=== PATIENT | male | born 1945 | race Caucasian/White ===

== ENCOUNTER → 2020-04-23 10:49 | Outpatient (BNVA) | payer MEDICARE, SELFPAY | PROVIDERS: Family Provider Internal Medicine; PCP Internal Medicine; Visit Provider Internal Medicine Cardiovascular Disease | DX: E78.2 Mixed hyperlipidemia (principal); I25.118 Atherosclerotic heart disease of native coronary artery with other forms of angina pectoris | CPT/HCPCS: 80061; 80076 ==

== ENCOUNTER 2020-05-07 07:49 | Outpatient (CLI) | payer MEDICARE, SELFPAY ==
--- NOTE | 2020-05-07 08:32 | NMCV_ITS ---
NM sukhjinder perf SPECT r/s* [id number] Elliot Lawton Age: 74 Gender: M : 1945 Exam Date: 05/07/2020 08:59 Ordering Phys: Freedom Martinez MD ([email or web address]) Technologist: ANIBAL Guevara Exam Location: [facility] Indications: SHORTNESS OF BREATH STRESS TEST Please [facility] IMAGE PROTOCOL Rest/Stress 1 Lexiscan Day Radiopharmaceutical Dose (mCi) Administration Site Administered by Rest: Tc-99m 10.9 IV ANIBAL Fiore Sestamibi Stress:Tc-99m 33.0 IV ANIBAL Fiore Sestamibi Rest: 07-May-2020 60 Discovery 630 Stress: 07-May-2020 30 Discovery 630 0.4mg Lexiscan. Supine position only as patient was unable to lay prone. SPECT RESULTS Technical Quality: Excellent Raw Data Analysis: Normal Image Corrections: No attenuation or motion correction applied Summed Stress Score: 0 Summed Rest Score: 0 Summed Difference Score: 0 PERFUSION FINDINGS Myocardial perfusion imaging revealing a small area of decreased tracer uptake in the inferior wall region, with no significant reversibility FUNCTIONAL RESULTS (calculated via Gated SPECT) Stress Image LV EF (%): 67 Stress EDV (mL):93 TID: 1.07 Stress ESV (mL):31 FUNCTIONAL FINDINGS: Segmental wall motion analysis revealing no gross wall motion abnormalities IMPRESSIONS 1. Myocardial perfusion imaging revealing a small area of slightly decreased persistent tracer uptake in the inferior wall region, suggestive of myocardial scarring versus attenuation artifact. 2. Normal LV ejection fraction of 67%. 3. LV wall motion analysis revealing no gross wall motion normalities. 4. Normal LV volume. No significant coronary ischemia, based on the above findings Dr Freedom Martinez MD FACC (Electronically Signed) Final Date: 10 May 2020 19:08 S
--- NOTE | 2020-05-07 08:32 | ECG_ITS ---
Test Date: 2020-05-07 Pat Name: Elliot Lawton Department: Room: Gender: Male Chronic Manager: Magnolia Sampson : 1945 Requested By: Freedom Martinez Order Number: [id number] Bennie MD: Freedom Martinez M.D. Interpretive Statements NAME OF STUDY: LEXISCAN SESTAMIBI STRESS TEST INDICATION: Chest Pain, PROCEDURE: At the baseline, the EKG revealed sinus bradycardia with a normal ST-T's. The baseline blood pressure was 119/67 mm Hg with a heart rate of 56 beats/min. Lexiscan was infused over a period of 20 seconds. A total of 0.4 milligrams of Lexiscan was infused. The stress phase was continued for a total of 5 minutes. Heart rate at the end of the stress phase was 67 with a blood pressure 130/53. The EKG at the peak infusion revealed no significant changes. Sestamibi was injected 20 seconds after the Lexiscan infusion. Blood pressure at the end of the recovery phase was 131/56 with a heart rate of 69 per minute. CONCLUSION: 1. No significant EKG changes with the LexiScan infusion 2. No LexiScan induced chest pain or cardiac arrhythmia 3. Normal blood pressure and heart rate response 4. Sestamibi/sestamibi perfusion scan pending; see separate report. Electronically Signed On 05-14-2020 0:40:51 CDT by Freedom Martinez M.D. [email or web address]
[2020-05-07 08:33] VITALS: BMI 33.0
[2020-05-07] MEDS: regadenoson 0.4 Mg/5 ml Syringe IVP (09:44)
[2020-05-07 09:46] VITALS: BP 124/58; PULSE 70
== END 2020-05-07 07:50 | disposition home or self-care (01) ==
PROVIDERS: PCP Internal Medicine; Visit Provider Internal Medicine Cardiovascular Disease
DX: R06.02 Shortness of breath (principal)
CPT/HCPCS: 78452; 93017; A9500; J2785

== ENCOUNTER → 2020-10-26 12:15 | Outpatient (BNVA) | payer MEDICARE, SELFPAY | PROVIDERS: PCP Internal Medicine; Visit Provider Internal Medicine Cardiovascular Disease | DX: E78.2 Mixed hyperlipidemia (principal) | CPT/HCPCS: 80061 ==

== ENCOUNTER → 2021-03-29 10:04 | Outpatient (BNVA) | payer MEDICARE, SELFPAY | PROVIDERS: PCP Internal Medicine; Visit Provider Internal Medicine Cardiovascular Disease | DX: E78.2 Mixed hyperlipidemia (principal) | CPT/HCPCS: 80061 ==

== ENCOUNTER 2021-05-12 12:21 | Outpatient (CLI) | payer MEDICARE, SELFPAY ==
[2021-05-12 13:10] LABS: Basophils # 0.1 10^3/uL (0.0-0.1); Basophils % 0.7 %; Eosinophils # 0.5 10^3/uL (0.0-0.8); Eosinophils % 5.2 %; Hematocrit 38.9 % (42.0-52.0); Hemoglobin 12.4 g/dL (11.7-16.6); Lymphocytes # 1.2 10^3/uL (0.8-4.8); Lymphocytes % 12.9 %; Mean Corpuscular HGB Conc 31.9 g/dL (30.0-36.0); Mean Corpuscular Hemoglobin 29.7 pg (28.0-34.0); Mean Corpuscular Volume 93.1 fL (80-94); Mean Platelet Volume 9.9 fL (7.4-10.4); Monocytes # 0.9 10^3/uL (0.2-0.9); Neutrophils # 6.66 10^3/uL (1.8-7.7); Neutrophils % 70.6 %; Nucleated Red Blood Cells % 0 %; Platelet Count 266 10^3/cmm (130-400); Positive C 1; Red Blood Count 4.18 10^6/uL (4.1-5.3); Red Cell Distribution Width 13.2 % (12.1-15.1); White Blood Count 9.4 10^3/uL (4.0-10.0)
[2021-05-12 13:43] LABS: NT Pro B Type Natriuretic Pept 114 pg/mL (0-450)
[2021-05-13 17:01] LABS: Alternaria Alternata (M6) Ige <0.10 kU/L; Alternaria Class 0; Bermuda Class 0; Bermuda Grass (G2) Ige <0.10 kU/L; Cat Dander (E1) Ige <0.10 kU/L; Cat Dander Class 0; Common Ragweed (Short) (W1) Ig <0.10 kU/L; D. Farinae Class 0; Dermatophagoides Class 0; Dermatophagoides Farinae (D2) <0.10 kU/L; Dermatophagoides Pteronyssinus <0.10 kU/L; Dog Dander (E5) Ige <0.10 kU/L; Dog Dander Class 0; Elm (T8) Ige <0.10 kU/L; Elm Class 0; English Plantain (W9) Ige <0.10 kU/L; English Plantain Class 0; House Dust (Greer) (H1) Ige <0.10 kU/L; House Dust (Hollister- Stier) <0.10 kU/L; House Dust Class 0; Immunoglobulin E 29 kU/L (<OR=114); Immunoglobulin E 30 kU/L (<OR=114); Johnson Grass (G10) Ige <0.10 kU/L; Johnson Grass Cl 0; June Grass Class 0; June Grass(Kentucky Blue) (G8) <0.10 kU/L; Lamb'S Quarters (Goose Foot) <0.10 kU/L; Lamb'S Quarters Class 0; Maple (Box Elder) (T1) Ige <0.10 kU/L; Maple Class 0; Meadow Fescue (G4) Ige <0.10 kU/L; Meadow Fescue Class 0; Mucor Racemosus Class 0; Oak (T7) Ige <0.10 kU/L; Oak Class 0; Orchard Grass (Cocksfoot) (G3) <0.10 kU/L; Penicillium Class 0; Penicillium Notatum (M1) Ige <0.10 kU/L; Perennial Rye Grass (G5) Ige <0.10 kU/L; Perennial Rye Grass Class 0; Ragweeed Class 0; Rough Marsh Elder (W16) Ige <0.10 kU/L; Rough Marsh Elder Class 0; Sweet Vernal Class 0; Sweet Vernal Grass (G1) Ige <0.10 kU/L; Timothy Grass (G6) Ige <0.10 kU/L; Timothy Grass Class 0
[2021-05-14 19:42] LABS: Aspergillus Fumigatus, Igg Ab, 23.6 mg/L (<=102)
== END 2021-05-12 12:22 | disposition home or self-care (01) ==
PROVIDERS: PCP Internal Medicine; Visit Provider Internal Medicine Pulmonary Disease
DX: R06.02 Shortness of breath (principal)
CPT/HCPCS: 36415; 82785; 83880; 85025; 86003

== ENCOUNTER 2021-07-06 09:52 | Outpatient (CLI) | payer MEDICARE, SELFPAY ==
[2021-07-06 12:05] LABS: Erythrocyte Sedimentation Rate 33 mm/hr (0-10)
[2021-07-07 14:12] LABS: Cyclic Citrullinated Peptide <16 UNITS
[2021-07-07 14:57] LABS: Anti-Double Strand DNA AB <1 IU/mL; Smith Antibody <1.0 NEG AI (<1.0 NEG)
[2021-07-07 14:58] LABS: JO-1 Antibody <1.0 NEG AI (<1.0 NEG); SS A Ro Sjogrens Antibody <1.0 NEG AI (<1.0 NEG); SS-B/LA IGG <1.0 NEG AI (<1.0 NEG); Sm/RNP Antibody <1.0 NEG AI (<1.0 NEG)
[2021-07-07 16:23] LABS: Anti-Nuclear Antibody Screen NEGATIVE (NEGATIVE)
== END 2021-07-06 09:53 | disposition home or self-care (01) ==
PROVIDERS: PCP Internal Medicine; Visit Provider Internal Medicine Pulmonary Disease
DX: J98.4 Other disorders of lung (principal)
CPT/HCPCS: 85651; 86038; 86140; 86225; 86235; 86431

== ENCOUNTER 2021-07-19 14:32 | Outpatient (CLI) | payer MEDICARE, SELFPAY ==
--- NOTE | 2021-07-19 15:00 | CT_ITS ---
WS: [id number] CT scan of the chest without IV contrast, additional two-dimensional coronal and sagittal reconstruct ion was performed. 07/19/2021 Clinical Data: To rule out Interstitial lung disease Comparison: Chest, 04/21/2021 DLP: 711.[address] scans at [facility] use at least one of these dose optimization techniques: automated e xposure control; mA and/or kV adjustment per patient size (includes targeted exams where dose is matc hed to clinical indication); or iterative reconstruction. Findings: No nodules, masses or effusions are seen. The heart size is normal with a small pericardial effusion. No pneumonia or pneumothorax is seen. No interstitial lung change is present. There is coronary louis ry calcification. The pulmonary arterial system and thoracic aorta demonstrate no abnormalities or di latations. The trachea bifurcates normally into the bronchi. There is no axillary or significant medi astinal adenopathy. The upper abdomen demonstrates a gallstone. 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 CT/CT chest wo con [id number] Impression: 1. Small pericardial effusion. 2. Coronary artery calcification aeration. 3. Negative for interstitial lung thickening. 4. Gallstone.
== END 2021-07-19 14:33 | disposition home or self-care (01) ==
PROVIDERS: PCP Internal Medicine; Visit Provider Internal Medicine Pulmonary Disease
DX: J98.4 Other disorders of lung (principal); I31.3 Pericardial effusion (noninflammatory); I25.10 Atherosclerotic heart disease of native coronary artery without angina pectoris; K80.80 Other cholelithiasis without obstruction
CPT/HCPCS: 71250

== ENCOUNTER → 2021-08-11 13:16 | Outpatient (BNVA) | payer MEDICARE, SELFPAY | PROVIDERS: PCP Internal Medicine; Visit Provider Internal Medicine Pulmonary Disease | DX: Z01.812 Encounter for preprocedural laboratory examination (principal); Z20.822 Contact with and (suspected) exposure to COVID-19 | CPT/HCPCS: 87635 ==

== ENCOUNTER 2021-08-17 13:47 | Outpatient (CLI) | payer MEDICARE, SELFPAY ==
--- NOTE | 2021-08-17 14:26 | PFTS_ITS ---
Date of Study:08/17/21 Date of Dictation: MECHANICS: Forced vital capacity (FVC) is normal. Forced expiratory volume in one second (FEV1) is reduced. FEV1/FVC is reduced. FLOW VOLUME LOOP: Reduced flow at all lung volumes with scooping. LUNG VOLUMES: Total lung capacity (TLC) is normal. Residual volume (RV) is increased. DIFFUSING CAPACITY FOR CARBON MONOXIDE: Mild reduced. INTERPRETATION: The pulmonary function tests are consistent with moderate airflow obstruction. There is no significant postbronchodilator response. There is evidence of paradoxical bronchospasm during postbronchodilator spirometry however this had not reached status tickle significance. Lung volumes are consistent with air trapping. Gas exchange (DLCO) is mildly reduced. MTDD
== END 2021-08-17 13:48 | disposition home or self-care (01) ==
LOC: RT 13:52
PROVIDERS: PCP Internal Medicine; Visit Provider Internal Medicine Pulmonary Disease
DX: J98.4 Other disorders of lung (principal)
CPT/HCPCS: 94060; 94726; 94729

== ENCOUNTER 2021-08-26 15:32 | Emergency (ER) | payer MEDICARE, SELFPAY ==
[2021-08-26 15:36] VITALS: BP 89/55; PULSE 78; RESP 16; TEMP 36.4; O2SAT 100; BMI 31.8
[2021-08-26 15:54] VITALS: BP 94/47; PULSE 67; RESP 10; TEMP 36.5; O2SAT 97
--- NOTE | 2021-08-26 15:57 | PC.NURSE ---
Pt arrived via POV from eye clinic with . states pt was at his eye appt when staff noticed his gaze change, pt then became unresponsive while staff asking questions. Per staff at clinic pt had a LOC for approximately 30 seconds, with pt having 1 emesis episode after. Pt denies any pain, reports a slight LUTZ on arrival to ER but not currently. Pt A/O x 4, vss, pt placed on monitor.
--- NOTE | 2021-08-26 16:02 | XR_ITS ---
WS: [id number] Portable AP upright chest, 08/26/2021 Clinical Data: syncope Comparison: PA and lateral chest, 04/21/2021. Findings: No nodules, masses or effusions are seen. The heart is normal. The pulmonary vascularity is not increased. No pneumonia or pneumothorax is seen. Monitor leads are on the chest wall. XR/XR chest 1V portable [id number] Impression: Negative chest.
--- NOTE | 2021-08-26 16:02 | CTR_ITS ---
PROCEDURE INFORMATION: Exam: CT Head Without Contrast Exam date and time: 08/26/2021 4:02 PM Age: 75 years old Clinical indication: Syncope and collapse TECHNIQUE: Imaging protocol: Computed tomography of the head without contrast. Total images: 212 Radiation optimization: All CT scans at this facility use at least one of these dose optimization techniques: automated exposure control; mA and/or kV adjustment per patient size (includes targeted exams where dose is matched to clinical indication); or iterative reconstruction. COMPARISON: CT head wo con* [id number] 01/09/2019 4:33 PM RADIATION DOSE METRICS: Total DLP (mGy-cm): 972.24 FINDINGS: Brain: No evidence of active or acute intracranial pathologic process, hemorrhage, or trauma. No visible evidence of diffuse cerebral edema or generalized demyelination. No hyperdense MCA or insular ribbon sign. No mass effect. No midline shift. Atrophic changes not inconsistent with the patient's chronological age. Mild cerebral arteriosclerosis. Cerebral ventricles: No ventriculomegaly. Paranasal sinuses: Visualized sinuses are unremarkable. No fluid levels. Mastoid air cells: Visualized mastoid air cells are well aerated. Bones/joints: Unremarkable. No acute fracture. Soft tissues: Unremarkable. CT/CT head wo con* [id number] IMPRESSION: No evidence of active or acute intracranial pathologic process, hemorrhage, or trauma. Radiation Dose CTDIVOL = (mGy): DLP = 972.24 (mGy-cm)
--- NOTE | 2021-08-26 16:02 | ECG_ITS ---
[facility] Test Date: 2021-08-26 Pat Name: Elliot Lawton Department: Room: Gender: Male Invasive Manager: : 1945 Requested By: Anders Scott Order Number: [id number] Bennie MD: Freedom Martinez M.D. Measurements Intervals Cameron Rate: 66 P: 9 IL: 168 QRS: 34 QRSD: 98 T: 40 QT: 394 QTc: 416 Interpretive Statements SINUS RHYTHM Compared to ECG 01/09/2019 15:33:36 No significant changes Electronically Signed On 08-26-2021 22:45:58 LUDLOW MACHINE OPERATOR by Freedom Martinez M.D. [id number]
--- NOTE | 2021-08-26 16:03 | W.ED.SYNCOPE ---
Documented by User: Anders Scott MD 08/26/21 18:09 HPI - Syncope General: Chief Complaint: Syncope Stated Complaint: Vomiting & Unresponsive at dr Gatica office Time Seen by Provider: 08/26/21 15:56 History of Present Illness: HPI narrative: 75-year-old male with history of diabetes and hypertension presents due to syncopal episode while at the eye doctor. According to staff he became unconscious for approximately 30 seconds. This was while sitting down. He did not complain of any pain. When he woke up did not realize that he had passed out. Denies any focal pain. Denies any focal numbness weakness or tingling. Denies vision or hearing change. States that recently his diabetes medications were changed blood sugar upon arrival was in the 200s. States he normally has high blood pressure and take blood pressure medication but blood pressure upon arrival was 89/55. Review of Systems Narrative: - CONSTITUTIONAL: Denies weight loss, fever and chills. - HEENT: Denies changes in vision and hearing. - RESPIRATORY: Denies SOB and cough. - CV: Denies palpitations and CP. - GI: Denies abdominal pain, nausea, vomiting and diarrhea. - : Denies dysuria and urinary frequency. - MSK: Denies myalgia and joint pain. - SKIN: Denies rash and pruritus. - NEUROLOGICAL: Denies headache, weakness, numbness. 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 No acute distress. Well-nourished. - EYES: EOMI. Anicteric. - HENT: Atraumatic, no C-spine tenderness. Moist mucous membranes. No scleral icterus. No cervical lymphadenopathy. - LUNGS: Clear to auscultation bilaterally. No accessory muscle use. Equal lung sounds bilaterally. No respiratory distress. - CARDIOVASCULAR: Regular rate and rhythm. No murmur. No JVD. - ABDOMEN: Soft, non-tender and non-distended. Negative CVA tenderness bilaterally, no rebound or guarding, negative Licona sign. No palpable masses. - EXTREMITIES: No edema. Non-tender. - SKIN: No rashes or lesions. Warm. - NEUROLOGIC: No meningismus or focal neurological deficits. CN II-XII grossly intact. - PSYCHIATRIC: Cooperative. Appropriate mood and affect. Course Vital Signs: Vital signs: Vital Signs Temperature 97.7 F 08/26/21 15:54 Pulse Rate 67 08/26/21 15:54 Respiratory Rate 10 L 08/26/21 15:54 Blood Pressure 94/47 08/26/21 15:54 Pulse Oximetry 97 08/26/21 15:54 MDM - Syncope MDM Narrative: Medical decision making narrative: 75-year-old male presents with syncopal episode while at the responder office. Normally has high blood pressure but blood pressure upon arrival is in the 80s over 50s. Improved with gentle fluid hydration. EKG does not send acute ischemia or other acute abnormality but initial high-sensitivity troponin is elevated to 60s. Creatinine is elevated 1.5. No previous troponins are available for comparison. Second troponin is pending. Patient denies any chest pain or shortness of breath however. However due to low blood pressure initially despite history of hypertension however this improved with IV fluids. This time he continues to be asymptomatic. Second troponin is currently pending. Patient signed out to Dr. Painter. Lab Data: Labs: Lab Results 08/26/21 08/26/21 08/26/21 15:46 15:46 15:46 WBC 8.2 10^3/uL 10^3/ uL (4.0-10.0) RBC 4.16 10^6/uL 10^6 /uL (4.1-5.3) Hgb 12.2 g/dL g/dL (11.7-16.6) Hct 37.9 % L % (42.0-52.0) MCV 91.1 fl fl (80-94) MCH 29.3 pg pg (28.0-34.0) MCHC 32.2 g/dL g/dL (30.0-36.0) RDW 13.8 % % (12.1-15.1) Plt Count 255 10^3/cmm 10^3 /cmm (130-400) MPV 10.1 fL fL (7.4-10.4) Neut % (Auto) 73.0 % % Lymph % (Auto) 14.4 % % Garrett % (Auto) 9.3 % % Eos % (Auto) 2.0 % % Baso % (Auto) 0.6 % % Neut # (Auto) 5.97 10^3/uL 10^3 /uL (1.8-7.7) Lymph # (Auto) 1.2 10^3/uL 10^3/ uL (0.8-4.8) Garrett # (Auto) 0.8 10^3/uL 10^3/ uL (0.2-0.9) Eos # (Auto) 0.2 10^3/uL 10^3/ uL (0.0-0.8) Baso # (Auto) 0.1 10^3/uL 10^3/ uL (0.0-0.1) Nucleated RBC % (a uto) 0 % % Nucleated RBCs # 0.0 /100WBC /100W BC Sodium 132 mmol/L L mmol /L (136-145) Potassium 4.2 mmol/L mmol/L (3.5-5.1) Chloride 91 mmol/L L mmol/ L (98-107) Carbon Dioxide 23 mmol/L mmol/L (22-29) Anion Gap 22.2 H (5-19) BUN 21 mg/dL mg/dL (8-23) Creatinine 1.5 mg/dL H mg/dL (0.7-1.2) GFR Calculation Not Reportable Glucose 168 mg/dL H mg/dL (65-115) POC Glucose Calculated Osmolal ity 281 mOsm/kg L mOs m/kg (285-295) Calcium 9.6 mg/dL mg/dL (8.5-10.5) Total Bilirubin 0.4 mg/dL mg/dL (0.15-1.2) AST 16 U/L U/L (0-40) ALT 17 U/L U/L (0-41) Alkaline Phosphata se 93 IU/L IU/L (40-130) Troponin T Baselin e 63 ng/L H ng/L (0-15) Troponin T 120 Min lencho Delta Troponin T NT-Pro-B Natriuret Pep 109 pg/mL pg/mL (0-450) Total Protein 7.0 g/dL g/dL (6.6-8.7) Albumin 3.8 g/dL g/dL (3.5-5.2) Globulin 3.2 g/dL g/dL (1.3-4.6) TSH 4.31 uIU/mL H uIU /mL (0.27-4.20) Free T4 1.18 ng/dL ng/dL (0.82-1.77) Urine Color Urine Appearance Urine pH Ur Specific Gravit y Urine Protein Urine Glucose (UA) Urine Ketones Urine Blood Urine Nitrate Urine Bilirubin Urine Urobilinogen Ur Leukocyte Alfreda ase Urine RBC Urine WBC Ur Squamous Epith Cells Amorphous Sediment Urine Bacteria Urine Mucus 08/26/21 08/26/21 08/26/21 16:04 18:11 18:45 WBC RBC Hgb Hct MCV MCH MCHC RDW Plt Count MPV Neut % (Auto) Lymph % (Auto) Garrett % (Auto) Eos % (Auto) Baso % (Auto) Neut # (Auto) Lymph # (Auto) Garrett # (Auto) Eos # (Auto) Baso # (Auto) Nucleated RBC % (a uto) Nucleated RBCs # Sodium Potassium Chloride Carbon Dioxide Anion Gap BUN Creatinine GFR Calculation Glucose POC Glucose 209 mg/dL H mg/dL (70-110) Calculated Osmolal ity Calcium Total Bilirubin AST ALT Alkaline Phosphata se Troponin T Baselin e Troponin T 120 Min lencho 51.13 ng/L H ng/L (0-15) Delta Troponin T -11.87 ABS# L ABS # (0-10) NT-Pro-B Natriuret Pep Total Protein Albumin Globulin TSH Free T4 Urine Color Yellow (Yellow) Urine Appearance Cloudy (CLEAR) Urine pH 6.5 (5-7) Ur Specific Gravit y 1.005 (1.005-1.030) Urine Protein Neg (Negative) Urine Glucose (UA) 4+ H (Normal) Urine Ketones Negative (Negative) Urine Blood 2+ H (Negative) Urine Nitrate Negative (Negative) Urine Bilirubin Neg (Negative) Urine Urobilinogen Norm mg/dL mg/dL (Negative) Ur Leukocyte Alfreda ase 2+ H (Negative) Urine RBC 0-4 /hpf H /hpf (0-2) Urine WBC Too numerous to c nt /hpf H /hpf (0-5) Ur Squamous Epith Cells 5-10 /hpf H /hpf (0-5) Amorphous Sediment Not Reportable Urine Bacteria 2+ /hpf H /hpf (NONE) Urine Mucus 1+ /hpf /hpf EKG Data^: EKG 1: Other EKG Comments: Sinus rhythm, rate of 66, no sign of acute ischemia or other acute abnormality. Discharge Plan Discharge Patient Disposition: Home Clinical Impression: Syncope, Acute cystitis Condition: Stable Prescriptions: New cephalexin 500 mg capsule 500 mg PO TID 7 Days Qty: 21 RF: 0 No Action multivitamin Tablet 1 tab PO DAILY RF: 0 garlic 500 mg capsule 1,000 mg PO DAILY RF: 0 aspirin 325 mg tablet,delayed release (DR/EC) 325 mg PO DAILY RF: 0 metformin 1,000 mg tablet 1,000 mg PO BID RF: 0 pyridoxine (vitamin B6) 100 mg tablet 100 mg PO DAILY RF: 0 isosorbide mononitrate 60 mg tablet extended release 24 hr 60 mg PO BID RF: 0 cranberry 500 mg capsule 500 mg PO DAILY RF: 0 budesonide-formoterol [Symbicort] 80-4.5 mcg/actuation HFA aerosol inhaler 2 puff inhalation BID Qty: 10.2 RF: 3 chlorthalidone 25 mg tablet 25 mg PO DAILY RF: 0 metoprolol succinate [Toprol XL] 25 mg tablet extended release 24 hr 25 mg PO DAILY Qty: 90 RF: 3 nitroglycerin [Nitrostat] 0.4 mg tablet, sublingual 0.4 mg SUBLINGUAL Q5M PRN (Reason: chest pain) Qty: 50 RF: 5 gabapentin 600 mg tablet 600 mg PO TID RF: 0 Jardiance 10 mg tablet 10 mg PO QAM RF: 0 atorvastatin 80 mg tablet 80 mg PO DAILY RF: 0 clopidogrel 75 mg tablet 75 mg PO DAILY RF: 0 tamsulosin 0.4 mg capsule 0.4 mg PO QAM RF: 0 amlodipine 10 mg tablet 10 mg PO DAILY RF: 0 lisinopril 40 mg tablet 40 mg PO BEDTIME RF: 0 finasteride 5 mg tablet 5 mg PO DAILY RF: 0 Discharge Orders: Discharge ED (Routine); Ordered 08/26/21 Ordered By: Dulce Maria Painter Referrals: Hong Rangel DO [Primary Care Provider] - 1-3 days Discharge Diet: Advance as tolerated Discharge Activity: Resume usual activity Patient Instructions: Syncope (ED) Coding Level of Care Code ED Truck Driver Supervisor for Chg Fwd Documented by User: Dulce Maria Painter MD 08/26/21 19:51 HPI - Syncope General: Chief Complaint: Syncope Stated Complaint: Vomiting & Unresponsive at dr Gatica office Time Seen by Provider: 08/26/21 15:56 PFSH ED PFSH: Medical History 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 CAD (coronary artery disease) DDD (degenerative disc disease) Hyperlipidemia Hypertension Polyuria 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 stricture SOB (shortness of breath) Surgical History H/O laminectomy H/O rotator cuff surgery H/O vasectomy S/P cataract surgery Family History Mother Cancer Father Diabetes Brother Diabetes Family/Other Suicide Social History Quit status (tobacco): has quit using tobacco Former quit date comment: 1ppd x 3 years as teenager Second hand smoke exposure: Yes Alcohol intake: current Course Vital Signs: Vital signs: Vital Signs Temperature 97.7 F 08/26/21 15:54 Pulse Rate 67 08/26/21 15:54 Respiratory Rate 10 L 08/26/21 15:54 Blood Pressure 94/47 08/26/21 15:54 Pulse Oximetry 97 08/26/21 15:54 MDM - Syncope MDM Narrative: Medical decision making narrative: Patient presents with a syncopal event likely a vagal episode he feels improved blood pressure has been normal 2-hour troponin is normal he is stable for discharge he is to follow-up his PCP and return if worsening he understands agrees to plan. Lab Data: Labs: Lab Results 08/26/21 08/26/21 08/26/21 15:46 15:46 15:46 WBC 8.2 10^3/uL 10^3/ uL (4.0-10.0) RBC 4.16 10^6/uL 10^6 /uL (4.1-5.3) Hgb 12.2 g/dL g/dL (11.7-16.6) Hct 37.9 % L % (42.0-52.0) MCV 91.1 fl fl (80-94) MCH 29.3 pg pg (28.0-34.0) MCHC 32.2 g/dL g/dL (30.0-36.0) RDW 13.8 % % (12.1-15.1) Plt Count 255 10^3/cmm 10^3 /cmm (130-400) MPV 10.1 fL fL (7.4-10.4) Neut % (Auto) 73.0 % % Lymph % (Auto) 14.4 % % Garrett % (Auto) 9.3 % % Eos % (Auto) 2.0 % % Baso % (Auto) 0.6 % % Neut # (Auto) 5.97 10^3/uL 10^3 /uL (1.8-7.7) Lymph # (Auto) 1.2 10^3/uL 10^3/ uL (0.8-4.8) Garrett # (Auto) 0.8 10^3/uL 10^3/ uL (0.2-0.9) Eos # (Auto) 0.2 10^3/uL 10^3/ uL (0.0-0.8) Baso # (Auto) 0.1 10^3/uL 10^3/ uL (0.0-0.1) Nucleated RBC % (a uto) 0 % % Nucleated RBCs # 0.0 /100WBC /100W BC Sodium 132 mmol/L L mmol /L (136-145) Potassium 4.2 mmol/L mmol/L (3.5-5.1) Chloride 91 mmol/L L mmol/ L (98-107) Carbon Dioxide 23 mmol/L mmol/L (22-29) Anion Gap 22.2 H (5-19) BUN 21 mg/dL mg/dL (8-23) Creatinine 1.5 mg/dL H mg/dL (0.7-1.2) GFR Calculation Not Reportable Glucose 168 mg/dL H mg/dL (65-115) POC Glucose Calculated Osmolal ity 281 mOsm/kg L mOs m/kg (285-295) Calcium 9.6 mg/dL mg/dL (8.5-10.5) Total Bilirubin 0.4 mg/dL mg/dL (0.15-1.2) AST 16 U/L U/L (0-40) ALT 17 U/L U/L (0-41) Alkaline Phosphata se 93 IU/L IU/L (40-130) Troponin T Baselin e 63 ng/L H ng/L (0-15) Troponin T 120 Min lencho Delta Troponin T NT-Pro-B Natriuret Pep 109 pg/mL pg/mL (0-450) Total Protein 7.0 g/dL g/dL (6.6-8.7) Albumin 3.8 g/dL g/dL (3.5-5.2) Globulin 3.2 g/dL g/dL (1.3-4.6) TSH 4.31 uIU/mL H uIU /mL (0.27-4.20) Free T4 1.18 ng/dL ng/dL (0.82-1.77) Urine Color Urine Appearance Urine pH Ur Specific Gravit y Urine Protein Urine Glucose (UA) Urine Ketones Urine Blood Urine Nitrate Urine Bilirubin Urine Urobilinogen Ur Leukocyte Alfreda ase Urine RBC Urine WBC Ur Squamous Epith Cells Amorphous Sediment Urine Bacteria Urine Mucus 08/26/21 08/26/21 08/26/21 16:04 18:11 18:45 WBC RBC Hgb Hct MCV MCH MCHC RDW Plt Count MPV Neut % (Auto) Lymph % (Auto) Garrett % (Auto) Eos % (Auto) Baso % (Auto) Neut # (Auto) Lymph # (Auto) Garrett # (Auto) Eos # (Auto) Baso # (Auto) Nucleated RBC % (a uto) Nucleated RBCs # Sodium Potassium Chloride Carbon Dioxide Anion Gap BUN Creatinine GFR Calculation Glucose POC Glucose 209 mg/dL H mg/dL (70-110) Calculated Osmolal ity Calcium Total Bilirubin AST ALT Alkaline Phosphata se Troponin T Baselin e Troponin T 120 Min lencho 51.13 ng/L H ng/L (0-15) Delta Troponin T -11.87 ABS# L ABS # (0-10) NT-Pro-B Natriuret Pep Total Protein Albumin Globulin TSH Free T4 Urine Color Yellow (Yellow) Urine Appearance Cloudy (CLEAR) Urine pH 6.5 (5-7) Ur Specific Gravit y 1.005 (1.005-1.030) Urine Protein Neg (Negative) Urine Glucose (UA) 4+ H (Normal) Urine Ketones Negative (Negative) Urine Blood 2+ H (Negative) Urine Nitrate Negative (Negative) Urine Bilirubin Neg (Negative) Urine Urobilinogen Norm mg/dL mg/dL (Negative) Ur Leukocyte Alfreda ase 2+ H (Negative) Urine RBC 0-4 /hpf H /hpf (0-2) Urine WBC Too numerous to c nt /hpf H /hpf (0-5) Ur Squamous Epith Cells 5-10 /hpf H /hpf (0-5) Amorphous Sediment Not Reportable Urine Bacteria 2+ /hpf H /hpf (NONE) Urine Mucus 1+ /hpf /hpf Discharge Plan Discharge Patient Disposition: Home Clinical Impression: Syncope, Acute cystitis Condition: Stable Prescriptions: New cephalexin 500 mg capsule 500 mg PO TID 7 Days Qty: 21 RF: 0 No Action multivitamin Tablet 1 tab PO DAILY RF: 0 garlic 500 mg capsule 1,000 mg PO DAILY RF: 0 aspirin 325 mg tablet,delayed release (DR/EC) 325 mg PO DAILY RF: 0 metformin 1,000 mg tablet 1,000 mg PO BID RF: 0 pyridoxine (vitamin B6) 100 mg tablet 100 mg PO DAILY RF: 0 isosorbide mononitrate 60 mg tablet extended release 24 hr 60 mg PO BID RF: 0 cranberry 500 mg capsule 500 mg PO DAILY RF: 0 budesonide-formoterol [Symbicort] 80-4.5 mcg/actuation HFA aerosol inhaler 2 puff inhalation BID Qty: 10.2 RF: 3 chlorthalidone 25 mg tablet 25 mg PO DAILY RF: 0 metoprolol succinate [Toprol XL] 25 mg tablet extended release 24 hr 25 mg PO DAILY Qty: 90 RF: 3 nitroglycerin [Nitrostat] 0.4 mg tablet, sublingual 0.4 mg SUBLINGUAL Q5M PRN (Reason: chest pain) Qty: 50 RF: 5 gabapentin 600 mg tablet 600 mg PO TID RF: 0 Jardiance 10 mg tablet 10 mg PO QAM RF: 0 atorvastatin 80 mg tablet 80 mg PO DAILY RF: 0 clopidogrel 75 mg tablet 75 mg PO DAILY RF: 0 tamsulosin 0.4 mg capsule 0.4 mg PO QAM RF: 0 amlodipine 10 mg tablet 10 mg PO DAILY RF: 0 lisinopril 40 mg tablet 40 mg PO BEDTIME RF: 0 finasteride 5 mg tablet 5 mg PO DAILY RF: 0 Discharge Orders: Discharge ED (Routine); Ordered 08/26/21 Ordered By: Dulce Maria Painter Referrals: Hong Rangel DO [Primary Care Provider] - 1-3 days Discharge Diet: Advance as tolerated Discharge Activity: Resume usual activity Patient Instructions: Syncope (ED) Coding Level of Care Code ED Truck Driver Supervisor for Ignacio Gomez
[2021-08-26 16:08] LABS: Glucose Point of Care 209 mg/dL (70-110)
[2021-08-26 16:23] LABS: Basophils # 0.1 10^3/uL (0.0-0.1); Basophils % 0.6 %; Eosinophils # 0.2 10^3/uL (0.0-0.8); Hematocrit 37.9 % (42.0-52.0); Hemoglobin 12.2 g/dL (11.7-16.6); Lymphocytes # 1.2 10^3/uL (0.8-4.8); Lymphocytes % 14.4 %; Mean Corpuscular HGB Conc 32.2 g/dL (30.0-36.0); Mean Corpuscular Hemoglobin 29.3 pg (28.0-34.0); Mean Corpuscular Volume 91.1 fl (80-94); Mean Platelet Volume 10.1 fL (7.4-10.4); Monocytes # 0.8 10^3/uL (0.2-0.9); Monocytes % 9.3 %; Neutrophils # 5.97 10^3/uL (1.8-7.7); Nucleated Red Blood Cells % 0 %; Platelet Count 255 10^3/cmm (130-400); Red Blood Count 4.16 10^6/uL (4.1-5.3); Red Cell Distribution Width 13.8 % (12.1-15.1); White Blood Count 8.2 10^3/uL (4.0-10.0)
[2021-08-26 16:30] LABS: Troponin(5th) Baseline 63 ng/L (0-15)
[2021-08-26 16:40] LABS: Alanine Aminotransferase 17 U/L (0-41); Albumin Level 3.8 g/dL (3.5-5.2); Alkaline Phosphatase 93 IU/L (40-130); Anion Gap 22.2 (5-19); Aspartate Amino Transferase 16 U/L (0-40); Blood Urea Nitrogen 21 mg/dL (8-23); Calcium 9.6 mg/dL (8.5-10.5); Carbon Dioxide 23 mmol/L (22-29); Chloride 91 mmol/L (98-107); Free T4 Free Thyroxine 1.18 ng/dL (0.82-1.77); Globulin 3.2 g/dL (1.3-4.6); Glucose 168 mg/dL (65-115); NT Pro B Type Natriuretic Pept 109 pg/mL (0-450); Osmolality Calculated 281 mOsm/kg (285-295); Potassium 4.2 mmol/L (3.5-5.1); Sodium 132 mmol/L (136-145); Thyroid Stimulating Hormone 4.31 uIU/mL (0.27-4.20); Total Bilirubin 0.4 mg/dL (0.15-1.2)
[2021-08-26] MEDS: sodium chloride 0.9% 500 ML 999 ML IV (16:42)
[2021-08-26 18:46] LABS: Troponin 5 2HR 51.13 ng/L (0-15)
[2021-08-26 19:13] LABS: Protein Urine Neg (Negative); Specific Gravity, Urine 1.005 (1.005-1.030); Urine Appearance Cloudy (CLEAR); Urine Color Yellow (Yellow); pH Urine 6.5 (5-7)
[2021-08-26 19:14] LABS: Bilirubin Urine Neg (Negative); Blood Urine 2+ (Negative); Glucose Urine UA 4+ (Normal); Ketones Urine Negative (Negative); Leukocyte Esterase Urine 2+ (Negative); Nitrate Urine Negative (Negative); Urobilinogen Urine Norm (Negative)
[2021-08-26 19:15] LABS: RBC Urine 0-4 /hpf (0-2)
[2021-08-26 19:16] LABS: Bacteria Urine 2+ /hpf; Mucus Urine 1+ /hpf; WBC Urine TOO NUMEROUS TO CNT /hpf (0-5)
[2021-08-26 19:17] LABS: Add Urine Culture? Yes
== END 2021-08-26 19:57 | disposition home or self-care (01) ==
PROVIDERS: Emergency Medicine; Emergency Provider Emergency Medicine; PCP Internal Medicine
DX: R55 Syncope and collapse (principal); N30.00 Acute cystitis without hematuria; Z79.84 Long term (current) use of oral hypoglycemic drugs; Z79.02 Long term (current) use of antithrombotics/antiplatelets; Z79.82 Long term (current) use of aspirin; I25.10 Atherosclerotic heart disease of native coronary artery without angina pectoris; E78.5 Hyperlipidemia, unspecified; I10 Essential (primary) hypertension; Z87.891 Personal history of nicotine dependence
CPT/HCPCS: 36416; 70450; 71045; 80053; 81001; 82962; 83880; 84439; 84443; 84484; 85025; 87086; 93005; 99283; J7040

== ENCOUNTER → 2021-09-28 08:28 | Outpatient (BNVA) | payer MEDICARE, SELFPAY | PROVIDERS: PCP Internal Medicine; Visit Provider Internal Medicine Cardiovascular Disease | DX: E78.2 Mixed hyperlipidemia (principal) | CPT/HCPCS: 80061 ==

== ENCOUNTER → 2022-01-07 09:51 | Outpatient (BNVA) | payer MEDICARE, SELFPAY | PROVIDERS: PCP Internal Medicine; Visit Provider Internal Medicine Pulmonary Disease | DX: I25.10 Atherosclerotic heart disease of native coronary artery without angina pectoris (principal); I31.3 Pericardial effusion (noninflammatory); J44.9 Chronic obstructive pulmonary disease, unspecified; J98.4 Other disorders of lung; R06.00 Dyspnea, unspecified; E87.5 Hyperkalemia; I10 Essential (primary) hypertension; Z87.891 Personal history of nicotine dependence | CPT/HCPCS: 99214 ==

== ENCOUNTER 2022-01-19 12:15 | Outpatient (CLI) | payer MEDICARE, SELFPAY ==
--- NOTE | 2022-01-19 13:00 | USCV_ITS ---
Elliot Lawton Age: 76 Gender: M : 1945 Exam Date: 01/19/2022 12:30 Ordering Phys: Sumeet Dick MD Technologist: Exam [place] [facility] [place]: ? per eff BP: 130 / 76 HR: 65 Rhythm: Sinus Technical Quality: Adequate MEASUREMENTS (Male / Female) Normal Values 2D ECHO LV Diastolic Diameter PLAX 4.3 cm 4.2 - 5.9 / 3.9 - 5.3 cm LV Systolic Diameter PLAX 3.1 cm IVS Diastolic Thickness 1.2 cm 0.6 - 1.0 / 0.6 - 0.9 cm IVS Systolic Thickness 1.6 cm LVPW Diastolic Thickness 1.2 cm 0.6 - 1.0 / 0.6 - 0.9 cm LVPW Systolic Thickness 1.4 cm LVOT Diameter 2.1 cm LV Ejection Fraction 2D Teich 53.6 % LV Ejection Fraction MOD 2C 64.4 % LV Ejection Fraction 2C AL 63.2 % LA Diameter 4.3 cm Aorta at Sinotubular Diameter 3.0 cm M-MODE Aortic Annulus Diameter 2.7 cm LA Ao Ratio MM 1.9 MV E Point Septal Separation 1.0 cm DOPPLER AV Peak Velocity 120.0 cm/s LVOT Peak Velocity 93.0 cm/s AV Area Cont Eq vti 3.4 cm squared AV Area Cont Eq pk 2.7 cm squared MV Area PHT 5.0 cm squared Mitral E to A Ratio 0.8 MV E' Velocity 41.0 cm/s Mitral E to MV E' Ratio 13.1 Mitral E to LV E' Lateral Ratio 12.7 Mitral E to LV E' Septal Ratio 13.8 TR Peak Velocity 116.0 cm/s TR Peak Gradient 5.4 mmHg TV Peak E Velocity 71.0 cm/s Right Atrial Pressure 3.0 mmHg Pulmonary Artery Systolic Pressu 8.4 mmHg PV Peak Velocity 93.0 cm/s FINDINGS Left Ventricle Normal left ventricular size and systolic function, EF 60 %( visual). Mild left ventricular hypertrophy. Grade I/IV diastolic dysfunction (abnormal relaxation filling pattern), normal to mildly elevated filling pressures. Hypokinetic basal inferior wall segment Right Ventricle The right ventricle is normal in size and function. Right Atrium The right atrium is normal in size. Left Atrium The left atrium is normal in size. Mitral Valve Thickened mitral valve. Mild mitral annular calcification. Aortic Valve Thickened aortic valve. Tricuspid Valve No gross abnormalities noted Pulmonic Valve Pulmonic valve not well visualized. Pericardium Normal pericardium without effusion. Aorta Normal ascending aorta dimension. CONCLUSIONS Normal left ventricular size and systolic function, EF 60 % ( visual). Mild left ventricular hypertrophy. Grade I/IV diastolic dysfunction (abnormal relaxation filling pattern), normal to mildly elevated filling pressures. Wall motion of normality as mentioned above Thickened mitral valve. Mild mitral annular calcification. Thickened aortic valve. No significant stenotic or regurgitant lesions. There is no pericardial effusion. There are no intracardiac masses. Compared to the previous study from 03/02/2015, the ejection fraction appears to have improved Dr Freedom Martinez MD [facility] (Electronically Signed) Final Date: 21 January 2022 08:36 S
== END 2022-01-19 12:16 | disposition home or self-care (01) ==
LOC: RAD 12:18
PROVIDERS: PCP Internal Medicine; Visit Provider Internal Medicine Pulmonary Disease
DX: I31.3 Pericardial effusion (noninflammatory) (principal); I08.0 Rheumatic disorders of both mitral and aortic valves
CPT/HCPCS: 93306

== ENCOUNTER 2022-04-04 08:25 | Outpatient (CLI) | payer MEDICARE, SELFPAY ==
[2022-04-04 09:18] LABS: Chol HDL Ratio 3.07 mg/dL (1.0-5.00); Cholesterol 129 mg/dL (0-200); HDL Cholesterol 42 mg/dL (60-100); LDL Cholesterol Calculated 61 mg/dL (50-129); LDL HDL Ratio 1.45 RATIO (0.00-3.22); Triglycerides 131 mg/dL (0-150)
== END 2022-04-04 08:26 | disposition home or self-care (01) ==
LOC: LAB 08:27
PROVIDERS: PCP Internal Medicine; Visit Provider Internal Medicine Cardiovascular Disease
DX: E78.2 Mixed hyperlipidemia (principal)
CPT/HCPCS: 36415; 80061

== ENCOUNTER → 2022-04-11 10:27 | Outpatient (BNVA) | payer MEDICARE, SELFPAY | PROVIDERS: PCP Internal Medicine; Visit Provider Internal Medicine Pulmonary Disease | DX: J44.9 Chronic obstructive pulmonary disease, unspecified (principal); R06.00 Dyspnea, unspecified; I25.10 Atherosclerotic heart disease of native coronary artery without angina pectoris; J98.4 Other disorders of lung; Z87.891 Personal history of nicotine dependence; E78.5 Hyperlipidemia, unspecified; I10 Essential (primary) hypertension | CPT/HCPCS: 99214 ==

== ENCOUNTER → 2022-07-19 10:11 | Outpatient (BNVA) | payer MEDICARE, SELFPAY | PROVIDERS: PCP Internal Medicine; Visit Provider Internal Medicine Cardiovascular Disease | DX: I25.10 Atherosclerotic heart disease of native coronary artery without angina pectoris (principal); I10 Essential (primary) hypertension; Z87.891 Personal history of nicotine dependence; E78.2 Mixed hyperlipidemia; J44.9 Chronic obstructive pulmonary disease, unspecified | CPT/HCPCS: 99214 ==

== ENCOUNTER → 2022-08-11 10:48 | Outpatient (BNVA) | payer BC, SELFPAY | PROVIDERS: PCP Family Medicine; Visit Provider Nurse Practitioner Family | DX: N40.1 Benign prostatic hyperplasia with lower urinary tract symptoms (principal); N13.8 Other obstructive and reflux uropathy; R30.0 Dysuria; R33.9 Retention of urine, unspecified; N99.114 Postprocedural urethral stricture, male, unspecified | CPT/HCPCS: 81003 ==

== ENCOUNTER → 2022-10-04 13:02 | Outpatient (BNVA) | payer MEDICARE, SELFPAY | PROVIDERS: PCP Family Medicine; Visit Provider Internal Medicine Pulmonary Disease | DX: J44.9 Chronic obstructive pulmonary disease, unspecified (principal); R06.00 Dyspnea, unspecified; I25.10 Atherosclerotic heart disease of native coronary artery without angina pectoris; J98.4 Other disorders of lung | CPT/HCPCS: 99214 ==

== ENCOUNTER → 2022-10-27 15:27 | Outpatient (BNVA) | payer MEDICARE, SELFPAY | PROVIDERS: PCP Family Medicine; Visit Provider Urology | DX: N40.1 Benign prostatic hyperplasia with lower urinary tract symptoms (principal); N13.8 Other obstructive and reflux uropathy; N99.114 Postprocedural urethral stricture, male, unspecified; R30.0 Dysuria; R33.9 Retention of urine, unspecified | CPT/HCPCS: 81003; 99213 ==

== ENCOUNTER 2023-01-09 08:36 | Outpatient (CLI) | payer MEDICARE, SELFPAY ==
[2023-01-09 09:57] LABS: Chol HDL Ratio 3.21 mg/dL (1.0-5.00); Cholesterol 122 mg/dL (0-200); HDL Cholesterol 38 mg/dL (60-100); LDL Cholesterol Calculated 49 mg/dL (50-129); LDL HDL Ratio 1.29 RATIO (0.00-3.22); Triglycerides 173 mg/dL (0-150)
== END 2023-01-09 08:37 | disposition home or self-care (01) ==
PROVIDERS: PCP Family Medicine; Visit Provider Internal Medicine Cardiovascular Disease
DX: E78.2 Mixed hyperlipidemia (principal)
CPT/HCPCS: 80061

== ENCOUNTER → 2023-01-17 10:07 | Outpatient (BNVA) | payer MEDICARE, SELFPAY | PROVIDERS: PCP Family Medicine; Visit Provider Internal Medicine Cardiovascular Disease | DX: I25.10 Atherosclerotic heart disease of native coronary artery without angina pectoris (principal); E78.2 Mixed hyperlipidemia; I10 Essential (primary) hypertension; R06.02 Shortness of breath; Z87.891 Personal history of nicotine dependence; Z79.82 Long term (current) use of aspirin | CPT/HCPCS: 99214 ==

== ENCOUNTER 2023-05-15 09:01 | Outpatient (CLI) | payer MEDICARE, SELFPAY ==
--- NOTE | 2023-05-15 09:14 | CT_ITS ---
WS: [id number] CT ABDOMEN PELVIS TECHNIQUE: Noncontrast CT of the abdomen and contrast-enhanced CT of the abdomen and pelvis with everett nal and sagittal reformatted images. CLINICAL INFORMATION: RENAL MASS COMPARISON: None. DLP: 1648.[address] scans at [facility] use at least one of these dose optimization techniques: automated e xposure control; mA and/or kV adjustment per patient size (includes targeted exams where dose is matc hed to clinical indication); or iterative reconstruction. FINDINGS: Heterogeneous enhancing LEFT renal mass compatible with renal neoplasm measuring approximately 4.5 x 4.5 x 6.5 cm transverse by craniocaudal. Bilateral renal cysts. Largest renal cyst in the RIGHT measu ring 2.5 CM. Moderate pericardial effusion. Slight bibasilar atelectasis. Small nodule in the lingula measuring 4 mm. Hepatomegaly. Diffuse fatty infiltration the liver. Normal GE junction. Normal spleen. Mild intra hepatic biliary dilatation. Fatty atrophy of the pancreas. Splenic artery calcification. Large gallbl adder calculus measuring 2.3 CM. Small enhancing lesions in the inferior RIGHT hepatic lobe nonspecif ic but likely small hemangiomas. Normal caliber abdominal aorta. Celiac and SMA are patent. Adrenal glands are normal. Normal portal v ein and splenic vein. Diffuse bladder wall thickening can be seen with cystitis or bladder outlet obs truction. Prostate measures 4.8 cm. Tiny fat-containing umbilical hernia. Advanced spondylitic change s lumbar spine with severe central canal stenosis L2-L3 L3-L4 and L4-L5 with disc osteophyte complexe s and ossification of the posterior longitudinal ligament CT/CT abdomen pelvis wo/w [id number] IMPRESSION: 1. Heterogeneous enhancing LEFT renal mass compatible with renal neoplasm ledy uring approximately 4.5 x 4.5 x 6.5 cm transverse by craniocaudal. Recommend ur ology consultation. 2. Enlarged prostate with bladder obstruction. 3. Cholelithiasis. 4. Multilevel severe spinal canal narrowing lumbar spine 5. Moderate pericardial effusion partially visualized
[2023-05-15 09:53] LABS: Blood Urea Nitrogen 14 mg/dL (8-23)
[2023-05-15] MEDS: iohexol 350 mg/mL 500 mL Btl (per mL) IV (10:25)
== END 2023-05-15 09:02 | disposition home or self-care (01) ==
PROVIDERS: Radiology Neuroradiology; PCP Family Medicine; Visit Provider Family Medicine
DX: N28.89 Other specified disorders of kidney and ureter (principal); N40.0 Benign prostatic hyperplasia without lower urinary tract symptoms; K80.20 Calculus of gallbladder without cholecystitis without obstruction
CPT/HCPCS: 74178; 82565; 84520; Q9967

== ENCOUNTER → 2023-08-14 13:44 | Outpatient (BNVA) | payer MEDICARE, SELFPAY | PROVIDERS: PCP Family Medicine; Visit Provider Nurse Practitioner Family | DX: I25.118 Atherosclerotic heart disease of native coronary artery with other forms of angina pectoris (principal); I10 Essential (primary) hypertension; Z87.891 Personal history of nicotine dependence | CPT/HCPCS: 99214 ==

== ENCOUNTER 2023-08-15 13:13 | Oncology outpatient (recurring) (ONCR) | payer MEDICARE, SELFPAY | END 2023-08-15 23:59 | disposition home or self-care (01) | LOC: ONCMED 13:14 | PROVIDERS: PCP Family Medicine; Visit Provider Internal Medicine Medical Oncology | DX: C64.2 Malignant neoplasm of left kidney, except renal pelvis (principal); Z87.891 Personal history of nicotine dependence; C78.02 Secondary malignant neoplasm of left lung; C78.01 Secondary malignant neoplasm of right lung; C77.1 Secondary and unspecified malignant neoplasm of intrathoracic lymph nodes; Z79.899 Other long term (current) drug therapy | CPT/HCPCS: 99205 ==

== ENCOUNTER 2023-08-25 08:21 | Outpatient (CLI) | payer MEDICARE, SELFPAY ==
--- NOTE | 2023-08-25 08:45 | USCV_ITS ---
Elliot Lawton Age: 77 Gender: M : 1945 Exam Date: 08/25/2023 08:44 Ordering Phys: Diana Reddy Technologist: CT Exam Location: [facility] – [place] Indication: lv,ca BP: 100 / 63 HR: 61 Rhythm: Sinus Technical Quality: Adequate MEASUREMENTS (Male / Female) Normal Values 2D ECHO LV Chamber Size 4.3 cm RV Chamber Size 3.4 cm LVOT Diameter 2.5 cm LV Ejection Fraction MOD 2C 58.5 % LV Ejection Fraction 2C AL 58.7 % LA Diameter 3.9 cm LA Width 4.1 cm LA Height 4.4 cm RA Width 3.6 cm RA Height 5.2 cm Aorta at Sinotubular Diameter 2.9 cm M-MODE Aortic Annulus Diameter 4.2 cm LA Ao Ratio MM 1.1 MV E Point Septal Separation 0.9 cm DOPPLER AV Peak Velocity 132.0 cm/s LVOT Peak Velocity 86.0 cm/s AV Area Cont Eq vti 3.3 cm squared AV Area Cont Eq pk 3.1 cm squared MV E' Velocity 8.0 cm/s TR Peak Velocity 108.3 cm/s TR Peak Gradient 4.7 mmHg TV Peak E Velocity 67.0 cm/s Right Atrial Pressure 3.0 mmHg Pulmonary Artery Systolic Pressu 7.7 mmHg PV Peak Velocity 97.0 cm/s FINDINGS Left Ventricle Normal left ventricular size, systolic function and wall thickness, with no regional wall motion abnormalities. Normal left ventricular wall thickness. Stage I diastolic diastolic dysfunction. Right Ventricle The right ventricle is normal in size and function. Right Atrium The right atrium is normal in size. Left Atrium The left atrium is normal in size. Mitral Valve Structurally normal mitral valve without significant stenosis or prolapse. There is trivial mitral regurgitation. Aortic Valve Structurally normal aortic valve without significant sclerosis or stenosis. There is no aortic regurgitation. Tricuspid Valve Structurally normal tricuspid valve without significant stenosis. There is trace to mild regurgitation. Pulmonary artery systolic pressure is normal. Pulmonic Valve Structurally normal pulmonic valve without significant stenosis. There is no pulmonic regurgitation. Pericardium Very small effusion without tamponade. Aorta Normal ascending aorta dimension. IVC The inferior vena cava appears normal. CONCLUSIONS Lia Huertas MD (Electronically Signed) Final Date: 25 August 2023 09:48 S
== END 2023-08-25 08:22 | disposition home or self-care (01) ==
LOC: RAD 08:21
PROVIDERS: PCP Family Medicine; Visit Provider Nurse Practitioner Family
DX: I25.10 Atherosclerotic heart disease of native coronary artery without angina pectoris (principal)
CPT/HCPCS: 93306

== ENCOUNTER 2023-08-31 08:38 | Oncology outpatient (recurring) (ONCR) | payer MEDICARE, SELFPAY ==
[2023-08-31 09:16] VITALS: BP 96/49; PULSE 70; RESP 17; TEMP 35.9; O2SAT 98
[2023-08-31 09:41] LABS: Basophils # 0.1 10^3/uL (0.0-0.1); Basophils % 0.8 %; Eosinophils # 0.3 10^3/uL (0.0-0.8); Eosinophils % 5.1 %; Hematocrit 36.7 % (37-53); Lymphocytes # 1.7 10^3/uL (0.8-4.8); Lymphocytes % 24.8 %; Mean Corpuscular Hemoglobin 25.6 pg (27-33); Mean Corpuscular Volume 85.5 fl (82-101); Mean Platelet Volume 9.8 fL (7.4-10.4); Monocytes # 0.7 10^3/uL (0.2-0.9); Monocytes % 11.1 %; Neutrophils # 3.84 10^3/uL (1.8-7.7); Neutrophils % 57.7 %; Nucleated Red Blood Cells % 0 %; Platelet Count 301 10^3/cmm (157-399); Red Blood Count 4.29 10^6/uL (3.85-5.65); Red Cell Distribution Width 16.3 % (12.1-15.1); White Blood Count 6.65 10^3/uL (3.29-11.43)
[2023-08-31 10:52] LABS: Alanine Aminotransferase 10 U/L (0-41); Albumin Level 2.2 g/dL (3.5-5.2); Alkaline Phosphatase 67 U/L (40-130); Blood Urea Nitrogen 11 mg/dL (8-23); Calcium 6.1 mg/dL (8.5-10.5); Carbon Dioxide 19 mmol/L (22-29); Chloride 114 mmol/L (98-107); Cortisol Random 11.83 ug/dL (2.47-19.5); Globulin 2.1 g/dL (1.3-4.6); Glucose 151 mg/dL (65-115); Osmolality Calculated 300 mOsm/kg (285-295); Sodium 144 mmol/L (136-145); Thyroid Stimulating Hormone 2.31 uIU/mL (0.27-4.20); Total Bilirubin 0.2 mg/dL (0.15-1.2); Total Protein 4.3 g/dL (6.6-8.7)
[2023-08-31 11:00] LABS: Aspartate Amino Transferase 16 U/L (0-40)
[2023-08-31 11:09] LABS: Anion Gap 13.8 (5-19)
[2023-08-31 11:10] LABS: Potassium 2.8 mmol/L (3.5-5.1)
[2023-08-31] MEDS: sodium chlor 0.9% + KCl 40 mEq 40 MEQ/1,000 ML BAG 250 MEQ IV (12:26)
[2023-08-31 12:45] LABS: Magnesium 1.9 mg/dL (1.7-2.3); Phosphorus 2.7 mg/dL (2.5-4.5)
[2023-08-31 14:13] LABS: 25 Hydroxy Vitamin D 16 ng/mL (30-100)
[2023-08-31] MEDS: pembrolizumab 200 MG in sodium chloride 0.9% 250 ML 516 MG IV (16:14)
[2023-08-31 16:40] VITALS: BP 124/78; PULSE 78; RESP 18; TEMP 36.6; O2SAT 98
== END 2023-08-31 23:59 | disposition home or self-care (01) ==
PROVIDERS: Nurse Practitioner Family; PCP Family Medicine; Visit Provider Internal Medicine Medical Oncology
DX: C64.2 Malignant neoplasm of left kidney, except renal pelvis (principal); E83.51 Hypocalcemia; Z79.899 Other long term (current) drug therapy
CPT/HCPCS: 80053; 82306; 82533; 83735; 84100; 84443; 85025; 96366; 96367; 96413; 99215; J7050; J9271

== ENCOUNTER 2023-09-14 14:15 | Oncology outpatient (recurring) (ONCR) | payer MEDICARE, SELFPAY ==
[2023-09-06 10:28] LABS: Basophils # 0.1 10^3/uL (0.0-0.1); Basophils % 1.1 %; Eosinophils # 0.4 10^3/uL (0.0-0.8); Hematocrit 35.5 % (37-53); Lymphocytes # 1.5 10^3/uL (0.8-4.8); Lymphocytes % 21.9 %; Mean Corpuscular HGB Conc 30.7 g/dL (30-55); Mean Corpuscular Hemoglobin 25.8 pg (27-33); Mean Corpuscular Volume 84.1 fl (82-101); Monocytes # 0.8 10^3/uL (0.2-0.9); Monocytes % 11.3 %; Neutrophils # 3.93 10^3/uL (1.8-7.7); Neutrophils % 59.2 %; Nucleated Red Blood Cells % 0 %; Platelet Count 265 10^3/cmm (157-399); Red Blood Count 4.22 10^6/uL (3.85-5.65); Red Cell Distribution Width 16.2 % (12.1-15.1); White Blood Count 6.63 10^3/uL (3.29-11.43)
[2023-09-06 10:44] LABS: Alanine Aminotransferase 16 U/L (0-41); Albumin Level 3.5 g/dL (3.5-5.2); Alkaline Phosphatase 98 U/L (40-130); Anion Gap 16.6 (5-19); Aspartate Amino Transferase 15 U/L (0-40); Blood Urea Nitrogen 18 mg/dL (8-23); Calcium 9.8 mg/dL (8.5-10.5); Carbon Dioxide 27 mmol/L (22-29); Chloride 97 mmol/L (98-107); Globulin 3.2 g/dL (1.3-4.6); Glucose 172 mg/dL (65-115); Osmolality Calculated 288 mOsm/kg (285-295); Potassium 4.6 mmol/L (3.5-5.1); Sodium 136 mmol/L (136-145); Total Bilirubin 0.3 mg/dL (0.15-1.2); Total Protein 6.7 g/dL (6.6-8.7)
[2023-09-14 14:10] VITALS: BP 109/54; PULSE 75; RESP 16; TEMP 36.7; O2SAT 97
[2023-09-14 14:24] LABS: Basophils # 0.1 10^3/uL (0.0-0.1); Eosinophils # 0.4 10^3/uL (0.0-0.8); Eosinophils % 5.7 %; Hematocrit 36.3 % (37-53); Lymphocytes # 1.4 10^3/uL (0.8-4.8); Lymphocytes % 18.9 %; Mean Corpuscular HGB Conc 30.6 g/dL (30-55); Mean Corpuscular Hemoglobin 25.7 pg (27-33); Mean Platelet Volume 9.3 fL (7.4-10.4); Monocytes # 0.7 10^3/uL (0.2-0.9); Monocytes % 9.7 %; Neutrophils # 4.59 10^3/uL (1.8-7.7); Neutrophils % 64.1 %; Nucleated Red Blood Cells % 0 %; Platelet Count 260 10^3/cmm (157-399); Red Blood Count 4.32 10^6/uL (3.85-5.65); Red Cell Distribution Width 16.7 % (12.1-15.1); White Blood Count 7.15 10^3/uL (3.29-11.43)
[2023-09-14 14:44] LABS: Alanine Aminotransferase 19 U/L (0-41); Albumin Level 3.5 g/dL (3.5-5.2); Alkaline Phosphatase 105 U/L (40-130); Anion Gap 16.8 (5-19); Aspartate Amino Transferase 21 U/L (0-40); Blood Urea Nitrogen 24 mg/dL (8-23); Calcium 9.4 mg/dL (8.5-10.5); Carbon Dioxide 28 mmol/L (22-29); Chloride 100 mmol/L (98-107); Globulin 3.1 g/dL (1.3-4.6); Glucose 149 mg/dL (65-115); Osmolality Calculated 297 mOsm/kg (285-295); Potassium 4.8 mmol/L (3.5-5.1); Sodium 140 mmol/L (136-145); Thyroid Stimulating Hormone 3.03 uIU/mL (0.27-4.20); Total Bilirubin 0.3 mg/dL (0.15-1.2); Total Protein 6.6 g/dL (6.6-8.7)
== END 2023-09-14 23:59 | disposition home or self-care (01) ==
PROVIDERS: Nurse Practitioner Family; PCP Family Medicine; Visit Provider Internal Medicine Medical Oncology
DX: C64.2 Malignant neoplasm of left kidney, except renal pelvis (principal)
CPT/HCPCS: 36415; 80053; 84443; 85025

== ENCOUNTER 2023-09-21 09:35 | Oncology outpatient (recurring) (ONCR) | payer MEDICARE, SELFPAY ==
[2023-09-21 10:20] VITALS: BP 110/53; PULSE 81; RESP 16; TEMP 36.9; O2SAT 97
[2023-09-21 10:41] LABS: Basophils # 0.1 10^3/uL (0.0-0.1); Basophils % 0.7 %; Eosinophils # 0.4 10^3/uL (0.0-0.8); Eosinophils % 5.9 %; Hematocrit 37.8 % (37-53); Lymphocytes # 1.3 10^3/uL (0.8-4.8); Lymphocytes % 18.2 %; Mean Corpuscular HGB Conc 30.2 g/dL (30-55); Mean Corpuscular Hemoglobin 25.9 pg (27-33); Mean Corpuscular Volume 85.9 fl (82-101); Mean Platelet Volume 9.4 fL (7.4-10.4); Monocytes # 0.7 10^3/uL (0.2-0.9); Monocytes % 10.2 %; Neutrophils # 4.61 10^3/uL (1.8-7.7); Neutrophils % 64.6 %; Nucleated Red Blood Cells % 0 %; Platelet Count 274 10^3/cmm (157-399); White Blood Count 7.14 10^3/uL (3.29-11.43)
[2023-09-21 11:08] LABS: Alanine Aminotransferase 18 U/L (0-41); Albumin Level 3.6 g/dL (3.5-5.2); Alkaline Phosphatase 94 U/L (40-130); Aspartate Amino Transferase 31 U/L (0-40); Blood Urea Nitrogen 26 mg/dL (8-23); Calcium 9.7 mg/dL (8.5-10.5); Carbon Dioxide 26 mmol/L (22-29); Chloride 101 mmol/L (98-107); Globulin 3.3 g/dL (1.3-4.6); Glucose 193 mg/dL (65-115); Osmolality Calculated 300 mOsm/kg (285-295); Sodium 140 mmol/L (136-145); Thyroid Stimulating Hormone 4.05 uIU/mL (0.27-4.20); Total Bilirubin 0.3 mg/dL (0.15-1.2); Total Protein 6.9 g/dL (6.6-8.7)
[2023-09-21 11:10] LABS: Anion Gap 17.3 (5-19); Potassium 4.3 mmol/L (3.5-5.1)
[2023-09-21] MEDS: pembrolizumab 200 MG in sodium chloride 0.9% 250 ML 516 MG IV (12:22)
[2023-09-21 13:00] VITALS: BP 124/78; PULSE 78; RESP 18; TEMP 36.6; O2SAT 98
== END 2023-09-21 23:59 | disposition home or self-care (01) ==
PROVIDERS: Internal Medicine; PCP Family Medicine; Visit Provider Internal Medicine Medical Oncology
DX: C64.2 Malignant neoplasm of left kidney, except renal pelvis (principal); Z79.899 Other long term (current) drug therapy
CPT/HCPCS: 80053; 84443; 85025; 96365; 99215; J7050; J9271

== ENCOUNTER 2023-10-12 07:45 | Oncology outpatient (recurring) (ONCR) | payer MEDICARE, SELFPAY ==
[2023-10-06 10:37] VITALS: BP 166/70; PULSE 65; RESP 17; TEMP 36.3; O2SAT 98
[2023-10-06 10:42] LABS: Basophils # 0.1 10^3/uL (0.0-0.1); Basophils % 0.9 %; Eosinophils # 0.4 10^3/uL (0.0-0.8); Eosinophils % 4.9 %; Hematocrit 40.2 % (37-53); Lymphocytes # 1.8 10^3/uL (0.8-4.8); Lymphocytes % 21.9 %; Mean Corpuscular HGB Conc 31.1 g/dL (30-55); Mean Corpuscular Hemoglobin 26.2 pg (27-33); Mean Corpuscular Volume 84.1 fl (82-101); Mean Platelet Volume 9.5 fL (7.4-10.4); Monocytes # 0.8 10^3/uL (0.2-0.9); Monocytes % 10.2 %; Neutrophils # 4.98 10^3/uL (1.8-7.7); Neutrophils % 61.9 %; Nucleated Red Blood Cells % 0 %; Platelet Count 243 10^3/cmm (157-399); Red Blood Count 4.78 10^6/uL (3.85-5.65); Red Cell Distribution Width 16.2 % (12.1-15.1); White Blood Count 8.04 10^3/uL (3.29-11.43)
[2023-10-06 11:03] LABS: Alanine Aminotransferase 21 U/L (0-41); Albumin Level 4.1 g/dL (3.5-5.2); Alkaline Phosphatase 92 U/L (40-130); Anion Gap 17.5 (5-19); Blood Urea Nitrogen 29 mg/dL (8-23); Calcium 10.3 mg/dL (8.5-10.5); Carbon Dioxide 27 mmol/L (22-29); Chloride 99 mmol/L (98-107); Globulin 3.1 g/dL (1.3-4.6); Glucose 143 mg/dL (65-115); Osmolality Calculated 296 mOsm/kg (285-295); Potassium 4.5 mmol/L (3.5-5.1); Sodium 139 mmol/L (136-145); Total Bilirubin 0.3 mg/dL (0.15-1.2); Total Protein 7.2 g/dL (6.6-8.7)
[2023-10-06 11:10] LABS: Aspartate Amino Transferase 28 U/L (0-40)
[2023-10-12 08:00] VITALS: BP 113/57; PULSE 81; RESP 16; TEMP 36.5; O2SAT 99
[2023-10-12 08:07] LABS: Basophils # 0.1 10^3/uL (0.0-0.1); Basophils % 0.8 %; Eosinophils # 0.4 10^3/uL (0.0-0.8); Eosinophils % 5.2 %; Hematocrit 41.4 % (37-53); Lymphocytes # 1.5 10^3/uL (0.8-4.8); Lymphocytes % 20.1 %; Mean Corpuscular HGB Conc 31.4 g/dL (30-55); Mean Corpuscular Hemoglobin 26.1 pg (27-33); Mean Platelet Volume 9.6 fL (7.4-10.4); Monocytes # 0.6 10^3/uL (0.2-0.9); Monocytes % 8.2 %; Neutrophils # 4.86 10^3/uL (1.8-7.7); Neutrophils % 65.2 %; Nucleated Red Blood Cells % 0 %; Platelet Count 237 10^3/cmm (157-399); Red Blood Count 4.99 10^6/uL (3.85-5.65); Red Cell Distribution Width 16.8 % (12.1-15.1); White Blood Count 7.46 10^3/uL (3.29-11.43)
[2023-10-12 08:36] LABS: Alanine Aminotransferase 19 U/L (0-41); Albumin Level 3.8 g/dL (3.5-5.2); Alkaline Phosphatase 93 U/L (40-130); Anion Gap 18.7 (5-19); Aspartate Amino Transferase 22 U/L (0-40); Blood Urea Nitrogen 27 mg/dL (8-23); Calcium 9.6 mg/dL (8.5-10.5); Carbon Dioxide 23 mmol/L (22-29); Chloride 101 mmol/L (98-107); Creatinine Clr Calc Pharmacy 43.6293; Globulin 3.2 g/dL (1.3-4.6); Glucose 203 mg/dL (65-115); Osmolality Calculated 297 mOsm/kg (285-295); Potassium 4.7 mmol/L (3.5-5.1); Sodium 138 mmol/L (136-145); Thyroid Stimulating Hormone 8.39 uIU/mL (0.27-4.20); Total Bilirubin 0.3 mg/dL (0.15-1.2)
[2023-10-12 10:19] LABS: Free T4 Free Thyroxine 1.05 ng/dL (0.82-1.77); T3 Free 2.3 PG/ML (2.0-4.4)
[2023-10-12 10:21] VITALS: BP 155/80; PULSE 59; RESP 16; TEMP 36.6; O2SAT 97
[2023-10-12] MEDS: pembrolizumab 200 MG in sodium chloride 0.9% 250 ML 516 MG IV (10:35)
[2023-10-12] MEDS: sodium chloride 0.9% 250 ML 75 ML IV (10:35)
== END 2023-10-12 23:59 | disposition home or self-care (01) ==
PROVIDERS: Internal Medicine; Nurse Practitioner Family; PCP Family Medicine; Visit Provider Internal Medicine Medical Oncology
DX: C64.2 Malignant neoplasm of left kidney, except renal pelvis (principal); Z79.899 Other long term (current) drug therapy; Z53.9 Procedure and treatment not carried out, unspecified reason; C78.00 Secondary malignant neoplasm of unspecified lung; R06.00 Dyspnea, unspecified; E03.9 Hypothyroidism, unspecified; E55.9 Vitamin D deficiency, unspecified; Z51.11 Encounter for antineoplastic chemotherapy
CPT/HCPCS: 36415; 80053; 84439; 84443; 84481; 85025; 96413; 99214; J7050; J9271

== ENCOUNTER 2023-11-02 09:14 | Oncology outpatient (recurring) (ONCR) | payer MEDICARE, SELFPAY ==
[2023-11-02 09:35] VITALS: BP 96/55; PULSE 87; RESP 16; TEMP 36.6
[2023-11-02 09:42] LABS: Basophils # 0.1 10^3/uL (0.0-0.1); Basophils % 0.7 %; Eosinophils # 0.4 10^3/uL (0.0-0.8); Eosinophils % 4.8 %; Hematocrit 41.1 % (37-53); Lymphocytes # 1.8 10^3/uL (0.8-4.8); Lymphocytes % 21.1 %; Mean Corpuscular HGB Conc 32.1 g/dL (30-55); Mean Corpuscular Hemoglobin 26.8 pg (27-33); Mean Corpuscular Volume 83.5 fl (82-101); Mean Platelet Volume 9.8 fL (7.4-10.4); Monocytes # 0.8 10^3/uL (0.2-0.9); Monocytes % 9.1 %; Neutrophils # 5.37 10^3/uL (1.8-7.7); Neutrophils % 63.8 %; Nucleated Red Blood Cells % 0 %; Platelet Count 236 10^3/cmm (157-399); Red Blood Count 4.92 10^6/uL (3.85-5.65); Red Cell Distribution Width 16.6 % (12.1-15.1); White Blood Count 8.42 10^3/uL (3.29-11.43)
[2023-11-02 10:13] LABS: Alanine Aminotransferase 17 U/L (0-41); Albumin Level 3.5 g/dL (3.5-5.2); Alkaline Phosphatase 82 U/L (40-130); Blood Urea Nitrogen 29 mg/dL (8-23); Calcium 9.6 mg/dL (8.5-10.5); Carbon Dioxide 21 mmol/L (22-29); Globulin 3.3 g/dL (1.3-4.6); Glucose 145 mg/dL (65-115); Thyroid Stimulating Hormone 9.53 uIU/mL (0.27-4.20); Total Bilirubin 0.2 mg/dL (0.15-1.2); Total Protein 6.8 g/dL (6.6-8.7)
[2023-11-02 10:18] LABS: Potassium 4.9 mmol/L (3.5-5.1)
[2023-11-02 10:32] LABS: Aspartate Amino Transferase 26 U/L (0-40)
[2023-11-02 10:35] LABS: Anion Gap 19.9 (5-19); Chloride 97 mmol/L (98-107); Osmolality Calculated 284 mOsm/kg (285-295); Sodium 133 mmol/L (136-145)
[2023-11-02 10:48] LABS: 25 Hydroxy Vitamin D 71 ng/mL (30-100)
[2023-11-02] MEDS: sodium chloride 0.9% 500 ML 999 ML IV (11:50)
== END 2023-11-15 23:59 | disposition home or self-care (01) ==
PROVIDERS: Nurse Practitioner Family; PCP Family Medicine; Visit Provider Internal Medicine Medical Oncology
DX: C64.2 Malignant neoplasm of left kidney, except renal pelvis (principal); Z79.899 Other long term (current) drug therapy; C78.00 Secondary malignant neoplasm of unspecified lung; E03.9 Hypothyroidism, unspecified; E55.9 Vitamin D deficiency, unspecified
CPT/HCPCS: 80053; 82306; 84443; 85025; 96360; 99214; J7040

== ENCOUNTER 2023-11-15 11:56 | Outpatient (CLI) | payer MEDICARE, SELFPAY ==
--- NOTE | 2023-11-15 12:30 | CT_ITS ---
WS: [id number] CT CHEST, ABDOMEN AND PELVIS WITHOUT CONTRAST. HISTORY: Lung and renal cancer. Follow-up. TECHNIQUE: Contiguous 5 mm axial imaging performed through the chest, abdomen and pelvis without IV c ontrast, oral contrast has not been provided. Coronal and sagittal reformats chest. Coronal and sagit juancho reformats through the abdomen and pelvis. All CT scans at [facility] use at least one of these dose optimization techniques: automated exposure control; mA and/or kV adjustment per patient s ize (includes targeted exams where dose is matched to clinical indication); or iterative reconstructi on. CONTRAST: None DLP: 1138.58 mGy.cm COMPARISON: 05/15/2023, 07/19/[address]: 6 mm nodule in the medial LEFT upper lobe is new since 07/19/2021. There is a benign granulo ma RIGHT middle lobe. No additional masses or nodules. No mediastinal or hilar adenopathy. Extensive coronary artery calcifications. Heart is normal size. There is mild pericardial thickening. Advanced spondylosis within the thoracic spine. There are large bridging osteophytes. No osseous destruction. Abdomen CT: Liver is normal size. There is heterogeneity throughout the liver but no discrete mass id entified. Lack of contrast limits evaluation for subtle lesions. Cholelithiasis without acute cholecy stitis. Normal pancreas. Normal spleen with a granuloma. No adrenal mass. RIGHT kidney: Normal size kidney. 2.2 cm low-attenuation mass which has been described as a cyst on p rior imaging studies is reidentified. No obstruction. LEFT kidney: Reidentified is a previously described renal neoplasm in the posterior kidney. Neoplasm is smaller in size measuring 3.6 x 2.4 cm and extends over a length of 3.5 cm. This compares to the p rior measurements of 4.5 x 4.5 x 6.5 cm. No additional mass identified. There is a single lymph node near the celiac axis which is stable measuring 10 mm. There are few newton tional small mesenteric lymph nodes which are unchanged. No retroperitoneal adenopathy. Nondistended stomach. No small bowel obstruction. Moderate diffuse constipation. Normal appendix. Pelvic CT: Well-distended urinary bladder. Prostate gland is enlarged but unchanged. No pelvic adenop athy. Bilateral degenerative joint disease at the hips. Severe degenerative changes throughout the lumbar s pine. Disc fusion at L2-3. IMPRESSION: 1. Previously described LEFT renal neoplasm is reidentified. Mass is decreased in size from 3. Mass now measures 3.6 x 2.4 x 3.5 cm as compared to 4.5 x 4.5 x 6.5 cm. Please note specificity an d sensitivity are significantly decreased without IV contrast. 2. No renal obstruction. 3. RIGHT renal cyst is stable. 4. There is a new 6 mm nodule in the medial LEFT upper lobe since 07/19/2021. Chest CT in 6 months ca n be obtained. This is probably benign but early neoplasm cannot be excluded. 5. No adrenal mass. 6. Advanced spondylitic changes throughout the thoracic and lumbar spines. 7. No retroperitoneal adenopathy.
== END 2023-11-15 11:57 | disposition home or self-care (01) ==
LOC: RAD 11:56
PROVIDERS: PCP Family Medicine; Visit Provider Nurse Practitioner Family
DX: C78.00 Secondary malignant neoplasm of unspecified lung (principal); C64.2 Malignant neoplasm of left kidney, except renal pelvis; R79.89 Other specified abnormal findings of blood chemistry; R91.1 Solitary pulmonary nodule
CPT/HCPCS: 71250; 74176

== ENCOUNTER 2023-11-16 08:46 | Oncology outpatient (recurring) (ONCR) | payer MEDICARE, SELFPAY ==
[2023-11-16 10:00] LABS: Basophils # 0.1 10^3/uL (0.0-0.1); Basophils % 0.6 %; Eosinophils # 0.2 10^3/uL (0.0-0.8); Eosinophils % 2.9 %; Hematocrit 40.5 % (37-53); Lymphocytes % 12.4 %; Mean Corpuscular HGB Conc 31.4 g/dL (30-55); Mean Corpuscular Hemoglobin 27.1 pg (27-33); Mean Corpuscular Volume 86.5 fl (82-101); Mean Platelet Volume 10.2 fL (7.4-10.4); Monocytes # 0.8 10^3/uL (0.2-0.9); Monocytes % 10.4 %; Neutrophils # 5.88 10^3/uL (1.8-7.7); Neutrophils % 73.3 %; Nucleated Red Blood Cells % 0 %; Platelet Count 228 10^3/cmm (157-399); Red Blood Count 4.68 10^6/uL (3.85-5.65); Red Cell Distribution Width 17.9 % (12.1-15.1); White Blood Count 8.01 10^3/uL (3.29-11.43)
[2023-11-16 10:31] LABS: Alanine Aminotransferase 22 U/L (0-41); Albumin Level 3.4 g/dL (3.5-5.2); Alkaline Phosphatase 59 U/L (40-130); Aspartate Amino Transferase 22 U/L (0-40); Blood Urea Nitrogen 26 mg/dL (8-23); Calcium 9.4 mg/dL (8.5-10.5); Carbon Dioxide 26 mmol/L (22-29); Chloride 99 mmol/L (98-107); Globulin 2.8 g/dL (1.3-4.6); Glucose 218 mg/dL (65-115); Osmolality Calculated 293 mOsm/kg (285-295); Sodium 136 mmol/L (136-145); Thyroid Stimulating Hormone 3.12 uIU/mL (0.27-4.20); Total Bilirubin 0.3 mg/dL (0.15-1.2); Total Protein 6.2 g/dL (6.6-8.7)
[2023-11-16] MEDS: sodium chloride 0.9% 250 ML 75 ML IV (11:35)
[2023-11-16] MEDS: pembrolizumab 200 MG in sodium chloride 0.9% 250 ML 516 MG IV (11:40)
[2023-11-16 12:34] VITALS: BP 133/73; PULSE 58; RESP 17; TEMP 36.4; O2SAT 97
== END 2023-11-16 23:59 | disposition home or self-care (01) ==
PROVIDERS: Nurse Practitioner Family; PCP Family Medicine; Visit Provider Internal Medicine Medical Oncology
DX: C64.2 Malignant neoplasm of left kidney, except renal pelvis (principal); Z79.899 Other long term (current) drug therapy; E03.9 Hypothyroidism, unspecified; E55.9 Vitamin D deficiency, unspecified; Z51.12 Encounter for antineoplastic immunotherapy; C78.02 Secondary malignant neoplasm of left lung
CPT/HCPCS: 80053; 84443; 85025; 96413; 99214; J7050; J9271

== ENCOUNTER 2023-12-14 09:00 | Oncology outpatient (recurring) (ONCR) | payer MEDICARE, SELFPAY ==
[2023-11-30 13:58] LABS: Basophils # 0.1 10^3/uL (0.0-0.1); Basophils % 0.7 %; Eosinophils # 0.3 10^3/uL (0.0-0.8); Eosinophils % 4.1 %; Hematocrit 43.4 % (37-53); Lymphocytes # 1.6 10^3/uL (0.8-4.8); Lymphocytes % 21.9 %; Mean Corpuscular HGB Conc 31.8 g/dL (30-55); Mean Corpuscular Hemoglobin 27.3 pg (27-33); Mean Corpuscular Volume 85.8 fl (82-101); Mean Platelet Volume 9.5 fL (7.4-10.4); Monocytes # 0.8 10^3/uL (0.2-0.9); Neutrophils # 4.43 10^3/uL (1.8-7.7); Neutrophils % 61.9 %; Nucleated Red Blood Cells % 0 %; Platelet Count 224 10^3/cmm (157-399); Red Blood Count 5.06 10^6/uL (3.85-5.65); Red Cell Distribution Width 16.5 % (12.1-15.1); White Blood Count 7.16 10^3/uL (3.29-11.43)
[2023-11-30 14:17] LABS: Alanine Aminotransferase 23 U/L (0-41); Albumin Level 3.6 g/dL (3.5-5.2); Alkaline Phosphatase 73 U/L (40-130); Anion Gap 19.2 (5-19); Aspartate Amino Transferase 24 U/L (0-40); Blood Urea Nitrogen 33 mg/dL (8-23); Carbon Dioxide 21 mmol/L (22-29); Chloride 97 mmol/L (98-107); Globulin 3.3 g/dL (1.3-4.6); Glucose 119 mg/dL (65-115); Osmolality Calculated 284 mOsm/kg (285-295); Potassium 4.2 mmol/L (3.5-5.1); Sodium 133 mmol/L (136-145); Total Bilirubin 0.3 mg/dL (0.15-1.2); Total Protein 6.9 g/dL (6.6-8.7)
[2023-12-07 09:00] LABS: Basophils % 0.2 %; Eosinophils % 0.3 %; Hematocrit 44.6 % (37-53); Lymphocytes # 1.6 10^3/uL (0.8-4.8); Mean Corpuscular HGB Conc 32.1 g/dL (30-55); Mean Corpuscular Volume 84.3 fl (82-101); Mean Platelet Volume 9.7 fL (7.4-10.4); Monocytes # 0.8 10^3/uL (0.2-0.9); Monocytes % 7.1 %; Neutrophils # 8.66 10^3/uL (1.8-7.7); Neutrophils % 76.3 %; Nucleated Red Blood Cells % 0 %; Platelet Count 252 10^3/cmm (157-399); Red Blood Count 5.29 10^6/uL (3.85-5.65); Red Cell Distribution Width 16.2 % (12.1-15.1); White Blood Count 11.34 10^3/uL (3.29-11.43)
[2023-12-07 09:32] LABS: Alanine Aminotransferase 25 U/L (0-41); Albumin Level 3.8 g/dL (3.5-5.2); Alkaline Phosphatase 64 U/L (40-130); Aspartate Amino Transferase 18 U/L (0-40); Blood Urea Nitrogen 39 mg/dL (8-23); Calcium 9.3 mg/dL (8.5-10.5); Carbon Dioxide 21 mmol/L (22-29); Chloride 99 mmol/L (98-107); Globulin 2.8 g/dL (1.3-4.6); Glucose 146 mg/dL (65-115); Osmolality Calculated 292 mOsm/kg (285-295); Sodium 135 mmol/L (136-145); Thyroid Stimulating Hormone 4.08 uIU/mL (0.27-4.20); Total Bilirubin 0.3 mg/dL (0.15-1.2); Total Protein 6.6 g/dL (6.6-8.7)
[2023-12-07] MEDS: sodium chloride 0.9% 500 ML 999 ML IV (11:37)
[2023-12-14 09:09] LABS: Basophils % 0.2 %; Hematocrit 44.4 % (37-53); Lymphocytes # 0.9 10^3/uL (0.8-4.8); Lymphocytes % 7.4 %; Mean Corpuscular HGB Conc 31.5 g/dL (30-55); Mean Corpuscular Volume 85.5 fl (82-101); Mean Platelet Volume 9.5 fL (7.4-10.4); Monocytes # 0.6 10^3/uL (0.2-0.9); Neutrophils % 85.8 %; Nucleated Red Blood Cells % 0 %; Platelet Count 210 10^3/cmm (157-399); Red Blood Count 5.19 10^6/uL (3.85-5.65); Red Cell Distribution Width 16.3 % (12.1-15.1); White Blood Count 12.36 10^3/uL (3.29-11.43)
[2023-12-14 10:31] LABS: Alanine Aminotransferase 32 U/L (0-41); Albumin Level 3.5 g/dL (3.5-5.2); Alkaline Phosphatase 57 U/L (40-130); Anion Gap 20.6 (5-19); Aspartate Amino Transferase 24 U/L (0-40); Blood Urea Nitrogen 36 mg/dL (8-23); Calcium 9.6 mg/dL (8.5-10.5); Carbon Dioxide 21 mmol/L (22-29); Chloride 97 mmol/L (98-107); Creatinine Clr Calc Pharmacy 52.4957; Globulin 2.4 g/dL (1.3-4.6); Glucose 175 mg/dL (65-115); Osmolality Calculated 291 mOsm/kg (285-295); Potassium 4.6 mmol/L (3.5-5.1); Sodium 134 mmol/L (136-145); Total Bilirubin 0.3 mg/dL (0.15-1.2); Total Protein 5.9 g/dL (6.6-8.7)
== END 2023-12-14 23:59 | disposition home or self-care (01) ==
PROVIDERS: Nurse Practitioner Family; PCP Family Medicine; Visit Provider Internal Medicine Medical Oncology
DX: Z53.9 Procedure and treatment not carried out, unspecified reason (principal); C64.2 Malignant neoplasm of left kidney, except renal pelvis; C78.02 Secondary malignant neoplasm of left lung; R19.7 Diarrhea, unspecified; Z79.52 Long term (current) use of systemic steroids; Z79.64 Long term (current) use of myelosuppressive agent; F17.210 Nicotine dependence, cigarettes, uncomplicated; Z79.899 Other long term (current) drug therapy; Z79.69 Long term (current) use of other immunomodulators and immunosuppressants
CPT/HCPCS: 36415; 80053; 84443; 85025; 96360; 99214; J7040

== ENCOUNTER 2023-12-22 17:04 | Emergency (ER) | payer MEDICARE, SELFPAY ==
[2023-12-22 17:07] VITALS: BP 125/56; PULSE 80; RESP 16; TEMP 36.8; O2SAT 98
[2023-12-22 17:12] VITALS: BP 115/52; PULSE 81; O2SAT 98
--- NOTE | 2023-12-22 17:14 | XRR_ITS ---
PROCEDURE INFORMATION: Exam: XR Abdomen Exam date and time: 12/22/2023 5:51 PM Age: 78 years old Clinical indication: Constipation TECHNIQUE: Imaging protocol: Radiologic exam of the abdomen. Views: Frontal supine view of the abdomen. 1 View. COMPARISON: [place] [id number] 11/15/2023 12:36 PM FINDINGS: Gastrointestinal tract: Normal. No bowel dilation. Bones/joints: Unremarkable. Other findings: Qfvz-sz-tpsllkee stool burden with no obstruction. XR/XR KUB [id number] IMPRESSION: Ghqs-de-jawoxnly stool burden with no obstruction.
--- NOTE | 2023-12-22 17:20 | ED_ITS ---
HPI - General Adult 2 General: Chief complaint: General Medical Stated complaint: abd pain Time Seen by Provider: 12/22/23 17:08 Source: patient Mode of arrival: ambulatory Limitations: no limitations History of Present Illness: 78-year-old male who has a history of ca ncer of the left kidney he states that he was on chemo is currently off of it supposed to start back on Monday states he had issue with diarrhea and constipation in the past he states he has not had some diarrhea Associated symptoms: Deny chest pain, dyspnea, headache(s), nausea, rash or vomiting Review of Systems 2 Const: Denies: fever(s), chills, body aches or change in appetite ENMT: Denies: throat pain or dental pain Card: Denies: chest pain Resp: Denies: dyspnea GI: Reports: abdominal pain and GI cramping; Denies: nausea, vomiting or diarrhea Musc: Denies: neck pain or back pain Skin/Breast: Denies: rash Neuro: Denies: headache(s) PFSH ED 2 PFSH: Medical History Renal cell cancer 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 stricture Polyuria 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 SOB (shortness of breath) CAD (coronary artery disease) Hypertension Hyperlipidemia DDD (degenerative disc disease) Surgical History H/O rotator cuff surgery H/O vasectomy H/O laminectomy S/P cataract surgery Family History Mother Cancer Father Diabetes Brother Diabetes CAD (coronary artery disease) Family/Other Suicide Denies family history of Clotting disorder Dementia Chronic kidney disease (CKD) Anesthesia complication Bleeding disorder Lung disease Stroke Social History Smoking and tobacco/nicotine status: tobacco/nicotine user, details unknown cigarettes and smokeless tobacco Smokeless tobacco user: chewing tobacco Smokeless tobacco details: using smokeless tobacco approx. 60 years/quit smoking at 21 years old Quit status (tobacco/nicotine): has quit using Former quit date comment: 1ppd x 3 years as teenager Second hand smoke exposure: Yes Alcohol intake: current Alcohol intake frequency: few times a week Alcohol type: beer Substance/Drug Use: never Current occupational status: retired Physical Exam 2 Const: COMMON NORMALS: no acute distress, patient oriented x3 and healthy appearing HENMT: COMMON NORMALS: normocephalic and atraumatic HEAD & SCALP: n ormocephalic and atraumatic Neck/C-Spine: COMMON NORMALS: full ROM and supple Chest: COMMONS NORMALS: normal inspection of the chest Resp: COMMON NORMALS: normal respiratory effort Cardio: COMMON NORMALS: regular rate, regular rhythm and No murmurs present (Cardio) RATE: regular rate RHYTHM: regular rhythm GI: COMMON NORMALS: Normal to inspection, nondistended, normoactive bowel sounds present, Soft to palpation, non-tender and no masses PALPATION: Yes Soft to palpation Extremity: COMMON NORMALS: normal to inspection and full ROM Neuro: COMMON NORMALS: patient oriented x3, moves all extremities and no focal motor deficits Psych: COMMON NORMALS: mental status grossly normal, Normal thought process present and cooperative THOUGHT PROCESS: Normal thought process present Skin: COMMON NORMALS: no rashes or lesions noted and no wounds GENERAL SKIN EXAM: no rashes or lesions noted Course 2 Vital Signs: Vital signs: Vital Signs Temperature 98.2 F 12/22/23 17:07 Pulse Rate 77 12/22/23 18:08 Respiratory Rate 16 12/22/23 17:07 Blood Pressure 132/61 12/22/23 18:30 Pulse Oximetry 97 12/22/23 18:30 Oxygen Delivery Me thod Room Air 12/22/23 18:30 MDM - General Adult Medical Decision Making Patient presents here with constipation did give him suppository lactulose here he was unable really to have a bowel movement I did manually disimpact a large amount of stool he feels much better we will place him on MiraLAX he stable for discharge follow-up with PCP return if worsening. Lab Data I reviewed the patient's lab results. 12/22/23 18:25 12/22/23 18:25 Radiology Impressions KUB X-Ray 12/22/23 17:14 IMPRESSION: Blck-bc-bropcuts stool burden with no obstruction. Laboratory Results WBC 15.54 10^3/uL (3.29-11.43) H 12/22/23 18:25 RBC 4.69 10^6/uL (3.85-5.65) 12/22/23 18:25 Hgb 13.00 g/dL (11.27-16.99) 12/22/23 18:25 Hct 40.6 % (37-53) 12/22/23 18:25 MCV 86.6 fl (82-101) 12/22/23 18:25 MCH 27.7 pg (27-33) 12/22/23 18: MCHC 32.0 g/dL (30-55) 12/22/23 18:25 RDW 17.5 % (12.1-15.1) H 12/22/23 18:25 Plt Count 189 10^3/cmm (157-399) 12/22/23 18: MPV 10.7 fL (7.4-10.4) H 12/22/23 18:25 Neut % (Auto) 90.6 % 12/22/23 18: Lymph % (Auto) 1.8 % 12/22/23 18: [place] % (Auto) 6.6 % 12/22/23 18:25 Eos % (Auto) 0.1 % 12/22/23 18:25 Baso % (Auto) 0.2 % 12/22/23 18: Neut # (Auto) 14.08 10^3/uL (1.8-7.7) H 12/22/23 18:25 Lymph # (Auto) 0.3 10^3/uL (0.8-4.8) L 12/22/23 18:25 [place] # (Auto) 1.0 10^3/uL (0.2-0.9) H 12/22/23 18:25 Eos # (Auto) 0.0 10^3/uL (0.0-0.8) 12/22/23 18:25 Baso # (Auto) 0.0 10^3/uL (0.0-0.1) 12/22/23 18: Nucleated RBC % (auto) 0 % 12/22/23 18: Nucleated RBCs # 0.0 /100WBC 12/22/23 18:25 Sodium 134 mmol/L (136-145) L 12/22/23 18:25 Potassium 5.4 mmol/L (3.5-5.1) H 12/22/23 18:25 Chloride 94 mmol/L (98-107) L 12/22/23 18:25 Carbon Dioxide 23 mmol/L (22-29) 12/22/23 18:25 Anion Gap 22.4 (5-19) H 12/22/23 18:25 BUN 33 mg/dL (8-23) H 12/22/23 18:25 Creatinine 1.3 mg/dL (0.7-1.2) H 12/22/23 18:25 GFR Calculation Not Reportable 12/22/23 18:25 Glucose 207 mg/dL (65-115) H 12/22/23 18:25 Calculated Osmolality 291 mOsm/kg (285-295) 12/22/23 18:25 Calcium 9.3 mg/dL (8.5-10.5) 12/22/23 18:25 Total Bilirubin 0.3 mg/dL (0.15-1.2) 12/22/23 18:25 AST 19 U/L (0-40) 12/22/23 18:25 ALT 31 U/L (0-41) 12/22/23 18:25 Alkaline Phosphatase 47 U/L (40-130) 12/22/23 18:25 Total Protein 5.4 g/dL (6.6-8.7) L 12/22/23 18:25 Albumin 3.3 g/dL (3.5-5.2) L 12/22/23 18:25 Globulin 2.1 g/dL (1.3-4.6) 12/22/23 18:25 Lipase 41 U/L (13-60) 12/22/23 18:25 All radiology interpretation(s) finalized by discharge Discharge Plan Discharge Patient Disposition: Home Clinical Impression: Constipation Condition: Stable Prescriptions: New Miralax 17 gram powder in packet 17 g PO DAILY PRN (Reason: constipation) Qty: 14 0RF No Action multivitamin Tablet 1 tab PO DAILY garlic 500 mg capsule 1,000 mg PO DAILY aspirin 325 mg tablet,delayed release (DR/EC) 325 mg PO DAILY metformin 1,000 mg tablet 1,000 mg PO BID pyridoxine (vitamin B6) 100 mg tablet 100 mg PO DAILY isosorbide mononitrate 60 mg tablet extended release 24 hr 60 mg PO BID cranberry 500 mg capsule 1,500 mg PO DAILY axitinib 5 mg tablet 5 mg PO BID Qty: 60 12RF lorazepam 1 mg tablet 0.5 - 1 mg PO Q6H PRN (Reason: Severe Nausea) Qty: 30 3RF prochlorperazine maleate [Compazine] 10 mg tablet 10 mg PO Q4H PRN (Reason: Mild Nausea) Qty: 30 3RF sennosides [Senokot] 8.6 mg tablet 8.6 mg PO DAILY PRN (Reason: constipation) Qty: 30 0RF diphenhydramine HCl [Benadryl] 25 mg capsule 25 mg PO TID PRN (Reason: allergy symptoms) Qty: 30 0RF mecobalamin (vitamin B12) [B12 Active] 1,000 mcg tablet,chewable 1,000 mcg PO DAILY Qty: 30 2RF levothyroxine 25 mcg capsule 25 mcg PO DAILY Qty: 30 3RF amlodipine 10 mg tablet 10 mg PO DAILY Rx Instructions: 2 tablets by mouth after loose stool, then one tablet after stool if loose stool continues. No more than 4 tablets daily. cholecalciferol (vitamin D3) 50 mcg (2,000 unit) capsule 50 mcg PO DAILY bisacodyl [Dulcolax (bisacodyl)] 10 mg suppository 10 mg RI DAILY PRN Ca-D3-mag et-amno-ucd-dione-bor [Calcium 600-D3 Plus (mag-zinc)] 600 mg calcium- 20 mcg-50 mg tablet PO DAILY Dulcolax (magnesium hydroxide) 1,200 mg tablet,chewable PO BID PRN prednisone 10 mg tablet 20 mg PO BID Qty: 30 0RF Rx Instructions: 2 tabs BID until diarrhea resolved then 10mg BID x 3 days, 10 mg daily loperamide [Imodium A-D] 2 mg capsule 2 mg PO .COMPLEX PRN (Reason: loose stool) Patient Comments: per instructions and patient confirmation-2 caplets after first stool; 21 caplet after each subsequent loose stool; but no more than4 caplets in 24 hours Rx Instructions: 2 mg orally PRN; nitroglycerin [Nitrostat] 0.4 mg tablet, sublingual 0.4 mg SUBLINGUAL Q5M PRN (Reason: chest pain) Qty: 50 5RF Rx Instructions: for 3 doses tamsulosin 0.4 mg capsule See Rx Instructions .ROUTE .COMPLEX Qty: 90 3RF Dose Instruction: TAKE 1 CAPSULE BY MOUTH EVERY DAY Rx Instructions: TAKE 1 CAPSULE BY MOUTH EVERY DAY finasteride 5 mg tablet See Rx Instructions .ROUTE .COMPLEX Qty: 90 3RF Dose Instruction: TAKE 1 TABLET BY MOUTH EVERY DAY Rx Instructions: TAKE 1 TABLET BY MOUTH EVERY DAY atorvastatin 80 mg tablet See Rx Instructions .ROUTE .COMPLEX Qty: 90 3RF Dose Instruction: TAKE 1 TABLET BY MOUTH EVERY DAY Rx Instructions: TAKE 1 TABLET BY MOUTH EVERY DAY clopidogrel 75 mg tablet See Rx Instructions .ROUTE .COMPLEX Qty: 90 3RF Dose Instruction: TAKE 1 TABLET BY MOUTH EVERY DAY Rx Instructions: TAKE 1 TABLET BY MOUTH EVERY DAY lisinopril 40 mg tablet See Rx Instructions .ROUTE .COMPLEX Qty: 90 3RF Dose Instruction: TAKE 1 TABLET BY MOUTH AT BEDTIME Rx Instructions: TAKE 1 TABLET BY MOUTH AT BEDTIME metoprolol succinate [Toprol XL] 25 mg tablet extended release 24 hr 25 mg PO DAILY Qty: 90 3RF gabapentin 600 mg tablet 600 mg PO TID Jardiance 10 mg tablet 10 mg PO QAM Discharge Orders: Discharge ED (Routine); Ordered 12/22/23 Ordered By: Dulce Maria Painter Referrals: Lenny Degroot MD [Primary Care Provider] - Discharge Diet: Advance as tolerated Discharge Activity: Resume usual activity Patient Instructions: Constipation (ED) Coding Level of Care Code ED Production Editor for Ignacio Gomez
[2023-12-22 17:42] VITALS: PULSE 76; O2SAT 95
[2023-12-22 18:08] VITALS: BP 135/59; PULSE 77; O2SAT 94
[2023-12-22 18:30] VITALS: BP 132/61; O2SAT 97
[2023-12-22] MEDS: lactulose oral liq 20 gm/30 mL UDC 30 GM PO (18:48)
[2023-12-22] MEDS: glycerin adult supp 1 EACH PR (18:52)
[2023-12-22 19:13] LABS: Basophils % 0.2 %; Eosinophils % 0.1 %; Hematocrit 40.6 % (37-53); Lymphocytes # 0.3 10^3/uL (0.8-4.8); Lymphocytes % 1.8 %; Mean Corpuscular Hemoglobin 27.7 pg (27-33); Mean Corpuscular Volume 86.6 fl (82-101); Mean Platelet Volume 10.7 fL (7.4-10.4); Monocytes % 6.6 %; Neutrophils # 14.08 10^3/uL (1.8-7.7); Neutrophils % 90.6 %; Nucleated Red Blood Cells % 0 %; Platelet Count 189 10^3/cmm (157-399); Red Blood Count 4.69 10^6/uL (3.85-5.65); Red Cell Distribution Width 17.5 % (12.1-15.1); White Blood Count 15.54 10^3/uL (3.29-11.43)
[2023-12-22 19:31] LABS: Alanine Aminotransferase 31 U/L (0-41); Albumin Level 3.3 g/dL (3.5-5.2); Alkaline Phosphatase 47 U/L (40-130); Anion Gap 22.4 (5-19); Aspartate Amino Transferase 19 U/L (0-40); Blood Urea Nitrogen 33 mg/dL (8-23); Calcium 9.3 mg/dL (8.5-10.5); Carbon Dioxide 23 mmol/L (22-29); Chloride 94 mmol/L (98-107); Creatinine Clr Calc Pharmacy 51.8948; Globulin 2.1 g/dL (1.3-4.6); Glucose 207 mg/dL (65-115); Lipase 41 U/L (13-60); Osmolality Calculated 291 mOsm/kg (285-295); Potassium 5.4 mmol/L (3.5-5.1); Sodium 134 mmol/L (136-145); Total Bilirubin 0.3 mg/dL (0.15-1.2); Total Protein 5.4 g/dL (6.6-8.7)
[2023-12-22 20:17] VITALS: PULSE 72; RESP 18; O2SAT 97
== END 2023-12-22 20:18 | disposition home or self-care (01) ==
PROVIDERS: Emergency Provider Emergency Medicine; PCP Family Medicine
DX: K59.00 Constipation, unspecified (principal); Z79.02 Long term (current) use of antithrombotics/antiplatelets; Z79.82 Long term (current) use of aspirin; F17.210 Nicotine dependence, cigarettes, uncomplicated; F17.220 Nicotine dependence, chewing tobacco, uncomplicated; Z85.528 Personal history of other malignant neoplasm of kidney; I25.10 Atherosclerotic heart disease of native coronary artery without angina pectoris; I10 Essential (primary) hypertension; E78.5 Hyperlipidemia, unspecified
CPT/HCPCS: 36415; 74018; 80053; 83690; 85025; 99284

== ENCOUNTER 2023-12-26 11:00 | Oncology outpatient (recurring) (ONCR) | payer MEDICARE, SELFPAY ==
[2023-12-20 10:21] LABS: C.Diff PCR (Lab) NEGATIVE (Negative)
[2023-12-26 12:05] LABS: Basophils % 0.3 %; Eosinophils # 0.2 10^3/uL (0.0-0.8); Eosinophils % 2.5 %; Hematocrit 43.1 % (37-53); Lymphocytes # 0.8 10^3/uL (0.8-4.8); Lymphocytes % 10.4 %; Mean Corpuscular HGB Conc 30.9 g/dL (30-55); Mean Corpuscular Hemoglobin 27.3 pg (27-33); Mean Corpuscular Volume 88.3 fl (82-101); Mean Platelet Volume 10.2 fL (7.4-10.4); Monocytes # 0.6 10^3/uL (0.2-0.9); Monocytes % 8.4 %; Neutrophils # 5.87 10^3/uL (1.8-7.7); Nucleated Red Blood Cells % 0 %; Platelet Count 156 10^3/cmm (157-399); Red Blood Count 4.88 10^6/uL (3.85-5.65); Red Cell Distribution Width 17.4 % (12.1-15.1); White Blood Count 7.52 10^3/uL (3.29-11.43)
[2023-12-26 12:39] LABS: Alanine Aminotransferase 27 U/L (0-41); Albumin Level 3.1 g/dL (3.5-5.2); Alkaline Phosphatase 45 U/L (40-130); Blood Urea Nitrogen 28 mg/dL (8-23); Calcium 8.6 mg/dL (8.5-10.5); Carbon Dioxide 25 mmol/L (22-29); Chloride 99 mmol/L (98-107); Creatinine Clr Calc Pharmacy 62.4666; Globulin 2.4 g/dL (1.3-4.6); Glucose 150 mg/dL (65-115); Osmolality Calculated 290 mOsm/kg (285-295); Sodium 136 mmol/L (136-145); Thyroid Stimulating Hormone 3.16 uIU/mL (0.27-4.20); Total Bilirubin 0.3 mg/dL (0.15-1.2); Total Protein 5.5 g/dL (6.6-8.7)
[2023-12-26 12:43] LABS: Anion Gap 16.8 (5-19); Aspartate Amino Transferase 27 U/L (0-40); Potassium 4.8 mmol/L (3.5-5.1)
[2023-12-26 12:44] LABS: Lactate Dehydrogenase 247 U/L (135-225)
[2023-12-26] MEDS: pembrolizumab 200 MG in sodium chloride 0.9% 250 ML 516 MG IV (13:25)
[2023-12-26 14:09] VITALS: BP 132/61; PULSE 57; TEMP 36.6; O2SAT 98
== END 2023-12-26 23:59 | disposition home or self-care (01) ==
PROVIDERS: PCP Family Medicine; Visit Provider Internal Medicine Medical Oncology
DX: C64.2 Malignant neoplasm of left kidney, except renal pelvis; Z53.9 Procedure and treatment not carried out, unspecified reason; Z51.12 Encounter for antineoplastic immunotherapy; C78.00 Secondary malignant neoplasm of unspecified lung
CPT/HCPCS: 80053; 83615; 84443; 85025; 87493; 96413; 99214; J7050; J9271

== ENCOUNTER 2024-01-02 11:18 | Oncology outpatient (recurring) (ONCR) | payer MEDICARE, SELFPAY | END 2024-01-14 23:59 | disposition home or self-care (01) | PROVIDERS: PCP Family Medicine; Visit Provider Internal Medicine Medical Oncology | DX: Z53.9 Procedure and treatment not carried out, unspecified reason (principal); C64.2 Malignant neoplasm of left kidney, except renal pelvis; R94.6 Abnormal results of thyroid function studies | CPT/HCPCS: 99214 ==

== ENCOUNTER 2024-01-16 08:44 | Oncology outpatient (recurring) (ONCR) | payer MEDICARE, SELFPAY ==
[2024-01-16 09:14] LABS: Basophils # 0.1 10^3/uL (0.0-0.1); Basophils % 0.8 %; Eosinophils # 0.2 10^3/uL (0.0-0.8); Eosinophils % 2.4 %; Hematocrit 42.1 % (37-53); Lymphocytes # 1.2 10^3/uL (0.8-4.8); Lymphocytes % 15.3 %; Mean Corpuscular HGB Conc 32.3 g/dL (30-55); Mean Corpuscular Hemoglobin 27.5 pg (27-33); Mean Corpuscular Volume 85.2 fl (82-101); Mean Platelet Volume 9.2 fL (7.4-10.4); Monocytes # 0.8 10^3/uL (0.2-0.9); Monocytes % 10.2 %; Neutrophils # 5.56 10^3/uL (1.8-7.7); Neutrophils % 69.5 %; Nucleated Red Blood Cells % 0 %; Platelet Count 216 10^3/cmm (157-399); Red Blood Count 4.94 10^6/uL (3.85-5.65); Red Cell Distribution Width 15.7 % (12.1-15.1); White Blood Count 7.98 10^3/uL (3.29-11.43)
[2024-01-16 09:45] LABS: Alanine Aminotransferase 27 U/L (0-41); Albumin Level 3.7 g/dL (3.5-5.2); Alkaline Phosphatase 60 U/L (40-130); Aspartate Amino Transferase 27 U/L (0-40); Blood Urea Nitrogen 27 mg/dL (8-23); Calcium 9.5 mg/dL (8.5-10.5); Carbon Dioxide 26 mmol/L (22-29); Chloride 98 mmol/L (98-107); Globulin 2.9 g/dL (1.3-4.6); Glucose 138 mg/dL (65-115); Osmolality Calculated 287 mOsm/kg (285-295); Sodium 135 mmol/L (136-145); Thyroid Stimulating Hormone 4.73 uIU/mL (0.27-4.20); Total Bilirubin 0.3 mg/dL (0.15-1.2); Total Protein 6.6 g/dL (6.6-8.7)
[2024-01-16] MEDS: pembrolizumab 200 MG in sodium chloride 0.9% 250 ML 516 MG IV (11:16)
[2024-01-16 12:00] VITALS: BP 141/78; PULSE 84; RESP 18; TEMP 36.6; O2SAT 98
== END 2024-01-16 23:59 | disposition home or self-care (01) ==
PROVIDERS: PCP Family Medicine; Visit Provider Internal Medicine Medical Oncology
DX: C64.2 Malignant neoplasm of left kidney, except renal pelvis; R94.6 Abnormal results of thyroid function studies; Z79.899 Other long term (current) drug therapy
CPT/HCPCS: 36415; 80053; 84443; 85025; 96413; 99214; A4222; J7050; J9271

== ENCOUNTER 2024-02-06 09:18 | Oncology outpatient (recurring) (ONCR) | payer MEDICARE, SELFPAY ==
[2024-02-06 10:27] LABS: Basophils # 0.1 10^3/uL (0.0-0.1); Basophils % 0.5 %; Eosinophils # 0.3 10^3/uL (0.0-0.8); Eosinophils % 2.4 %; Hematocrit 44.8 % (37-53); Lymphocytes # 1.9 10^3/uL (0.8-4.8); Lymphocytes % 17.4 %; Mean Corpuscular HGB Conc 30.8 g/dL (30-55); Mean Corpuscular Hemoglobin 27.4 pg (27-33); Mean Corpuscular Volume 88.9 fl (82-101); Mean Platelet Volume 9.7 fL (7.4-10.4); Monocytes % 9.4 %; Neutrophils # 7.68 10^3/uL (1.8-7.7); Neutrophils % 69.8 %; Nucleated Red Blood Cells % 0 %; Platelet Count 201 10^3/cmm (157-399); Red Blood Count 5.04 10^6/uL (3.85-5.65); Red Cell Distribution Width 16.2 % (12.1-15.1); White Blood Count 11.03 10^3/uL (3.29-11.43)
[2024-02-06 10:51] LABS: Alanine Aminotransferase 23 U/L (0-41); Albumin Level 3.6 g/dL (3.5-5.2); Alkaline Phosphatase 61 U/L (40-130); Blood Urea Nitrogen 34 mg/dL (8-23); Calcium 9.3 mg/dL (8.5-10.5); Carbon Dioxide 23 mmol/L (22-29); Chloride 103 mmol/L (98-107); Globulin 2.7 g/dL (1.3-4.6); Glucose 132 mg/dL (65-115); Osmolality Calculated 295 mOsm/kg (285-295); Sodium 138 mmol/L (136-145); Total Bilirubin 0.3 mg/dL (0.15-1.2); Total Protein 6.3 g/dL (6.6-8.7)
[2024-02-06 10:59] LABS: Anion Gap 16.6 (5-19); Aspartate Amino Transferase 26 U/L (0-40); Potassium 4.6 mmol/L (3.5-5.1)
[2024-02-06] MEDS: sodium chloride 0.9% 500 ML 999 ML IV (12:38)
[2024-02-06] MEDS: pembrolizumab 200 MG in sodium chloride 0.9% 250 ML 516 MG IV (14:26)
[2024-02-06 15:13] VITALS: BP 106/72; PULSE 64; RESP 16; TEMP 36.3; O2SAT 96
== END 2024-02-06 23:59 | disposition home or self-care (01) ==
PROVIDERS: Nurse Practitioner Family; PCP Family Medicine; Visit Provider Internal Medicine Medical Oncology
DX: Z53.9 Procedure and treatment not carried out, unspecified reason (principal); C64.2 Malignant neoplasm of left kidney, except renal pelvis; R94.6 Abnormal results of thyroid function studies; Z79.899 Other long term (current) drug therapy
CPT/HCPCS: 80053; 84443; 85025; 96367; 96413; 99214; A4222; J7040; J7050; J9271

== ENCOUNTER → 2024-02-20 11:47 | Outpatient (BNVA) | payer MEDICARE, SELFPAY | PROVIDERS: PCP Family Medicine; Visit Provider Internal Medicine Cardiovascular Disease | DX: I25.10 Atherosclerotic heart disease of native coronary artery without angina pectoris (principal); I10 Essential (primary) hypertension; E78.2 Mixed hyperlipidemia; R63.4 Abnormal weight loss; F17.220 Nicotine dependence, chewing tobacco, uncomplicated; Z68.31 Body mass index [BMI] 31.0-31.9, adult | CPT/HCPCS: 99214 ==

== ENCOUNTER 2024-02-27 08:54 | Oncology outpatient (recurring) (ONCR) | payer MEDICARE, SELFPAY ==
[2024-02-27 09:37] LABS: Basophils # 0.1 10^3/uL (0.0-0.1); Basophils % 0.6 %; Eosinophils # 0.2 10^3/uL (0.0-0.8); Eosinophils % 1.4 %; Hematocrit 44.7 % (37-53); Lymphocytes # 1.5 10^3/uL (0.8-4.8); Lymphocytes % 12.3 %; Mean Corpuscular HGB Conc 31.5 g/dL (30-55); Mean Corpuscular Hemoglobin 28.1 pg (27-33); Mean Corpuscular Volume 89.2 fl (82-101); Mean Platelet Volume 9.8 fL (7.4-10.4); Monocytes # 0.8 10^3/uL (0.2-0.9); Neutrophils # 9.35 10^3/uL (1.8-7.7); Nucleated Red Blood Cells % 0 %; Platelet Count 219 10^3/cmm (157-399); Red Blood Count 5.01 10^6/uL (3.85-5.65); Red Cell Distribution Width 15.7 % (12.1-15.1); White Blood Count 11.99 10^3/uL (3.29-11.43)
[2024-02-27 10:07] LABS: Alanine Aminotransferase 23 U/L (0-41); Albumin Level 3.7 g/dL (3.5-5.2); Alkaline Phosphatase 59 U/L (40-130); Blood Urea Nitrogen 32 mg/dL (8-23); Calcium 9.1 mg/dL (8.5-10.5); Carbon Dioxide 24 mmol/L (22-29); Chloride 101 mmol/L (98-107); Globulin 2.6 g/dL (1.3-4.6); Glucose 144 mg/dL (65-115); Osmolality Calculated 295 mOsm/kg (285-295); Sodium 138 mmol/L (136-145); Thyroid Stimulating Hormone 3.87 uIU/mL (0.27-4.20); Total Bilirubin 0.4 mg/dL (0.15-1.2); Total Protein 6.3 g/dL (6.6-8.7)
[2024-02-27 10:20] LABS: Anion Gap 17.4 (5-19); Aspartate Amino Transferase 25 U/L (0-40); Potassium 4.4 mmol/L (3.5-5.1)
[2024-02-27] MEDS: pembrolizumab 200 MG in sodium chloride 0.9% 250 ML 516 MG IV (11:21)
[2024-02-27 12:00] VITALS: BP 142/70; PULSE 58; RESP 18; TEMP 36.5; O2SAT 96
== END 2024-02-27 23:59 | disposition home or self-care (01) ==
PROVIDERS: Nurse Practitioner Family; PCP Family Medicine; Visit Provider Internal Medicine Medical Oncology
DX: C64.2 Malignant neoplasm of left kidney, except renal pelvis; Z79.899 Other long term (current) drug therapy; Z51.12 Encounter for antineoplastic immunotherapy; I10 Essential (primary) hypertension; E78.2 Mixed hyperlipidemia; R63.4 Abnormal weight loss; I25.10 Atherosclerotic heart disease of native coronary artery without angina pectoris
CPT/HCPCS: 80053; 84443; 85025; 96413; 99214; A4222; J7050; J9271

== ENCOUNTER 2024-03-19 11:19 | Oncology outpatient (recurring) (ONCR) | payer MEDICARE, SELFPAY ==
[2024-03-19 11:55] LABS: Basophils # 0.1 10^3/uL (0.0-0.1); Basophils % 0.5 %; Eosinophils # 0.1 10^3/uL (0.0-0.8); Eosinophils % 0.7 %; Hematocrit 43.4 % (37-53); Lymphocytes # 1.3 10^3/uL (0.8-4.8); Lymphocytes % 11.6 %; Mean Corpuscular HGB Conc 31.8 g/dL (30-55); Mean Corpuscular Hemoglobin 28.5 pg (27-33); Mean Corpuscular Volume 89.7 fl (82-101); Mean Platelet Volume 9.6 fL (7.4-10.4); Monocytes # 0.8 10^3/uL (0.2-0.9); Monocytes % 6.8 %; Neutrophils # 8.77 10^3/uL (1.8-7.7); Neutrophils % 79.5 %; Nucleated Red Blood Cells % 0 %; Platelet Count 226 10^3/cmm (157-399); Red Blood Count 4.84 10^6/uL (3.85-5.65); Red Cell Distribution Width 15.1 % (12.1-15.1); White Blood Count 11.03 10^3/uL (3.29-11.43)
[2024-03-19 12:26] LABS: Alanine Aminotransferase 23 U/L (0-41); Albumin Level 3.7 g/dL (3.5-5.2); Alkaline Phosphatase 59 U/L (40-130); Anion Gap 16.8 (5-19); Aspartate Amino Transferase 20 U/L (0-40); Blood Urea Nitrogen 33 mg/dL (8-23); Calcium 8.8 mg/dL (8.5-10.5); Carbon Dioxide 23 mmol/L (22-29); Chloride 102 mmol/L (98-107); Globulin 2.8 g/dL (1.3-4.6); Glucose 168 mg/dL (65-115); Osmolality Calculated 295 mOsm/kg (285-295); Potassium 4.8 mmol/L (3.5-5.1); Sodium 137 mmol/L (136-145); Thyroid Stimulating Hormone 2.61 uIU/mL (0.27-4.20); Total Bilirubin 0.2 mg/dL (0.15-1.2); Total Protein 6.5 g/dL (6.6-8.7)
[2024-03-19] MEDS: pembrolizumab 200 MG in sodium chloride 0.9% 250 ML 516 MG IV (14:06)
[2024-03-19 15:20] VITALS: BP 134/78; PULSE 78; RESP 18; TEMP 36.6; O2SAT 98
--- NOTE | 2024-03-20 14:45 | CTR_ITS ---
PROCEDURE INFORMATION: Exam: CT Chest Without Contrast; Diagnostic Exam date and time: 03/20/2024 2:33 PM Age: 78 years old Clinical indication: Condition or disease; Kidney or ureter condition; Other: Renal cancer; Prior surgery; Surgery date: 6+ months; Surgery type: Neck, shoulder, heart stents; Additional info: Pulmonary nodule, restaging TECHNIQUE: Imaging protocol: Diagnostic computed tomography of the chest without contrast. Radiation optimization: All CT scans at this facility use at least one of these dose optimization techniques: automated exposure control; mA and/or kV adjustment per patient size (includes targeted exams where dose is matched to clinical indication); or iterative reconstruction. COMPARISON: CT chest [facility] [id number] 11/15/2023 12:36 PM RADIATION DOSE METRICS: Total DLP (mGy-cm): 1115.92 FINDINGS: Lungs: There are a few calcified granulomas in both lungs but I see no suspicious lung nodule. No infiltrate noted. Pleural spaces: Unremarkable. No pneumothorax. No pleural effusion. Heart: Unremarkable. No cardiomegaly. No pericardial effusion. Coronary arteries: Coronary artery calcifications are noted. Lymph nodes: Unremarkable. No enlarged lymph nodes. Vasculature: Unremarkable. No aortic aneurysm. Bones/joints: The thoracic spine demonstrates prominent multilevel vertebral body spurring. No bony lesions noted. Soft tissues: Unremarkable. PROCEDURE INFORMATION: Exam: CT Abdomen And Pelvis Without Contrast Exam date and time: 03/20/2024 2:33 PM Age: 78 years old Clinical indication: Condition or disease; Kidney or ureter condition; Other: Renal cancer; Prior surgery; Surgery date: 6+ months; Surgery type: Neck, shoulder, heart stents; Additional info: Pulmonary nodule, restaging TECHNIQUE: Imaging protocol: Computed tomography of the abdomen and pelvis without contrast. Radiation optimization: All CT scans at this facility use at least one of these dose optimization techniques: automated exposure control; mA and/or kV adjustment per patient size (includes targeted exams where dose is matched to clinical indication); or iterative reconstruction. COMPARISON: CT chest [facility] [id number] 11/15/2023 12:36 PM RADIATION DOSE METRICS: Total DLP (mGy-cm): 1115.92 FINDINGS: Lungs: Lung bases are clear. No pleural effusion. Liver: Normal. No mass. Gallbladder and bile ducts: There is a 2.4 cm gallstone in the gallbladder. The gallbladder does not appear inflamed. Pancreas: Normal. No ductal dilation. Spleen: Normal. No splenomegaly. Adrenal glands: Normal. No mass. Kidneys and ureters: An irregular somewhat rounded mass involves the posterior aspect of the left kidney. The mass measures 2.9 x 2 cm on today's exam. Stomach and bowel: Unremarkable. No obstruction. No mucosal thickening. Appendix: No evidence of appendicitis. Intraperitoneal space: Unremarkable. No free air. No significant fluid collection. Vasculature: Unremarkable. No abdominal aortic aneurysm. Lymph nodes: Unremarkable. No enlarged lymph nodes. Urinary bladder: Bladder demonstrates diffuse wall trabeculation. Reproductive: Unremarkable as visualized. Bones/joints: The lumbar spine demonstrates multilevel vertebral body spurring and degenerative disc disease. No acute spinal fracture noted. No bony lesions noted. Soft tissues: Unremarkable.
== END 2024-03-19 23:59 | disposition home or self-care (01) ==
PROVIDERS: Nurse Practitioner Family; PCP Family Medicine; Visit Provider Internal Medicine Medical Oncology
DX: C64.2 Malignant neoplasm of left kidney, except renal pelvis; Z79.899 Other long term (current) drug therapy; Z51.12 Encounter for antineoplastic immunotherapy; Z79.69 Long term (current) use of other immunomodulators and immunosuppressants; I25.10 Atherosclerotic heart disease of native coronary artery without angina pectoris; I10 Essential (primary) hypertension; E78.2 Mixed hyperlipidemia; R63.4 Abnormal weight loss; Z68.31 Body mass index [BMI] 31.0-31.9, adult
CPT/HCPCS: 36415; 80053; 84443; 85025; 96413; 99213; A4222; J7050; J9271

== ENCOUNTER 2024-04-09 09:15 | Oncology outpatient (recurring) (ONCR) | payer MEDICARE, SELFPAY ==
--- NOTE | 2024-03-20 | CTR_ITS ---
PROCEDURE INFORMATION: Exam: CT Chest Without Contrast; Diagnostic Exam date and time: 03/20/2024 2:33 PM Age: 78 years old Clinical indication: Condition or disease; Kidney or ureter condition; Other: Renal cancer; Prior surgery; Surgery date: 6+ months; Surgery type: Neck, shoulder, heart stents; Additional info: Pulmonary nodule, restaging TECHNIQUE: Imaging protocol: Diagnostic computed tomography of the chest without contrast. Radiation optimization: All CT scans at this facility use at least one of these dose optimization techniques: automated exposure control; mA and/or kV adjustment per patient size (includes targeted exams where dose is matched to clinical indication); or iterative reconstruction. COMPARISON: CT chest [facility] [id number] 11/15/2023 12:36 PM RADIATION DOSE METRICS: Total DLP (mGy-cm): 1115.92 FINDINGS: Lungs: There are a few calcified granulomas in both lungs but I see no suspicious lung nodule. No infiltrate noted. Pleural spaces: Unremarkable. No pneumothorax. No pleural effusion. Heart: Unremarkable. No cardiomegaly. No pericardial effusion. Coronary arteries: Coronary artery calcifications are noted. Lymph nodes: Unremarkable. No enlarged lymph nodes. Vasculature: Unremarkable. No aortic aneurysm. Bones/joints: The thoracic spine demonstrates prominent multilevel vertebral body spurring. No bony lesions noted. Soft tissues: Unremarkable. PROCEDURE INFORMATION: Exam: CT Abdomen And Pelvis Without Contrast Exam date and time: 03/20/2024 2:33 PM Age: 78 years old Clinical indication: Condition or disease; Kidney or ureter condition; Other: Renal cancer; Prior surgery; Surgery date: 6+ months; Surgery type: Neck, shoulder, heart stents; Additional info: Pulmonary nodule, restaging TECHNIQUE: Imaging protocol: Computed tomography of the abdomen and pelvis without contrast. Radiation optimization: All CT scans at this facility use at least one of these dose optimization techniques: automated exposure control; mA and/or kV adjustment per patient size (includes targeted exams where dose is matched to clinical indication); or iterative reconstruction. COMPARISON: CT chest [facility] [id number] 11/15/2023 12:36 PM RADIATION DOSE METRICS: Total DLP (mGy-cm): 1115.92 FINDINGS: Lungs: Lung bases are clear. No pleural effusion. Liver: Normal. No mass. Gallbladder and bile ducts: There is a 2.4 cm gallstone in the gallbladder. The gallbladder does not appear inflamed. Pancreas: Normal. No ductal dilation. Spleen: Normal. No splenomegaly. Adrenal glands: Normal. No mass. Kidneys and ureters: An irregular somewhat rounded mass involves the posterior aspect of the left kidney. The mass measures 2.9 x 2 cm on today's exam. Stomach and bowel: Unremarkable. No obstruction. No mucosal thickening. Appendix: No evidence of appendicitis. Intraperitoneal space: Unremarkable. No free air. No significant fluid collection. Vasculature: Unremarkable. No abdominal aortic aneurysm. Lymph nodes: Unremarkable. No enlarged lymph nodes. Urinary bladder: Bladder demonstrates diffuse wall trabeculation. Reproductive: Unremarkable as visualized. Bones/joints: The lumbar spine demonstrates multilevel vertebral body spurring and degenerative disc disease. No acute spinal fracture noted. No bony lesions noted. Soft tissues: Unremarkable. CT/[place] [id number] IMPRESSION: There is no evidence of active neoplastic disease. IMPRESSION: 1. The left renal mass continues to decrease in size. I see no evidence of metastatic disease. 2. Cholelithiasis 3. Bladder wall trabeculation which may be due to chronic bladder outlet obstruction COMMENTS: Consistent with the [employer]'s Incidental Findings Committee white paper (J Am Erin Radiol 2018): Any incidental renal lesion less than 1 cm or classified as too small to characterize, or any incidental cystic renal lesion characterized as simple-appearing, is likely benign. No follow-up imaging is recommended for these lesions per consensus recommendations based on imaging criteria.
[2024-04-09 09:30] LABS: Basophils # 0.1 10^3/uL (0.0-0.1); Basophils % 0.5 %; Eosinophils # 0.3 10^3/uL (0.0-0.8); Eosinophils % 2.7 %; Hematocrit 43.8 % (37-53); Lymphocytes # 1.5 10^3/uL (0.8-4.8); Lymphocytes % 14.8 %; Mean Corpuscular HGB Conc 31.5 g/dL (30-55); Mean Corpuscular Hemoglobin 28.3 pg (27-33); Mean Corpuscular Volume 89.8 fl (82-101); Mean Platelet Volume 9.5 fL (7.4-10.4); Monocytes # 0.7 10^3/uL (0.2-0.9); Monocytes % 6.9 %; Neutrophils # 7.56 10^3/uL (1.8-7.7); Neutrophils % 74.6 %; Nucleated Red Blood Cells % 0 %; Platelet Count 197 10^3/cmm (157-399); Red Blood Count 4.88 10^6/uL (3.85-5.65); Red Cell Distribution Width 14.9 % (12.1-15.1); White Blood Count 10.13 10^3/uL (3.29-11.43)
[2024-04-09 09:57] LABS: Alanine Aminotransferase 22 U/L (0-41); Albumin Level 3.8 g/dL (3.5-5.2); Alkaline Phosphatase 59 U/L (40-130); Aspartate Amino Transferase 22 U/L (0-40); Blood Urea Nitrogen 25 mg/dL (8-23); Calcium 8.8 mg/dL (8.5-10.5); Carbon Dioxide 23 mmol/L (22-29); Chloride 103 mmol/L (98-107); Globulin 2.6 g/dL (1.3-4.6); Glucose 188 mg/dL (65-115); Osmolality Calculated 297 mOsm/kg (285-295); Sodium 139 mmol/L (136-145); Thyroid Stimulating Hormone 3.74 uIU/mL (0.27-4.20); Total Bilirubin 0.4 mg/dL (0.15-1.2); Total Protein 6.4 g/dL (6.6-8.7)
[2024-04-09 10:00] LABS: Lactate Dehydrogenase 170 U/L (135-225)
[2024-04-09] MEDS: sodium chloride 0.9% 500 ML 999 ML IV (12:08)
[2024-04-09] MEDS: pembrolizumab 200 MG in sodium chloride 0.9% 250 ML 516 MG IV (14:10)
[2024-04-09 14:51] VITALS: BP 165/73; PULSE 62; TEMP 36.2; O2SAT 98
== END 2024-04-09 23:59 | disposition home or self-care (01) ==
PROVIDERS: Nurse Practitioner Family; PCP Family Medicine; Visit Provider Internal Medicine Medical Oncology
DX: C64.2 Malignant neoplasm of left kidney, except renal pelvis (principal); Z53.9 Procedure and treatment not carried out, unspecified reason; Z51.12 Encounter for antineoplastic immunotherapy; R91.1 Solitary pulmonary nodule; Z79.899 Other long term (current) drug therapy
CPT/HCPCS: 71250; 74176; 80053; 83615; 84443; 85025; 96360; 96413; 99214; J7040; J7050; J9271

== ENCOUNTER 2024-04-30 09:25 | Oncology outpatient (recurring) (ONCR) | payer MEDICARE, SELFPAY ==
[2024-04-30 09:51] LABS: Basophils % 0.4 %; Eosinophils # 0.2 10^3/uL (0.0-0.8); Eosinophils % 2.1 %; Lymphocytes # 1.7 10^3/uL (0.8-4.8); Lymphocytes % 15.2 %; Mean Corpuscular Hemoglobin 28.5 pg (27-33); Mean Corpuscular Volume 88.9 fl (82-101); Mean Platelet Volume 9.5 fL (7.4-10.4); Monocytes % 9.1 %; Neutrophils # 7.89 10^3/uL (1.8-7.7); Neutrophils % 72.7 %; Nucleated Red Blood Cells % 0 %; Platelet Count 215 10^3/cmm (157-399); Red Blood Count 5.06 10^6/uL (3.85-5.65); Red Cell Distribution Width 14.9 % (12.1-15.1); White Blood Count 10.85 10^3/uL (3.29-11.43)
[2024-04-30 10:23] LABS: Alanine Aminotransferase 21 U/L (0-41); Alkaline Phosphatase 64 U/L (40-130); Anion Gap 21.3 (5-19); Aspartate Amino Transferase 19 U/L (0-40); Blood Urea Nitrogen 28 mg/dL (8-23); Calcium 9.2 mg/dL (8.5-10.5); Carbon Dioxide 21 mmol/L (22-29); Chloride 99 mmol/L (98-107); Globulin 2.5 g/dL (1.3-4.6); Glucose 134 mg/dL (65-115); Osmolality Calculated 291 mOsm/kg (285-295); Potassium 4.3 mmol/L (3.5-5.1); Sodium 137 mmol/L (136-145); Thyroid Stimulating Hormone 3.66 uIU/mL (0.27-4.20); Total Bilirubin 0.3 mg/dL (0.15-1.2); Total Protein 6.5 g/dL (6.6-8.7)
[2024-04-30] MEDS: pembrolizumab 200 MG in sodium chloride 0.9% 250 ML 516 MG IV (12:14)
[2024-04-30 12:43] VITALS: BP 143/71; PULSE 60; RESP 16; O2SAT 97
== END 2024-04-30 23:59 | disposition home or self-care (01) ==
PROVIDERS: Nurse Practitioner Family; PCP Family Medicine; Visit Provider Internal Medicine Medical Oncology
DX: C64.2 Malignant neoplasm of left kidney, except renal pelvis (principal); Z79.899 Other long term (current) drug therapy; Z51.12 Encounter for antineoplastic immunotherapy; C77.1 Secondary and unspecified malignant neoplasm of intrathoracic lymph nodes; Z79.52 Long term (current) use of systemic steroids
CPT/HCPCS: 80053; 84443; 85025; 96413; 99214; A4222; J7050; J9271

== ENCOUNTER 2024-05-21 08:50 | Oncology outpatient (recurring) (ONCR) | payer MEDICARE, SELFPAY ==
[2024-05-21 09:09] LABS: Basophils # 0.1 10^3/uL (0.0-0.1); Basophils % 0.6 %; Eosinophils # 0.3 10^3/uL (0.0-0.8); Eosinophils % 2.4 %; Hematocrit 44.5 % (37-53); Lymphocytes # 1.6 10^3/uL (0.8-4.8); Lymphocytes % 15.1 %; Mean Corpuscular HGB Conc 31.5 g/dL (30-55); Mean Corpuscular Hemoglobin 28.1 pg (27-33); Mean Corpuscular Volume 89.2 fl (82-101); Mean Platelet Volume 9.2 fL (7.4-10.4); Monocytes # 0.7 10^3/uL (0.2-0.9); Monocytes % 6.7 %; Neutrophils # 8.04 10^3/uL (1.8-7.7); Neutrophils % 74.6 %; Nucleated Red Blood Cells % 0 %; Platelet Count 196 10^3/cmm (157-399); Red Blood Count 4.99 10^6/uL (3.85-5.65); Red Cell Distribution Width 14.8 % (12.1-15.1); White Blood Count 10.77 10^3/uL (3.29-11.43)
[2024-05-21 09:45] LABS: Alanine Aminotransferase 23 U/L (0-41); Albumin Level 3.7 g/dL (3.5-5.2); Alkaline Phosphatase 60 U/L (40-130); Aspartate Amino Transferase 22 U/L (0-40); Blood Urea Nitrogen 32 mg/dL (8-23); Calcium 9.3 mg/dL (8.5-10.5); Carbon Dioxide 23 mmol/L (22-29); Chloride 99 mmol/L (98-107); Globulin 2.8 g/dL (1.3-4.6); Glucose 154 mg/dL (65-115); Osmolality Calculated 292 mOsm/kg (285-295); Sodium 136 mmol/L (136-145); Thyroid Stimulating Hormone 4.99 uIU/mL (0.27-4.20); Total Bilirubin 0.3 mg/dL (0.15-1.2); Total Protein 6.5 g/dL (6.6-8.7)
[2024-05-21 09:49] LABS: Anion Gap 17.8 (5-19); Potassium 3.8 mmol/L (3.5-5.1)
[2024-05-21] MEDS: pembrolizumab 200 MG in sodium chloride 0.9% 250 ML 516 MG IV (11:11)
== END 2024-05-21 23:59 | disposition home or self-care (01) ==
PROVIDERS: Nurse Practitioner Family; PCP Family Medicine; Visit Provider Internal Medicine Medical Oncology
DX: C64.2 Malignant neoplasm of left kidney, except renal pelvis (principal); C77.1 Secondary and unspecified malignant neoplasm of intrathoracic lymph nodes; K80.20 Calculus of gallbladder without cholecystitis without obstruction; Z79.899 Other long term (current) drug therapy; Z51.12 Encounter for antineoplastic immunotherapy; Z87.891 Personal history of nicotine dependence; R19.7 Diarrhea, unspecified; Z79.52 Long term (current) use of systemic steroids
CPT/HCPCS: 80053; 84443; 85025; 96413; 99214; J7050; J9271

== ENCOUNTER 2024-06-11 10:49 | Oncology outpatient (recurring) (ONCR) | payer MEDICARE, SELFPAY ==
[2024-06-11 11:09] LABS: Basophils # 0.1 10^3/uL (0.0-0.1); Basophils % 0.6 %; Eosinophils # 0.3 10^3/uL (0.0-0.8); Eosinophils % 2.7 %; Hematocrit 44.2 % (37-53); Lymphocytes # 1.6 10^3/uL (0.8-4.8); Mean Corpuscular HGB Conc 31.7 g/dL (30-55); Mean Corpuscular Hemoglobin 28.2 pg (27-33); Mean Corpuscular Volume 89.1 fl (82-101); Mean Platelet Volume 9.5 fL (7.4-10.4); Monocytes # 0.8 10^3/uL (0.2-0.9); Monocytes % 8.7 %; Neutrophils % 71.2 %; Nucleated Red Blood Cells % 0 %; Platelet Count 207 10^3/cmm (157-399); Red Blood Count 4.96 10^6/uL (3.85-5.65); Red Cell Distribution Width 14.9 % (12.1-15.1); White Blood Count 9.69 10^3/uL (3.29-11.43)
[2024-06-11 11:46] LABS: Alanine Aminotransferase 22 U/L (0-41); Albumin Level 3.6 g/dL (3.5-5.2); Alkaline Phosphatase 61 U/L (40-130); Blood Urea Nitrogen 23 mg/dL (8-23); Calcium 9.2 mg/dL (8.5-10.5); Carbon Dioxide 25 mmol/L (22-29); Chloride 100 mmol/L (98-107); Globulin 2.6 g/dL (1.3-4.6); Glucose 160 mg/dL (65-115); Osmolality Calculated 291 mOsm/kg (285-295); Sodium 137 mmol/L (136-145); Thyroid Stimulating Hormone 3.74 uIU/mL (0.27-4.20); Total Bilirubin 0.3 mg/dL (0.15-1.2); Total Protein 6.2 g/dL (6.6-8.7)
[2024-06-11 11:49] LABS: Anion Gap 16.2 (5-19); Aspartate Amino Transferase 26 U/L (0-40); Potassium 4.2 mmol/L (3.5-5.1)
[2024-06-11] MEDS: pembrolizumab 200 MG in sodium chloride 0.9% 250 ML 516 MG IV (13:14)
[2024-06-11 14:03] VITALS: BP 142/65; PULSE 58; RESP 17; TEMP 35.9; O2SAT 97
== END 2024-06-11 23:59 | disposition home or self-care (01) ==
PROVIDERS: Nurse Practitioner Family; PCP Family Medicine; Visit Provider Internal Medicine Medical Oncology
DX: C64.2 Malignant neoplasm of left kidney, except renal pelvis (principal); R91.1 Solitary pulmonary nodule; Z79.899 Other long term (current) drug therapy; Z51.12 Encounter for antineoplastic immunotherapy
CPT/HCPCS: 80053; 84443; 85025; 96413; 99214; A4222; J7050; J9271

== ENCOUNTER 2024-06-18 10:43 | Inpatient (IN) | payer MEDICARE, SELFPAY ==
[2024-06-18] VITALS (14 sets, daily range): BP systolic 100–157; BP diastolic 61–84; PULSE 64–91; RESP 14–18; TEMP 36.8–37.3; O2SAT 91–96
--- NOTE | 2024-06-18 10:49 | ED_ITS ---
HPI - Altered Mental Status 2 General: Chief Complaint: Weakness Stated Complaint: AMS, Weakness Time Seen by Provider: 06/18/24 10:47 History of Present Illness: 78-year-old male presents to the emergen cy room with altered mental status and weakness from home via EMS. Normally he is able to ambulate with a walker to and from the bathroom but could not do so this morning he is alert he knows where he is at but he is unsure of the date or time. He denies chest pain or abdominal pain is little difficult to communicate with the answers very slowly. He is not sure of time or intent. He does not know his name he knows where he is at. Related Data Home Medications Medication Instructions Recorded Confirmed aspirin 325 mg tablet,delayed 325 mg PO DAILY 01/09/20 06/18/24 release garlic 500 mg capsule 1,000 mg PO DAILY 01/09/20 06/18/24 isosorbide mononitrate 60 mg 60 mg PO BID 01/09/20 06/18/24 tablet,extended release 24 hr metformin 1,000 mg tablet 1,000 mg PO BID 01/09/20 06/18/24 pyridoxine (vitamin B6) 100 mg 100 mg PO DAILY 01/09/20 06/18/24 tablet multivitamin 1 tab PO DAILY 08/10/21 06/18/24 gabapentin 600 mg tablet 600 mg PO TID 08/26/21 06/18/24 cholecalciferol (vitamin D3) 50 50 mcg PO DAILY 11/16/23 06/18/24 mcg (2,000 unit) capsule cranberry 500 mg capsule 1,500 mg PO DAILY 11/16/23 06/18/24 Ca 600 mg-D3 20 mcg-mag oxide 50 1 tab PO DAILY 12/07/23 06/19/24 ss-Xg-ybgwvf-manganese-boron tablet (Calcium 600-D3 Plus (mag-zinc)) bisacodyl 10 mg rectal suppository 10 mg GA DAILY PRN Constipation 12/07/23 06/19/24 (Dulcolax (bisacodyl)) magnesium hydroxide 1,200 mg 1,200 mg PO BID PRN Constipation 12/07/23 06/19/24 chewable tablet (Dulcolax (magnesium hydroxide)) loperamide 2 mg capsule (Imodium 2 mg PO .COMPLEX PRN loose stool 12/21/23 06/18/24 A-D) pembrolizumab 50 mg intravenous 200 mg IV .every 3 weeks 02/06/24 06/19/24 solution dapagliflozin propanediol 10 mg 10 mg PO DAILY 06/11/24 06/18/24 tablet (Farxiga) Previous Rx's Medication Instructions Recorded nitroglycerin 0.4 mg sublingual 0.4 mg sublingual Q5M PRN chest 07/02/21 tablet (Nitrostat) pain #50 tabs finasteride 5 mg tablet See Rx Instructions .Route 10/05/22 .COMPLEX #90 tabs tamsulosin 0.4 mg capsule See Rx Instructions .Route 10/05/22 .COMPLEX #90 caps diphenhydramine HCl 25 mg capsule 25 mg PO TID PRN allergy symptoms 08/31/23 (Benadryl) #30 caps prochlorperazine maleate 10 mg 10 mg PO Q4H PRN Mild Nausea #30 08/31/23 tablet (Compazine) tabs mecobalamin (vitamin B12) 1,000 1,000 mcg PO DAILY #30 tabs 09/21/23 mcg chewable tablet (B12 Active) lisinopril 40 mg tablet See Rx Instructions .Route 10/03/23 .COMPLEX #90 tabs metoprolol succinate 25 mg 25 mg PO DAILY #90 tabs 11/30/23 tablet,extended release 24 hr (Toprol XL) axitinib 1 mg tablet 3 mg (3 x 1 mg) PO BID #180 tabs 01/04/24 amlodipine 10 mg tablet See Rx Instructions .Route 01/26/24 .COMPLEX #90 tabs levothyroxine 25 mcg tablet See Rx Instructions .Route 02/09/24 .COMPLEX #90 tabs atorvastatin 80 mg tablet See Rx Instructions .Route 02/26/24 .COMPLEX #90 tabs prednisone 5 mg tablet See Rx Instructions .Route 04/30/24 .COMPLEX #90 tabs clopidogrel 75 mg tablet See Rx Instructions .Route 05/31/24 .COMPLEX #90 tabs Allergies Allergy/AdvReac Type Severity Reaction Status Date / Time No Known Allergies Allergy Verified 06/11/24 12:13 Review of Systems 2 Const: Denies: fever(s) or chills Card: Denies: chest pain Resp: Denies: dyspnea GI: Denies: abdominal pain : Denies: dysuria, urinary frequency or urinary urgency Musc: Denies: neck pain or back pain Skin/Breast: Denies: rash PFSH ED 2 PFSH: Medical History Renal cell cancer 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 stricture Polyuria 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 SOB (shortness of breath) CAD (coronary artery disease) Hypertension Hyperlipidemia DDD (degenerative disc disease) Surgical History H/O rotator cuff surgery H/O vasectomy H/O laminectomy S/P cataract surgery Family History Mother Cancer Father Diabetes Brother Diabetes CAD (coronary artery disease) Family/Other Suicide Denies family history of Clotting disorder Dementia Chronic kidney disease (CKD) Anesthesia complication Bleeding disorder Lung disease Stroke Social History Smoking and tobacco/nicotine status: former use of tobacco/nicotine Quit status (tobacco/nicotine): has quit using Former quit date comment: 1ppd x 3 years as teenager Second hand smoke exposure: Yes Alcohol intake: current Alcohol intake frequency: few times a week Alcohol type: beer Substance/Drug Use: never Current occupational status: retired Physical Exam 2 Const: GENERAL APPEARANCE: cooperative ORIENTATION/CONSCIOUSNESS: Yes awake HENMT: COMMON NORMALS: normocephalic, atraumatic and hearing grossly normal bilaterally HEAD & SCALP: normocephalic and atraumatic Resp: COMMON NORMALS: normal respiratory effort, No retractions, No use of accessory muscles and clear to auscultation bilaterally AUSCULTATION: clear to auscultation bilaterally Cardio: COMMON NORMALS: regular rate, regular rhythm and No murmurs present (Cardio) RATE: regular rate RHYTHM: regular rhythm GI: COMMON NORMALS: Soft to palpation and No hepatosplenomegaly present A USCULTATION: Yes normoactive bowel sounds PALPATION: Yes Soft to palpation, No Tenderness to palpation present (GI), No Guarding due to palpation present (GI) and Yes No hepatosplenomegaly present Extremity: COMMON NORMALS: normal to inspection, capillary refill normal, no clubbing, cyanosis or edema, no calf tenderness and no pedal edema Skin: COMMON NORMALS: no rashes or lesions noted GENERAL SKIN EXAM: no rashes or lesions noted Course 2 Vital Signs: Vital signs: Vital Signs Temperature 97.5 F L 06/19/24 11:55 Pulse Rate 74 06/19/24 11:55 Respiratory Rate 18 06/19/24 11:55 Blood Pressure 132/71 06/19/24 11:55 Pulse Oximetry 95 06/19/24 11:55 Oxygen Delivery Me thod Room Air 06/19/24 11:55 MDM - Altered Mental Status Medical Decision Making Lactic acidosis with no specific infectious cause. Will start him on prophylactic antibiotics. May be secondary to volume depletion. Started on IV fluids. He has no focal deficits suggestive of his stroke at this time he is beyond any timeframe for treatment with thrombolytics. CT of his abdomen and pelvis did not show any acute pathology or source of infection. Head CT was negative for any acute pathology. Chest x-ray did not show any heart failure or pneumonia. Discussed with hospitalist orders written Medical Records I reviewed the patient's medical records. Lab Data I reviewed the patient's lab results. 06/19/24 05:34 06/19/24 05:34 Radiology Impressions Chest X-Ray 06/18/24 10:49 Impression: No failure or dense consolidation is appreciated on this film. Head CT 06/18/24 11:29 Impression: There is no intracranial hemorrhage or hematoma. Age appropriate involutional changes noted. Abdomen/Pelvis CT 06/18/24 12:30 Impression: There is coronary artery calcification. There is cholelithiasis. There is no kidney stone or hydronephrosis. There is a suspected right cyst. There is an area of hyperdensity on the left kidney. I recommend ultrasound for further evaluation to exclude solid mass. 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 Chest CT 06/18/24 15:15 IMPRESSION: 1. No acute findings. 2. Stable chronic pericardial effusion 3. Cholelithiasis Laboratory Results WBC 9.61 10^3/uL (3.29-11.43) 06/18/24 10:30 RBC 4.91 10^6/uL (3.85-5.65) 06/18/24 10:30 Hgb 14.10 g/dL (11.27-16.99) 06/18/24 10:30 Hct 44.2 % (37-53) 06/18/24 10:30 MCV 90.0 fl (82-101) 06/18/24 10:30 MCH 28.7 pg (27-33) 06/18/24 10:30 MCHC 31.9 g/dL (30-55) 06/18/24 10:30 RDW 14.9 % (12.1-15.1) 06/18/24 10:30 Plt Count 195 10^3/cmm (157-399) 06/18/24 10:30 MPV 10.2 fL (7.4-10.4) 06/18/24 10:30 Neut % (Auto) 66.9 % 06/18/24 10:30 Lymph % (Auto) 11.7 % 06/18/24 10:30 Gilchrist % (Auto) 18.6 % 06/18/24 10:30 Eos % (Auto) 1.2 % 06/18/24 10:30 Baso % (Auto) 0.6 % 06/18/24 10:30 Neut # (Auto) 6.42 10^3/uL (1.8-7.7) 06/18/24 10:30 Lymph # (Auto) 1.1 10^3/uL (0.8-4.8) 06/18/24 10:30 [place]christ # (Auto) 1.8 10^3/uL (0.2-0.9) H 06/18/24 10:30 Eos # (Auto) 0.1 10^3/uL (0.0-0.8) 06/18/24 10:30 Baso # (Auto) 0.1 10^3/uL (0.0-0.1) 06/18/24 10:30 Nucleated RBC % (auto) 0 % 06/18/24 10:30 Nucleated RBCs # 0.0 /100WBC 06/18/24 10:30 ESR 21 mm/hr (0-10) H 06/18/24 10:30 Specimen Type Arterial 06/18/24 11:03 Sample Site Radial, left 06/18/24 11:03 ABG pH 7.38 (7.35-7.45) 06/18/24 11:03 ABG pCO2 31.4 mmHg (35-45) L 06/18/24 11:03 ABG pO2 70.2 mmHg (80.0-100.0) L 06/18/24 11:03 ABG PO2/FiO2 Ratio 334 06/18/24 11:03 ABG HCO3 18.4 mmol/L (22-26) L 06/18/24 11:03 ABG O2 Saturation 94.6 06/18/24 11:03 ABG Base Excess -5.6 mmol/L (-2.0-2.0) L 06/18/24 11:03 Dipesh Test Pos 06/18/24 11:03 A-a O2 Gradient 5.3 mmHg (5-10) 06/18/24 11:03 Hematocrit 41.6 % (42-52) L 06/18/24 11:03 Hgb O2 Saturation 93.0 % (95-100) L 06/18/24 11:03 Carboxyhemoglobin 0.4 %THgb (0.4-20.1) 06/18/24 11:03 Methemoglobin 1.2 % (0.4-1.5) 06/18/24 11:03 Total Hemoglobin 13.6 g/dL (14-18) L 06/18/24 11:03 Sodium 133.0 mmol/L (131-143) 06/18/24 11:03 Potassium 4.4 mmol/L (3.5-5.0) 06/18/24 11:03 Glucose 184.0 mg/dL (70-115) H 06/18/24 11:03 Ionized Calcium 1.2 mmol/L (1.1-1.4) 06/18/24 11:03 O2 Delivery Device None 06/18/24 11:03 FiO2 21.0 % 06/18/24 11:03 Industrial Machinery Mechanic ID Broma 06/18/24 11:03 Sodium 135 mmol/L (136-145) L 06/18/24 10:30 Potassium 5.0 mmol/L (3.5-5.1) 06/18/24 10:30 Chloride 97 mmol/L (98-107) L 06/18/24 10:30 Carbon Dioxide 17 mmol/L (22-29) L 06/18/24 10:30 Anion Gap 26.0 (5-19) H 06/18/24 10:30 BUN 24 mg/dL (8-23) H 06/18/24 10:30 Creatinine 1.5 mg/dL (0.7-1.2) H 06/18/24 10:30 GFR Calculation Not Reportable 06/18/24 10:30 Glucose 159 mg/dL (65-115) H 06/18/24 10:30 Estimat Average Glucose 143 06/18/24 10:30 Hemoglobin A1c 6.6 % (4.0-6.0) H 06/18/24 10:30 Calculated Osmolality 287 mOsm/kg (285-295) 06/18/24 10:30 Lactic Acid 8.4 mmol/L (0.5-2.2) H* 06/18/24 10:30 Lactic Acid (Sepsis) 4.4 mmol/L (0.5-2.2) H* 06/18/24 13:45 Calcium 8.9 mg/dL (8.5-10.5) 06/18/24 10:30 Magnesium 1.6 mg/dL (1.7-2.3) L 06/18/24 10:30 Total Bilirubin 0.4 mg/dL (0.15-1.2) 06/18/24 10:30 AST 30 U/L (0-40) 06/18/24 10:30 ALT 19 U/L (0-41) 06/18/24 10:30 Alkaline Phosphatase 65 U/L (40-130) 06/18/24 10:30 Creatine Kinase 55 U/L (39-308) 06/18/24 10:30 Troponin T Baseline 73 ng/L (0-15) H 06/18/24 10:30 Troponin T 120 Minute 64.62 ng/L (0-15) H 06/18/24 12:28 Delta Troponin T -8.38 ABS# (0-10) L 06/18/24 12:28 NT-Pro-B Natriuret Pep 156 pg/mL (0-450) 06/18/24 10:30 Total Protein 6.0 g/dL (6.6-8.7) L 06/18/24 10:30 Albumin 3.8 g/dL (3.5-5.2) 06/18/24 10:30 Globulin 2.2 g/dL (1.3-4.6) 06/18/24 10:30 Urine Color Yellow (Yellow) 06/18/24 12:04 Urine Appearance Clear (CLEAR) 06/18/24 12:04 Urine pH 5.5 (5-7) 06/18/24 12:04 Ur Specific [place] 1.014 (1.005-1.030) 06/18/24 12:04 Urine Protein Trace (Negative) A 06/18/24 12:04 Urine Glucose (UA) 3+ (Normal) H 06/18/24 12:04 Urine Ketones Negative (Negative) 06/18/24 12:04 Urine Blood Negative (Negative) 06/18/24 12:04 Urine Nitrate Negative (Negative) 06/18/24 12:04 Urine Bilirubin Negative (Negative) 06/18/24 12:04 Urine Urobilinogen 0.2 mg/dL (Negative) 06/18/24 12:04 Ur Leukocyte Esterase Negative (Negative) 06/18/24 12:04 Urine RBC None /hpf (0-2) 06/18/24 12:04 Urine WBC None /hpf (0-5) 06/18/24 12:04 Ur Squamous Epith Cells Rare /hpf (0-5) 06/18/24 12:04 Amorphous Sediment Trace /hpf 06/18/24 12:04 Urine Bacteria None /hpf (NONE) 06/18/24 12:04 Urine Mucus None /hpf 06/18/24 12:04 Urine Opiates Screen Negative ng/mL (Negative) 06/18/24 12:04 Ur Barbiturates Screen Negative ng/mL (Negative) 06/18/24 12:04 Ur Phencyclidine Scrn Negative ng/mL (Negative) 06/18/24 12:04 Ur Amphetamines Screen Negative ng/mL (Negative) 06/18/24 12:04 U Benzodiazepines Scrn Negative ng/mL (Negative) 06/18/24 12:04 Urine Cocaine Screen Negative ng/mL (Negative) 06/18/24 12:04 U Marijuana (THC) Screen Negative ng/mL (Negative) 06/18/24 12:04 All radiology interpretation(s) finalized by discharge Discharge Plan Discharge Patient Disposition: Admitted As Inpatient Admit Provider: Rowan Loredo Clinical Impression: Lactic acidosis, Cancer of left kidney, Secondary malignant neoplasm of unspecified lung, ISMA (acute kidney injury), Diabetes mellitus Condition: Stable Coding Level of Care Code ED General Matcher for Ignacio Gomez
--- NOTE | 2024-06-18 10:49 | XR_ITS ---
WS: [email or web address] Examination: XR chest 1V portable [id number] Reason for Exam: dyspnea/cough Date: 06/18/2024 Comparison: 08/26/2021 Findings: This film was obtained in an apical lordotic projection. The heart is nonenlarged. The mediastinum is not widened No edema or large effusion is seen. There is no dense consolidation. Severe chronic changes of the shoulders are noted bilaterally. A calcified gallstone is suspected. XR/XR chest 1V portable [id number] Impression: No failure or dense consolidation is appreciated on this film.
[2024-06-18 11:07] LABS: Basophils # 0.1 10^3/uL (0.0-0.1); Basophils % 0.6 %; Eosinophils # 0.1 10^3/uL (0.0-0.8); Eosinophils % 1.2 %; Hematocrit 44.2 % (37-53); Lymphocytes # 1.1 10^3/uL (0.8-4.8); Lymphocytes % 11.7 %; Mean Corpuscular HGB Conc 31.9 g/dL (30-55); Mean Corpuscular Hemoglobin 28.7 pg (27-33); Mean Platelet Volume 10.2 fL (7.4-10.4); Monocytes # 1.8 10^3/uL (0.2-0.9); Monocytes % 18.6 %; Neutrophils # 6.42 10^3/uL (1.8-7.7); Neutrophils % 66.9 %; Nucleated Red Blood Cells % 0 %; Platelet Count 195 10^3/cmm (157-399); Red Blood Count 4.91 10^6/uL (3.85-5.65); Red Cell Distribution Width 14.9 % (12.1-15.1); White Blood Count 9.61 10^3/uL (3.29-11.43)
[2024-06-18 11:15] LABS: Blood Gas Allen Test Pos; Blood Gas Sample Site Radial, left; Blood Gas Sample Type Arterial; Ionized Calcium Level - ABG 1.2 mmol/L (1.1-1.4)
--- NOTE | 2024-06-18 11:23 | ECG_ITS ---
[facility] Test Date: 2024-06-18 Pat Name: Elliot Lawton Department: Room: Gender: Male Film Composer: : 1945 Requested By: Brenden Munoz Order Number: [id number] Bennie MD: Mateo Brothers M.D. Measurements Intervals [place] Rate: 88 P: 3 MD: 163 QRS: 14 QRSD: 89 T: 55 QT: 331 QTc: 401 Interpretive Statements SINUS RHYTHM Compared to ECG 06/18/2024 11:23:25 No significant changes Electronically Signed On 06-18-2024 16:41:18 CDT by Mateo Brothers M.D. [id number]
[2024-06-18 11:25] LABS: ABG PCO2 31.4 mmHg (35-45); ABG PH Result 7.38 (7.35-7.45); Alveolar-Arterial Oxygen Gradi 5.3 mmHg (5-10); Arterial Blood Gas Hematocrit 41.6 % (42-52); Base Excess ABG -5.6 mmol/L (-2.0-2.0); Blood Gas Operator Identificat BROMA; Carboxyhemoglobin 0.4 %THgb (0.4-20.1); HCO3 ABG 18.4 mmol/L (22-26); Methemoglobin 1.2 % (0.4-1.5); Oxygen Saturation ABG 94.6; PO2 ABG 70.2 mmHg (80.0-100.0); PO2 FiO2 Ratio Arterial Blood 334; Potassium Level - ABG 4.4 mmol/L (3.5-5.0); Total Hemoglobin 13.6 g/dL (14-18)
[2024-06-18 11:26] LABS: Troponin(5th) Baseline 73 ng/L (0-15)
[2024-06-18 11:29] LABS: Alanine Aminotransferase 19 U/L (0-41); Albumin Level 3.8 g/dL (3.5-5.2); Alkaline Phosphatase 65 U/L (40-130); Blood Urea Nitrogen 24 mg/dL (8-23); Calcium 8.9 mg/dL (8.5-10.5); Carbon Dioxide 17 mmol/L (22-29); Chloride 97 mmol/L (98-107); Creatinine Clr Calc Pharmacy 47.7878; Globulin 2.2 g/dL (1.3-4.6); Glucose 159 mg/dL (65-115); Osmolality Calculated 287 mOsm/kg (285-295); Sodium 135 mmol/L (136-145); Total Bilirubin 0.4 mg/dL (0.15-1.2)
--- NOTE | 2024-06-18 11:29 | CT_ITS ---
WS: [email or web address] Examination: CT head wo con* [id number] Reason for Exam: Altered mental status Date: 06/18/2024 Comparison: None. DLP: 2206.[address] scans at [facility] use at least one of these dose optimization techniques: automated e xposure control; mA and/or kV adjustment per patient size (includes targeted exams where dose is matc hed to clinical indication); or iterative reconstruction. Findings: Motion artifact obscures the extreme vertex. No depressed skull fractures identified. The paranasal sinuses are well aerated. No air-fluid levels are identified. The mastoid air cells and middle ear is are well-aerated. There is age-appropriate volume loss and atrophy without midline shift or hydrocephalus Periventricular hypodensity consistent with ischemic microvascular changes identified. There is no evidence of mass effect or edema. There is no intracranial hemorrhage or hematoma. Intracranial atherosclerosis is identified with vascular calcification. CT/CT head wo con* [id number] Impression: There is no intracranial hemorrhage or hematoma. Age appropriate involutional changes noted.
[2024-06-18 11:31] LABS: Aspartate Amino Transferase 30 U/L (0-40)
[2024-06-18 11:32] LABS: Lactic Sepsis W/Reflex 8.4 mmol/L (0.5-2.2)
[2024-06-18] MEDS: sodium chloride 0.9% 1,000 ML 999 ML IV (11:50)
[2024-06-18 12:14] LABS: Charge for UA Resulting for Rev
[2024-06-18 12:15] LABS: Bilirubin Urine Negative (Negative); Blood Urine Negative (Negative); Glucose Urine UA 3+ (Normal); Ketones Urine Negative (Negative); Leukocyte Esterase Urine Negative (Negative); Nitrate Urine Negative (Negative); Protein Urine Trace (Negative); Specific Gravity, Urine 1.014 (1.005-1.030); Urine Appearance Clear (CLEAR); Urine Color Yellow (Yellow); Urobilinogen Urine 0.2 mg/dL (Negative); pH Urine 5.5 (5-7)
--- NOTE | 2024-06-18 12:30 | CT_ITS ---
WS: [id number] Examination: CT abdomen pelvis wo con [id number] Reason for Exam: Abdominal pain Date: 06/18/2024 Comparison: 03/20/2024 DLP: 1062.[address] scans at [facility] use at least one of these dose optimization techniques: automated e xposure control; mA and/or kV adjustment per patient size (includes targeted exams where dose is matc hed to clinical indication); or iterative reconstruction. Findings: The heart is mildly prominent in size. There is pericardial fluid. There is coronary artery calcifica tion. Dependent atelectasis is suspected. The liver is not enlarged. There is cholelithiasis. Spleen is unremarkable. There is a hiatal hernia. There is no adrenal mass. The kidneys are symmetric and normal in size. There is no stone or hydronep hrosis. A right renal cyst is again noted. In the medial posterior left kidney there is again noted a poorly delineated area of containing calci fication or hyperdensity. This may represent a complicated cyst. Ultrasound would be helpful to exclu de solid mass. There is no ureteral dilatation or stone. There is no bladder stone. The urinary bladder is mildly di stended and thick walled. Pancreas is unremarkable. The aorta is normal in size with prominent atherosclerotic change. There is no small bowel obstruction. There is a moderate stool burden. The appendix is not enlarged. There is no free fluid or free air. Prominent degenerative changes of the spine are noted with multilevel areas of severe stenosis may be related to ligamentous calcification as well as disc osteophyte complex formation. L2-3 are fused. L 4-[address]/CT abdomen pelvis wo con [id number] Impression: There is coronary artery calcification. There is cholelithiasis. There is no kidney stone or hydronephrosis. There is a suspected right cyst. Th ere is an area of hyperdensity on the left kidney. I recommend ultrasound for f urther evaluation to exclude solid mass. Marked degenerative changes of the spine with multilevel severe stenoses are id entified..
[2024-06-18 12:35] LABS: UA Manual Slide Review YES; UA Slide Review UA Slide Review Perf
[2024-06-18 12:37] LABS: Add Urine Culture? No; Amorphous Sediment Urine TRACE /hpf; Squamous Epithelial Cell Urine RARE /hpf (0-5)
[2024-06-18 12:53] LABS: Reflex Lactate Order REFLEX LACTIC ORDERD
[2024-06-18 12:56] LABS: Troponin 5 2HR 64.62 ng/L (0-15)
[2024-06-18 13:00] LABS: Troponin 5 2HR Delta -8.38 ABS# (0-10)
[2024-06-18] MEDS: piperacillin-tazobactam 3.375 GM in sodium chloride 0.9% (plus) 50 ML IV ×2 (13:05→16:55)
[2024-06-18 13:22] LABS: Creatine Phosphokinase 55 U/L (39-308)
[2024-06-18] MEDS: vancomycin 1,000 MG in sodium chloride 0.9% 250 ML 250 MG IV (13:50)
--- NOTE | 2024-06-18 14:01 | ECG_ITS ---
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 Measurements Intervals [place] Rate: 71 P: 26 LA: 166 QRS: 34 QRSD: 90 T: 48 QT: 376 QTc: 410 Interpretive Statements SINUS RHYTHM Compared to ECG 06/18/2024 11:26:17 No significant changes Electronically Signed On 06-18-2024 16:44:32 CDT by Mateo Brothers M.D. [email or web address] medical [email or web address] [id number]
[2024-06-18 14:19] LABS: Lactic Acid level (Lactate) 4.4 mmol/L (0.5-2.2)
--- NOTE | 2024-06-18 15:15 | CTR_ITS ---
PROCEDURE INFORMATION: Exam: CT Chest Without Contrast; Diagnostic Exam date and time: 06/18/2024 4:34 PM Age: 78 years old Clinical indication: Cough and shortness of breath TECHNIQUE: Imaging protocol: Diagnostic computed tomography of the chest without contrast. Radiation optimization: All CT scans at this facility use at least one of these dose optimization techniques: automated exposure control; mA and/or kV adjustment per patient size (includes targeted exams where dose is matched to clinical indication); or iterative reconstruction. COMPARISON: [place] [id number] 03/20/2024 2:33 PM RADIATION DOSE METRICS: Total DLP (mGy-cm): 673 FINDINGS: Lungs: Unremarkable. No consolidation. No masses. Pleural spaces: Unremarkable. No pneumothorax. No pleural effusion. Heart: There is a trace of pericardial effusion. Coronary arteries: Coronary artery calcifications are noted. Lymph nodes: Unremarkable. No enlarged lymph nodes. Vasculature: Unremarkable. No aortic aneurysm. Gallbladder and biliary ducts: Multiple gallstones are noted in the gallbladder but the gallbladder does not appear inflamed and demonstrates normal wall thickness. Bones/joints: Unremarkable. No acute fracture. Soft tissues: Unremarkable. CT/CT chest wo con [id number] IMPRESSION: 1. No acute findings. 2. Stable chronic pericardial effusion 3. Cholelithiasis
[2024-06-18 15:41] LABS: Erythrocyte Sedimentation Rate 21 mm/hr (0-10)
[2024-06-18 16:00] LABS: Magnesium 1.6 mg/dL (1.7-2.3); NT Pro B Type Natriuretic Pept 156 pg/mL (0-450)
[2024-06-18] MEDS: sodium chloride 0.9% 1,000 ML 125 ML IV ×2 (16:11→23:41)
[2024-06-18] MEDS: pantoprazole 40 mg SDV IVP (16:13)
[2024-06-18] MEDS: enoxaparin 40 mg/0.4 mL Syringe SUBCUT (16:13)
--- NOTE | 2024-06-18 16:33 | PHA.VACGOAL ---
Vancomycin Goal - Goal Vancomycin Indication:: Other - Therapy Current therapy:: Pip/Tazo Day of therpy:: Day []of [] . Actual body weight (kg): 217 lb 14.4 oz - Data Labs: WBC 9.61 10^3/uL (3.29-11.43) 06/18/24 10:30 RBC 4.91 10^6/uL (3.85-5.65) 06/18/24 10:30 Hgb 14.10 g/dL (11.27-16.99) 06/18/24 10:30 Hct 44.2 % (37-53) 06/18/24 10:30 MCV 90.0 fl (82-101) 06/18/24 10:30 MCH 28.7 pg (27-33) 06/18/24 10:30 MCHC 31.9 g/dL (30-55) 06/18/24 10:30 RDW 14.9 % (12.1-15.1) 06/18/24 10:30 Sodium 135 mmol/L (136-145) L 06/18/24 10:30 Potassium 5.0 mmol/L (3.5-5.1) 06/18/24 10:30 Chloride 97 mmol/L (98-107) L 06/18/24 10:30 Carbon Dioxide 17 mmol/L (22-29) L 06/18/24 10:30 Anion Gap 26.0 (5-19) H 06/18/24 10:30 BUN 24 mg/dL (8-23) H 06/18/24 10:30 Creatinine 1.5 mg/dL (0.7-1.2) H 06/18/24 10:30 GFR Calculation Not Reportable 06/18/24 10:30 Treatment plan:: new consult Regimen:: 1500 MG Q24H
[2024-06-18 17:01] LABS: Amphetamines Screen Urine Negative (Negative); Barbiturates Screen Urine Negative (Negative); Benzodiazepines Screen Urine Negative (Negative); Cocaine Screen Urine Negative (Negative); Opiate Screen Urine Negative (Negative); PCP Screen Urine Negative (Negative); THC Screen Urine Negative (Negative)
[2024-06-18] MEDS: albuterol 2.5 mg/3 mL Neb INHALATION ×2 (17:15→20:19)
--- NOTE | 2024-06-18 17:54 | ECG_ITS ---
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 Measurements Intervals [place] Rate: 72 P: 5 GA: 141 QRS: 21 QRSD: 94 T: 52 QT: 385 QTc: 421 Interpretive Statements SINUS RHYTHM Compared to ECG 06/18/2024 14:01:01 No significant changes Electronically Signed On 06-19-2024 17:39:05 CDT by Freedom Martinez M.D. [email or web address] centerVoxPop Clothingtrinity health system east campusAspects [email or web address]/store/OM/[id number]
[2024-06-18 18:03] LABS: Glucose Point of Care 226 mg/dL (70-110)
[2024-06-18] MEDS: insulin lispro 100 unit/1 mL SUBCUT (18:10)
--- NOTE | 2024-06-18 18:18 | P.HP_ITS ---
Providers/Chief Complaint 2 Admitting Physician: Rowan Loredo MD Primary Care Provider: Lenny Degroot MD Chief Complaint: AMS, Weakness History of Present Illness Elliot Lawton is a 78 year old male with a past medical history of renal cell carcinoma, history of metastatic involvement of left pulmonary nodule, currently on prednisone, axitinib, pembrolizumab, who presents [facility] due to weakness, fatigue, altered mental status. Patient tells me that yesterday Monday he was doing well really had no complaints, no fevers, chills,no chest pain no shortness of breath, did have a cough, he visited his family members in a skilled nursing who tested positive for COVID recently, that he has chronic diarrhea from his extended he tells me, but is not more than it usually is, no new rashes, no tick bites, no facial droop no slurring of words no focal weakness, no neck pain, neck stiffness, no fevers. He tells me that when he woke up this morning around 7, his noticed that he was acting confused, not acting his normal self, he was so weak they had to help get him up out of a chair, he had more global weakness than focal weakness no facial droop no slurring of his words, no seizure-like episodes Review of Systems 2 Const: Denies: fever(s) Card: Denies: chest pain Resp: Denies: dyspnea GI: Denies: abdominal pain : Denies: flank pain Neuro: Denies: headache(s) Medications/Allergies Home Medications Medication Instructions Recorded Confirmed Last Taken Type aspirin 325 mg tablet,delayed 325 mg PO DAILY 01/09/20 06/18/24 Unknown History release garlic 500 mg capsule 1,000 mg PO DAILY 01/09/20 06/18/24 Unknown History isosorbide mononitrate 60 mg 60 mg PO BID 01/09/20 06/18/24 08/26/21 10:30 History tablet,extended release 24 hr metformin 1,000 mg tablet 1,000 mg PO BID 01/09/20 06/18/24 08/26/21 10:30 History pyridoxine (vitamin B6) 100 mg 100 mg PO DAILY 01/09/20 06/18/24 Unknown History tablet nitroglycerin 0.4 mg sublingual 0.4 mg sublingual Q5M PRN chest 07/02/21 06/18/24 Unknown Rx tablet (Nitrostat) pain #50 tabs multivitamin 1 tab PO DAILY 08/10/21 06/18/24 Unknown History gabapentin 600 mg tablet 600 mg PO TID 08/26/21 06/18/24 Unknown History finasteride 5 mg tablet See Rx Instructions .Route 10/05/22 06/18/24 Unknown Rx .COMPLEX #90 tabs tamsulosin 0.4 mg capsule See Rx Instructions .Route 10/05/22 06/18/24 Unknown Rx .COMPLEX #90 caps diphenhydramine HCl 25 mg capsule 25 mg PO TID PRN allergy symptoms 08/31/23 06/11/24 Unknown Rx (Benadryl) #30 caps lorazepam 1 mg tablet 0.5 - 1 mg (0.5 - 1 x 1 mg) PO Q6H 08/31/23 06/11/24 Unknown Rx PRN Severe Nausea #30 tabs prochlorperazine maleate 10 mg 10 mg PO Q4H PRN Mild Nausea #30 08/31/23 06/11/24 Unknown Rx tablet (Compazine) tabs mecobalamin (vitamin B12) 1,000 1,000 mcg PO DAILY #30 tabs 09/21/23 06/18/24 Unknown Rx mcg chewable tablet (B12 Active) lisinopril 40 mg tablet See Rx Instructions .Route 10/03/23 06/18/24 Unknown Rx .COMPLEX #90 tabs cholecalciferol (vitamin D3) 50 50 mcg PO DAILY 11/16/23 06/18/24 Unknown History mcg (2,000 unit) capsule cranberry 500 mg capsule 1,500 mg PO DAILY 11/16/23 06/18/24 Unknown History metoprolol succinate 25 mg 25 mg PO DAILY #90 tabs 11/30/23 06/18/24 Unknown Rx tablet,extended release 24 hr (Toprol XL) Ca 600 mg-D3 20 mcg-mag oxide 50 tab PO DAILY 12/07/23 06/11/24 Unknown History te-Cq-mptuvf-manganese-boron tablet (Calcium 600-D3 Plus (mag-zinc)) bisacodyl 10 mg rectal suppository 10 mg SC DAILY PRN 12/07/23 06/11/24 Unknown History (Dulcolax (bisacodyl)) magnesium hydroxide 1,200 mg mg PO BID PRN 12/07/23 06/11/24 Unknown History chewable tablet (Dulcolax (magnesium hydroxide)) loperamide 2 mg capsule (Imodium 2 mg PO .COMPLEX PRN loose stool 12/21/23 06/18/24 Unknown History A-D) axitinib 1 mg tablet 3 mg (3 x 1 mg) PO BID #180 tabs 01/04/24 06/18/24 Unknown Rx amlodipine 10 mg tablet See Rx Instructions .Route 01/26/24 06/18/24 Unknown Rx .COMPLEX #90 tabs pembrolizumab 50 mg intravenous 200 mg IV .every 3 weeks 02/06/24 06/11/24 Unknown History solution levothyroxine 25 mcg tablet See Rx Instructions .Route 02/09/24 06/18/24 Unknown Rx .COMPLEX #90 tabs atorvastatin 80 mg tablet See Rx Instructions .Route 02/26/24 06/18/24 Unknown Rx .COMPLEX #90 tabs prednisone 5 mg tablet See Rx Instructions .Route 04/30/24 06/18/24 Unknown Rx .COMPLEX #90 tabs clopidogrel 75 mg tablet See Rx Instructions .Route 05/31/24 06/18/24 Unknown Rx .COMPLEX #90 tabs dapagliflozin propanediol 10 mg 10 mg PO DAILY 06/11/24 06/18/24 Unknown History tablet (Farxiga) Allergies Allergy/AdvReac Type Severity Reaction Status Date / Time No Known Allergies Allergy Verified 06/11/24 12:13 PFSH Acute 2 PFSH: Medical History Renal cell cancer 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 stricture Polyuria 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[place] coronary artery without angina pectoris SOB (shortness of breath) CAD (coronary artery disease) Hypertension Hyperlipidemia DDD (degenerative disc disease) Surgical History H/O rotator cuff surgery H/O vasectomy H/O laminectomy S/P cataract surgery Family History Mother Cancer Father Diabetes Brother Diabetes CAD (coronary artery disease) Family/Other Suicide Denies family history of Clotting disorder Dementia Chronic kidney disease (CKD) Anesthesia complication Bleeding disorder Lung disease Stroke Social History Smoking and tobacco/nicotine status: former use of tobacco/nicotine Quit status (tobacco/nicotine): has quit using Former quit date comment: 1ppd x 3 years as teenager Second hand smoke exposure: Yes Alcohol intake: current Alcohol intake frequency: few times a week Alcohol type: beer Substance/Drug Use: never Current occupational status: retired Vitals/I&O/Wt Last Vital Signs Temp 99.1 F 06/18/24 10:46 Pulse 68 06/18/24 17:23 Resp 18 06/18/24 17:23 BP 149/74 06/18/24 15:39 Pulse Ox 96 06/18/24 17:23 O2 Del Method Room Air 06/18/24 17:23 06/18/24 06/18/24 06/18/24 06:59 14:59 22:59 Intake Total 1540 / 1540 Balance 1540 / 1540 Weight last 48 hrs Weight 98.838 kg Weight 102.058 kg Physical Exam 2 Const: COMMON NORMALS: no acute distress and patient oriented x3 HENMT: COMMON NORMALS: normocephalic HEAD & SCALP: normocephalic Neck/C-Spine: COMMON NORMALS: no JVD Resp: COMMON NORMALS: normal respiratory effort, No retractions, No use of accessory muscles and clear to auscultation bilaterally AUSCULTATION: clear to auscultation bilaterally Cardio: COMMON NORMALS: no JVD, regular rate, regular rhythm, S1 normal heart sound present and S2 normal heart sound present RATE: regular rate RHYTHM: regular rhythm HEART SOUNDS: S1 normal heart sound present and S2 normal heart sound present GI: COMMON NORMALS: Normal to inspection, nondistended, normoactive bowel sounds present, Soft to palpation and non-tender Extremity: COMMON NORMALS: no calf tenderness and no pedal edema Neuro: COMMON NORMALS: patient oriented x3, CN's II-XII intact bilaterally, moves all extremities and no focal motor deficits Psych: COMMON NORMALS: mental status grossly normal Data 06/18/24 10:30 06/18/24 10:30 Micro: Microbiology 06/18/24 11:00 Blood Culture - Preliminary Blood SPECIMEN COLLECTED 06/18/24 11:00 Blood Culture - Preliminary Blood SPECIMEN COLLECTED A&P Assessment and plan (1) Altered mental status: (2) CAD (coronary artery disease): Qualifiers: Coronary Disease-Associated Artery/Lesion type: [place] artery [place] vs. transplanted heart: pokagon heart Associated angina: with stable angina Qualified Code(s): I25.118 - Atherosclerotic heart disease of [place] coronary artery with other forms of angina pectoris (3) Hyperlipidemia: Qualifiers: Hyperlipidemia type: mixed hyperlipidemia Qualified Code(s): E78.2 - Mixed hyperlipidemia (4) Generalized weakness: (5) Lactic acidosis: (6) Acute kidney injury: (7) Secondary malignant neoplasm of unspecified lung: (8) Cancer of left kidney: (9) Renal cell cancer: Plan Altered mental status -Currently alert oriented x 4, following all commands, denies any focal weakness, -Kernig sign negative, Babinski sign negative -Neurochecks -Aspiration precautions -NIH stroke scale -Lactic acid elevated, is immunocompromised, follow blood cultures, follow urine cultures, respiratory viral panel, continue vancomycin, Zosyn, -Altered mental status could possibly be associate with extending, and/or pembrolizumab - does complain of chronic diarrhea, stool studies -Continue to monitor closely Acute kidney injury ? IV fluids Lactic acidosis ? Etiology unclear -Possibly secondary dehydration ? Await urinary ketones Metabolic acidosis IV fluids History of renal cell carcinoma with lung metastasis Type 2 diabetes mellitus, low-dose sliding scale Elevated troponins, serial EKGs consult telemetry monitoring continue aspirin, Plavix Generalized weakness, PT OT Full code Lovenox for DVT prophylaxis Attestations 2 Medical Necessity Statement*: Patient requires hospitalization, inpatient, greater than 2 midnights, for altered mental status, generalized weakness, ISMA, lactic acidosis, metabolic acidosis Diagnoses Altered mental status R41.82 Coronary artery disease of [place] artery of [place] heart with stable angina pectoris I25.118 Coronary Disease-Associated Artery/Lesion type: [place] artery [place] vs. transplanted heart: [place] heart Associated angina: with stable angina Mixed hyperlipidemia E78.2 Hyperlipidemia type: mixed hyperlipidemia Generalized weakness R53.1 Lactic acidosis E87.20 Acute kidney injury N17.9 Secondary malignant neoplasm of unspecified lung C78.00 Cancer of left kidney C64.2 Renal cell cancer C64.9
[2024-06-18 18:42] LABS: Adenovirus Not Detected (NOT DETECT); Chlamydia Pneumoniae Not Detected (NOT DETECT); Coronavirus 229E,HKU1,NL63,OC4 Not Detected (NOT DETECT); Human Metapneumovirus Not Detected (NOT DETECT); Human Rhinovirus/Enterovirus Not Detected (NOT DETECT); Influenza A Not Detected (NOT DETECT); Influenza A H1 Not Detected (NOT DETECT); Influenza A H1-2009 Not Detected (NOT DETECT); Influenza A H3 Not Detected (NOT DETECT); Influenza B Not Detected (NOT DETECT); Mycoplasma Pneumoniae Not Detected (NOT DETECT); Parainfluenza Virus Type 1 Not Detected (NOT DETECT); Parainfluenza Virus Type 2 Not Detected (NOT DETECT); Parainfluenza Virus Type 3 Not Detected (NOT DETECT); Parainfluenza Virus Type 4 Not Detected (NOT DETECT); Respiratory Syncytial Virus A Not Detected (NOT DETECT); Respiratory Syncytial Virus B Not Detected (NOT DETECT)
[2024-06-18 18:47] LABS: SARS-COV-2 Detected (NOT DETECT)
[2024-06-18 19:00] LABS: Ketone (Acetest) Serum Negative (Negative)
[2024-06-18 19:01] LABS: INR 1.14 (0.8-1.2)
[2024-06-18 19:18] LABS: Troponin 5 6HR 54.54 ng/L (0-15)
[2024-06-18 19:19] LABS: Ammonia 19 umol/L (16-60)
[2024-06-18 19:20] LABS: Troponin 5 6HR Delta -18.46 ng/L (0-12)
[2024-06-18 19:35] LABS: Lactic Sepsis W/Reflex 4.9 mmol/L (0.5-2.2)
[2024-06-18 20:30] LABS: Anion Gap 24.6 (5-19); Blood Urea Nitrogen 28 mg/dL (8-23); Calcium 8.4 mg/dL (8.5-10.5); Carbon Dioxide 17 mmol/L (22-29); Chloride 100 mmol/L (98-107); Creatinine Clr Calc Pharmacy 44.1078; Glucose 221 mg/dL (65-115); Osmolality Calculated 296 mOsm/kg (285-295); Potassium 4.6 mmol/L (3.5-5.1); Reflex Lactate Order REFLEX LACTIC ORDERD; Sodium 137 mmol/L (136-145)
[2024-06-18 20:42] LABS: Procalcitonin 0.12 ng/mL (0-0.5); Thyroid Stimulating Hormone 1.52 uIU/mL (0.27-4.20)
[2024-06-18 20:53] LABS: C Reactive Protein 56.3 mg/L (0.0-4.9); Cholesterol 120 mg/dL (0-200); Ferritin 92 ng/mL (30-400); HDL Cholesterol 40 mg/dL (60-100); LDL Cholesterol Calculated 58 mg/dL (50-129); LDL HDL Ratio 1.45 RATIO (0.00-3.22); Lipase 20 U/L (13-60); Triglycerides 112 mg/dL (0-150)
[2024-06-18 20:57] LABS: Acetaminophen < 5.0 ug/mL (10-30); Alcohol Level < 10 mg/dL (0-10); Salicylate < 0.3 mg/dL (3-10)
[2024-06-18 21:19] LABS: Glucose Point of Care 168 mg/dL (70-110)
[2024-06-18] MEDS: gabapentin 300 mg Capsule 600 MG PO (21:44)
[2024-06-19] VITALS (12 sets, daily range): BP systolic 132–162; BP diastolic 71–83; PULSE 66–87; RESP 13–19; TEMP 36.3–37.1; O2SAT 94–98
[2024-06-19 01:17] LABS: Estmated Average Glucose 143; Hemoglobin A1C 6.6 % (4.0-6.0)
[2024-06-19 03:46] LABS: Cortisol Random 2.57 ug/dL (2.47-19.5)
[2024-06-19] MEDS: pantoprazole 40 mg SDV IVP ×2 (05:18→15:54)
[2024-06-19 05:41] LABS: Basophils % 0.7 %; Eosinophils % 0.5 %; Hematocrit 39.6 % (37-53); Lymphocytes % 16.9 %; Mean Corpuscular HGB Conc 32.1 g/dL (30-55); Mean Corpuscular Hemoglobin 28.5 pg (27-33); Mean Platelet Volume 9.7 fL (7.4-10.4); Monocytes # 1.1 10^3/uL (0.2-0.9); Monocytes % 17.9 %; Neutrophils # 3.79 10^3/uL (1.8-7.7); Neutrophils % 63.3 %; Nucleated Red Blood Cells % 0 %; Platelet Count 151 10^3/cmm (157-399); Red Blood Count 4.45 10^6/uL (3.85-5.65); White Blood Count 5.98 10^3/uL (3.29-11.43)
[2024-06-19 05:58] LABS: Anion Gap 17.2 (5-19); Blood Urea Nitrogen 24 mg/dL (8-23); Calcium 8.3 mg/dL (8.5-10.5); Carbon Dioxide 20 mmol/L (22-29); Chloride 109 mmol/L (98-107); Glucose 103 mg/dL (65-115); Osmolality Calculated 298 mOsm/kg (285-295); Potassium 4.2 mmol/L (3.5-5.1); Sodium 142 mmol/L (136-145)
[2024-06-19 06:42] LABS: Glucose Point of Care 95 mg/dL (70-110)
[2024-06-19] MEDS: levothyroxine 25 mcg Tablet PO (08:38)
[2024-06-19] MEDS: predniSONE 5 mg Tablet PO (08:38)
[2024-06-19] MEDS: finasteride 5 mg Tablet PO (08:38)
[2024-06-19] MEDS: atorvastatin 40 mg Tablet PO (08:38)
[2024-06-19] MEDS: multivitamin therapeutic Tablet 1 TAB PO (08:38)
[2024-06-19] MEDS: pyridoxine 50 mg Tablet 100 MG PO (08:39)
[2024-06-19] MEDS: tamsulosin 0.4 mg Capsule PO (08:39)
[2024-06-19] MEDS: aspirin 325 mg EC Tablet PO (08:39)
[2024-06-19] MEDS: gabapentin 300 mg Capsule 600 MG PO (08:39)
[2024-06-19] MEDS: cyanocobalamin 1,000 mcg Tablet 1000 MCG PO (08:39)
[2024-06-19] MEDS: clopidogrel 75 mg Tablet PO (08:39)
[2024-06-19] MEDS: vancomycin 1,500 MG/300 ML PIGGYBACK 200 MG IV (08:40)
[2024-06-19] MEDS: sodium chloride 0.9% 1,000 ML 125 ML IV (08:45)
--- NOTE | 2024-06-19 08:48 | PC.CHAP ---
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 accounting analyst visit [] Patient/Family/Request visit [] Outpatient visit [] Follow-up visit [] Physician referral [] Code/Alert [] Routine visit [] Staff referral [] Actively dying [] Patient sleeping [] Family support [] [] Out of room [] Palliative care [] [] Receiving care in room [] Pre-surgical visit [] Trauma [] Long length of stay [] ICU visit [x] Other:Contact precautions. No visit. Relational/Emotional Strength [] Patient feels connected with others/family/visitors/staff [] Distress [] Loneliness/isolation [] Abandonment Spirituality of Patient [] Person of [place] [] Attends Islam of their [place] [] Believes in Prayer [] Reads Bible or Church materials [] There are Spiritual issues to be addressed Director Money Interventions [] Prayer [] Active listening [] Non-anxious presence [] Spiritual/emotional support [] Crisis/trauma care [] Spiritual counseling [] Bereavement support [] Provided bereavement packet [] Provided Bible/devotional materials [] Provided toy/stuffed animal, coloring book to patient or family member [] Provided Communion [] Anointing/[place] [] Salvation [] Completed spiritual assessment [] Other: Impact on Illness or Injury [] Angry [] Fearful [] Anxious [] Often cries [] Exhaustion [] Unable to work [] Unable to attend spiritism [] Unable to walk/stand [] Unable to read [] Unable to drive [] Unable to eat/drink [] Unable to sleep [] Unable to be with family [] Patient intubated [] Other: Summary Time spent with patient
[2024-06-19] MEDS: albuterol 2.5 mg/3 mL Neb INHALATION ×2 (08:49→20:11)
[2024-06-19] MEDS: insulin lispro 100 unit/1 mL SUBCUT ×2 (11:38→17:17)
[2024-06-19] MEDS: piperacillin-tazobactam 3.375 GM in sodium chloride 0.9% (plus) 50 ML IV ×2 (11:38→20:35)
[2024-06-19 11:39] LABS: Glucose Point of Care 207 mg/dL (70-110)
--- NOTE | 2024-06-19 12:51 | P.PN_ITS ---
Subjective 2 Subjective: History and physical reviewed. 78-year-old admitted yesterday, with altered mental status, acute kidney injury, lactic acidosis, poor oral intake. Has history of stage IV renal cell carcinoma currently undergoing treatment. Ultimately found to have COVID, on testing ordered on admission. He reports he is feeling better. Mental status is back to baseline. Still feels somewhat weak but able to sit up. Medications: Reviewed: Yes Vitals/I&O/Wt Last Vital Signs Temp 97.5 F L 06/19/24 11:55 Pulse 74 06/19/24 11:55 Resp 18 06/19/24 11:55 BP 132/71 06/19/24 11:55 Pulse Ox 95 06/19/24 11:55 O2 Del Method Room Air 06/19/24 11:55 06/18/24 06/19/24 06/19/24 22:59 06:59 14:59 Intake Total 1590 / 1590 937.5 / 2527.5 1780 / 1780 Balance 1590 / 1590 937.5 / 2527.5 1780 / 1780 Weight last 48 hrs Weight 98.928 kg Weight 98.838 kg Weight 102.058 kg Physical Exam 2 Narrative: General exam is conversant, hard of hearing, no distress HEENT: Atraumatic normocephalic. Oropharynx clear Neck is supple no lymphadenopathy thyromegaly Cardiovascular regular in rhythm without murmur Lungs clear Abdomen is soft Extremities no sinus clubbing edema Data 06/19/24 05:34 06/19/24 05:34 Micro: Microbiology 06/18/24 11:00 Blood Culture - Preliminary Blood NEGATIVE TO DATE 06/18/24 11:00 Blood Culture - Preliminary Blood NEGATIVE TO DATE A&P Assessment and plan (1) COVID-19: Patient with Covid 19. This may explain his weakness, dehydration leading to lactic acidosis, etc. Secondary to his immunocompromise state initiate remdesivir and dexamethasone Monitor closely. If he continues to improve consider potential discharge in the next 1 to 2 days. Hold his axitinib currently. Can be restarted after visitation with oncology after this hospital stay. Considering COVID-positive discontinue vancomycin. Will continue Zosyn for time being awaiting cultures. (2) Acute metabolic encephalopathy: Improving Lowered Neurontin dose Avoid sedating medication Discontinue Benadryl (3) Lactic acidosis: Patient with significant lactic acidosis, likely from dehydration Discontinue metformin upon discharge. (4) Acute kidney injury: Patient with acute kidney injury Monitor renal function closely with CMP in the morning, along with a CBC Avoid renal toxic medication (5) Cancer of left kidney: Patient with history of metastatic kidney cancer (6) Diabetes mellitus: Consistent carb diet Sliding scale insulin Plan Multiple other medical problems as outlined in past medical history Lovenox for DVT prophylaxis. Attestations 2 Medical Necessity Statement*: Needs continued hospitalization secondary COVID-19 pneumonia associate with dehydration, acute kidney injury, severe lactic acidosis, encephalopathy with initiation of remdesivir, treatment with dexamethasone Diagnoses COVID-19 U07.1 Acute metabolic encephalopathy G93.41 Lactic acidosis E87.20 Acute kidney injury N17.9 Cancer of left kidney C64.2 Diabetes mellitus E11.9 Time Spent (min) 34
[2024-06-19] MEDS: gabapentin 300 mg Capsule PO ×2 (14:24→20:36)
[2024-06-19] MEDS: dexamethasone 10 mg/mL INJ 6 MG IVP (14:24)
[2024-06-19] MEDS: remdesivir 200 MG in sodium chloride 0.9% (100 ml) 60 ML 100 MG IV (14:32)
[2024-06-19] MEDS: enoxaparin 40 mg/0.4 mL Syringe SUBCUT (15:54)
[2024-06-19 16:49] LABS: Glucose Point of Care 275 mg/dL (70-110)
[2024-06-19] MEDS: isosorbide mononitrate ER 60 mg Tablet PO (17:17)
[2024-06-19 21:23] LABS: Glucose Point of Care 227 mg/dL (70-110)
[2024-06-20] MEDS: sodium chloride 0.9% 1,000 ML 50 ML IV (00:18)
[2024-06-20 04:00] VITALS: BP 167/87; PULSE 64; RESP 14; TEMP 536.4; TEMP 997.5; O2SAT 97
[2024-06-20] MEDS: piperacillin-tazobactam 3.375 GM in sodium chloride 0.9% (plus) 50 ML IV (04:06)
[2024-06-20] MEDS: pantoprazole 40 mg SDV IVP (04:06)
[2024-06-20 05:20] LABS: Basophils % 0.2 %; Hematocrit 40.4 % (37-53); Lymphocytes # 0.5 10^3/uL (0.8-4.8); Mean Corpuscular HGB Conc 31.2 g/dL (30-55); Mean Corpuscular Hemoglobin 27.9 pg (27-33); Mean Corpuscular Volume 89.6 fl (82-101); Mean Platelet Volume 9.9 fL (7.4-10.4); Monocytes # 0.5 10^3/uL (0.2-0.9); Monocytes % 8.3 %; Neutrophils # 4.98 10^3/uL (1.8-7.7); Neutrophils % 82.5 %; Nucleated Red Blood Cells % 0 %; Platelet Count 166 10^3/cmm (157-399); Red Blood Count 4.51 10^6/uL (3.85-5.65); Red Cell Distribution Width 15.2 % (12.1-15.1); White Blood Count 6.03 10^3/uL (3.29-11.43)
[2024-06-20 05:39] LABS: Alanine Aminotransferase 18 U/L (0-41); Albumin Level 3.4 g/dL (3.5-5.2); Alkaline Phosphatase 51 U/L (40-130); Anion Gap 19.7 (5-19); Aspartate Amino Transferase 24 U/L (0-40); Blood Urea Nitrogen 24 mg/dL (8-23); Calcium 8.2 mg/dL (8.5-10.5); Carbon Dioxide 18 mmol/L (22-29); Chloride 109 mmol/L (98-107); Creatinine Clr Calc Pharmacy 47.0275; Globulin 2.7 g/dL (1.3-4.6); Glucose 176 mg/dL (65-115); Magnesium 1.8 mg/dL (1.7-2.3); Osmolality Calculated 302 mOsm/kg (285-295); Potassium 4.7 mmol/L (3.5-5.1); Sodium 142 mmol/L (136-145); Total Bilirubin 0.2 mg/dL (0.15-1.2); Total Protein 6.1 g/dL (6.6-8.7)
[2024-06-20 06:23] VITALS: PULSE 65
[2024-06-20 06:47] LABS: Glucose Point of Care 147 mg/dL (70-110)
[2024-06-20 08:00] VITALS: BP 167/83; PULSE 61; RESP 16; TEMP 36.4; O2SAT 97
[2024-06-20] MEDS: finasteride 5 mg Tablet PO (08:12)
[2024-06-20] MEDS: isosorbide mononitrate ER 60 mg Tablet PO (08:12)
[2024-06-20] MEDS: gabapentin 300 mg Capsule PO (08:12)
[2024-06-20] MEDS: clopidogrel 75 mg Tablet PO (08:12)
[2024-06-20] MEDS: levothyroxine 25 mcg Tablet PO (08:12)
[2024-06-20] MEDS: tamsulosin 0.4 mg Capsule PO (08:12)
[2024-06-20] MEDS: cyanocobalamin 1,000 mcg Tablet 1000 MCG PO (08:12)
[2024-06-20] MEDS: atorvastatin 40 mg Tablet PO (08:12)
[2024-06-20] MEDS: metoprolol succinate ER (24 HR) 25 mg Tablet PO (08:12)
[2024-06-20] MEDS: aspirin 325 mg EC Tablet PO (08:12)
[2024-06-20] MEDS: multivitamin therapeutic Tablet 1 TAB PO (08:13)
[2024-06-20] MEDS: insulin lispro 100 unit/1 mL SUBCUT (08:13)
[2024-06-20] MEDS: albuterol 2.5 mg/3 mL Neb INHALATION (09:16)
[2024-06-20 09:17] VITALS: PULSE 69; RESP 18; O2SAT 94
--- NOTE | 2024-06-20 09:55 | PM.DCS ---
Discharge Providers Date of Admission: 06/18/24 13:59 Date of Discharge: June 20, 2024 Attending Provider at Admission: Rowan Loredo MD Attending Provider at Discharge: Harrison Peñaloza MD Primary Care Provider: Lenny Degroot MD Diagnoses at Discharge Discharge Diagnosis (1) COVID-19: Status: Acute (2) Acute metabolic encephalopathy: Status: Acute (3) Lactic acidosis: Status: Acute (4) Acute kidney injury: Status: Acute (5) Cancer of left kidney: Status: Acute (6) Diabetes mellitus: Status: Acute Reason for Visit Reason for Visit: AMS, Weakness Hospital Course Hospital Course Elliot is a 78-year-old white male who was admitted on June 18 with altered mental status, lactic acidosis, acute kidney injury. He was placed on vancomycin and Zosyn, and there was concern of pneumonia. He received IV fluids, and ultimately was found to have Covid 19. He was placed on remdesivir dexamethasone. With these treatments he rapidly improved and by June 20 he was able to ambulate to the bathroom, felt like his strength had returned significantly, and was not requiring any oxygen. It was thought he could discharge home, and was placed on a course of Paxlovid for outpatient treatment as he had only had 1-2 doses of remdesivir in the hospital. This was thought to be essential secondary to his significant immunosuppressed state. I visited with pharmacy, and he is to hold his axitinib, statin, reduced dose of Neurontin, while on the Paxlovid. He will follow-up with his primary care provider in 3 to 5 days. He was given other instructions as listed in the discharge summary/orders. He and his were given opportunity ask questions and agreed with the plan. He is to resume his prednisone after his dexamethasone dosing. During his hospital course he also received a CT of his chest, abdomen pelvis, and had which were all relatively unrevealing. Physical Exam Narrative: General Exam no distress Neck is supple Cardiovascular regular rate rhythm Lungs clear Abdomen soft Extremities no sinus clubbing edema Discharge Data Studies Completed and Pending Completed Studies During Hospitalization Category Date Time Status CT abdomen pelvis wo con [id number] Stat Cat Scan 06/18/24 12:[address] chest wo con [id number] Routine Cat Scan 06/18/24 15:[address] head wo con* [id number] Stat Cat Scan 06/18/24 11:29 Completed XR chest 1V portable [id number] Stat Exams 06/18/24 10:49 Completed Pending at discharge Category Date Time Status Blood Culture Stat Lab 06/18/24 11:00 Results C.Diff PCR (Lab) Routine Lab 06/18/24 15:15 Uncollected Immunochemical Fecal OCB Routine Lab 06/18/24 15:15 Uncollected Lactoferrin Routine Lab 06/18/24 15:15 Uncollected OVA and Parasites, Conc and PE Routine Lab 06/18/24 15:15 Uncollected Salmonella / Shigella / Campy Routine Lab 06/18/24 15:15 Uncollected Sputum Culture and Gram Stain Stat Lab 06/18/24 20:25 Results Radiology Impressions Chest X-Ray 06/18/24 10:49 Impression: No failure or dense consolidation is appreciated on this film. Head CT 06/18/24 11:29 Impression: There is no intracranial hemorrhage or hematoma. Age appropriate involutional changes noted. Abdomen/Pelvis CT 06/18/24 12:30 Impression: There is coronary artery calcification. There is cholelithiasis. There is no kidney stone or hydronephrosis. There is a suspected right cyst. There is an area of hyperdensity on the left kidney. I recommend ultrasound for further evaluation to exclude solid mass. 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 Chest CT 06/18/24 15:15 IMPRESSION: 1. No acute findings. 2. Stable chronic pericardial effusion 3. Cholelithiasis Laboratory Results WBC 6.03 10^3/uL (3.29-11.43) 06/20/24 04:36 RBC 4.51 10^6/uL (3.85-5.65) 06/20/24 04:36 Hgb 12.60 g/dL (11.27-16.99) 06/20/24 04:36 Hct 40.4 % (37-53) 06/20/24 04:36 MCV 89.6 fl (82-101) 06/20/24 04:36 MCH 27.9 pg (27-33) 06/20/24 04:36 MCHC 31.2 g/dL (30-55) 06/20/24 04:36 RDW 15.2 % (12.1-15.1) H 06/20/24 04:36 Plt Count 166 10^3/cmm (157-399) 06/20/24 04:36 MPV 9.9 fL (7.4-10.4) 06/20/24 04:36 Neut % (Auto) 82.5 % 06/20/24 04:36 Lymph % (Auto) 8.0 % 06/20/24 04:36 [place] % (Auto) 8.3 % 06/20/24 04:36 Eos % (Auto) 0.0 % 06/20/24 04:36 Baso % (Auto) 0.2 % 06/20/24 04:36 Neut # (Auto) 4.98 10^3/uL (1.8-7.7) 06/20/24 04:36 Lymph # (Auto) 0.5 10^3/uL (0.8-4.8) L 06/20/24 04:36 [place] # (Auto) 0.5 10^3/uL (0.2-0.9) 06/20/24 04:36 Eos # (Auto) 0.0 10^3/uL (0.0-0.8) 06/20/24 04:36 Baso # (Auto) 0.0 10^3/uL (0.0-0.1) 06/20/24 04:36 Nucleated RBC % (auto) 0 % 06/20/24 04:36 Nucleated RBCs # 0.0 /100WBC 06/20/24 04:36 ESR 21 mm/hr (0-10) H 06/18/24 10:30 PT 14.90 SECONDS (12.1-14.9) 06/18/24 18:31 INR 1.14 (0.8-1.2) 06/18/24 18:31 Specimen Type Arterial 06/18/24 11:03 Sample Site Radial, left 06/18/24 11:03 ABG pH 7.38 (7.35-7.45) 06/18/24 11:03 ABG pCO2 31.4 mmHg (35-45) L 06/18/24 11:03 ABG pO2 70.2 mmHg (80.0-100.0) L 06/18/24 11:03 ABG PO2/FiO2 Ratio 334 06/18/24 11:03 ABG HCO3 18.4 mmol/L (22-26) L 06/18/24 11:03 ABG O2 Saturation 94.6 06/18/24 11:03 ABG Base Excess -5.6 mmol/L (-2.0-2.0) L 06/18/24 11:03 Dipesh Test Pos 06/18/24 11:03 A-a O2 Gradient 5.3 mmHg (5-10) 06/18/24 11:03 Hematocrit 41.6 % (42-52) L 06/18/24 11:03 Hgb O2 Saturation 93.0 % (95-100) L 06/18/24 11:03 Carboxyhemoglobin 0.4 %THgb (0.4-20.1) 06/18/24 11:03 Methemoglobin 1.2 % (0.4-1.5) 06/18/24 11:03 Total Hemoglobin 13.6 g/dL (14-18) L 06/18/24 11:03 Sodium 133.0 mmol/L (131-143) 06/18/24 11:03 Potassium 4.4 mmol/L (3.5-5.0) 06/18/24 11:03 Glucose 184.0 mg/dL (70-115) H 06/18/24 11:03 Ionized Calcium 1.2 mmol/L (1.1-1.4) 06/18/24 11:03 O2 Delivery Device None 06/18/24 11:03 FiO2 21.0 % 06/18/24 11:03 Ammonia Operator ID Aleksandra 06/18/24 11:03 Sodium 142 mmol/L (136-145) 06/20/24 04:36 Potassium 4.7 mmol/L (3.5-5.1) 06/20/24 04:36 Chloride 109 mmol/L (98-107) H 06/20/24 04:36 Carbon Dioxide 18 mmol/L (22-29) L 06/20/24 04:36 Anion Gap 19.7 (5-19) H 06/20/24 04:36 BUN 24 mg/dL (8-23) H 06/20/24 04:36 Creatinine 1.5 mg/dL (0.7-1.2) H 06/20/24 04:36 GFR Calculation Not Reportable 06/20/24 04:36 Glucose 176 mg/dL (65-115) H 06/20/24 04:36 POC Glucose 147 mg/dL (70-110) H 06/20/24 06:17 Estimat Average Glucose 143 06/18/24 10:30 Hemoglobin A1c 6.6 % (4.0-6.0) H 06/18/24 10:30 Calculated Osmolality 302 mOsm/kg (285-295) H 06/20/24 04:36 Lactic Acid 4.9 mmol/L (0.5-2.2) H* 06/18/24 18:31 Lactic Acid (Sepsis) 4.0 mmol/L (0.5-2.2) H 06/18/24 22:24 Calcium 8.2 mg/dL (8.5-10.5) L 06/20/24 04:36 Magnesium 1.8 mg/dL (1.7-2.3) 06/20/24 04:36 Ferritin 92 ng/mL (30-400) 06/18/24 18:31 Total Bilirubin 0.2 mg/dL (0.15-1.2) 06/20/24 04:36 AST 24 U/L (0-40) 06/20/24 04:36 ALT 18 U/L (0-41) 06/20/24 04:36 Alkaline Phosphatase 51 U/L (40-130) 06/20/24 04:36 Ammonia 19 umol/L (16-60) 06/18/24 18:31 Creatine Kinase 55 U/L (39-308) 06/18/24 10:30 Troponin T Baseline 73 ng/L (0-15) H 06/18/24 10:30 Troponin T 120 Minute 64.62 ng/L (0-15) H 06/18/24 12:28 Delta Troponin T -8.38 ABS# (0-10) L 06/18/24 12:28 Troponin T Hi Sens 6Hr 54.54 ng/L (0-15) H 06/18/24 18:31 Troponin T Hi Sens 6Hr Delta -18.46 ng/L (0-12) L 06/18/24 18:31 C-Reactive Protein 56.3 mg/L (0.0-4.9) H 06/18/24 18:31 NT-Pro-B Natriuret Pep 156 pg/mL (0-450) 06/18/24 10:30 Total Protein 6.1 g/dL (6.6-8.7) L 06/20/24 04:36 Albumin 3.4 g/dL (3.5-5.2) L 06/20/24 04:36 Globulin 2.7 g/dL (1.3-4.6) 06/20/24 04:36 Triglycerides 112 mg/dL (0-150) 06/18/24 18:31 Cholesterol 120 mg/dL (0-200) 06/18/24 18:31 LDL Cholesterol, Calc 58 mg/dL (50-129) 06/18/24 18:31 HDL Cholesterol 40 mg/dL (60-100) L 06/18/24 18:31 LDL/HDL Ratio 1.45 RATIO (0.00-3.22) 06/18/24 18:31 Cholesterol/HDL Ratio 3.00 mg/dL (1.0-5.00) 06/18/24 18:31 Lipase 20 U/L (13-60) 06/18/24 18:31 Procalcitonin 0.12 ng/mL (0-0.5) 06/18/24 18:31 TSH 1.52 uIU/mL (0.27-4.20) 06/18/24 18:31 Random Cortisol 2.57 ug/dL (2.47-19.5) 06/18/24 18:31 Urine Color Yellow (Yellow) 06/18/24 12:04 Urine Appearance Clear (CLEAR) 06/18/24 12:04 Urine pH 5.5 (5-7) 06/18/24 12:04 Ur Specific [place] 1.014 (1.005-1.030) 06/18/24 12:04 Urine Protein Trace (Negative) A 06/18/24 12:04 Urine Glucose (UA) 3+ (Normal) H 06/18/24 12:04 Urine Ketones Negative (Negative) 06/18/24 12:04 Urine Blood Negative (Negative) 06/18/24 12:04 Urine Nitrate Negative (Negative) 06/18/24 12:04 Urine Bilirubin Negative (Negative) 06/18/24 12:04 Urine Urobilinogen 0.2 mg/dL (Negative) 06/18/24 12:04 Ur Leukocyte Esterase Negative (Negative) 06/18/24 12:04 Urine RBC None /hpf (0-2) 06/18/24 12:04 Urine WBC None /hpf (0-5) 06/18/24 12:04 Ur Squamous Epith Cells Rare /hpf (0-5) 06/18/24 12:04 Amorphous Sediment Trace /hpf 06/18/24 12:04 Urine Bacteria None /hpf (NONE) 06/18/24 12:04 Urine Mucus None /hpf 06/18/24 12:04 Salicylates < 0.3 mg/dL (3-10) L 06/18/24 18:31 Urine Opiates Screen Negative ng/mL (Negative) 06/18/24 12:04 Acetaminophen < 5.0 ug/mL (10-30) L 06/18/24 18:31 Ur Barbiturates Screen Negative ng/mL (Negative) 06/18/24 12:04 Ur Phencyclidine Scrn Negative ng/mL (Negative) 06/18/24 12:04 Ur Amphetamines Screen Negative ng/mL (Negative) 06/18/24 12:04 U Benzodiazepines Scrn Negative ng/mL (Negative) 06/18/24 12:04 Urine Cocaine Screen Negative ng/mL (Negative) 06/18/24 12:04 U Marijuana (THC) Screen Negative ng/mL (Negative) 06/18/24 12:04 Ethyl Alcohol < 10 mg/dL (0-10) 06/18/24 18:31 Serum Ketones Negative (Negative) 06/18/24 18:31 Adenovirus (PCR) Not detected (NOT DETECT) 06/18/24 16:20 C. pneumoniae DNA (PCR) Not detected (NOT DETECT) 06/18/24 16:20 Coronavirus 229E (PCR) Not detected (NOT DETECT) 06/18/24 16:20 Human Metapneumovir PCR Not detected (NOT DETECT) 06/18/24 16:20 Influenza A (H1) PCR Not detected (NOT DETECT) 06/18/24 16:20 Influ A (H1/09) PCR Not detected (NOT DETECT) 06/18/24 16:20 Influenza A (H3) PCR Not detected (NOT DETECT) 06/18/24 16:20 Influenza Type A (PCR) Not detected (NOT DETECT) 06/18/24 16:20 Influenza Type B (PCR) Not detected (NOT DETECT) 06/18/24 16:20 M. pneumoniae (PCR) Not detected (NOT DETECT) 06/18/24 16:20 Parainfluenza 1 (PCR) Not detected (NOT DETECT) 06/18/24 16:20 Parainfluenza 2 (PCR) Not detected (NOT DETECT) 06/18/24 16:20 Parainfluenza 3 (PCR) Not detected (NOT DETECT) 06/18/24 16:20 Parainfluenza 4 (PCR) Not detected (NOT DETECT) 06/18/24 16:20 RSV Type A (PCR) Not detected (NOT DETECT) 06/18/24 16:20 RSV Type B (PCR) Not detected (NOT DETECT) 06/18/24 16:20 Entero/Rhino (PCR) Not detected (NOT DETECT) 06/18/24 16:20 SARS-CoV-2 (PCR) Detected (NOT DETECT) A 06/18/24 16:20 Vitals Last Vital Signs Temp 97.6 F 06/20/24 08:00 Pulse 69 06/20/24 09:17 Resp 18 06/20/24 09:17 BP 167/83 06/20/24 08:00 Pulse Ox 94 06/20/24 09:17 O2 Del Method Room Air 06/20/24 09:17 Discharge Plan Discharge Patient Disposition: Home Condition: Stable Prescriptions: New gabapentin 300 mg Capsule 300 mg PO TID Qty: 90 0RF dexamethasone 6 mg tablet 6 mg PO DAILY 3 Days Qty: 3 0RF amoxicillin-pot clavulanate 875-125 mg tablet 1 tab PO BID Qty: 10 0RF Paxlovid 150-100 mg tablets,dose pack See Rx Instructions .ROUTE .COMPLEX Qty: 20 0RF Rx Instructions: take ONE 150 mg tablet of nirmatrelvir with ONE 100 mg tablet of ritonavir twice daily for 5 days Continued multivitamin Tablet 1 tab PO DAILY garlic 500 mg capsule 1,000 mg PO DAILY aspirin 325 mg tablet,delayed release (DR/EC) 325 mg PO DAILY pyridoxine (vitamin B6) 100 mg tablet 100 mg PO DAILY isosorbide mononitrate 60 mg tablet extended release 24 hr 60 mg PO BID cranberry 500 mg capsule 1,500 mg PO DAILY prochlorperazine maleate [Compazine] 10 mg tablet 10 mg PO Q4H PRN (Reason: Mild Nausea) Qty: 30 3RF mecobalamin (vitamin B12) [B12 Active] 1,000 mcg tablet,chewable 1,000 mcg PO DAILY Qty: 30 2RF dapagliflozin propanediol [Farxiga] 10 mg tablet 10 mg PO DAILY cholecalciferol (vitamin D3) 50 mcg (2,000 unit) capsule 50 mcg PO DAILY bisacodyl [Dulcolax (bisacodyl)] 10 mg suppository 10 mg SD DAILY PRN (Reason: Constipation) Ca-D3-mag oi-mcxy-gby-dione-bor [Calcium 600-D3 Plus (mag-zinc)] 600 mg calcium- 20 mcg-50 mg tablet 1 tab PO DAILY Dulcolax (magnesium hydroxide) 1,200 mg tablet,chewable 1,200 mg PO BID PRN (Reason: Constipation) loperamide [Imodium A-D] 2 mg capsule 2 mg PO .COMPLEX PRN (Reason: loose stool) Patient Comments: per instructions and patient confirmation-2 caplets after first stool; 21 caplet after each subsequent loose stool; but no more than4 caplets in 24 hours Rx Instructions: 2 mg orally PRN; pembrolizumab 50 mg recon soln 200 mg IV .every 3 weeks prednisone 5 mg tablet See Rx Instructions .ROUTE .COMPLEX Qty: 90 0RF Dose Instruction: TAKE 1 TABLET BY MOUTH EVERY DAY Rx Instructions: TAKE 1 TABLET BY MOUTH EVERY DAY nitroglycerin [Nitrostat] 0.4 mg tablet, sublingual 0.4 mg SUBLINGUAL Q5M PRN (Reason: chest pain) Qty: 50 5RF Rx Instructions: for 3 doses tamsulosin 0.4 mg capsule See Rx Instructions .ROUTE .COMPLEX Qty: 90 3RF Dose Instruction: TAKE 1 CAPSULE BY MOUTH EVERY DAY Rx Instructions: TAKE 1 CAPSULE BY MOUTH EVERY DAY finasteride 5 mg tablet See Rx Instructions .ROUTE .COMPLEX Qty: 90 3RF Dose Instruction: TAKE 1 TABLET BY MOUTH EVERY DAY Rx Instructions: TAKE 1 TABLET BY MOUTH EVERY DAY lisinopril 40 mg tablet See Rx Instructions .ROUTE .COMPLEX Qty: 90 3RF Dose Instruction: TAKE 1 TABLET BY MOUTH AT BEDTIME Rx Instructions: TAKE 1 TABLET BY MOUTH AT BEDTIME metoprolol succinate [Toprol XL] 25 mg tablet extended release 24 hr 25 mg PO DAILY Qty: 90 3RF axitinib 1 mg tablet 3 mg PO BID Qty: 180 12RF Rx Instructions: Dose reduction d/t adverse side effects amlodipine 10 mg tablet See Rx Instructions .ROUTE .COMPLEX Qty: 90 3RF Dose Instruction: TAKE 1 TABLET BY MOUTH EVERY DAY Rx Instructions: TAKE 1 TABLET BY MOUTH EVERY DAY levothyroxine 25 mcg tablet See Rx Instructions .ROUTE .COMPLEX Qty: 90 1RF Dose Instruction: TAKE 1 TABLET BY MOUTH EVERY DAY Rx Instructions: TAKE 1 TABLET BY MOUTH EVERY DAY atorvastatin 80 mg tablet See Rx Instructions .ROUTE .COMPLEX Qty: 90 3RF Dose Instruction: TAKE 1 TABLET BY MOUTH EVERY DAY Rx Instructions: TAKE 1 TABLET BY MOUTH EVERY DAY clopidogrel 75 mg tablet See Rx Instructions .ROUTE .COMPLEX Qty: 90 3RF Dose Instruction: TAKE 1 TABLET BY MOUTH EVERY DAY Rx Instructions: TAKE 1 TABLET BY MOUTH EVERY DAY Discontinued metformin 1,000 mg tablet 1,000 mg PO BID diphenhydramine HCl [Benadryl] 25 mg capsule 25 mg PO TID PRN (Reason: allergy symptoms) Qty: 30 0RF gabapentin 600 mg tablet 600 mg PO TID Discharge Orders: Discharge Order (Routine); Ordered 06/20/24 Ordered By: Harrison Peñaloza Referrals: Lenny Degroot MD [Primary Care Provider] - 4-7 days Discharge Diet: Usual diet Discharge Activity: Increase activity as tolerated Patient Instructions: Opioid Safety Activity Restrictions/Additional Instructions: Do not use axitinib until completing course of Paxlovid. Check with your oncologist to reinitiate. Hold atorvastatin until treatment completed with Paxlovid Note that your dose of Neurontin has been decreased Resume your prednisone, after dexamethasone has been completed Use your incentive spirometry frequently Isolation precautions for the next 10 days Return for any concerns Discontinue Benadryl Discontinue metformin. This is secondary to significant lactic acidosis on admission. Visit with your primary care provider regarding alternatives. Discharge Attestations Time Spent in Discharge Care*: greater than 30 min Quality Metrics Clinical Quality Measures [ No reported AMI, CVA or VTE this stay] Coding Level of Care Code 94239 Total time (in minutes) for Discharge: 36 Diagnoses COVID-19 U07.1 Acute metabolic encephalopathy G93.41 Lactic acidosis E87.20 Acute kidney injury N17.9 Cancer of left kidney C64.2 Diabetes mellitus E11.9
[2024-06-20] MEDS: pyridoxine 50 mg Tablet 100 MG PO (10:35)
[2024-06-20 11:14] LABS: Glucose Point of Care 224 mg/dL (70-110)
[2024-06-20 12:00] VITALS: TEMP 36.6
== END 2024-06-20 13:15 | disposition home or self-care (01) | DRG 177 ==
LOC: ER 10:55 → MEDSURG 13:59
PROVIDERS: Family Medicine; Admitting Provider Student in an Organized Health Care Education/Training Program; Emergency Provider Family Medicine; PCP Family Medicine; Visit Provider Internal Medicine
DX: U07.1 COVID-19 (principal); G93.41 Metabolic encephalopathy; C64.2 Malignant neoplasm of left kidney, except renal pelvis; N17.9 Acute kidney failure, unspecified; E87.20 Acidosis, unspecified; C78.02 Secondary malignant neoplasm of left lung; D84.9 Immunodeficiency, unspecified; I10 Essential (primary) hypertension; E78.2 Mixed hyperlipidemia; E11.9 Type 2 diabetes mellitus without complications; E86.0 Dehydration; I25.118 Atherosclerotic heart disease of native coronary artery with other forms of angina pectoris; K52.9 Noninfective gastroenteritis and colitis, unspecified; Z79.82 Long term (current) use of aspirin; Z79.899 Other long term (current) drug therapy; Z83.3 Family history of diabetes mellitus; Z82.49 Family history of ischemic heart disease and other diseases of the circulatory system; Z80.9 Family history of malignant neoplasm, unspecified; Z87.891 Personal history of nicotine dependence; Z79.890 Hormone replacement therapy; Z79.02 Long term (current) use of antithrombotics/antiplatelets
CPT/HCPCS: 36415; 36416; 36600; 70450; 71045; 71250; 74176; 80048; 80051; 80053; 80061; 80306; 80307; 81003; 81015; 82009; 82140; 82330; 82533; 82550; 82728; 82805; 82962; 83036; 83605; 83690; 83735; 83880; 84145; 84443; 84484; 85025; 85610; 85651; 86140; 87040; 87070; 87205; 87486; 87581; 87633; 93005; 94640; 94664; 96365; 96367; 96372; 99285; J0248; J1100; J1650; J1815; J2470; J2543; J3370; J7030; J7050; J7512; J7613

== ENCOUNTER 2024-07-09 13:30 | Oncology outpatient (recurring) (ONCR) | payer MEDICARE, SELFPAY ==
[2024-07-02 11:51] LABS: Basophils % 0.2 %; Eosinophils # 0.1 10^3/uL (0.0-0.8); Eosinophils % 0.8 %; Hematocrit 41.9 % (37-53); Lymphocytes % 7.6 %; Mean Corpuscular HGB Conc 31.5 g/dL (30-55); Mean Corpuscular Hemoglobin 28.4 pg (27-33); Mean Corpuscular Volume 90.3 fl (82-101); Mean Platelet Volume 10.2 fL (7.4-10.4); Monocytes # 1.2 10^3/uL (0.2-0.9); Monocytes % 9.2 %; Neutrophils % 80.8 %; Nucleated Red Blood Cells % 0 %; Platelet Count 185 10^3/cmm (157-399); Red Blood Count 4.64 10^6/uL (3.85-5.65); Red Cell Distribution Width 15.2 % (12.1-15.1); White Blood Count 13.13 10^3/uL (3.29-11.43)
[2024-07-02 12:09] LABS: Alanine Aminotransferase 31 U/L (0-41); Albumin Level 3.6 g/dL (3.5-5.2); Alkaline Phosphatase 55 U/L (40-130); Blood Urea Nitrogen 39 mg/dL (8-23); Calcium 9.6 mg/dL (8.5-10.5); Carbon Dioxide 23 mmol/L (22-29); Chloride 96 mmol/L (98-107); Globulin 2.3 g/dL (1.3-4.6); Glucose 124 mg/dL (65-115); Osmolality Calculated 289 mOsm/kg (285-295); Sodium 134 mmol/L (136-145); Total Bilirubin 0.5 mg/dL (0.15-1.2); Total Protein 5.9 g/dL (6.6-8.7)
[2024-07-02 12:14] LABS: Anion Gap 20.8 (5-19); Aspartate Amino Transferase 34 U/L (0-40); Potassium 5.8 mmol/L (3.5-5.1)
[2024-07-09] MEDS: pembrolizumab 200 MG in sodium chloride 0.9% 250 ML 516 MG IV (14:16)
[2024-07-09 14:45] VITALS: BP 120/74; PULSE 17; RESP 18; TEMP 36.6; O2SAT 96
[2024-07-09 14:50] VITALS: BP 124/78; PULSE 78; RESP 18; TEMP 36.1; O2SAT 97
== END 2024-07-09 23:59 | disposition home or self-care (01) ==
PROVIDERS: PCP Family Medicine; Visit Provider Internal Medicine Medical Oncology
DX: Z53.9 Procedure and treatment not carried out, unspecified reason; Z51.12 Encounter for antineoplastic immunotherapy; C64.2 Malignant neoplasm of left kidney, except renal pelvis; Z79.899 Other long term (current) drug therapy
CPT/HCPCS: 80053; 85025; 96413; 99214; A4222; J7050; J9271

== ENCOUNTER 2024-07-30 08:45 | Oncology outpatient (recurring) (ONCR) | payer MEDICARE, SELFPAY ==
[2024-07-17 09:29] LABS: Bilirubin Urine Negative (Negative); Blood Urine 2+ (Negative); Glucose Urine UA 2+ (Normal); Ketones Urine Negative (Negative); Leukocyte Esterase Urine 3+ (Negative); Nitrate Urine Negative (Negative); Protein Urine 2+ (Negative); Specific Gravity, Urine 1.012 (1.005-1.030); Urine Appearance Turbid (CLEAR); Urine Color Yellow (Yellow); Urobilinogen Urine 0.2 mg/dL (Negative)
[2024-07-17 10:12] LABS: UA Manual Slide Review YES; UA Slide Review UA Slide Review Perf
[2024-07-17 10:16] LABS: Add Urine Microscopic? YES
[2024-07-17 10:17] LABS: Squamous Epithelial Cell Urine 0-4 /hpf (0-5); Transitional Epi Cells Urine 0-4 /hpf; WBC Urine TOO NUMEROUS TO CNT /hpf (0-5)
[2024-07-17 10:18] LABS: Add Urine Culture? Yes; Bacteria Urine TRACE /hpf
--- NOTE | 2024-07-17 10:25 | PC.NURSE ---
UA obtained as ordered and sent to lab/lc
[2024-07-30 08:53] LABS: Basophils # 0.1 10^3/uL (0.0-0.1); Basophils % 0.6 %; Eosinophils # 0.2 10^3/uL (0.0-0.8); Eosinophils % 2.2 %; Lymphocytes # 2.1 10^3/uL (0.8-4.8); Lymphocytes % 26.3 %; Mean Corpuscular HGB Conc 31.8 g/dL (30-55); Mean Corpuscular Hemoglobin 28.5 pg (27-33); Mean Corpuscular Volume 89.9 fl (82-101); Mean Platelet Volume 9.1 fL (7.4-10.4); Monocytes # 0.8 10^3/uL (0.2-0.9); Monocytes % 9.5 %; Neutrophils # 4.88 10^3/uL (1.8-7.7); Neutrophils % 59.9 %; Nucleated Red Blood Cells % 0 %; Platelet Count 189 10^3/cmm (157-399); Red Blood Count 4.45 10^6/uL (3.85-5.65); Red Cell Distribution Width 16.7 % (12.1-15.1); White Blood Count 8.14 10^3/uL (3.29-11.43)
[2024-07-30 09:14] LABS: Alanine Aminotransferase 31 U/L (0-41); Albumin Level 3.8 g/dL (3.5-5.2); Alkaline Phosphatase 65 U/L (40-130); Blood Urea Nitrogen 29 mg/dL (8-23); Calcium 8.7 mg/dL (8.5-10.5); Carbon Dioxide 20 mmol/L (22-29); Chloride 95 mmol/L (98-107); Creatinine Clr Calc Pharmacy 43.6293; Globulin 2.3 g/dL (1.3-4.6); Glucose 152 mg/dL (65-115); Osmolality Calculated 275 mOsm/kg (285-295); Sodium 128 mmol/L (136-145); Total Bilirubin 0.4 mg/dL (0.15-1.2); Total Protein 6.1 g/dL (6.6-8.7)
[2024-07-30 09:16] LABS: Anion Gap 18.3 (5-19); Aspartate Amino Transferase 34 U/L (0-40); Lactate Dehydrogenase 253 U/L (135-225); Potassium 5.3 mmol/L (3.5-5.1)
[2024-07-30] MEDS: pembrolizumab 200 MG in sodium chloride 0.9% 250 ML 516 MG IV (11:05)
[2024-07-30 11:40] VITALS: BP 128/65; PULSE 52; RESP 16; TEMP 35.9; O2SAT 98
== END 2024-07-30 23:59 | disposition home or self-care (01) ==
PROVIDERS: Internal Medicine Medical Oncology; Nurse Practitioner Family; PCP Family Medicine; Visit Provider Internal Medicine Hematology & Oncology
DX: C64.2 Malignant neoplasm of left kidney, except renal pelvis (principal); R91.1 Solitary pulmonary nodule; Z79.899 Other long term (current) drug therapy; K80.20 Calculus of gallbladder without cholecystitis without obstruction; Z53.9 Procedure and treatment not carried out, unspecified reason; Z51.12 Encounter for antineoplastic immunotherapy; N40.1 Benign prostatic hyperplasia with lower urinary tract symptoms; N13.8 Other obstructive and reflux uropathy
CPT/HCPCS: 80053; 81001; 83615; 84153; 85025; 87086; 96413; 99214; A4222; J7050; J9271

== ENCOUNTER 2024-08-06 10:20 | Oncology outpatient (recurring) (ONCR) | payer MEDICARE, SELFPAY ==
[2024-08-06 10:59] LABS: Blood Urea Nitrogen 40 mg/dL (8-23); Calcium 9.1 mg/dL (8.5-10.5); Carbon Dioxide 20 mmol/L (22-29); Chloride 100 mmol/L (98-107); Glucose 169 mg/dL (65-115); Osmolality Calculated 288 mOsm/kg (285-295); Sodium 132 mmol/L (136-145)
[2024-08-06 11:01] LABS: Anion Gap 17.1 (5-19); Potassium 5.1 mmol/L (3.5-5.1)
== END 2024-08-15 23:59 | disposition home or self-care (01) ==
LOC: ONCMED 10:20
PROVIDERS: Nurse Practitioner Family; PCP Family Medicine; Visit Provider Internal Medicine Hematology & Oncology
DX: C64.9 Malignant neoplasm of unspecified kidney, except renal pelvis
CPT/HCPCS: 36415; 80048

== ENCOUNTER → 2024-08-21 15:14 | Outpatient (BNVA) | payer MEDICARE, SELFPAY | PROVIDERS: PCP Family Medicine; Visit Provider Internal Medicine Cardiovascular Disease | DX: R06.02 Shortness of breath (principal) | CPT/HCPCS: 36415; 80048; 83880; 99214 ==

== ENCOUNTER 2024-08-26 11:27 | Oncology outpatient (recurring) (ONCR) | payer MEDICARE, SELFPAY ==
[2024-08-26 12:04] LABS: Basophils # 0.1 10^3/uL (0.0-0.1); Basophils % 0.5 %; Eosinophils # 0.2 10^3/uL (0.0-0.8); Eosinophils % 2.1 %; Hematocrit 38.4 % (37-53); Lymphocytes # 1.1 10^3/uL (0.8-4.8); Lymphocytes % 10.2 %; Mean Corpuscular HGB Conc 31.5 g/dL (30-55); Mean Corpuscular Hemoglobin 29.2 pg (27-33); Mean Corpuscular Volume 92.5 fl (82-101); Mean Platelet Volume 9.5 fL (7.4-10.4); Monocytes # 0.9 10^3/uL (0.2-0.9); Monocytes % 8.6 %; Neutrophils # 8.11 10^3/uL (1.8-7.7); Neutrophils % 77.9 %; Nucleated Red Blood Cells % 0 %; Platelet Count 277 10^3/cmm (157-399); Red Blood Count 4.15 10^6/uL (3.85-5.65); Red Cell Distribution Width 17.2 % (12.1-15.1)
[2024-08-26 12:20] LABS: Alanine Aminotransferase 25 U/L (0-41); Albumin Level 3.6 g/dL (3.5-5.2); Alkaline Phosphatase 53 U/L (40-130); Aspartate Amino Transferase 25 U/L (0-40); Blood Urea Nitrogen 45 mg/dL (8-23); Calcium 8.7 mg/dL (8.5-10.5); Carbon Dioxide 18 mmol/L (22-29); Chloride 104 mmol/L (98-107); Globulin 2.6 g/dL (1.3-4.6); Glucose 163 mg/dL (65-115); Osmolality Calculated 297 mOsm/kg (285-295); Sodium 136 mmol/L (136-145); Total Bilirubin 0.2 mg/dL (0.15-1.2); Total Protein 6.2 g/dL (6.6-8.7)
[2024-08-26 12:21] LABS: Anion Gap 19.1 (5-19); Potassium 5.1 mmol/L (3.5-5.1)
[2024-08-26] MEDS: pembrolizumab 200 MG in sodium chloride 0.9% 250 ML 516 MG IV (13:42)
[2024-08-26 14:26] VITALS: BP 128/68; PULSE 68; RESP 16; TEMP 36.8; O2SAT 96
== END 2024-08-26 23:59 | disposition home or self-care (01) ==
PROVIDERS: Nurse Practitioner Family; PCP Family Medicine; Visit Provider Internal Medicine Hematology & Oncology
DX: Z51.12 Encounter for antineoplastic immunotherapy (principal); C64.2 Malignant neoplasm of left kidney, except renal pelvis; C78.02 Secondary malignant neoplasm of left lung; R49.0 Dysphonia; R35.0 Frequency of micturition; R35.1 Nocturia; Z79.69 Long term (current) use of other immunomodulators and immunosuppressants; Z87.891 Personal history of nicotine dependence; Z79.899 Other long term (current) drug therapy
CPT/HCPCS: 80053; 85025; 96413; 99214; A4222; J7050; J9271

== ENCOUNTER 2024-09-01 12:24 | Emergency (ER) | payer MEDICARE, SELFPAY ==
[2024-09-01 12:35] VITALS: BP 129/62; PULSE 93; RESP 18; TEMP 37; O2SAT 97; BMI 31.3
[2024-09-01 12:41] VITALS: BP 129/62; PULSE 93; RESP 18; TEMP 37; O2SAT 97
--- NOTE | 2024-09-01 12:53 | W.ED.MALEGU ---
HPI - Male Genitourinary General: Chief complaint: Urogenital-Male Stated complaint: having trouble peeing (kidney cancer) Time Seen by Provider: 09/01/24 12:28 Source: patient Mode of arrival: ambulatory Limitations: no limitations History of Present Illness: 78-year-old male who states that he has been having difficulty urinating he states he is not really been able to go to the bathroom today. He states he is also had some incontinence in the past but he is concerned about a possible obstruction. He denies any fever denies any vomiting denies severe pain Associated symptoms: Deny nausea or vomiting Related Data Home Medications Medication Instructions Recorded Confirmed aspirin 325 mg tablet,delayed 325 mg PO DAILY 01/09/20 09/01/24 release garlic 500 mg capsule 1,000 mg PO DAILY 01/09/20 09/01/24 isosorbide mononitrate 60 mg 60 mg PO BID 01/09/20 09/01/24 tablet,extended release 24 hr multivitamin 1 tab PO DAILY 08/10/21 09/01/24 cholecalciferol (vitamin D3) 50 50 mcg PO DAILY 11/16/23 09/01/24 mcg (2,000 unit) capsule cranberry 500 mg capsule 1,500 mg PO DAILY 11/16/23 09/01/24 bisacodyl 10 mg rectal suppository 10 mg OK DAILY PRN Constipation 12/07/23 09/01/24 (Dulcolax (bisacodyl)) calcium 600 mg-D3 20 mcg-magnesium 1 tab PO DAILY 12/07/23 09/01/24 50 hy-Oz-gzkysw-naga-boron tablet (Calcium 600-D3 Plus (mag-zinc)) magnesium hydroxide 1,200 mg 1,200 mg PO BID PRN Constipation 12/07/23 09/01/24 chewable tablet (Dulcolax (magnesium hydroxide)) loperamide 2 mg capsule (Imodium 2 mg PO .COMPLEX PRN loose stool 12/21/23 09/01/24 A-D) pembrolizumab 50 mg intravenous 200 mg IV .every 3 weeks 02/06/24 09/01/24 solution dapagliflozin propanediol 10 mg 10 mg PO DAILY 06/11/24 09/01/24 tablet (Farxiga) metformin 1,000 mg tablet 1,000 mg PO BID 07/02/24 09/01/24 budesonide 160 mcg-glycopyr 9 2 inh inhalation BID 08/26/24 09/01/24 mcg-formot 4.8 mcg/actuation HFA inhaler (Breztri Aerosphere) amlodipine 10 mg tablet 10 mg PO DAILY 09/01/24 09/01/24 atorvastatin 80 mg tablet 80 mg PO DAILY 09/01/24 09/01/24 axitinib 1 mg tablet (Inlyta) 3 mg PO BID 09/01/24 09/01/24 clopidogrel 75 mg tablet 75 mg PO DAILY 09/01/24 09/01/24 finasteride 5 mg tablet 5 mg PO DAILY 09/01/24 09/01/24 levothyroxine 25 mcg tablet 25 mcg PO DAILY 09/01/24 09/01/24 prednisone 5 mg tablet 5 mg PO DAILY 09/01/24 09/01/24 tamsulosin 0.4 mg capsule 0.4 mg PO DAILY 09/01/24 09/01/24 Previous Rx's Medication Instructions Recorded nitroglycerin 0.4 mg sublingual 0.4 mg sublingual Q5M PRN chest 07/02/21 tablet (Nitrostat) pain #50 tabs mecobalamin (vitamin B12) 1,000 1,000 mcg PO DAILY #30 tabs 09/21/23 mcg chewable tablet (B12 Active) metoprolol succinate 25 mg 25 mg PO DAILY #90 tabs 11/30/23 tablet,extended release 24 hr (Toprol XL) gabapentin 300 mg capsule 300 mg PO TID #90 caps 06/20/24 Allergies Allergy/AdvReac Type Severity Reaction Status Date / Time No Known Allergies Allergy Verified 08/26/24 11:44 Review of Systems Const: Denies: fever(s), chills, body aches or change in appetite ENMT: Denies: throat pain or dental pain Card: Denies: chest pain Resp: Denies: dyspnea GI: Reports: abdominal pain; Denies: nausea, vomiting or diarrhea : Reports: difficulty urinating Musc: Denies: neck pain or back pain Skin/Breast: Denies: rash Neuro: Denies: headache(s) PFSH ED PFSH: Medical History Renal cell cancer 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 stricture Polyuria 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 SOB (shortness of breath) CAD (coronary artery disease) Hypertension Hyperlipidemia DDD (degenerative disc disease) Surgical History H/O rotator cuff surgery H/O vasectomy H/O laminectomy S/P cataract surgery Family History Mother Cancer Father Diabetes Brother Diabetes CAD (coronary artery disease) Family/Other Suicide Denies family history of Clotting disorder Dementia Chronic kidney disease (CKD) Anesthesia complication Bleeding disorder Lung disease Stroke Social History Smoking and tobacco/nicotine status: former use of tobacco/nicotine (smoked for 10 years quit in the 70s) Quit status (tobacco/nicotine): has quit using Former quit date comment: 1ppd x 3 years as teenager Second hand smoke exposure: Yes Alcohol intake: current Alcohol intake frequency: few times a week Alcohol type: beer Substance/Drug Use: never Current occupational status: retired Physical Exam Const: COMMON NORMALS: no acute distress, patient oriented x3 and healthy appearing HENMT: COMMON NORMALS: normocephalic and atraumatic HEAD & SCALP: normocephalic and atraumatic Neck/C-Spine: COMMON NORMALS: full ROM and supple Chest: COMMONS NORMALS: normal inspection of the chest Resp: COMMON NORMALS: normal respiratory effort Cardio: COMMON NORMALS: regular rate, regular rhythm and No murmurs present (Cardio) RATE: regular rate RHYTHM: regular rhythm GI: COMMON NORMALS: Normal to inspection, nondistended, normoactive bowel sounds present, Soft to palpation, non-tender and no masses PALPATION: Yes Soft to palpation Extremity: COMMON NORMALS: normal to inspection and full ROM Neuro: COMMON NORMALS: patient oriented x3, moves all extremities and no focal motor deficits Psych: COMMON NORMALS: mental status grossly normal, Normal thought process present and cooperative THOUGHT PROCESS: Normal thought process present Skin: COMMON NORMALS: no rashes or lesions noted and no wounds GENERAL SKIN EXAM: no rashes or lesions noted Course Vital Signs: Vital signs: Vital Signs Temperature 98.6 F 09/01/24 12:41 Pulse Rate 85 09/01/24 13:34 Respiratory Rate 18 09/01/24 12:41 Blood Pressure 111/73 09/01/24 13:34 Pulse Oximetry 97 09/01/24 13:34 Oxygen Delivery Me thod Room Air 09/01/24 13:34 MDM - Male Medical Decision Making Patient presents here with urinary incontinence also he is concerned about possible retention here he has no signs of retention did place a Cueva he only had 150 out remove the Cueva he does have a UTI we will start him on antibiotics she has follow-up with urology set up already follow-up as scheduled return if worsening. Medical Records I reviewed the patient's medical records. Lab Data I reviewed the patient's lab results. 09/01/24 12:47 09/01/24 12:47 Laboratory Results WBC 9.93 10^3/uL (3.29-11.43) 09/01/24 12:47 RBC 4.11 10^6/uL (3.85-5.65) 09/01/24 12:47 Hgb 12.30 g/dL (11.27-16.99) 09/01/24 12:47 Hct 38.5 % (37-53) 09/01/24 12:47 MCV 93.7 fl (82-101) 09/01/24 12:47 MCH 29.9 pg (27-33) 09/01/24 12:47 MCHC 31.9 g/dL (30-55) 09/01/24 12:47 RDW 16.9 % (12.1-15.1) H 09/01/24 12:47 Plt Count 218 10^3/cmm (157-399) 09/01/24 12:47 MPV 9.2 fL (7.4-10.4) 09/01/24 12:47 Neut % (Auto) 66.2 % 09/01/24 12:47 Lymph % (Auto) 18.1 % 09/01/24 12:47 [place] % (Auto) 10.2 % 09/01/24 12:47 Eos % (Auto) 4.2 % 09/01/24 12:47 Baso % (Auto) 0.7 % 09/01/24 12:47 Neut # (Auto) 6.57 10^3/uL (1.8-7.7) 09/01/24 12:47 Lymph # (Auto) 1.8 10^3/uL (0.8-4.8) 09/01/24 12:47 [place] # (Auto) 1.0 10^3/uL (0.2-0.9) H 09/01/24 12:47 Eos # (Auto) 0.4 10^3/uL (0.0-0.8) 09/01/24 12:47 Baso # (Auto) 0.1 10^3/uL (0.0-0.1) 09/01/24 12:47 Nucleated RBC % (auto) 0 % 09/01/24 12:47 Nucleated RBCs # 0.0 /100WBC 09/01/24 12:47 Sodium 137 mmol/L (136-145) 09/01/24 12:47 Potassium 4.9 mmol/L (3.5-5.1) 09/01/24 12:47 Chloride 105 mmol/L (98-107) 09/01/24 12:47 Carbon Dioxide 18 mmol/L (22-29) L 09/01/24 12:47 Anion Gap 18.9 (5-19) 09/01/24 12:47 BUN 38 mg/dL (8-23) H 09/01/24 12:47 Creatinine 1.6 mg/dL (0.7-1.2) H 09/01/24 12:47 GFR Calculation Not Reportable 09/01/24 12:47 Glucose 170 mg/dL (65-115) H 09/01/24 12:47 Calculated Osmolality 297 mOsm/kg (285-295) H 09/01/24 12:47 Calcium 9.8 mg/dL (8.5-10.5) 09/01/24 12:47 Total Bilirubin 0.3 mg/dL (0.15-1.2) 09/01/24 12:47 AST 22 U/L (0-40) 09/01/24 12:47 ALT 24 U/L (0-41) 09/01/24 12:47 Alkaline Phosphatase 56 U/L (40-130) 09/01/24 12:47 Total Protein 6.3 g/dL (6.6-8.7) L 09/01/24 12:47 Albumin 3.2 g/dL (3.5-5.2) L 09/01/24 12:47 Globulin 3.1 g/dL (1.3-4.6) 09/01/24 12:47 Urine Color Yellow (Yellow) 09/01/24 13:30 Urine Appearance Turbid (CLEAR) A 09/01/24 13:30 Urine pH 5.5 (5-7) 09/01/24 13:30 Ur Specific [place] 1.016 (1.005-1.030) 09/01/24 13:30 Urine Protein 2+ (Negative) A 09/01/24 13:30 Urine Glucose (UA) 2+ (Normal) H 09/01/24 13:30 Urine Ketones Negative (Negative) 09/01/24 13:30 Urine Blood 2+ (Negative) A 09/01/24 13:30 Urine Nitrate Negative (Negative) 09/01/24 13:30 Urine Bilirubin Negative (Negative) 09/01/24 13:30 Urine Urobilinogen 0.2 mg/dL (Negative) 09/01/24 13:30 Ur Leukocyte Esterase 3+ (Negative) A 09/01/24 13:30 Urine RBC 0-2 /hpf (0-2) 09/01/24 13:30 Urine WBC >100 /hpf (0-5) H 09/01/24 13:30 Ur Squamous Epith Cells 5-10 /hpf (0-5) H 09/01/24 13:30 Amorphous Sediment Not Reportable 09/01/24 13:30 Urine Bacteria 1+ /hpf (NONE) H 09/01/24 13:30 Hyaline Casts 1.97 /lpf 09/01/24 13:30 No radiology studies performed this visit Discharge Plan Discharge Patient Disposition: Home Clinical Impression: Acute cystitis Condition: Stable Prescriptions: No Action multivitamin Tablet 1 tab PO DAILY garlic 500 mg capsule 1,000 mg PO DAILY aspirin 325 mg tablet,delayed release (DR/EC) 325 mg PO DAILY isosorbide mononitrate 60 mg tablet extended release 24 hr 60 mg PO BID cranberry 500 mg capsule 1,500 mg PO DAILY mecobalamin (vitamin B12) [B12 Active] 1,000 mcg tablet,chewable 1,000 mcg PO DAILY Qty: 30 2RF dapagliflozin propanediol [Farxiga] 10 mg tablet 10 mg PO DAILY metformin 1,000 mg tablet 1,000 mg PO BID Breztri Aerosphere 160-9-4.8 mcg/actuation HFA aerosol inhaler 2 inh inhalation BID cholecalciferol (vitamin D3) 50 mcg (2,000 unit) capsule 50 mcg PO DAILY bisacodyl [Dulcolax (bisacodyl)] 10 mg suppository 10 mg OK DAILY PRN (Reason: Constipation) Ca-D3-mag wx-uyul-gvy-dione-bor [Calcium 600-D3 Plus (mag-zinc)] 600 mg calcium- 20 mcg-50 mg tablet 1 tab PO DAILY Dulcolax (magnesium hydroxide) 1,200 mg tablet,chewable 1,200 mg PO BID PRN (Reason: Constipation) loperamide [Imodium A-D] 2 mg capsule 2 mg PO .COMPLEX PRN (Reason: loose stool) Patient Comments: per instructions and patient confirmation-2 caplets after first stool; 21 caplet after each subsequent loose stool; but no more than4 caplets in 24 hours Rx Instructions: 2 mg orally PRN; pembrolizumab 50 mg recon soln 200 mg IV .every 3 weeks nitroglycerin [Nitrostat] 0.4 mg tablet, sublingual 0.4 mg SUBLINGUAL Q5M PRN (Reason: chest pain) Qty: 50 5RF Rx Instructions: for 3 doses metoprolol succinate [Toprol XL] 25 mg tablet extended release 24 hr 25 mg PO DAILY Qty: 90 3RF atorvastatin 80 mg tablet 80 mg PO DAILY prednisone 5 mg tablet 5 mg PO DAILY clopidogrel 75 mg tablet 75 mg PO DAILY levothyroxine 25 mcg tablet 25 mcg PO DAILY tamsulosin 0.4 mg capsule 0.4 mg PO DAILY amlodipine 10 mg tablet 10 mg PO DAILY finasteride 5 mg tablet 5 mg PO DAILY Inlyta 1 mg tablet 3 mg PO BID Rx Instructions: Dose reduction d/t adverse side effects gabapentin 300 mg Capsule 300 mg PO TID Qty: 90 0RF Discharge Orders: Discharge ED (Routine); Ordered 09/01/24 Ordered By: Dulce Maria Painter Referrals: Lenny Degroot MD [Primary Care Provider] - 4-7 days Discharge Diet: Advance as tolerated Discharge Activity: Resume usual activity Patient Instructions: Urinary Tract Infection in Men (ED) Coding Level of Care Code ED 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
[2024-09-01 13:03] LABS: Basophils # 0.1 10^3/uL (0.0-0.1); Basophils % 0.7 %; Eosinophils # 0.4 10^3/uL (0.0-0.8); Eosinophils % 4.2 %; Hematocrit 38.5 % (37-53); Lymphocytes # 1.8 10^3/uL (0.8-4.8); Lymphocytes % 18.1 %; Mean Corpuscular HGB Conc 31.9 g/dL (30-55); Mean Corpuscular Hemoglobin 29.9 pg (27-33); Mean Corpuscular Volume 93.7 fl (82-101); Mean Platelet Volume 9.2 fL (7.4-10.4); Monocytes % 10.2 %; Neutrophils # 6.57 10^3/uL (1.8-7.7); Neutrophils % 66.2 %; Nucleated Red Blood Cells % 0 %; Platelet Count 218 10^3/cmm (157-399); Red Blood Count 4.11 10^6/uL (3.85-5.65); Red Cell Distribution Width 16.9 % (12.1-15.1); White Blood Count 9.93 10^3/uL (3.29-11.43)
[2024-09-01 13:27] LABS: Alanine Aminotransferase 24 U/L (0-41); Albumin Level 3.2 g/dL (3.5-5.2); Alkaline Phosphatase 56 U/L (40-130); Anion Gap 18.9 (5-19); Aspartate Amino Transferase 22 U/L (0-40); Blood Urea Nitrogen 38 mg/dL (8-23); Calcium 9.8 mg/dL (8.5-10.5); Carbon Dioxide 18 mmol/L (22-29); Chloride 105 mmol/L (98-107); Globulin 3.1 g/dL (1.3-4.6); Glucose 170 mg/dL (65-115); Osmolality Calculated 297 mOsm/kg (285-295); Potassium 4.9 mmol/L (3.5-5.1); Sodium 137 mmol/L (136-145); Total Bilirubin 0.3 mg/dL (0.15-1.2); Total Protein 6.3 g/dL (6.6-8.7)
[2024-09-01 13:29] LABS: Creatinine Clr Calc Pharmacy 43.5318
[2024-09-01 13:34] VITALS: BP 111/73; PULSE 85; O2SAT 97
[2024-09-01 13:48] LABS: Bilirubin Urine Negative (Negative); Blood Urine 2+ (Negative); Glucose Urine UA 2+ (Normal); Ketones Urine Negative (Negative); Leukocyte Esterase Urine 3+ (Negative); Nitrate Urine Negative (Negative); Protein Urine 2+ (Negative); Specific Gravity, Urine 1.016 (1.005-1.030); Urine Appearance Turbid (CLEAR); Urine Color Yellow (Yellow); Urobilinogen Urine 0.2 mg/dL (Negative); pH Urine 5.5 (5-7)
[2024-09-01 13:53] LABS: Add Urine Microscopic? YES; Hyaline Casts Urine 1.97 /lpf; RBC Urine 0-2 /hpf (0-2); WBC Urine >100 /hpf (0-5)
[2024-09-01 14:04] LABS: Bacteria Urine 1+ /hpf; UA Slide Review UA Slide Review Perf
[2024-09-01 14:06] LABS: Add Urine Culture? Yes
[2024-09-01] MEDS: cefTRIAXone 1,000 MG in water for injection-sterile 2.1 ML 2.1 MG IM (14:30)
[2024-09-01 14:32] VITALS: BP 132/73; PULSE 79; O2SAT 96
[2024-09-01 15:01] VITALS: BP 134/84; PULSE 71; O2SAT 98
== END 2024-09-01 15:03 | disposition home or self-care (01) ==
PROVIDERS: Emergency Provider Emergency Medicine; PCP Family Medicine
DX: N30.00 Acute cystitis without hematuria (principal); Z79.82 Long term (current) use of aspirin; Z79.84 Long term (current) use of oral hypoglycemic drugs; Z87.891 Personal history of nicotine dependence; I25.10 Atherosclerotic heart disease of native coronary artery without angina pectoris; I10 Essential (primary) hypertension
CPT/HCPCS: 51702; 51798; 80053; 81001; 85025; 87086; 96372; 99284; J0696

== ENCOUNTER 2024-09-11 14:13 | Oncology outpatient (recurring) (ONCR) | payer MEDICARE, SELFPAY ==
--- NOTE | 2024-09-11 14:30 | CTR_ITS ---
PROCEDURE INFORMATION: Exam: CT Chest Without Contrast; Diagnostic Exam date and time: 09/11/2024 2:45 PM Age: 79 years old Clinical indication: Condition or disease; Cancer; Other: Renal cell carcinoma; Additional info: Followup renal cell carcinoma TECHNIQUE: Imaging protocol: Diagnostic computed tomography of the chest without contrast. Radiation optimization: All CT scans at this facility use at least one of these dose optimization techniques: automated exposure control; mA and/or kV adjustment per patient size (includes targeted exams where dose is matched to clinical indication); or iterative reconstruction. COMPARISON: CT chest wo con [id number] 06/18/2024 4:34 PM RADIATION DOSE METRICS: Total DLP (mGy-cm): 1058.87 FINDINGS: Lungs: Two stable 2 mm solid nodules in the right upper and lower lobes. Right lung calcified granuloma is benign. No new lung nodules or consolidations. Partially seen severe degenerative changes of the glenohumeral joints. Pleural spaces: Unremarkable. No pneumothorax. No pleural effusion. Heart: Calcifications of the aortic valve annulus. Stable small pericardial effusion. Coronary arteries: There is severe atherosclerotic calcification of the coronary arteries. Lymph nodes: No concerning mediastinal, hilar, or axillary adenopathy by CT size criteria. Vasculature: Mild diffuse calcific atherosclerosis of the aorta. Bones/joints: Severe multilevel degenerative changes of the spine. There are diffuse enthesopathic changes consistent with benign diffuse idiopathic skeletal hyperostosis (DISH). No aggressive osseous lesions. Soft tissues: No acute body wall soft tissue findings. PROCEDURE INFORMATION: Exam: CT Abdomen And Pelvis Without Contrast Exam date and time: 09/11/2024 2:45 PM Age: 79 years old Clinical indication: Condition or disease; Cancer; Other: Renal cell carcinoma; Additional info: Followup renal cell carcinoma TECHNIQUE: Imaging protocol: Computed tomography of the abdomen and pelvis without contrast. Radiation optimization: All CT scans at this facility use at least one of these dose optimization techniques: automated exposure control; mA and/or kV adjustment per patient size (includes targeted exams where dose is matched to clinical indication); or iterative reconstruction. COMPARISON: CT abdomen pelvis con [id number] 06/18/2024 12:40 PM RADIATION DOSE METRICS: Total DLP (mGy-cm): 1058.87 FINDINGS: Limitations: Limited evaluation for metastatic disease and solid organ parenchymal pathology due to lack of intravenous contrast. Liver: Normal. No mass. Gallbladder and biliary ducts: Stable cholelithiasis. Pancreas: Normal. No ductal dilation. Spleen: Benign splenic calcified granuloma. Adrenal glands: Normal. No mass. Kidneys and ureters: Stable 2.7 cm right renal cyst. Stable 2.9 cm irregular solid nodular lesion in the left kidney (series 10, image 27). New severe left hydroureteronephrosis without significant surrounding inflammatory changes or obstructive radiopaque ureteral stones. There is some very subtle distal left periureteral stranding. Stomach and bowel: Unremarkable. No obstruction. No mucosal thickening. Appendix: No evidence of appendicitis. Intraperitoneal space: No free fluid, fluid collections, or pneumoperitoneum. Vasculature: Severe atherosclerosis. No aneurysms. Lymph nodes: No retroperitoneal, pelvic, or mesenteric adenopathy. Urinary bladder: Severe circumferential urinary bladder wall thickening despite bladder decompression. Reproductive: Mild prostatomegaly. Slight irregularity and thickening to the posterior wall of the urinary bladder at the level of the prostate interface. Bones/joints: Moderate to severe osteoarthritis of the bilateral hip joints and severe degenerative changes of the lumbar spine with chronic or congenital fusion of L2 and L3. There are diffuse enthesopathic changes consistent with benign diffuse idiopathic skeletal hyperostosis (DISH). 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 No fractures or aggressive skeletal lesions. Soft tissues: No acute body wall soft tissue findings. CT/[place] [id number] IMPRESSION: 1. Two stable 2 mm solid nodules in the right upper and lower lobes. These are unlikely to be of metastatic etiology. 2. No other concerning pathology in the thorax. IMPRESSION: 1. New chronic appearing severe left obstructive uropathy, exact etiology of which is not elucidated in this exam. Possibilities include: Radiolucent ureteral stone, occult distal ureteral lesion, or UVJ obstruction due to severe urinary bladder inflammation or occult bladder neoplasia. There are ancillary findings in the posterior wall of the urinary bladder which question the presence of exophytic BPH nodules or occult bladder mass. Follow-up cystoscopy and urology consultation is recommended. 2. Stable right renal cyst and left renal solid lesion, the latter which is again suspicious for neoplasia or complex cyst.
== END 2024-09-14 23:59 | disposition home or self-care (01) ==
LOC: RAD 14:26 → ONCMED 09-16 09:51
PROVIDERS: PCP Family Medicine; Visit Provider Internal Medicine Hematology & Oncology
DX: C64.9 Malignant neoplasm of unspecified kidney, except renal pelvis (principal); I42.9 Cardiomyopathy, unspecified; C64.2 Malignant neoplasm of left kidney, except renal pelvis; R79.89 Other specified abnormal findings of blood chemistry
CPT/HCPCS: 71250; 74176; 80053; 83615; 84443; 85025

== ENCOUNTER 2024-09-16 10:01 | Oncology outpatient (recurring) (ONCR) | payer MEDICARE, SELFPAY ==
[2024-09-16] MEDS: pembrolizumab 200 MG in sodium chloride 0.9% 250 ML 516 MG IV (11:26)
[2024-09-16 12:03] VITALS: BP 123/69; PULSE 80; RESP 16; TEMP 37.1; O2SAT 98
== END 2024-09-16 23:59 | disposition home or self-care (01) ==
PROVIDERS: PCP Family Medicine; Visit Provider Internal Medicine Medical Oncology
DX: I42.9 Cardiomyopathy, unspecified; C64.2 Malignant neoplasm of left kidney, except renal pelvis; R79.89 Other specified abnormal findings of blood chemistry; Z51.12 Encounter for antineoplastic immunotherapy
CPT/HCPCS: 96413; 99214; A4222; J7050; J9271

== ENCOUNTER 2024-09-18 08:27 | Oncology outpatient (recurring) (ONCR) | payer MEDICARE, SELFPAY ==
[2024-09-16 10:01] LABS: Basophils # 0.1 10^3/uL (0.0-0.1); Basophils % 0.7 %; Eosinophils # 0.6 10^3/uL (0.0-0.8); Eosinophils % 5.6 %; Hematocrit 38.1 % (37-53); Lymphocytes # 1.7 10^3/uL (0.8-4.8); Lymphocytes % 16.7 %; Mean Corpuscular HGB Conc 31.5 g/dL (30-55); Mean Corpuscular Hemoglobin 29.1 pg (27-33); Mean Corpuscular Volume 92.3 fl (82-101); Mean Platelet Volume 9.3 fL (7.4-10.4); Monocytes # 1.1 10^3/uL (0.2-0.9); Monocytes % 10.4 %; Neutrophils # 6.64 10^3/uL (1.8-7.7); Neutrophils % 65.8 %; Nucleated Red Blood Cells % 0 %; Platelet Count 257 10^3/cmm (157-399); Red Blood Count 4.13 10^6/uL (3.85-5.65); Red Cell Distribution Width 16.1 % (12.1-15.1); White Blood Count 10.09 10^3/uL (3.29-11.43)
[2024-09-16 10:31] LABS: Alanine Aminotransferase 23 U/L (0-41); Albumin Level 3.3 g/dL (3.5-5.2); Alkaline Phosphatase 69 U/L (40-130); Blood Urea Nitrogen 34 mg/dL (8-23); Calcium 8.3 mg/dL (8.5-10.5); Carbon Dioxide 17 mmol/L (22-29); Chloride 103 mmol/L (98-107); Globulin 2.9 g/dL (1.3-4.6); Glucose 152 mg/dL (65-115); Osmolality Calculated 291 mOsm/kg (285-295); Sodium 135 mmol/L (136-145); Thyroid Stimulating Hormone 9.76 uIU/mL (0.27-4.20); Total Bilirubin 0.3 mg/dL (0.15-1.2); Total Protein 6.2 g/dL (6.6-8.7)
[2024-09-16 10:37] LABS: Anion Gap 19.7 (5-19); Potassium 4.7 mmol/L (3.5-5.1)
[2024-09-16 10:38] LABS: Aspartate Amino Transferase 31 U/L (0-40); Lactate Dehydrogenase 232 U/L (135-225)
--- NOTE | 2024-09-18 08:35 | USCV_ITS ---
LawtonElliot Age: 79 Gender: M : 1945 Exam Date: 09/18/2024 09:10 Ordering Phys: Freedom Martinez MD ([email or web address]) Technologist: HARDY Exam Location: [facility] [place] Indication: SHORTNESS OF BREATH BP: 110 / 44 HR: 80 Rhythm: Sinus Technical Quality: Adequate MEASUREMENTS (Male / Female) Normal Values 2D ECHO LV Diastolic Diameter PLAX 3.8 cm 4.2 - 5.9 / 3.9 - 5.3 cm IVS Diastolic Thickness 1.1 cm 0.6 - 1.0 / 0.6 - 0.9 cm IVS Systolic Thickness 1.7 cm LVPW Diastolic Thickness 1.8 cm 0.6 - 1.0 / 0.6 - 0.9 cm LVPW Systolic Thickness 3.0 cm LVOT Diameter 2.0 cm LV Ejection Fraction 2D Teich 4.3 % LV Ejection Fraction MOD 4C 53.5 % LV Ejection Fraction MOD 2C 40.1 % LV Ejection Fraction 2C AL 43.6 % LA Diameter 3.4 cm RA Systolic Volume 4C AL 23.6 ml RA Systolic Volume 4C MOD 22.4 ml LA Sys Volume AL 16.1 cm cubed LA Sys Volume Index AL 7.4 cm cubed/m squared Aorta at Sinotubular Diameter 2.6 cm M-MODE LA Ao Ratio MM 0.9 AV Cusp Separation MM 2.0 cm DOPPLER AV Peak Velocity 90.0 cm/s LVOT Peak Velocity 91.0 cm/s AV Area Cont Eq vti 2.8 cm squared AV Area Cont Eq pk 3.3 cm squared MV Peak Velocity 103.0 cm/s MV Area PHT 2.7 cm squared Mitral E to A Ratio 0.6 TR Peak Velocity 116.0 cm/s TR Peak Gradient 5.4 mmHg TR Mean Velocity 102.0 cm/s TR Mean Gradient 4.3 mmHg TR Velocity Time Integral 32.3 cm TV Peak E Velocity 51.0 cm/s PV Peak Velocity 74.0 cm/s RV Ejection Time 0.3 s FINDINGS Left Ventricle Normal LV size and ejection fraction of 55%. No gross wall motion abnormalities noted Right Ventricle The right ventricle is normal in size and function. Right Atrium The right atrium is normal in size. Left Atrium The left atrium is normal in size. Mitral Valve No gross abnormalities noted Aortic Valve No gross abnormalities noted Tricuspid Valve No gross abnormalities noted Pulmonic Valve Pulmonic valve not well visualized. Pericardium Small echo-free space anterior and posterior Aorta Normal ascending aorta dimension. IVC Inferior vena cava not visualized. CONCLUSIONS Normal LV size and ejection fraction of 55%. No gross wall motion abnormalities noted. Normal cardiac chamber sizes. No gross valvular abnormalities noted Possible small pericardial effusion No similar previous studies are available for comparison Dr Freedom Martinez MD [facility] (Electronically Signed) Final Date: 28 September 2024 15:50 S
== END 2024-10-15 23:59 | disposition home or self-care (01) ==
PROVIDERS: Internal Medicine Hematology & Oncology; PCP Family Medicine; Visit Provider Internal Medicine Cardiovascular Disease
DX: R06.02 Shortness of breath
CPT/HCPCS: 80053; 83615; 84443; 85025; 93306

== ENCOUNTER 2024-10-04 10:55 | Emergency (ER) | payer MEDICARE, SELFPAY ==
--- NOTE | 2024-10-04 11:01 | ECG_ITS ---
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 Measurements Intervals [place] Rate: 87 P: 3 RI: 181 QRS: 47 QRSD: 82 T: 54 QT: 336 QTc: 406 Interpretive Statements SINUS RHYTHM MODERATE ST DEPRESSION [0.05+ mV ST DEPRESSION] Compared to ECG 06/18/2024 17:54:33 ST (T wave) deviation now present Electronically Signed On 10-04-2024 19:52:23 ENTRY MANAGER by Freedom Martinez M.D. [email or web address]
[2024-10-04 11:05] VITALS: BP 116/61; PULSE 85; RESP 15; TEMP 37.3; O2SAT 95; BMI 36.1
--- NOTE | 2024-10-04 11:17 | W.ED.WEAKNES ---
HPI - Weakness General: Chief complaint: Weakness Stated complaint: generalized weakness Time Seen by Provider: 10/04/24 10:55 Source: patient and EMS Mode of arrival: EMS Limitations: no limitations History of Present Illness: Patient is a nice 79-year-old male who presents to ED today via EMS for complaint of leg weakness. Patient states he felt fairly normal yesterday. He states he woke up around 5 AM this morning and tried to transfer from his bed to his bedside commode. He states his legs felt weak and buckled and he fell to the floor. He was helped up by his neighbors. Patient states he later was able to walk from the bed to his recliner using his walker which he normally uses for ambulation but he did notice his legs felt weaker than normal. He does later tell me that he just generally feels weak . He has no other symptoms. He is not complaining of pain anywhere. His vital signs are stable upon arrival. He is not complaining of any numbness, tingling, loss of sensation to the legs. He has not noticed any color or temperature changes. Chronic lower back pain that is currently at baseline. No complaints of ascending/descending symptoms. MD Complaint: generalized weakness and difficulty walking Onset (ago): hour(s) Duration: constant Location: LLE and RLE Migration: none Severity: moderate Relieving factors: none Exacerbating factors: none Associated symptoms: Reports no associated symptoms; Denies chest pain, chills, dysuria, fever(s), headache(s), nausea, syncope or vomiting Review of Systems Const: Denies: fever(s), chills, body aches or change in appetite Eyes: Denies: change in vision or blurry vision Card: Denies: chest pain, palpitations, irregular heart rhythm, lightheadedness, syncope or dyspnea on exertion Resp: Denies: dyspnea, productive cough or pain on inspiration GI: Denies: abdominal pain, nausea, vomiting, heartburn or diarrhea : Denies: flank pain, difficulty urinating or dysuria Musc: Reports: muscle weakness; Denies: neck pain, back pain, extremity pain, extremity swelling, joint pain, joint warmth or muscle cramps Skin/Breast: Denies: rash Neuro: Reports: difficulty walking (due to leg weakness); Denies: headache(s), numbness in extremities, weakness in extremities, sensory changes or dizziness [facility] ED PFSH: Medical History Renal cell cancer 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 stricture Polyuria 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 SOB (shortness of breath) CAD (coronary artery disease) Hypertension Hyperlipidemia DDD (degenerative disc disease) Surgical History H/O rotator cuff surgery H/O vasectomy H/O laminectomy S/P cataract surgery Family History Mother Cancer Father Diabetes Brother Diabetes CAD (coronary artery disease) Family/Other Suicide Denies family history of Clotting disorder Dementia Chronic kidney disease (CKD) Anesthesia complication Bleeding disorder Lung disease Stroke Social History Smoking and tobacco/nicotine status: former use of tobacco/nicotine (smoked for 10 years quit in the 70s) Quit status (tobacco/nicotine): has quit using Former quit date comment: 1ppd x 3 years as teenager Second hand smoke exposure: Yes Alcohol intake: current Alcohol intake frequency: few times a week Alcohol type: beer Substance/Drug Use: never Current occupational status: retired Physical Exam Const: COMMON NORMALS: no acute distress, average body habitus, patient oriented x3, no limitations, healthy appearing, alert and well nourished GENERAL APPEARANCE: cooperative ORIENTATION/CONSCIOUSNESS: Yes awake, Yes oriented to person, Yes oriented to place and Yes oriented to time HENMT: COMMON NORMALS: normocephalic and atraumatic HEAD & SCALP: normal to inspection, normocephalic and atraumatic Eye: COMMON NORMALS: no scleral icterus GENERAL EYE: appearance normal, both eyes and all related structures Neck/C-Spine: COMMON NORMALS: full ROM, no lymphadenopathy and no meningeal signs Resp: COMMON NORMALS: normal respiratory effort and clear to auscultation bilaterally AUSCULTATION: clear to auscultation bilaterally Cardio: COMMON NORMALS: regular rate and regular rhythm RATE: regular rate RHYTHM: regular rhythm GI: COMMON NORMALS: Normal to inspection, nondistended, normoactive bowel sounds present, Soft to palpation and non-tender PALPATION: Yes Soft to palpation Back/Pelvis: COMMON NORMALS: thoracic and lumbar spine normal to inspection, no thoracic nor lumbar tenderness and straight leg raise negative bilaterally Extremity: COMMON NORMALS: normal to inspection, full ROM, capillary refill normal, no joint enlargement, no clubbing, cyanosis or edema, no calf tenderness and no pedal edema GENERAL: Yes normal exam except as noted Neuro: COMMON NORMALS: patient oriented x3, moves all extremities, no focal motor deficits and no sensory deficits noted SENSORIUM/ORIENTATION: Yes alert, Yes oriented to person, Yes oriented to place and Yes oriented to time MENINGEAL SIGNS: Yes no meningeal signs SPEECH: speech normal OTHER: patient is able to hold both legs off table for 5+ seconds, he has good pushes/pulls of feet against resistance; sensory intact; no swelling/color/temp changes noted; distal pulses appreciated Skin: COMMON NORMALS: no rashes or lesions noted GENERAL SKIN EXAM: no rashes or lesions noted Course Vital Signs: Vital signs: Vital Signs Temperature 99.1 F 10/04/24 11:05 Pulse Rate 76 10/04/24 16:38 Respiratory Rate 23 H 10/04/24 16:38 Blood Pressure 136/49 10/04/24 16:38 Pulse Oximetry 95 10/04/24 16:38 Oxygen Delivery Me thod Room Air 10/04/24 16:38 MDM - Weakness Medical Decision Making Patient is a nice 79-year-old male here with complaints of weakness to his bilateral legs starting today. Clinically patient actually had fairly good strength regarding his lower extremities. He had 5/5 strength in all LE myotomes. He was able to ambulate here well with his walker. His vital signs have been stable throughout his stay. Blood work overall is fairly nonactionable. He has minor widespread derangements. Mild hyponatremia although he has had this previously. BUN/Cr of 32/2.1 which are not too far off from his baseline. He was given a liter of fluids here. He did have an elevated baseline troponin at 107. He does have a negative delta. Patient has absolutely no complaints of chest pain, shortness of breath, or difficulty breathing. He has no ischemic changes on EKGs. These were reviewed with Dr. uQeen. CXR showing new mild elevation of his left hemidiaphragm of uncertain significance. Probably some atelectasis involving his left lung base. UA did look overwhelmingly suspicious for infection although this was contaminated. states that his urine analyses always look like this and he is always placed on antibiotics and his cultures always come back negative. Previous UA results and cultures were reviewed and this is correct. He has no UTI-like symptoms thus we will forego antibiotic therapy at this time. From an ER standpoint patient feels comfortable going home. Recommend he follow-up with his primary care provider early next week. Return to ED precautions given. Medical Records I reviewed the patient's medical records. Lab Data I reviewed the patient's lab results. 10/04/24 11:27 10/04/24 13:02 Radiology Impressions Chest X-Ray 10/04/24 11:27 IMPRESSION: 1. New mild elevation of the left hemidiaphragm. 2. New pneumonitis and/or atelectasis in the left lung base. Laboratory Results WBC 12.69 10^3/uL (3.29-11.43) H 10/04/24 11:27 RBC 3.87 10^6/uL (3.85-5.65) 10/04/24 11:27 Hgb 11.30 g/dL (11.27-16.99) 10/04/24 11:27 Hct 34.6 % (37-53) L 10/04/24 11:27 MCV 89.4 fl (82-101) 10/04/24 11:27 MCH 29.2 pg (27-33) 10/04/24 11:27 MCHC 32.7 g/dL (30-55) 10/04/24 11:27 RDW 16.7 % (12.1-15.1) H 10/04/24 11:27 Plt Count 319 10^3/cmm (157-399) 10/04/24 11:27 MPV 10.1 fL (7.4-10.4) 10/04/24 11: Neut % (Auto) 77.3 % 10/04/24 11: Lymph % (Auto) 5.4 % 10/04/24 11:27 [place] % (Auto) 15.9 % 10/04/24 11:27 Eos % (Auto) 0.2 % 10/04/24 11: Baso % (Auto) 0.6 % 10/04/24 11:27 Neut # (Auto) 9.82 10^3/uL (1.8-7.7) H 10/04/24 11:27 Lymph # (Auto) 0.7 10^3/uL (0.8-4.8) L 10/04/24 11:27 [place] # (Auto) 2.0 10^3/uL (0.2-0.9) H 10/04/24 11:27 Eos # (Auto) 0.0 10^3/uL (0.0-0.8) 10/04/24 11:27 Baso # (Auto) 0.1 10^3/uL (0.0-0.1) 10/04/24 11: Nucleated RBC % (auto) 0 % 10/04/24 11: Nucleated RBCs # 0.0 /100WBC 10/04/24 11:27 Sodium 130 mmol/L (136-145) L 10/04/24 13:02 Potassium 4.3 mmol/L (3.5-5.1) 10/04/24 13:02 Chloride 96 mmol/L (98-107) L 10/04/24 13:02 Carbon Dioxide 15 mmol/L (22-29) L 10/04/24 13:02 Anion Gap 23.3 (5-19) H 10/04/24 13:02 BUN 32 mg/dL (8-23) H 10/04/24 13:02 Creatinine 2.1 mg/dL (0.7-1.2) H 10/04/24 13:02 GFR Calculation Not Reportable 10/04/24 13:02 Glucose 141 mg/dL (65-115) H 10/04/24 13:02 Calculated Osmolality 279 mOsm/kg (285-295) L 10/04/24 13:02 Calcium 9.5 mg/dL (8.5-10.5) 10/04/24 13:02 Magnesium 1.7 mg/dL (1.7-2.3) 10/04/24 13:02 Total Bilirubin 0.5 mg/dL (0.15-1.2) 10/04/24 13:02 AST 24 U/L (0-40) 10/04/24 13:02 ALT 18 U/L (0-41) 10/04/24 13:02 Alkaline Phosphatase 79 U/L (40-130) 10/04/24 13:02 Troponin T Baseline 107 ng/L (0-15) H* 10/04/24 13:02 Troponin T 120 Minute 92.18 ng/L (0-15) H 10/04/24 15:59 Delta Troponin T -14.82 ABS# (0-10) L 10/04/24 15:59 Total Protein 6.2 g/dL (6.6-8.7) L 10/04/24 13:02 Albumin 3.1 g/dL (3.5-5.2) L 10/04/24 13:02 Globulin 3.1 g/dL (1.3-4.6) 10/04/24 13:02 Urine Color Yellow (Yellow) 10/04/24 14: Urine Appearance Turbid (CLEAR) A 10/04/24 14:29 Urine pH 7.0 (5-7) 10/04/24 14:29 Ur Specific [place] 1.012 (1.005-1.030) 10/04/24 14:29 Urine Protein 3+ (Negative) A 10/04/24 14: Urine Glucose (UA) Negative (Normal) 10/04/24 14: Urine Ketones Negative (Negative) 10/04/24 14: Urine Blood 3+ (Negative) A 10/04/24 14: Urine Nitrate Negative (Negative) 10/04/24 14: Urine Bilirubin Negative (Negative) 10/04/24 14: Urine Urobilinogen 0.2 mg/dL (Negative) 10/04/24 14:29 Ur Leukocyte Esterase 3+ (Negative) A 10/04/24 14: Urine RBC 51-100 /hpf (0-2) H 10/04/24 14:29 Urine WBC >100 /hpf (0-5) H 10/04/24 14:29 Ur Squamous Epith Cells 21-50 /hpf (0-5) 10/04/24 14: Amorphous Sediment Not Reportable 10/04/24 14: Urine Bacteria Trace /hpf (NONE) 10/04/24 14: Hyaline Casts 4.61 /lpf 10/04/24 14:29 All radiology interpretation(s) finalized by discharge Discharge Plan Discharge Patient Disposition: Home Clinical Impression: Weakness of both legs Condition: Stable Prescriptions: No Action multivitamin Tablet 1 tab PO DAILY aspirin 325 mg tablet,delayed release (DR/EC) 325 mg PO DAILY isosorbide mononitrate 60 mg tablet extended release 24 hr 60 mg PO BID cranberry 500 mg capsule 1,500 mg PO DAILY mecobalamin (vitamin B12) [B12 Active] 1,000 mcg tablet,chewable 1,000 mcg PO DAILY Qty: 30 2RF dapagliflozin propanediol [Farxiga] 10 mg tablet 10 mg PO DAILY metformin 1,000 mg tablet 1,000 mg PO BID cholecalciferol (vitamin D3) 50 mcg (2,000 unit) capsule 50 mcg PO DAILY Ca-D3-mag [id number]-fvwd-xej-dione-bor [Calcium 600-D3 Plus (mag-zinc)] 600 mg calcium- 20 mcg-50 mg tablet 1 tab PO DAILY loperamide [Imodium A-D] 2 mg capsule 2 mg PO .COMPLEX PRN (Reason: loose stool) Patient Comments: per instructions and patient confirmation-2 caplets after first stool; 21 caplet after each subsequent loose stool; but no more than4 caplets in 24 hours Rx Instructions: 2 mg orally PRN; pembrolizumab 50 mg recon soln 200 mg IV .every 3 weeks nitroglycerin [Nitrostat] 0.4 mg tablet, sublingual 0.4 mg SUBLINGUAL Q5M PRN (Reason: chest pain) Qty: 50 5RF Rx Instructions: for 3 doses metoprolol succinate [Toprol XL] 25 mg tablet extended release 24 hr 25 mg PO DAILY Qty: 90 3RF atorvastatin 80 mg tablet 80 mg PO DAILY clopidogrel 75 mg tablet 75 mg PO DAILY levothyroxine 25 mcg tablet 25 mcg PO DAILY tamsulosin 0.4 mg capsule 0.8 mg PO QPM amlodipine 10 mg tablet 10 mg PO DAILY finasteride 5 mg tablet 5 mg PO DAILY Inlyta 1 mg tablet 3 mg PO BID Rx Instructions: Dose reduction d/t adverse side effects gabapentin 300 mg Capsule 300 mg PO TID Qty: 90 0RF Discharge Orders: Discharge ED (Routine); Ordered 10/04/24 Ordered By: Liliya Bryson Referrals: Lenny Degroot MD [Primary Care Provider] - Activity Restrictions/Additional Instructions: As we discussed, you need to be using your walker at all times for ambulation. Please follow-up with your primary care provider next week as we discussed. You need to return the emergency department at anytime for worsening weakness, significant shortness of breath, difficulty breathing, chest pain, falls, generally feeling worse or unwell, or any other concerns you may have. I hope you begin to feel better soon. Coding Level of Care Code ED Supervising Law Enforcement Analyst for Chg Fwd Related Data Home Medications Medication Instructions Recorded Confirmed aspirin 325 mg tablet,delayed 325 mg PO DAILY 01/09/20 10/04/24 release isosorbide mononitrate 60 mg 60 mg PO BID 01/09/20 10/04/24 tablet,extended release 24 hr multivitamin 1 tab PO DAILY 08/10/21 10/04/24 cholecalciferol (vitamin D3) 50 50 mcg PO DAILY 11/16/23 10/04/24 mcg (2,000 unit) capsule cranberry 500 mg capsule 1,500 mg PO DAILY 11/16/23 10/04/24 calcium 600 mg-D3 20 mcg-magnesium 1 tab PO DAILY 12/07/23 10/04/24 50 [id number]-Kk-lrseab-naga-boron tablet (Calcium 600-D3 Plus (mag-zinc)) loperamide 2 mg capsule (Imodium 2 mg PO .COMPLEX PRN loose stool 12/21/23 10/04/24 A-D) pembrolizumab 50 mg intravenous 200 mg IV .every 3 weeks 02/06/24 10/04/24 solution dapagliflozin propanediol 10 mg 10 mg PO DAILY 06/11/24 10/04/24 tablet (Farxiga) metformin 1,000 mg tablet 1,000 mg PO BID 07/02/24 10/04/24 amlodipine 10 mg tablet 10 mg PO DAILY 09/01/24 10/04/24 atorvastatin 80 mg tablet 80 mg PO DAILY 09/01/24 10/04/24 axitinib 1 mg tablet (Inlyta) 3 mg PO BID 09/01/24 10/04/24 clopidogrel 75 mg tablet 75 mg PO DAILY 09/01/24 10/04/24 finasteride 5 mg tablet 5 mg PO DAILY 09/01/24 10/04/24 levothyroxine 25 mcg tablet 25 mcg PO DAILY 09/01/24 10/04/24 tamsulosin 0.4 mg capsule 0.8 mg PO QPM 09/01/24 10/04/24 Previous Rx's Medication Instructions Recorded nitroglycerin 0.4 mg sublingual 0.4 mg sublingual Q5M PRN chest 07/02/21 tablet (Nitrostat) pain #50 tabs mecobalamin (vitamin B12) 1,000 1,000 mcg PO DAILY #30 tabs 09/21/23 mcg chewable tablet (B12 Active) metoprolol succinate 25 mg 25 mg PO DAILY #90 tabs 11/30/23 tablet,extended release 24 hr (Toprol XL) gabapentin 300 mg capsule 300 mg PO TID #90 caps 06/20/24 Allergies Allergy/AdvReac Type Severity Reaction Status Date / Time No Known Allergies Allergy Verified 10/04/24 11:16
--- NOTE | 2024-10-04 11:27 | XRR_ITS ---
PROCEDURE INFORMATION: Exam: XR Chest Exam date and time: 10/04/2024 11:38 AM Age: 79 years old Clinical indication: Shortness of breath; Prior surgery; Surgery date: 6+ months; Surgery type: Cardiac stents; Additional info: Weakness TECHNIQUE: Imaging protocol: Radiologic exam of the chest. Views: 1 view. COMPARISON: CT chest abdpel [id number] 09/11/2024 2:45 PM FINDINGS: Lungs: New pneumonitis and/or atelectasis in the left lung base. No other significant pulmonary abnormalities. Pleural spaces: Unremarkable. No pleural effusion. No pneumothorax. Heart/Mediastinum: Unremarkable. No cardiomegaly. Diaphragm: New mild elevation of the left hemidiaphragm. Bones/joints: Nothing acute. No change. XR/XR chest 1V portable [id number] IMPRESSION: 1. New mild elevation of the left hemidiaphragm. 2. New pneumonitis and/or atelectasis in the left lung base.
[2024-10-04 11:33] LABS: Basophils # 0.1 10^3/uL (0.0-0.1); Basophils % 0.6 %; Eosinophils % 0.2 %; Hematocrit 34.6 % (37-53); Lymphocytes # 0.7 10^3/uL (0.8-4.8); Lymphocytes % 5.4 %; Mean Corpuscular HGB Conc 32.7 g/dL (30-55); Mean Corpuscular Hemoglobin 29.2 pg (27-33); Mean Corpuscular Volume 89.4 fl (82-101); Mean Platelet Volume 10.1 fL (7.4-10.4); Monocytes % 15.9 %; Neutrophils # 9.82 10^3/uL (1.8-7.7); Neutrophils % 77.3 %; Nucleated Red Blood Cells % 0 %; Platelet Count 319 10^3/cmm (157-399); Red Blood Count 3.87 10^6/uL (3.85-5.65); Red Cell Distribution Width 16.7 % (12.1-15.1); White Blood Count 12.69 10^3/uL (3.29-11.43)
--- NOTE | 2024-10-04 13:29 | ECG_ITS ---
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 Measurements Intervals [place] Rate: 77 P: 92 SD: 205 QRS: 41 QRSD: 94 T: 47 QT: 310 QTc: 351 Interpretive Statements SINUS RHYTHM NONSPECIFIC T-WAVE ABNORMALITY Compared to ECG 10/04/2024 11:01:16 T-wave abnormality now present ST (T wave) deviation no longer present Electronically Signed On 10-04-2024 19:52:45 IN SERVICE COORDINATOR by Freedom Martinez M.D. [email or web address]
[2024-10-04 13:31] LABS: Alanine Aminotransferase 18 U/L (0-41); Albumin Level 3.1 g/dL (3.5-5.2); Alkaline Phosphatase 79 U/L (40-130); Anion Gap 23.3 (5-19); Aspartate Amino Transferase 24 U/L (0-40); Blood Urea Nitrogen 32 mg/dL (8-23); Calcium 9.5 mg/dL (8.5-10.5); Carbon Dioxide 15 mmol/L (22-29); Chloride 96 mmol/L (98-107); Creatinine Clr Calc Pharmacy 35.0476; Globulin 3.1 g/dL (1.3-4.6); Glucose 141 mg/dL (65-115); Magnesium 1.7 mg/dL (1.7-2.3); Osmolality Calculated 279 mOsm/kg (285-295); Potassium 4.3 mmol/L (3.5-5.1); Sodium 130 mmol/L (136-145); Total Bilirubin 0.5 mg/dL (0.15-1.2); Total Protein 6.2 g/dL (6.6-8.7)
[2024-10-04 13:33] LABS: Troponin(5th) Baseline 107 ng/L (0-15)
[2024-10-04 14:29] VITALS: BP 116/61; PULSE 76; RESP 19; O2SAT 95
--- NOTE | 2024-10-04 14:31 | PC.NURSE ---
ASSUMED CARE OF PT AT 1300
[2024-10-04 14:44] LABS: Bilirubin Urine Negative (Negative); Blood Urine 3+ (Negative); Glucose Urine UA Negative (Normal); Ketones Urine Negative (Negative); Leukocyte Esterase Urine 3+ (Negative); Nitrate Urine Negative (Negative); Protein Urine 3+ (Negative); Specific Gravity, Urine 1.012 (1.005-1.030); Urine Appearance Turbid (CLEAR); Urine Color Yellow (Yellow); Urobilinogen Urine 0.2 mg/dL (Negative)
[2024-10-04 14:49] LABS: Add Urine Microscopic? YES; Bacteria Urine Trace /hpf; Hyaline Casts Urine 4.61 /lpf; RBC Urine 51-100 /hpf (0-2); Squamous Epithelial Cell Urine 21-50 /hpf (0-5); WBC Urine >100 /hpf (0-5)
[2024-10-04 15:01] LABS: UA Slide Review UA Slide Review Perf
[2024-10-04] MEDS: sodium chloride 0.9% 1,000 ML 999 ML IV (15:06)
[2024-10-04 15:07] VITALS: BP 116/61; PULSE 72; RESP 22; O2SAT 97
[2024-10-04 16:24] LABS: Troponin 5 2HR 92.18 ng/L (0-15)
[2024-10-04 16:25] LABS: Troponin 5 2HR Delta -14.82 ABS# (0-10)
[2024-10-04 16:38] VITALS: BP 136/49; PULSE 76; RESP 23; O2SAT 95
[2024-10-04 17:27] VITALS: BP 130/85; PULSE 75; RESP 18; O2SAT 95
== END 2024-10-04 17:28 | disposition home or self-care (01) ==
PROVIDERS: Emergency Provider Physician Assistant; PCP Family Medicine
DX: R53.1 Weakness (principal); Z79.84 Long term (current) use of oral hypoglycemic drugs; Z79.02 Long term (current) use of antithrombotics/antiplatelets; Z87.891 Personal history of nicotine dependence; C64.9 Malignant neoplasm of unspecified kidney, except renal pelvis; I25.10 Atherosclerotic heart disease of native coronary artery without angina pectoris; I10 Essential (primary) hypertension; E78.5 Hyperlipidemia, unspecified
CPT/HCPCS: 36415; 71045; 80053; 81001; 83735; 84484; 85025; 93005; 99285; J7030

== ENCOUNTER 2024-10-05 08:07 | Inpatient (IN) | payer MEDICARE, SELFPAY ==
[2024-10-05] VITALS (15 sets, daily range): BP systolic 92–143; BP diastolic 59–83; PULSE 80–92; RESP 15–21; TEMP 36.7–37.6; O2SAT 93–96; BMI 29.5
--- NOTE | 2024-10-05 08:18 | ECG_ITS ---
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 Measurements Intervals [place] Rate: 90 P: 20 [place]: 167 QRS: 20 QRSD: 94 T: 47 QT: 349 QTc: 429 Interpretive Statements SINUS RHYTHM Compared to ECG 10/04/2024 13:29:13 T-wave abnormality no longer present Electronically Signed On 10-07-2024 20:22:33 MD SENIOR RESEARCH SCIENTIST by Mateo Brothers M.D. [email or web address]
--- NOTE | 2024-10-05 08:36 | ED_ITS ---
HPI - Weakness 2 General: Chief complaint: Weakness Stated complaint: weakness Time Seen by Provider: 10/05/24 08:15 History of Present Illness: 79-year-old male presents emergency room complaining of generalized weakness. He was seen yesterday for similar complaints. He does use a walker at home he generally felt weak he was discharged home. This morning he got up and attempted to go to the bathroom he was able to walk a little ways but felt weak and started to go down. 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 He was initially diagnosed proximally 16 to 18 months ago. He also has metastasis to the liver. According to his latest oncology note on September 16 he is still on oral chemotherapy agents Inlyta and Keytruda although the Inlyta dose was reduced. 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 SOB (shortness of breath) CAD (coronary artery disease) Hypertension Hyperlipidemia DDD (degenerative disc disease) Surgical History H/O rotator cuff surgery H/O vasectomy H/O laminectomy S/P cataract surgery Family History Mother Cancer Father Diabetes Brother Diabetes CAD (coronary artery disease) Family/Other Suicide Denies family history of Clotting disorder Dementia Chronic kidney disease (CKD) Anesthesia complication Bleeding disorder Lung disease Stroke Social History Smoking and tobacco/nicotine status: former use of tobacco/nicotine (smoked for 10 years quit in the 70s) Quit status (tobacco/nicotine): has quit using Former quit date comment: 1ppd x 3 years as teenager Second hand smoke exposure: Yes Alcohol intake: current Alcohol intake frequency: few times a week Alcohol type: beer Substance/Drug Use: never Current occupational status: retired Physical Exam 2 Const: GENERAL APPEARANCE: cooperative ORIENTATION/CONSCIOUSNESS: Yes awake, Yes oriented to person, Yes oriented to place and Yes oriented to time HENMT: COMMON NORMALS: normocephalic, atraumatic and hearing grossly normal bilaterally HEAD & SCALP: normocephalic and atraumatic Resp: COMMON NORMALS: normal respiratory effort, No retractions, No use of accessory muscles and clear to auscultation bilaterally AUSCULTATION: clear to auscultation bilaterally Cardio: COMMON NORMALS: regular rate, regular rhythm and No murmurs present (Cardio) RATE: regular rate RHYTHM: regular rhythm GI: COMMON NORMALS: Soft to palpation and No hepatosplenomegaly present A USCULTATION: Yes normoactive bowel sounds PALPATION: Yes Soft to palpation, No Tenderness to palpation present (GI), No Guarding due to palpation present (GI) and Yes No hepatosplenomegaly present Extremity: COMMON NORMALS: normal to inspection, capillary refill normal, no clubbing, cyanosis or edema, no calf tenderness and no pedal edema Neuro: SENSORIUM/ORIENTATION: Yes oriented to person, Yes oriented to place and Yes oriented to time Skin: COMMON NORMALS: no rashes or lesions noted GENERAL SKIN EXAM: no rashes or lesions noted Course 2 Vital Signs: Vital signs: Vital Signs Temperature 98.0 F 10/05/24 08:09 Pulse Rate 83 10/05/24 14:06 Respiratory Rate 19 H 10/05/24 13:00 Blood Pressure 126/62 10/05/24 14:06 Pulse Oximetry 93 10/05/24 14:06 Oxygen Delivery Me thod Room Air 10/05/24 08:09 MDM - Weakness Medical Decision Making Patient is acute kidney injury along with cystitis. Lactic acid is normal started on IV antibiotics IV fluids discussed with hospitalist orders written Medical Records I reviewed the patient's medical records. Lab Data I reviewed the patient's lab results. 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 COMMENTS: Consistent with the [employer]'s Incidental Findings Committee white paper (J Am Erin Radiol 2018): Any incidental renal lesion less than 1 cm or classified as too small to characterize, or any incidental cystic renal lesion characterized as simple-appearing, is likely benign. No follow-up imaging is recommended for these lesions per consensus recommendations based on imaging criteria. Head CT 10/05/24 08:45 IMPRESSION: No large territorial infarct or intracranial bleed. Laboratory Results WBC 13.25 10^3/uL (3.29-11.43) H 10/05/24 09:14 RBC 4.03 10^6/uL (3.85-5.65) 10/05/24 09:14 Hgb 11.80 g/dL (11.27-16.99) 10/05/24 09:14 Hct 36.8 % (37-53) L 10/05/24 09:14 MCV 91.3 fl (82-101) 10/05/24 09:14 MCH 29.3 pg (27-33) 10/05/24 09:14 MCHC 32.1 g/dL (30-55) 10/05/24 09:14 RDW 15.1 % (12.1-15.1) 10/05/24 09:14 Plt Count 283 10^3/cmm (157-399) 10/05/24 09:14 MPV 9.3 fL (7.4-10.4) 10/05/24 09:14 Neut % (Auto) 75.2 % 10/05/24 09:14 Lymph % (Auto) 8.5 % 10/05/24 09:14 [place] % (Auto) 13.5 % 10/05/24 09:14 Eos % (Auto) 1.7 % 10/05/24 09:14 Baso % (Auto) 0.6 % 10/05/24 09:14 Neut # (Auto) 9.97 10^3/uL (1.8-7.7) H 10/05/24 09:14 Lymph # (Auto) 1.1 10^3/uL (0.8-4.8) 10/05/24 09:14 [place] # (Auto) 1.8 10^3/uL (0.2-0.9) H 10/05/24 09:14 Eos # (Auto) 0.2 10^3/uL (0.0-0.8) 10/05/24 09:14 Baso # (Auto) 0.1 10^3/uL (0.0-0.1) 10/05/24 09:14 Nucleated RBC % (auto) 0 % 10/05/24 09:14 Nucleated RBCs # 0.0 /100WBC 10/05/24 09:14 Sodium 131 mmol/L (136-145) L 10/05/24 09:14 Potassium 4.6 mmol/L (3.5-5.1) 10/05/24 09:14 Chloride 99 mmol/L (98-107) 10/05/24 09:14 Carbon Dioxide 17 mmol/L (22-29) L 10/05/24 09:14 Anion Gap 19.6 (5-19) H 10/05/24 09:14 BUN 35 mg/dL (8-23) H 10/05/24 09:14 Creatinine 2.5 mg/dL (0.7-1.2) H 10/05/24 09:14 GFR Calculation Not Reportable 10/05/24 09:14 Glucose 115 mg/dL (65-115) 10/05/24 09:14 Calculated Osmolality 281 mOsm/kg (285-295) L 10/05/24 09:14 Calcium 9.5 mg/dL (8.5-10.5) 10/05/24 09:14 Total Bilirubin 0.5 mg/dL (0.15-1.2) 10/05/24 09:14 AST 44 U/L (0-40) H 10/05/24 09:14 ALT 24 U/L (0-41) 10/05/24 09:14 Alkaline Phosphatase 98 U/L (40-130) 10/05/24 09:14 Total Protein 6.6 g/dL (6.6-8.7) 10/05/24 09:14 Albumin 3.1 g/dL (3.5-5.2) L 10/05/24 09:14 Globulin 3.5 g/dL (1.3-4.6) 10/05/24 09:14 Urine Color Yellow (Yellow) 10/05/24 10:22 Urine Appearance Turbid (CLEAR) A 10/05/24 10:22 Urine pH 6.0 (5-7) 10/05/24 10:22 Ur Specific [place] 1.009 (1.005-1.030) 10/05/24 10:22 Urine Protein 2+ (Negative) A 10/05/24 10:22 Urine Glucose (UA) Negative (Normal) 10/05/24 10:22 Urine Ketones Negative (Negative) 10/05/24 10:22 Urine Blood 2+ (Negative) A 10/05/24 10:22 Urine Nitrate Negative (Negative) 10/05/24 10:22 Urine Bilirubin Negative (Negative) 10/05/24 10:22 Urine Urobilinogen 0.2 mg/dL (Negative) 10/05/24 10:22 Ur Leukocyte Esterase 3+ (Negative) A 10/05/24 10:22 Urine RBC 51-100 /hpf (0-2) H 10/05/24 10:22 Urine WBC >100 /hpf (0-5) H 10/05/24 10:22 Ur Squamous Epith Cells None /hpf (0-5) 10/05/24 10:22 Amorphous Sediment Not Reportable 10/05/24 10:22 Urine Bacteria None seen /hpf (NONE) 10/05/24 10:22 Hyaline Casts 1.42 /lpf 10/05/24 10:22 All radiology interpretation(s) finalized by discharge Discharge Plan Discharge Patient Disposition: Admitted As Inpatient Admit Provider: Rowan Loredo Clinical Impression: Acute kidney injury, Secondary malignant neoplasm of unspecified lung, Renal cell cancer, Weakness of both legs, Cystitis Condition: Stable Coding Level of Care Code ED [employer] for Chg Fwd Related Data Home Medications Medication Instructions Recorded Confirmed aspirin 325 mg tablet,delayed 325 mg PO DAILY 01/09/20 10/05/24 release isosorbide mononitrate 60 mg 60 mg PO BID 01/09/20 10/05/24 tablet,extended release 24 hr multivitamin 1 tab PO DAILY 08/10/21 10/05/24 cholecalciferol (vitamin D3) 50 50 mcg PO DAILY 11/16/23 10/05/24 mcg (2,000 unit) capsule cranberry 500 mg capsule 1,500 mg PO DAILY 11/16/23 10/05/24 calcium 600 mg-D3 20 mcg-magnesium 1 tab PO DAILY 12/07/23 10/05/24 50 [id number] tablet (Calcium 600-D3 Plus (mag-zinc)) loperamide 2 mg capsule (Imodium 2 mg PO .COMPLEX PRN loose stool 12/21/23 10/05/24 A-D) dapagliflozin propanediol 10 mg 10 mg PO DAILY 06/11/24 10/05/24 tablet (Farxiga) metformin 1,000 mg tablet 1,000 mg PO BID 07/02/24 10/05/24 amlodipine 10 mg tablet 10 mg PO DAILY 09/01/24 10/05/24 atorvastatin 80 mg tablet 80 mg PO DAILY 09/01/24 10/05/24 axitinib 1 mg tablet (Inlyta) 3 mg PO BID 09/01/24 10/05/24 clopidogrel 75 mg tablet 75 mg PO DAILY 09/01/24 10/05/24 finasteride 5 mg tablet 5 mg PO DAILY 09/01/24 10/05/24 levothyroxine 25 mcg tablet 25 mcg PO DAILY 09/01/24 10/05/24 tamsulosin 0.4 mg capsule 0.8 mg PO QPM 09/01/24 10/05/24 pembrolizumab 25 mg/mL intravenous 200 mg IV Q21D 10/05/24 10/05/24 solution (Keytruda) Previous Rx's Medication Instructions Recorded nitroglycerin 0.4 mg sublingual 0.4 mg sublingual Q5M PRN chest 07/02/21 tablet (Nitrostat) pain #50 tabs mecobalamin (vitamin B12) 1,000 1,000 mcg PO DAILY #30 tabs 09/21/23 mcg chewable tablet (B12 Active) metoprolol succinate 25 mg 25 mg PO DAILY #90 tabs 11/30/23 tablet,extended release 24 hr (Toprol XL) gabapentin 300 mg capsule 300 mg PO TID #90 caps 06/20/24 Allergies Allergy/AdvReac Type Severity Reaction Status Date / Time No Known Allergies Allergy Verified 10/04/24 11:16
--- NOTE | 2024-10-05 08:44 | CTR_ITS ---
PROCEDURE INFORMATION: Exam: CT Lumbar Spine Without Contrast Exam date and time: 10/05/2024 8:54 AM Age: 79 years old Clinical indication: Weakness; Additional info: Leg weakness TECHNIQUE: Imaging protocol: Computed tomography of the lumbar spine without contrast. Radiation optimization: All CT scans at this facility use at least one of these dose optimization techniques: automated exposure control; mA and/or kV adjustment per patient size (includes targeted exams where dose is matched to clinical indication); or iterative reconstruction. COMPARISON: [place] [id number] 09/11/2024 2:45 PM RADIATION DOSE METRICS: Total DLP (mGy-cm): 933.04 FINDINGS: Bones/joints: There are diffuse enthesopathic changes consistent with benign diffuse idiopathic skeletal hyperostosis (DISH). Bony bridging across the L2-L3 and L4-L5 discs. 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 Multilevel moderate bilateral facet joint arthropathy. There are mild degenerative changes of the sacroiliac joints. Mild curvature of the lumbar spine convex to the left. Kidneys and ureters: Bilateral simple renal cysts measuring up to 2.5 cm in the right kidney. Bilateral moderate hydroureteronephrosis. Vasculature: Calcified atheromas of the visualized arteries. Soft tissues: Unremarkable. 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 COMMENTS: Consistent with the [employer]'s Incidental Findings Committee white paper (J Am Erin Radiol 2018): Any incidental renal lesion less than 1 cm or classified as too small to characterize, or any incidental cystic renal lesion characterized as simple-appearing, is likely benign. No follow-up imaging is recommended for these lesions per consensus recommendations based on imaging criteria.
--- NOTE | 2024-10-05 08:45 | CTR_ITS ---
PROCEDURE INFORMATION: Exam: CT Head Without Contrast Exam date and time: 10/05/2024 8:51 AM Age: 79 years old Clinical indication: Weakness, extremity; Bilateral; Additional info: Weakness altered mental TECHNIQUE: Imaging protocol: Computed tomography of the head without contrast. Radiation optimization: All CT scans at this facility use at least one of these dose optimization techniques: automated exposure control; mA and/or kV adjustment per patient size (includes targeted exams where dose is matched to clinical indication); or iterative reconstruction. COMPARISON: CT head wo con* [id number] 06/18/2024 11:39 AM RADIATION DOSE METRICS: Total DLP (mGy-cm): 1124.5 FINDINGS: Brain: There are bilateral periventricular white matter and centrum semiovale hypodensities, consistent with chronic ischemic small vessel disease. Age related diffuse parenchymal volume loss. Cerebral ventricles: Ex vacuo dilatation of the ventricles. Pituitary gland and sella: There is a normal empty pituitary sella. Paranasal sinuses: Mild degenerative disease of bilateral maxillary sinuses and ethmoid air cells. Mastoid air cells: Visualized mastoid air cells are well aerated. Orbital cavities: Post bilateral cataract surgery. Bones: See Paranasal sinuses finding. Soft tissues: Unremarkable. CT/CT head wo con* [id number] IMPRESSION: No large territorial infarct or intracranial bleed.
[2024-10-05 09:22] LABS: Basophils # 0.1 10^3/uL (0.0-0.1); Basophils % 0.6 %; Eosinophils # 0.2 10^3/uL (0.0-0.8); Eosinophils % 1.7 %; Hematocrit 36.8 % (37-53); Lymphocytes # 1.1 10^3/uL (0.8-4.8); Lymphocytes % 8.5 %; Mean Corpuscular HGB Conc 32.1 g/dL (30-55); Mean Corpuscular Hemoglobin 29.3 pg (27-33); Mean Corpuscular Volume 91.3 fl (82-101); Mean Platelet Volume 9.3 fL (7.4-10.4); Monocytes # 1.8 10^3/uL (0.2-0.9); Monocytes % 13.5 %; Neutrophils # 9.97 10^3/uL (1.8-7.7); Neutrophils % 75.2 %; Nucleated Red Blood Cells % 0 %; Platelet Count 283 10^3/cmm (157-399); Red Blood Count 4.03 10^6/uL (3.85-5.65); Red Cell Distribution Width 15.1 % (12.1-15.1); White Blood Count 13.25 10^3/uL (3.29-11.43)
[2024-10-05 09:40] LABS: Alanine Aminotransferase 24 U/L (0-41); Albumin Level 3.1 g/dL (3.5-5.2); Alkaline Phosphatase 98 U/L (40-130); Aspartate Amino Transferase 44 U/L (0-40); Blood Urea Nitrogen 35 mg/dL (8-23); Calcium 9.5 mg/dL (8.5-10.5); Carbon Dioxide 17 mmol/L (22-29); Chloride 99 mmol/L (98-107); Globulin 3.5 g/dL (1.3-4.6); Glucose 115 mg/dL (65-115); Osmolality Calculated 281 mOsm/kg (285-295); Sodium 131 mmol/L (136-145); Total Bilirubin 0.5 mg/dL (0.15-1.2); Total Protein 6.6 g/dL (6.6-8.7)
[2024-10-05 09:47] LABS: Anion Gap 19.6 (5-19); Potassium 4.6 mmol/L (3.5-5.1)
[2024-10-05 10:41] LABS: Bilirubin Urine Negative (Negative); Blood Urine 2+ (Negative); Glucose Urine UA Negative (Normal); Ketones Urine Negative (Negative); Leukocyte Esterase Urine 3+ (Negative); Nitrate Urine Negative (Negative); Protein Urine 2+ (Negative); Specific Gravity, Urine 1.009 (1.005-1.030); Urine Appearance Turbid (CLEAR); Urine Color Yellow (Yellow); Urobilinogen Urine 0.2 mg/dL (Negative)
[2024-10-05 10:46] LABS: Add Urine Microscopic? YES; Bacteria Urine None Seen /hpf; Hyaline Casts Urine 1.42 /lpf; RBC Urine 51-100 /hpf (0-2); WBC Urine >100 /hpf (0-5)
[2024-10-05 11:02] LABS: Add Urine Culture? Yes; UA Slide Review UA Slide Review Perf
[2024-10-05] MEDS: sodium chloride 0.9% 500 ML 999 ML IV (11:24)
[2024-10-05] MEDS: piperacillin-tazobactam 3.375 GM in sodium chloride 0.9% (plus) 50 ML IV ×2 (11:24→19:46)
[2024-10-05 11:37] LABS: Lactic Sepsis W/Reflex 1.7 mmol/L (0.5-2.2)
--- NOTE | 2024-10-05 16:27 | P.HP_ITS ---
Providers/Chief Complaint 2 Admitting Physician: Rowan Loredo MD Primary Care Provider: Lenny Degroot MD Chief Complaint: weakness History of Present Illness Elliot Lawton is a 79 year old male with known RCC with lung metastasis currently on treatment with axitinib and ketruda. He follows with urology for frequent UTIs. he has been experiencing chronic diarrhea. last infusion on 09/16. Came to ER with c/o generalized weakness. He had presented to the emergency room yesterday with similar complaints, he was given some IV fluids and discharged home. His states she has not been able to manage him at home, he has been unable to perform his regular ADLs and brought him back. Labs today noted worsening ISMA on CKD and leukocytosis. Patient states that at baseline he is incontinent and has intermittent dysuria. He does not feel his urinary symptoms are changed over baseline. CT of the abdomen and pelvis performed on August 2024 had shown new left-sided hydronephrosis and possible distal ureteric obstruction. states they saw urology nurse practitioner at [facility] on October 01, 2024, Flomax was uptitrated to 0.8 mg twice daily. Patient's family reports that they were not aware of the new hydronephrosis. It does not appear there was any plan for cystoscopy at this time. No fever chills nausea vomiting or diarrhea. Review of Systems 2 General: Reports: 10 or more systems reviewed and unremarkable except in HPI and below Const: Denies: fever(s), chills or body aches Eyes: Denies: change in vision, blurry vision or photophobia ENMT: Reports: hoarseness; Denies: throat pain, enlarged tonsils, odynophagia or nasal congestion Card: Denies: chest pain, palpitations, irregular heart rhythm, edema, swelling of feet/ankles, lightheadedness, pre-syncope, dyspnea on exertion or orthopnea Resp: Denies: dyspnea, productive cough, non-productive cough, wheezing, stridor, pain on inspiration, change in phlegm color, hemoptysis or chest congestion GI: Denies: abdominal pain, nausea, vomiting, hematemesis, coffee ground emesis, dysphagia, heartburn, diarrhea, constipation, GI cramping, change in stool character, hematochezia or melena : Denies: flank pain, dysuria, urinary frequency, urinary urgency, urinary hesitancy or hematuria Musc: Denies: neck pain, back pain, extremity pain, joint swelling, joint warmth or deformity Neuro: Denies: headache(s), numbness in extremities, weakness in extremities, sensory changes, difficulty walking, frequent falls, dizziness, vertigo, behavioral changes, Slurred speech present or seizure-like activity Psych: Denies: anxiety, depression, suicidal ideation or homicidal ideation Endo: Denies: polyuria, polydipsia, tired all the time, cold intolerance or hot flashes Tristian/Lymph: Denies: easy bruising or easy bleeding Medications/Allergies Home Medications Medication Instructions Recorded Confirmed Last Taken Type aspirin 325 mg tablet,delayed 325 mg PO DAILY 01/09/20 10/05/24 10/04/24 History release isosorbide mononitrate 60 mg 60 mg PO BID 01/09/20 10/05/24 10/04/24 History tablet,extended release 24 hr nitroglycerin 0.4 mg sublingual 0.4 mg sublingual Q5M PRN chest 07/02/21 10/05/24 Unknown Rx tablet (Nitrostat) pain #50 tabs multivitamin 1 tab PO DAILY 08/10/21 10/05/24 10/04/24 History mecobalamin (vitamin B12) 1,000 1,000 mcg PO DAILY #30 tabs 09/21/23 10/05/24 10/04/24 Rx mcg chewable tablet (B12 Active) cholecalciferol (vitamin D3) 50 50 mcg PO DAILY 11/16/23 10/05/24 10/04/24 History mcg (2,000 unit) capsule cranberry 500 mg capsule 1,500 mg PO DAILY 11/16/23 10/05/24 10/04/24 History metoprolol succinate 25 mg 25 mg PO DAILY #90 tabs 11/30/23 10/05/24 10/04/24 Rx tablet,extended release 24 hr (Toprol XL) calcium 600 mg-D3 20 mcg-magnesium 1 tab PO DAILY 12/07/23 10/05/24 10/04/24 History 50 pu-Xn-mjcjph-naga-boron tablet (Calcium 600-D3 Plus (mag-zinc)) loperamide 2 mg capsule (Imodium 2 mg PO .COMPLEX PRN loose stool 12/21/23 10/05/24 Unknown History A-D) dapagliflozin propanediol 10 mg 10 mg PO DAILY 06/11/24 10/05/24 10/04/24 History tablet (Ry) gabapentin 300 mg capsule 300 mg PO TID #90 caps 06/20/24 10/05/24 10/04/24 Rx metformin 1,000 mg tablet 1,000 mg PO BID 07/02/24 10/05/24 10/04/24 History amlodipine 10 mg tablet 10 mg PO DAILY 09/01/24 10/05/24 10/04/24 History atorvastatin 80 mg tablet 80 mg PO DAILY 09/01/24 10/05/24 10/04/24 History axitinib 1 mg tablet (Inlyta) 3 mg PO BID 09/01/24 10/05/24 10/04/24 History clopidogrel 75 mg tablet 75 mg PO DAILY 09/01/24 10/05/24 10/04/24 History finasteride 5 mg tablet 5 mg PO DAILY 09/01/24 10/05/24 10/04/24 History levothyroxine 25 mcg tablet 25 mcg PO DAILY 09/01/24 10/05/24 10/05/24 History tamsulosin 0.4 mg capsule 0.8 mg PO QPM 09/01/24 10/05/24 10/04/24 History pembrolizumab 25 mg/mL intravenous 200 mg IV Q21D 10/05/24 10/05/24 Unknown History solution (Keytruda) Allergies Allergy/AdvReac Type Severity Reaction Status Date / Time No Known Allergies Allergy Verified 10/04/24 11:16 PFSH Acute 2 PFSH: Medical History Renal cell cancer 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 stricture Polyuria 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[place] coronary artery without angina pectoris SOB (shortness of breath) CAD (coronary artery disease) Hypertension Hyperlipidemia DDD (degenerative disc disease) Surgical History H/O rotator cuff surgery H/O vasectomy H/O laminectomy S/P cataract surgery Family History Mother Cancer Father Diabetes Brother Diabetes CAD (coronary artery disease) Family/Other Suicide Denies family history of Clotting disorder Dementia Chronic kidney disease (CKD) Anesthesia complication Bleeding disorder Lung disease Stroke Social History Smoking and tobacco/nicotine status: former use of tobacco/nicotine (smoked for 10 years quit in the 70s) Quit status (tobacco/nicotine): has quit using Former quit date comment: 1ppd x 3 years as teenager Second hand smoke exposure: Yes Alcohol intake: current Alcohol intake frequency: few times a week Alcohol type: beer Substance/Drug Use: never Current occupational status: retired Vitals/I&O/Wt Last Vital Signs Temp 98.0 F 10/05/24 08:09 Pulse 83 10/05/24 14:06 Resp 19 H 10/05/24 13:00 BP 126/62 10/05/24 14:06 Pulse Ox 93 10/05/24 14:06 O2 Del Method Room Air 10/05/24 08:09 10/05/24 10/05/24 10/05/24 06:59 14:59 22:59 Intake Total 550 / 550 Balance 550 / 550 Weight last 48 hrs Weight 92.079 kg Weight 90.718 kg Physical Exam 2 Narrative: General: No acute distress, AO x3 HEENT: PERRLA, pupils bilaterally equal and reactive, pallors not present Chest: Normal vesicular breath sounds, no added sounds, equal good air entry bilaterally CVS: S1-S2 regular, no murmurs, no tachycardia, no gallops, no rubs Abdomen: Soft, nontender, no organomegaly, bowel sounds present Neuro: No focal deficits, no facial deformity, AO x3, power 5/5 in all limbs Data 10/07/24 05:01 10/07/24 05:01 Micro: Microbiology 10/05/24 10:55 Blood Culture - Preliminary Blood SPECIMEN COLLECTED 10/05/24 10:58 Blood Culture - Preliminary Blood SPECIMEN COLLECTED Other data: Patient: Elliot Lawton Unit #: [id number] : 1945 Age/Sex: 79 / M ADM Date: 10/05/24 Loc: ER Room/Bed: Attending Dr: Ordering Provider/Ordering MD: Brenden Juarez DO Date of Service: 10/05/24 Procedure(s): CT lumbar spine wo con* [id number] Accession Number(s): [id number] Report Number: [id number] PROCEDURE INFORMATION: Exam: CT Lumbar Spine Without Contrast Exam date and time: 10/05/2024 8:54 AM Age: 79 years old Clinical indication: Weakness; Additional info: Leg weakness TECHNIQUE: Imaging protocol: Computed tomography of the lumbar spine without contrast. Radiation optimization: All CT scans at this facility use at least one of these dose optimization techniques: automated exposure control; mA and/or kV adjustment per patient size (includes targeted exams where dose is matched to clinical indication); or iterative reconstruction. COMPARISON: [place] [id number] 09/11/2024 2:45 PM RADIATION DOSE METRICS: Total DLP (mGy-cm): 933.04 FINDINGS: Bones/joints: There are diffuse enthesopathic changes consistent with benign diffuse idiopathic skeletal hyperostosis (DISH). Bony bridging across the L2-L3 and L4-L5 discs. 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 Multilevel moderate bilateral facet joint arthropathy. There are mild degenerative changes of the sacroiliac joints. Mild curvature of the lumbar spine convex to the left. Kidneys and ureters: Bilateral simple renal cysts measuring up to 2.5 cm in the right kidney. Bilateral moderate hydroureteronephrosis. Vasculature: Calcified atheromas of the visualized arteries. Soft tissues: Unremarkable. 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 CT/[place] [id number] IMPRESSION: 1. Two stable 2 mm solid nodules in the right upper and lower lobes. These are unlikely to be of metastatic etiology. 2. No other concerning pathology in the thorax. IMPRESSION: 1. New chronic appearing severe left obstructive uropathy, exact etiology of which is not elucidated in this exam. Possibilities include: Radiolucent ureteral stone, occult distal ureteral lesion, or UVJ obstruction due to severe urinary bladder inflammation or occult bladder neoplasia. There are ancillary findings in the posterior wall of the urinary bladder which question the presence of exophytic BPH nodules or occult bladder mass. Follow-up cystoscopy and urology consultation is recommended. 2. Stable right renal cyst and left renal solid lesion, the latter which is again suspicious for neoplasia or complex cyst. CT/CT head wo con* [id number] IMPRESSION: No large territorial infarct or intracranial bleed. A&P Assessment and plan (1) Generalized weakness: Patient presenting today with generalized weakness which has been worsening over the past several weeks. reports he has had increasing dependence on ADLs at home. This is likely to be multifactorial related to cancer, chemotherapy. Patient does report some chronic diarrhea which she thinks is related to axitinib. Check C. difficile PCR. PT OT assessment. 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 Urine culture taken and pending. Mild leukocytosis. Start empiric antibiotic coverage with piperacillin/tazobactam while pending results of urine culture. (3) Acute kidney injury superimposed on CKD: ISMA on CKD. Baseline creatinine appears to be between 1.6-1.8. Today creatinine is noted to be at 2.5. CT of the abdomen and pelvis taken on 09/11/2024 as an outpatient ordered by oncology had shown new chronic appearing severe left obstructive uropathy with possibilities including ureteral stone, occult distal ureteral obstruction, bladder inflammation or neoplasia. There were ancillary findings in the posterior wall of the urinary bladder probably exophytic BPH or occult bladder mass. These findings are new compared to June 2024. CT of the lumbar spine with visualization of the kidneys and ureters show bilateral moderate hydro ureteronephrosis. Patient and are unaware of these findings of hydronephrosis. They state they followed up with urology on 10/01/2024. Per their description it does not appear there is any plan for cystoscopy yet. Will obtain records from the last visit. Will start patient on normal saline, gentle IV hydration with 50 cc an hour. Closely monitor urine output and repeat kidney function. If creatinine continues to worsen or if signs of obstructive pyelonephritis develop, may need transfer to higher center with availability of urology services, may be needing ureteric stent. (4) Renal cell cancer: As above Plan Incidentally noted elevated troponin at 107 from ER visit yesterday. Patient denies any chest pain. Will check EKG and troponin series now. Recent echo reviewed from September 18, 2024 showing normal LVEF of 55%. No gross wall motion abnormalities. Possible small pericardial effusion. DVT prophylaxis: Heparin 5000 subcutaneous every 12 hours Full code Attestations 2 Medical Necessity Statement*: Greater than 2 midnight is anticipated for above defined care, iv abx, ISMA , hydronephrosis Coding Level of Care Code Acute Code for Chg Fwd High MDM includes number and complexity of problems actively addressed during encounter, amount and/or complexity of data reviewed/ordered and described risk of complication, morbidity or mortality of management as documented Diagnoses Generalized weakness R53.1 UTI (urinary tract infection) N39.0 Acute kidney injury superimposed on CKD N17.9; N18.9 Renal cell cancer C64.9
[2024-10-05 18:32] LABS: Thyroid Stimulating Hormone 10.89 uIU/mL (0.27-4.20)
[2024-10-05] MEDS: INLYTA PO (18:36)
[2024-10-05] MEDS: sodium chloride 0.9% 1,000 ML 30 ML IV (18:37)
[2024-10-05] MEDS: tamsulosin 0.4 mg Capsule 0.8 MG PO (18:37)
[2024-10-05] MEDS: heparin 5,000 unit/mL INJ 1 mL 5000 UNIT SUBCUT (18:37)
[2024-10-05 18:38] LABS: Glucose Point of Care 98 mg/dL (70-110)
[2024-10-05 19:01] LABS: Creatine Phosphokinase 500 U/L (39-308)
[2024-10-05 21:01] LABS: Glucose Point of Care 192 mg/dL (70-110)
[2024-10-05] MEDS: insulin lispro 100 unit/1 mL SUBCUT (21:17)
--- NOTE | 2024-10-05 21:39 | ECG_ITS ---
[facility] Date: 2024-10-05 Pat Name: Elliot Lawton Department: Room: 259 Gender: Male Bit Tapper: : 1945 Requested By: Sebastian Nevarez Order Number: [id number] Bennie MD: Mateo Brothers M.D. Measurements Intervals [place] Rate: 89 P: 1 AR: 187 QRS: -2 QRSD: 98 T: 33 QT: 349 QTc: 426 Interpretive Statements SINUS RHYTHM NONSPECIFIC T-WAVE ABNORMALITY Compared to ECG 10/05/2024 22:06:29 No significant changes Electronically Signed On 10-07-2024 20:16:31 COMMUNITY SERVICE REPRESENTATIVE by Mateo Brothers M.D. [id number]
[2024-10-05 22:22] LABS: Troponin(5th) Baseline 94 ng/L (0-15)
--- NOTE | 2024-10-05 23:39 | ECG_ITS ---
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 Measurements Intervals [place] Rate: 89 P: 9 VT: 181 QRS: 8 QRSD: 101 T: 41 QT: 348 QTc: 425 Interpretive Statements SINUS RHYTHM NONSPECIFIC T-WAVE ABNORMALITY Compared to ECG 10/05/2024 09:03:52 T-wave abnormality now present Electronically Signed On 10-07-2024 20:32:37 PROMOTION WRITER by Mateo Brothers M.D. [id number]
[2024-10-05 23:42] LABS: Troponin 5 2HR 96.91 ng/L (0-15); Troponin 5 2HR Delta 2.91 ABS# (0-10)
[2024-10-06] VITALS (7 sets, daily range): BP systolic 129–152; BP diastolic 66–73; PULSE 83–97; RESP 15–18; TEMP 36.7–37.1; O2SAT 93–96
[2024-10-06] MEDS: piperacillin-tazobactam 3.375 GM in sodium chloride 0.9% (plus) 50 ML IV ×3 (03:45→20:02)
--- NOTE | 2024-10-06 05:33 | ECG_ITS ---
[facility] Test Date: 2024-10-06 Pat Name: Elliot Lawton Department: Room: 259 Gender: Male Creative Services Designer: : 1945 Requested By: Sebastian Nevarez Order Number: [id number] Bennie MD: Mateo Brothers M.D. Measurements Intervals [place] Rate: 96 P: 0 PA: 169 QRS: -4 QRSD: 92 T: 57 QT: 321 QTc: 406 Interpretive Statements SINUS RHYTHM NONSPECIFIC T-WAVE ABNORMALITY Compared to ECG 10/05/2024 23:49:38 No significant changes Electronically Signed On 10-07-2024 20:31:38 PROCESS CONTROL OPERATOR by Mateo Brothers M.D. [id number]
[2024-10-06] MEDS: levothyroxine 25 mcg Tablet PO (05:40)
[2024-10-06] MEDS: heparin 5,000 unit/mL INJ 1 mL 5000 UNIT SUBCUT ×2 (05:43→17:31)
[2024-10-06 05:45] LABS: Basophils # 0.1 10^3/uL (0.0-0.1); Basophils % 0.5 %; Eosinophils # 0.2 10^3/uL (0.0-0.8); Eosinophils % 1.8 %; Hematocrit 37.5 % (37-53); Lymphocytes # 1.2 10^3/uL (0.8-4.8); Lymphocytes % 11.9 %; Mean Corpuscular HGB Conc 30.9 g/dL (30-55); Mean Corpuscular Hemoglobin 29.1 pg (27-33); Mean Platelet Volume 9.4 fL (7.4-10.4); Monocytes # 1.5 10^3/uL (0.2-0.9); Monocytes % 15.5 %; Neutrophils # 6.84 10^3/uL (1.8-7.7); Neutrophils % 69.6 %; Nucleated Red Blood Cells % 0 %; Platelet Count 270 10^3/cmm (157-399); Red Blood Count 3.99 10^6/uL (3.85-5.65); Red Cell Distribution Width 15.2 % (12.1-15.1); White Blood Count 9.83 10^3/uL (3.29-11.43)
[2024-10-06 05:55] LABS: Troponin 5 6HR 85.68 ng/L (0-15)
[2024-10-06 05:58] LABS: Troponin 5 6HR Delta -8.32 ng/L (0-12)
[2024-10-06 06:00] LABS: Alanine Aminotransferase 28 U/L (0-41); Alkaline Phosphatase 104 U/L (40-130); Anion Gap 22.4 (5-19); Aspartate Amino Transferase 49 U/L (0-40); Blood Urea Nitrogen 35 mg/dL (8-23); Calcium 8.9 mg/dL (8.5-10.5); Carbon Dioxide 13 mmol/L (22-29); Chloride 107 mmol/L (98-107); Creatinine Clr Calc Pharmacy 25.1186; Globulin 2.4 g/dL (1.3-4.6); Glucose 96 mg/dL (65-115); Osmolality Calculated 294 mOsm/kg (285-295); Potassium 4.4 mmol/L (3.5-5.1); Sodium 138 mmol/L (136-145); Total Bilirubin 0.4 mg/dL (0.15-1.2); Total Protein 5.4 g/dL (6.6-8.7)
[2024-10-06 06:33] LABS: Glucose Point of Care 96 mg/dL (70-110)
[2024-10-06] MEDS: pantoprazole DR 40 mg Tablet PO (09:18)
[2024-10-06] MEDS: metoprolol succinate ER (24 HR) 25 mg Tablet PO (09:18)
[2024-10-06] MEDS: clopidogrel 75 mg Tablet PO (09:18)
[2024-10-06] MEDS: atorvastatin 40 mg Tablet 80 MG PO (09:18)
[2024-10-06] MEDS: finasteride 5 mg Tablet PO (09:18)
[2024-10-06] MEDS: INLYTA PO ×2 (09:18→17:31)
[2024-10-06 10:26] LABS: Glucose Point of Care 215 mg/dL (70-110)
[2024-10-06] MEDS: insulin lispro 100 unit/1 mL SUBCUT ×3 (11:49→21:07)
[2024-10-06 14:01] LABS: Iron 11 ug/dL (59-158); Percent Saturation 8.3 % (20-50); Total Iron Binding Capacity 132 mcg/dl; Unsaturated Iron Binding 121 ug/dL (112-347)
[2024-10-06 14:16] LABS: Procalcitonin 0.44 ng/mL (0-0.5); Vitamin B12 1748 pg/mL (232-1245)
[2024-10-06 14:32] LABS: Free T4 Free Thyroxine 1.02 ng/dL (0.82-1.77); T3 Free 1.5 PG/ML (2.0-4.4)
[2024-10-06 15:45] LABS: MRSA PCR OZH (swab) NOT DETECTED (Negative)
[2024-10-06 16:50] LABS: Glucose Point of Care 182 mg/dL (70-110)
[2024-10-06] MEDS: tamsulosin 0.4 mg Capsule 0.8 MG PO (17:31)
[2024-10-06] MEDS: gabapentin 100 mg Capsule PO ×2 (17:31→20:02)
[2024-10-06] MEDS: isosorbide mononitrate ER 30 mg Tablet PO (17:34)
--- NOTE | 2024-10-06 17:50 | P.PN_ITS ---
Subjective 2 Subjective: Hospital course, labs appreciated. Seen laying comfortably in bed. at bedside. Patient denies of having any new complaints. Complaining of feeling weak. Able to have his meals without concerns for aspiration. Complaining of mild back pain. Denies any nausea, vomiting, headache. blood pressure slightly elevated today. Vitals/I&O/Wt Last Vital Signs Temp 98.3 F 10/06/24 15:35 Pulse 83 10/06/24 15:35 Resp 16 10/06/24 15:35 BP 129/66 10/06/24 15:35 Pulse Ox 96 10/06/24 15:35 O2 Del Method Room Air 10/06/24 15:35 10/06/24 10/06/24 10/06/24 06:59 14:59 22:59 Intake Total 50 / 936 530 / 530 50 / 580 Balance 50 / 936 530 / 530 50 / 580 Weight last 48 hrs Weight 94.075 kg Weight 92.079 kg Weight 90.718 kg Physical Exam 2 Narrative: General: No acute distress, AO x3, dehydrated, chronically sick appearing, elderly HEENT: PERRLA, pupils bilaterally equal and reactive Chest: Bilateral bronchial breath sounds all lung [place] with occasional rhonchi CVS: S1-S2 regular, no murmurs, no tachycardia, no gallops, no rubs Abdomen: Soft, nontender, no organomegaly, bowel sounds present Neuro: No focal deficits, no facial deformity, AO x3, power 3 /5 in all limbs Data 10/07/24 05:01 10/07/24 05:01 Micro: Microbiology 10/05/24 10:55 Blood Culture - Preliminary Blood NEGATIVE TO DATE 10/05/24 10:58 Blood Culture - Preliminary Blood NEGATIVE TO DATE 10/05/24 10:22 Urine Culture - Preliminary Urine,Clean Catch A&P Assessment and plan (1) Generalized weakness: Most likely in setting of dehydration leading to ISMA on CKD, possibly due to cystitis. 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 Physical therapy evaluation. Discussed in detail with patient and patient's . states she is not able to take care of patient at home by herself and would like possible transition to rehab. (2) Hydronephrosis: Seen on CT lumbar. Bilateral hydroureteronephrosis. Could be cystitis. Patient does have history of malignancy of left kidney. Patient would benefit from cystoscopy as an outpatient. Will do CT KUB for further evaluation. Will discuss further with patient's outpatient urologist. (3) Cystitis: Seen on CT. Did have leukocytosis. Follow-up blood culture, urine culture. Empirically continue with IV Zosyn for now. Check MRSA swab. Continue with Flomax 0.8 daily. (4) Acute kidney injury superimposed on CKD: Baseline creatinine seems to be 1.6-1.8. Currently 2.7. Concerns for mild metabolic acidosis. Medical reconciliation done for nephrotoxic drugs. Monitor renal functions daily. Cueva catheterization. Normal saline at 100 cc/h. Watch for fluid overload. Strict input output charting. (5) Rhabdomyolysis: Most likely in setting of dehydration. IV fluid as above. (6) Troponin level elevated: Elevated recently on visit to the ER. Recheck troponin levels. Patient denying any chest pain. Appreciate recent lipid panel, A1c. Echocardiogram done recently on 09/18 shows normal EF without regional wall motion abnormalities. Repeat limited echocardiogram. (7) Hypertension: Goal blood pressure less than 140/90 mmHg. Takes amlodipine 10 mg, Imdur 60 mg twice daily, metoprolol succinate 25 mg daily at home. Restart Imdur 30 mg twice daily for now. Hold off further antihypertensive. Uptitrate as for goal blood pressure. Qualifiers: Hypertension type: essential hypertension Qualified Code(s): I10 - Essential (primary) hypertension (8) Diabetes mellitus: Recent A1c of 6.6. Cystitis low-dose protocol. Hold off on nephrotoxic drugs. Qualifiers: Diabetes mellitus complication status: without complication Diabetes mellitus group home insulin use: without group home use Diabetes mellitus type: t ype 2 Qualified Code(s): E11.9 - Type 2 diabetes mellitus without complications (9) Cancer of left kidney: Plan CODE STATUS: Full code Carb consistent diet Heparin 5000 every 12 for DVT prophylaxis Protonix OPD prophylaxis Discussed with patient and patient's that given significant bilateral hydroureteronephrosis with ISMA on CKD he will possibly need cystoscopy at the earliest. They are agreeable for possible transfer to [facility] for further evaluation. Attestations 2 Medical Necessity Statement*: Requires further hospitalization for management of generalized weakness in a patient with a history of left renal cell carcinoma, bilateral hydroureteronephrosis in setting of bladder obstruction, cystitis while safe discharge planning is sought Coding Level of Care Code Acute Code for Chg Fwd Diagnoses Generalized weakness R53.1 Hydronephrosis N13.30 Cystitis N30.90 Acute kidney injury superimposed on CKD N17.9; N18.9 Rhabdomyolysis M62.82 Troponin level elevated R79.89 Essential hypertension I10 Hypertension type: essential hypertension Type 2 diabetes mellitus without complication, without long-term current use of insulin E11.9 Diabetes mellitus complication status: without complication 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
--- NOTE | 2024-10-06 17:53 | CTR_ITS ---
PROCEDURE INFORMATION: Exam: CT Abdomen And Pelvis Without Contrast Exam date and time: 10/06/2024 10:00 PM Age: 79 years old Clinical indication: Prior surgery; Surgery date: 6+ months; Surgery type: Laminectomy; Patient HX: Bilateral hydronephrosis noted on lumbar CT from 10/05/2024. History of renal cancer. TECHNIQUE: Imaging protocol: Computed tomography of the abdomen and pelvis without contrast. Radiation optimization: All CT scans at this facility use at least one of these dose optimization techniques: automated exposure control; mA and/or kV adjustment per patient size (includes targeted exams where dose is matched to clinical indication); or iterative reconstruction. COMPARISON: [place] [id number] 09/11/2024 2:45 PM RADIATION DOSE METRICS: Total DLP (mGy-cm): 986.41 FINDINGS: Lungs: Moderate bilateral posterior lower lobe atelectasis. Heart: Heart size is within normal limits. Trace pericardial fluid. Liver: The liver is normal. No hepatic masses are identified. Gallbladder and biliary ducts: Gallstones are identified within the gallbladder. There is no gallbladder wall thickening or pericholecystic inflammatory change. Pancreas: The pancreas is atrophic without obvious abnormality. Spleen: The spleen is normal. Adrenal glands: The adrenal glands are normal. Kidneys and ureters: No renal calcifications. Vmhzqcjx-fy-kfziiu bilateral hydroureteronephrosis to the level of the urinary bladder. Stomach and bowel: There is no large or small bowel obstruction. There is no evidence of bowel wall thickening. Appendix: A normal appendix is identified. Note is made of an appendicolith. Intraperitoneal space: No inflammatory changes are identified. There is no free fluid or fluid collection seen. There is no pneumoperitoneum. Vasculature: Atherosclerotic calcifications of the aorta are present. No aneurysm is identified. Lymph nodes: No enlarged lymph nodes are identified. Urinary bladder: Moderate to marked anterior bladder wall thickening with infiltration or inflammation in the adjacent perivesicular fat, stable to mildly worsened compared to prior. Reproductive: There is mild prostatomegaly. Bones/joints: No acute osseous abnormalities are seen. Soft tissues: The soft tissues are within normal limits. CT/CT kidney stone [id number] IMPRESSION: 1. Mydplhxb-mf-ftiwqe bilateral hydroureteronephrosis to the level of the urinary bladder. Left side appears similar compared to 09/11/2024, while the right is new. Recommend urological consultation. 2. Moderate to marked anterior bladder wall thickening with infiltration or inflammation in the adjacent perivesicular fat, stable to mildly worsened compared to prior. 3. Other nonemergent findings above.
[2024-10-06] MEDS: sodium chloride 0.9% 1,000 ML 100 ML IV (18:13)
[2024-10-06 20:43] LABS: Glucose Point of Care 157 mg/dL (70-110)
[2024-10-07] VITALS (9 sets, daily range): BP systolic 105–161; BP diastolic 65–77; PULSE 70–90; RESP 14–18; TEMP 36.4–36.9; O2SAT 94–97
[2024-10-07] MEDS: heparin 5,000 unit/mL INJ 1 mL 5000 UNIT SUBCUT ×2 (04:47→18:39)
[2024-10-07] MEDS: piperacillin-tazobactam 3.375 GM in sodium chloride 0.9% (plus) 50 ML IV ×3 (04:47→20:47)
[2024-10-07 05:27] LABS: Basophils # 0.1 10^3/uL (0.0-0.1); Basophils % 0.5 %; Eosinophils # 0.3 10^3/uL (0.0-0.8); Eosinophils % 2.9 %; Hematocrit 35.8 % (37-53); Lymphocytes # 1.4 10^3/uL (0.8-4.8); Lymphocytes % 13.3 %; Mean Corpuscular HGB Conc 31.3 g/dL (30-55); Mean Corpuscular Hemoglobin 28.3 pg (27-33); Mean Corpuscular Volume 90.4 fl (82-101); Mean Platelet Volume 9.3 fL (7.4-10.4); Monocytes # 1.6 10^3/uL (0.2-0.9); Monocytes % 15.9 %; Neutrophils # 6.87 10^3/uL (1.8-7.7); Neutrophils % 66.7 %; Nucleated Red Blood Cells % 0 %; Platelet Count 311 10^3/cmm (157-399); Red Blood Count 3.96 10^6/uL (3.85-5.65); Red Cell Distribution Width 15.3 % (12.1-15.1)
[2024-10-07 05:48] LABS: Creatine Phosphokinase 224 U/L (39-308); Magnesium 1.9 mg/dL (1.7-2.3)
[2024-10-07 05:49] LABS: Alanine Aminotransferase 39 U/L (0-41); Albumin Level 2.8 g/dL (3.5-5.2); Alkaline Phosphatase 108 U/L (40-130); Anion Gap 18.5 (5-19); Aspartate Amino Transferase 55 U/L (0-40); Blood Urea Nitrogen 40 mg/dL (8-23); Calcium 8.9 mg/dL (8.5-10.5); Carbon Dioxide 16 mmol/L (22-29); Chloride 108 mmol/L (98-107); Creatinine Clr Calc Pharmacy 24.7371; Globulin 3.8 g/dL (1.3-4.6); Glucose 112 mg/dL (65-115); Osmolality Calculated 297 mOsm/kg (285-295); Potassium 4.5 mmol/L (3.5-5.1); Sodium 138 mmol/L (136-145); Total Bilirubin 0.4 mg/dL (0.15-1.2); Total Protein 6.6 g/dL (6.6-8.7)
[2024-10-07 06:31] LABS: Folate Level > 20.0 ng/mL (4.5-32.2)
[2024-10-07] MEDS: levothyroxine 25 mcg Tablet PO (06:36)
[2024-10-07 06:48] LABS: Glucose Point of Care 104 mg/dL (70-110)
[2024-10-07] MEDS: metoprolol succinate ER (24 HR) 25 mg Tablet PO (09:43)
[2024-10-07] MEDS: clopidogrel 75 mg Tablet PO (09:43)
[2024-10-07] MEDS: finasteride 5 mg Tablet PO (09:43)
[2024-10-07] MEDS: pantoprazole DR 40 mg Tablet PO (09:43)
[2024-10-07] MEDS: gabapentin 100 mg Capsule PO ×3 (09:43→20:47)
[2024-10-07] MEDS: isosorbide mononitrate ER 30 mg Tablet PO ×2 (09:43→18:38)
[2024-10-07] MEDS: INLYTA PO ×2 (09:44→18:39)
--- NOTE | 2024-10-07 09:54 | PC.CHAP ---
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 circular stuffer visit [] Patient/Family/Request visit [] Outpatient visit [] Follow-up visit [] Physician referral [] Code/Alert [x] Routine visit [] Staff referral [] Actively dying [] Patient sleeping [] Family support [] [] Out of room [] Palliative care [] [] Receiving care in room [] Pre-surgical visit [] Trauma [] Long length of stay [] ICU visit [] Other: Relational/Emotional Strength [] Patient feels connected with others/family/visitors/staff [] Distress [] Loneliness/isolation [] Abandonment Spirituality of Patient [] Person of Leona [] Attends Caodaism of their Leona [] Believes in Prayer [] Reads Bible or Jehovah'S Witness materials [] There are Spiritual issues to be addressed Clinical Secretary Interventions [x] Prayer [] Active listening [] Non-anxious presence [] Spiritual/emotional support [] Crisis/trauma care [] Spiritual counseling [] Bereavement support [] Provided bereavement packet [] Provided Bible/devotional materials [] Provided toy/stuffed animal, coloring book to patient or family member [] Provided Communion [] Anointing/[place] [] Salvation [] Completed spiritual assessment [] Other: Impact on Illness or Injury [] Angry [] Fearful [] Anxious [] Often cries [] Exhaustion [] Unable to work [] Unable to attend yarsani [] Unable to walk/stand [] Unable to read [] Unable to drive [] Unable to eat/drink [] Unable to sleep [] Unable to be with family [] Patient intubated [] Other: Summary precaution Time spent with patient
[2024-10-07 12:23] LABS: Glucose Point of Care 185 mg/dL (70-110)
[2024-10-07] MEDS: insulin lispro 100 unit/1 mL SUBCUT ×2 (12:43→18:38)
[2024-10-07] MEDS: sodium chloride 0.9% 1,000 ML 100 ML IV ×2 (12:44→20:47)
--- NOTE | 2024-10-07 13:55 | USCV_ITS ---
Jered Elliot Age: 79 Gender: M : 1945 Exam Date: 10/07/2024 14:21 Ordering Phys: Sebastian Nevarez MD Technologist: Exam Location: [facility] Indication: ef BP: 134 / 72 HR: Rhythm: Sinus Technical Quality: Adequate MEASUREMENTS (Male / Female) Normal Values 2D ECHO LV Diastolic Diameter PLAX 4.9 cm 4.2 - 5.9 / 3.9 - 5.3 cm IVS Diastolic Thickness 1.2 cm 0.6 - 1.0 / 0.6 - 0.9 cm IVS Systolic Thickness 1.6 cm LVPW Diastolic Thickness 1.4 cm 0.6 - 1.0 / 0.6 - 0.9 cm LVPW Systolic Thickness 1.7 cm LVOT Diameter 2.1 cm LV Ejection Fraction 2D Teich 55.0 % LV Ejection Fraction MOD 4C 49.9 % LV Ejection Fraction MOD 2C 40.9 % LV Ejection Fraction 2C AL 40.4 % LA Diameter 3.6 cm RA Systolic Volume 4C AL 41.9 ml RA Systolic Volume 4C MOD 37.6 ml Aorta at Sinotubular Diameter 3.3 cm M-MODE LA Ao Ratio MM 1.0 AV Cusp Separation MM 2.3 cm FINDINGS Left Ventricle Normal left ventricular size with a borderline low ejection fraction of 50 to 55%.abnormal septal motion consistent with conduction abnormality. Mild left ventricular hypertrophy. Right Ventricle Possibly normal RV size ejection fraction Right Atrium Possibly of normal size Left Atrium Possibly of normal size Mitral Valve No gross abnormalities noted Aortic Valve No gross abnormalities no gross abnormalities Tricuspid Valve No gross abnormalities noted Pulmonic Valve Pulmonic valve not well visualized. Pericardium No pericardial effusion. Aorta Normal aortic annulus size. IVC Inferior vena cava not visualized. CONCLUSIONS Normal left ventricular size with a borderline low ejection fraction of 50 to 55%.abnormal septal motion consistent with conduction abnormality. Mild left ventricular hypertrophy. Possibly normal chamber sizes. No gross morphologic abnormalities in the valve No pericardial effusion Compared to the study from 09/18/2024, there may not be a significant change Dr Freedom Martinez MD [facility] (Electronically Signed) Final Date: 07 October 2024 23:46 S
--- NOTE | 2024-10-07 13:57 | P.PN_ITS ---
Subjective 2 Subjective: No acute events overnight. Patient has remained hemodynamically stable and afebrile. Continues to remain on room air. at bedside. Patient denies any new complaints. Vitals/I&O/Wt Last Vital Signs Temp 98.3 F 10/07/24 11:54 Pulse 76 10/07/24 11:54 Resp 17 10/07/24 11:54 BP 105/70 10/07/24 11:54 Pulse Ox 94 10/07/24 11:54 O2 Del Method Room Air 10/07/24 11:54 10/06/24 10/07/24 10/07/24 22:59 06:59 14:59 Intake Total 410 / 940 1050 / 1990 340 / 340 Balance 410 / 940 1050 / 1989 340 / 340 Weight last 48 hrs Weight 91.036 kg Weight 94.075 kg Weight 92.079 kg Physical Exam 2 Narrative: General: No acute distress, AO x3, dehydrated, chronically sick appearing, elderly HEENT: PERRLA, pupils bilaterally equal and reactive Chest: Bilateral bronchial breath sounds all lung diego with occasional rhonchi CVS: S1-S2 regular, no murmurs, no tachycardia, no gallops, no rubs Abdomen: Soft, nontender, no organomegaly, bowel sounds present Neuro: No focal deficits, no facial deformity, AO x3, power 3 /5 in all limbs Data 10/07/24 05:01 10/07/24 05:01 Micro: Microbiology 10/05/24 10:22 Urine Culture - Final Urine,Clean Catch 10/05/24 10:55 Blood Culture - Preliminary Blood NEGATIVE TO DATE 10/05/24 10:58 Blood Culture - Preliminary Blood NEGATIVE TO DATE A&P Assessment and plan (1) Generalized weakness: Most likely in setting of dehydration leading to ISMA on CKD, possibly due to cystitis. 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 Physical therapy evaluation. Discussed in detail with patient and patient's . states she is not able to take care of patient at home by herself and would like possible transition to rehab. Case management alerted. (2) Hydronephrosis: Appreciate CT abdomen pelvis. Concerning for new right-sided hydroureteronephrosis up to the bladder. Cueva catheterization. Patient does have history of malignancy of left kidney. Patient would benefit from cystoscopy. Will try to transfer patient to a tertiary center preferably [facility] where his outpatient urologist is at the earliest. (3) Cystitis: Seen on CT. Did have leukocytosis. Leukocytosis resolved for now. Follow-up blood culture. Urine cultures so far negative. Empirically continue with IV Zosyn for now. MRSA swab negative. Continue with Flomax 0.8 daily. (4) Acute kidney injury superimposed on CKD: Baseline creatinine seems to be 1.6-1.8. Currently stable at 2.7. Concerns for mild metabolic acidosis. Medical reconciliation done for nephrotoxic drugs. Monitor renal functions daily. Cueva catheterization. Normal saline at 100 cc/h. Watch for fluid overload. Strict input output charting. (5) Troponin level elevated: Elevated recently on visit to the ER. Downward trend of troponin cycled. Elevated but lower than recent visit to the ER. Patient denying any chest pain. Appreciate recent lipid panel, A1c. Echocardiogram done recently on 09/18 shows normal EF without regional wall motion abnormalities. Repeat limited echocardiogram awaited. (6) Hypertension: Goal blood pressure less than 140/90 mmHg. Takes amlodipine 10 mg, Imdur 60 mg twice daily, metoprolol succinate 25 mg daily at home. Continue with Imdur 30 mg twice daily for now. Hold off further antihypertensive. Uptitrate as for goal blood pressure. Qualifiers: Hypertension type: essential hypertension Qualified Code(s): I10 - Essential (primary) hypertension (7) Diabetes mellitus: Recent A1c of 6.6. Cystitis low-dose protocol. Hold off on nephrotoxic drugs. 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 Plan CODE STATUS: Full code Carb consistent diet Heparin 5000 every 12 for DVT prophylaxis Protonix OPD prophylaxis Discussed with patient and patient's that given significant bilateral hydroureteronephrosis with ISMA on CKD he will possibly need cystoscopy at the earliest. They are agreeable for possible transfer to [facility] for further evaluation. I have tried calling [facility] awaiting callback for possible transfer. Patient and family are agreeable. Attestations 2 Medical Necessity Statement*: Requires further hospitalization for management of bilateral hydroureteronephrosis, cystitis in a patient with left renal cell carcinoma with concerns of bladder outlet obstruction, generalized weakness while possible transfer to a tertiary center for urology services awaited Diagnoses Generalized weakness R53.1 Hydronephrosis N13.30 Cystitis N30.90 Acute kidney injury superimposed on CKD N17.9; N18.9 Troponin level elevated R79.89 Essential hypertension I10 Hypertension type: essential hypertension Type 2 diabetes mellitus without complication, without long-term current use of insulin E11.9 Diabetes mellitus complication status: without complication Diabetes mellitus shelter insulin use: without shelter use Diabetes mellitus type: type 2 Cancer of left kidney C64.2 Rhabdomyolysis M62.82
--- NOTE | 2024-10-07 15:35 | P.TS_ITS ---
Transfer Summary Providers Date of Admission: 10/05/24 10:30 Date of Discharge/Transfer: 10/08/24 Attending Provider at Admission: Rowan Loredo MD Attending Provider at Transfer: Sebastian Nevarez MD Primary Care Provider: Lenny Degroot MD Transfer Plans: Anticipated date of transfer: 10/07/24 . Receiving Facility: [facility] . Receiving Provider: Dr. Garcias . Diagnoses at Discharge Discharge Diagnosis (1) Generalized weakness: Status: Acute (2) UTI (urinary tract infection): Status: Acute (3) Acute kidney injury superimposed on CKD: Status: Acute (4) Renal cell cancer: Status: Acute Reason for Visit Reason for Visit weakness Brief History: History as per HPI: Elliot Lawton is a 79 year old male with known RCC with lung metastasis currently on treatment with axitinib and ketruda. He follows with urology for frequent UTIs. he has been experiencing chronic diarrhea. last infusion on 09/16. Came to ER with c/o generalized weakness. He had presented to the emergency room yesterday with similar complaints, he was given some IV fluids and discharged home. His states she has not been able to manage him at home, he has been unable to perform his regular ADLs and brought him back. Labs today noted worsening ISMA on CKD and leukocytosis. Patient states that at baseline he is incontinent and has intermittent dysuria. He does not feel his urinary symptoms are changed over baseline. CT of the abdomen and pelvis performed on August 2024 had shown new left-sided hydronephrosis and possible distal ureteric obstruction. states they saw urology nurse practitioner at [facility] on October 01, 2024, Flomax was uptitrated to 0.8 mg twice daily. Patient's family reports that they were not aware of the new hydronephrosis. It does not appear there was any plan for cystoscopy at this time. No fever chills nausea vomiting or diarrhea. Hospital Course Hospital Course Patient was went to the nurse for further evaluation and management of generalized weakness with concerns of possible UTI and acute kidney injury. He was started on broad-spectrum antibiotics, IV fluids. Physical therapy evaluation was done. Given persistent acute kidney injury he underwent CT abdomen pelvis which was consistent with severe bilateral hydroureteronephrosis up to the bladder with worsening on right as compared to recent study. Given acute kidney injury, new hydroureteronephrosis patient would need urology workup with a possible cystoscopy. His hospitalization was otherwise unremarkable. Possible transfer to a tertiary center for urologist were discussed in detail with patient and at bedside and they are both agreeable. Patient follows up with a urologist at [facility] hence they requested to be transferred to [facility]. Patient's care discussed in detail with the hospitalist at [facility] and has been accepted under care of Dr. Garcias. He has been transferred in hemodynamically stable condition Physical Exam Narrative: General: No acute distress, AO x3, dehydrated, chronically sick appearing, elderly HEENT: PERRLA, pupils bilaterally equal and reactive Chest: Bilateral bronchial breath sounds all lung diego with occasional rhonchi CVS: S1-S2 regular, no murmurs, no tachycardia, no gallops, no rubs Abdomen: Soft, nontender, no organomegaly, bowel sounds present Neuro: No focal deficits, no facial deformity, AO x3, power 3 /5 in all limbs Urinary Catheter Management: Cueva: Cath Placed During This Visit: yes Reason for Continuing Indwelling Catheter: Acute Urinary Retention or Obstruction Urinary Catheter Date of Insertion: 10/07/24 Urinary Catheter Time of Insertion: 14:30 TS Data Studies Completed and Pending Pending at discharge Category Date Time Status Blood Culture Stat Lab 10/05/24 10:55 Results Completed Studies During Hospitalization Category Date Time Status CT head wo con* [id number] Stat Cat Scan 10/05/24 08:[address] kidney stone [id number] Routine Cat Scan 10/06/24 17:[address] lumbar spine wo con* [id number] Stat Cat Scan 10/05/24 08:44 Completed CV. echo limited [id number] Routine Ultrasound 10/07/24 13:55 Completed Laboratory Last Values WBC 10.30 10^3/uL (3.29-11.43) 10/07/24 05:01 RBC 3.96 10^6/uL (3.85-5.65) 10/07/24 05:01 Hgb 11.20 g/dL (11.27-16.99) L 10/07/24 05:01 Hct 35.8 % (37-53) L 10/07/24 05:01 MCV 90.4 fl (82-101) 10/07/24 05:01 MCH 28.3 pg (27-33) 10/07/24 05:01 MCHC 31.3 g/dL (30-55) 10/07/24 05:01 RDW 15.3 % (12.1-15.1) H 10/07/24 05:01 Plt Count 311 10^3/cmm (157-399) 10/07/24 05:01 MPV 9.3 fL (7.4-10.4) 10/07/24 05:01 Neut % (Auto) 66.7 % 10/07/24 05:01 Lymph % (Auto) 13.3 % 10/07/24 05:01 [place] % (Auto) 15.9 % 10/07/24 05:01 Eos % (Auto) 2.9 % 10/07/24 05:01 Baso % (Auto) 0.5 % 10/07/24 05:01 Neut # (Auto) 6.87 10^3/uL (1.8-7.7) 10/07/24 05:01 Lymph # (Auto) 1.4 10^3/uL (0.8-4.8) 10/07/24 05:01 [place] # (Auto) 1.6 10^3/uL (0.2-0.9) H 10/07/24 05:01 Eos # (Auto) 0.3 10^3/uL (0.0-0.8) 10/07/24 05:01 Baso # (Auto) 0.1 10^3/uL (0.0-0.1) 10/07/24 05:01 Nucleated RBC % (auto) 0 % 10/07/24 05:01 Nucleated RBCs # 0.0 /100WBC 10/07/24 05:01 Sodium 138 mmol/L (136-145) 10/07/24 05:01 Potassium 4.5 mmol/L (3.5-5.1) 10/07/24 05:01 Chloride 108 mmol/L (98-107) H 10/07/24 05:01 Carbon Dioxide 16 mmol/L (22-29) L 10/07/24 05:01 Anion Gap 18.5 (5-19) 10/07/24 05:01 BUN 40 mg/dL (8-23) H 10/07/24 05:01 Creatinine 2.7 mg/dL (0.7-1.2) H 10/07/24 05:01 GFR Calculation Not Reportable 10/07/24 05:01 Glucose 112 mg/dL (65-115) 10/07/24 05:01 POC Glucose 119 mg/dL (70-110) H 10/07/24 20:36 Calculated Osmolality 297 mOsm/kg (285-295) H 10/07/24 05:01 Lactic Acid 1.7 mmol/L (0.5-2.2) 10/05/24 10:58 Calcium 8.9 mg/dL (8.5-10.5) 10/07/24 05:01 Magnesium 1.9 mg/dL (1.7-2.3) 10/07/24 05:01 Iron 11 ug/dL (59-158) L 10/06/24 04:00 TIBC 132 mcg/dl 10/06/24 04:00 % Saturation 8.3 % (20-50) L 10/06/24 04:00 Unsat Iron Binding 121 ug/dL (112-347) 10/06/24 04:00 Total Bilirubin 0.4 mg/dL (0.15-1.2) 10/07/24 05:01 AST 55 U/L (0-40) H 10/07/24 05:01 ALT 39 U/L (0-41) 10/07/24 05:01 Alkaline Phosphatase 108 U/L (40-130) 10/07/24 05:01 Creatine Kinase 224 U/L (39-308) 10/07/24 05:01 Troponin T Baseline 94 ng/L (0-15) H 10/05/24 22:00 Troponin T 120 Minute 96.91 ng/L (0-15) H 10/05/24 23:20 Delta Troponin T 2.91 ABS# (0-10) 10/05/24 23:20 Troponin T Hi Sens 6Hr 85.68 ng/L (0-15) H 10/06/24 04:00 Troponin T Hi Sens 6Hr Delta -8.32 ng/L (0-12) L 10/06/24 04:00 Total Protein 6.6 g/dL (6.6-8.7) 10/07/24 05:01 Albumin 2.8 g/dL (3.5-5.2) L 10/07/24 05:01 Globulin 3.8 g/dL (1.3-4.6) 10/07/24 05:01 Vitamin B12 1748 pg/mL (232-1245) H 10/06/24 04:00 Folate > 20.0 ng/mL (4.5-32.2) 10/07/24 05:01 Procalcitonin 0.44 ng/mL (0-0.5) 10/06/24 04:00 TSH 10.89 uIU/mL (0.27-4.20) H 10/05/24 09:14 Free T4 1.02 ng/dL (0.82-1.77) 10/06/24 04:00 Free T3 1.5 PG/ML (2.0-4.4) L 10/06/24 04:00 Urine Color Yellow (Yellow) 10/05/24 10:22 Urine Appearance Turbid (CLEAR) A 10/05/24 10:22 Urine pH 6.0 (5-7) 10/05/24 10:22 Ur Specific [place] 1.009 (1.005-1.030) 10/05/24 10:22 Urine Protein 2+ (Negative) A 10/05/24 10:22 Urine Glucose (UA) Negative (Normal) 10/05/24 10:22 Urine Ketones Negative (Negative) 10/05/24 10: Urine Blood 2+ (Negative) A 10/05/24 10:22 Urine Nitrate Negative (Negative) 10/05/24 10:22 Urine Bilirubin Negative (Negative) 10/05/24 10:22 Urine Urobilinogen 0.2 mg/dL (Negative) 10/05/24 10:22 Ur Leukocyte Esterase 3+ (Negative) A 10/05/24 10:22 Urine RBC 51-100 /hpf (0-2) H 10/05/24 10:22 Urine WBC >100 /hpf (0-5) H 10/05/24 10:22 Ur Squamous Epith Cells None /hpf (0-5) 10/05/24 10:22 Amorphous Sediment Not Reportable 10/05/24 10:22 Urine Bacteria None seen /hpf (NONE) 10/05/24 10:22 Hyaline Casts 1.42 /lpf 10/05/24 10:22 Nasal MRSA (PCR) Not detected (Negative) 10/06/24 14:30 C. 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 COMMENTS: Consistent with the [employer]'s Incidental Findings Committee white paper (J Am Erin Radiol 2018): Any incidental renal lesion less than 1 cm or classified as too small to characterize, or any incidental cystic renal lesion characterized as simple-appearing, is likely benign. No follow-up imaging is recommended for these lesions per consensus recommendations based on imaging criteria. Head CT 10/05/24 08:45 IMPRESSION: No large territorial infarct or intracranial bleed. Abdomen/Pelvis CT 10/06/24 17:53 IMPRESSION: 1. Votelmmr-yx-zmxbol bilateral hydroureteronephrosis to the level of the urinary bladder. Left side appears similar compared to 09/11/2024, while the right is new. Recommend urological consultation. 2. Moderate to marked anterior bladder wall thickening with infiltration or inflammation in the adjacent perivesicular fat, stable to mildly worsened compared to prior. 3. Other nonemergent findings above. Microbiology 10/05/24 10:22 Urine,Clean Catch Urine Culture - Final 10/05/24 10:55 Blood Blood Culture - Preliminary NEGATIVE TO DATE 10/05/24 10:58 Blood Blood Culture - Preliminary NEGATIVE TO DATE Recent Clincial Data Last Vital Signs Temp 97.5 F L 10/07/24 23:58 Pulse 82 10/08/24 00:31 Resp 14 10/08/24 00:31 BP 161/71 10/08/24 00:31 Pulse Ox 96 10/08/24 00:31 O2 Del Method Room Air 10/07/24 23:58 Intake & Output/Weight 10/06/24 10/07/24 10/08/24 10/09/24 06:59 06:59 06:59 06:59 Intake Total 936 / 936 1989 / 1909 Output Total 650 / 650 Balance 936 / 936 1989 1260 / 1260 Weight 94.075 kg 91.036 kg Vitals Last Vital Signs Temp 97.5 F L 10/07/24 23:58 Pulse 82 10/08/24 00:31 Resp 14 10/08/24 00:31 BP 161/71 10/08/24 00:31 Pulse Ox 96 10/08/24 00:31 O2 Del Method Room Air 10/07/24 23:58 TS Medications Medications Discontinued Medications Acetaminophen (Acetaminophen 325 Mg Tablet) 650 mg PO Q6H PRN PRN Reason: Mild/Mod Pain Or Temp >/= 101 Atorvastatin Calcium (Atorvastatin 40 Mg Tablet) 80 mg PO DAILY [facility] Last Admin: 10/06/24 09:18 Dose: 80 mg Clopidogrel Bisulfate (Clopidogrel 75 Mg Tablet) 75 mg PO DAILY [facility] Last Admin: 10/07/24 09:43 Dose: 75 mg Ferrous Sulfate (Ferrous Sulfate 300 Mg/5 Ml Udc) 300 mg PO BIDWM [facility] Last Admin: 10/07/24 18:38 Dose: 300 mg Finasteride (Finasteride 5 Mg Tablet) 5 mg PO DAILY [facility] Last Admin: 10/07/24 09:43 Dose: 5 mg Gabapentin (Gabapentin 100 Mg Capsule) 100 mg PO TID [facility] Last Admin: 10/07/24 20:47 Dose: 100 mg Glucagon (Glucagon 1 Mg/Ml Kit 1 Ml) 1 mg IM ONCE PRN; Protocol PRN Reason: Adult Acute Hypoglycemia Nursing Prot. Heparin Sodium (Porcine) (Heparin 5,000 Unit/Ml Inj 1 Ml) 5,000 unit SUBCUT Q12H [facility] Last Admin: 10/07/24 18:39 Dose: 5,000 unit Sodium Chloride (Sodium Chloride 0.9%) 500 mls @ 999 mls/hr IV .Q31M ONE Stop: 10/05/24 10:54 Last Infusion: 10/05/24 11:55 Dose: Infused Piperacillin Sod/Tazobactam (Sod 3.375 gm/ Sodium Chloride) 50 mls @ 100 mls/hr IV ONCE ONE; Protocol Stop: 10/05/24 10:55 Last Infusion: 10/05/24 11:54 Dose: Infused Piperacillin Sod/Tazobactam (Sod / Sodium Chloride) 50 mls @ 0 mls/hr [id number] CONT LAYLA; Protocol Sodium Chloride (Sodium Chloride 0.9%) 1,000 mls @ 100 mls/hr IV .Q10H [facility] Stop: 10/06/24 03:44 Last Admin: 10/05/24 18:37 Dose: 30 mls/hr Dextrose (D5w) 500 mls @ 0 mls/hr IV ONCE PRN; Protocol PRN Reason: Adult Acute Hypoglycemia Prot Dextrose (D10w) 125 mls @ 750 mls/hr IV PRN PRN; Protocol PRN Reason: Adult Acute Hypoglycemia Nursing Protocol Dextrose (D10w) 250 mls @ 1,000 mls/hr IV PRN PRN; Protocol PRN Reason: Adult Acute Hypoglycemia Nursing Protocol Piperacillin Sod/Tazobactam (Sod 3.375 gm/ Sodium Chloride) 50 mls @ 12.5 mls/hr IV Q8H [facility] Last Infusion: 10/07/24 23:51 Dose: Infused Sodium Chloride (Sodium Chloride 0.9%) 1,000 mls @ 100 mls/hr IV .Q10H [facility] Last Infusion: 10/07/24 23:50 Dose: 0 mls/hr Insulin Human Lispro (Insulin Lispro 100 Unit/1 Ml) 0 unit SUBCUT WM&BEDTIME [facility]; Protocol Last Admin: 10/07/24 20:41 Dose: Not Given Isosorbide Mononitrate (Isosorbide Mononitrate Er 30 Mg Tablet) 30 mg PO BID [facility] Last Admin: 10/07/24 18:38 Dose: 30 mg Levothyroxine Sodium (Levothyroxine 25 Mcg Tablet) 25 mcg PO DAILY@0600 [facility] Last Admin: 10/07/24 06:36 Dose: 25 mcg Metoprolol Succinate (Metoprolol Succinate Er (24 Hr) 25 Mg Tablet) 25 mg PO DAILY [facility] Last Admin: 10/07/24 09:43 Dose: 25 mg Non-Formulary Medication Inlyta 1mg Tablet 0 each PO BID [facility] Last Admin: 10/07/24 18:39 Dose: 1 each Ondansetron HCl (Ondansetron 2 Mg/Ml Sdv 2 Ml) 4 mg IVP Q8H PRN PRN Reason: vomiting, or N/V if npo Pantoprazole Sodium (Pantoprazole Dr 40 Mg Tablet) 40 mg PO DAILY [facility] Last Admin: 10/07/24 09:43 Dose: 40 mg Tamsulosin HCl (Tamsulosin 0.4 Mg Capsule) 0.8 mg PO QPM [facility] Last Admin: 10/07/24 18:38 Dose: 0.8 mg Allergies No Known Allergies Allergy (Verified 10/04/24 11:16) Home Medications aspirin 325 mg tablet,delayed release 325 mg PO DAILY 01/09/20 [History Confirmed 10/05/24] isosorbide mononitrate 60 mg tablet,extended release 24 hr 60 mg PO BID 01/09/20 [History Confirmed 10/05/24] nitroglycerin 0.4 mg sublingual tablet (Nitrostat) 0.4 mg sublingual Q5M PRN chest pain #50 tabs 07/02/21 [Rx Confirmed 10/05/24] multivitamin 1 tab PO DAILY 08/10/21 [History Confirmed 10/05/24] mecobalamin (vitamin B12) 1,000 mcg chewable tablet (B12 Active) 1,000 mcg PO DAILY #30 tabs 09/21/23 [Rx Confirmed 10/05/24] cholecalciferol (vitamin D3) 50 mcg (2,000 unit) capsule 50 mcg PO DAILY 11/16/23 [History Confirmed 10/05/24] cranberry 500 mg capsule 1,500 mg PO DAILY 11/16/23 [History Confirmed 10/05/24] metoprolol succinate 25 mg tablet,extended release 24 hr (Toprol XL) 25 mg PO DAILY #90 tabs 11/30/23 [Rx Confirmed 10/05/24] calcium 600 mg-D3 20 mcg-magnesium 50 nx-Oc-oadvjt-naga-boron tablet (Calcium 600-D3 Plus (mag-zinc)) 1 tab PO DAILY 12/07/23 [History Confirmed 10/05/24] loperamide 2 mg capsule (Imodium A-D) 2 mg PO .COMPLEX PRN loose stool 12/21/23 [History Confirmed 10/05/24] dapagliflozin propanediol 10 mg tablet (Farxiga) 10 mg PO DAILY 06/11/24 [ History Confirmed 10/05/24] gabapentin 300 mg capsule 300 mg PO TID #90 caps 06/20/24 [Rx Confirmed 10/05/24] metformin 1,000 mg tablet 1,000 mg PO BID 07/02/24 [History Confirmed 10/05/24] amlodipine 10 mg tablet 10 mg PO DAILY 09/01/24 [History Confirmed 10/05/24] atorvastatin 80 mg tablet 80 mg PO DAILY 09/01/24 [History Confirmed 10/05/24] axitinib 1 mg tablet (Inlyta) 3 mg PO BID 09/01/24 [History Confirmed 10/05/24] clopidogrel 75 mg tablet 75 mg PO DAILY 09/01/24 [History Confirmed 10/05/24] finasteride 5 mg tablet 5 mg PO DAILY 09/01/24 [History Confirmed 10/05/24] levothyroxine 25 mcg tablet 25 mcg PO DAILY 09/01/24 [History Confirmed 10/05/24] tamsulosin 0.4 mg capsule 0.8 mg PO QPM 09/01/24 [History Confirmed 10/05/24] pembrolizumab 25 mg/mL intravenous solution (Keytruda) 200 mg IV Q21D 10/05/24 [History Confirmed 10/05/24] Discharge Plan Discharge Patient Disposition: Xfer Short-Term Hosp Condition: Stable Prescriptions: No Action multivitamin Tablet 1 tab PO DAILY aspirin 325 mg tablet,delayed release (DR/EC) 325 mg PO DAILY isosorbide mononitrate 60 mg tablet extended release 24 hr 60 mg PO BID cranberry 500 mg capsule 1,500 mg PO DAILY mecobalamin (vitamin B12) [B12 Active] 1,000 mcg tablet,chewable 1,000 mcg PO DAILY Qty: 30 2RF dapagliflozin propanediol [Farxiga] 10 mg tablet 10 mg PO DAILY metformin 1,000 mg tablet 1,000 mg PO BID cholecalciferol (vitamin D3) 50 mcg (2,000 unit) capsule 50 mcg PO DAILY Ca-D3-mag im-toij-hqd-dione-bor [Calcium 600-D3 Plus (mag-zinc)] 600 mg calcium- 20 mcg-50 mg tablet 1 tab PO DAILY loperamide [Imodium A-D] 2 mg capsule 2 mg PO .COMPLEX PRN (Reason: loose stool) Patient Comments: per instructions and patient confirmation-2 caplets after first stool; 21 caplet after each subsequent loose stool; but no more than4 caplets in 24 hours Rx Instructions: 2 mg orally PRN; nitroglycerin [Nitrostat] 0.4 mg tablet, sublingual 0.4 mg SUBLINGUAL Q5M PRN (Reason: chest pain) Qty: 50 5RF Rx Instructions: for 3 doses metoprolol succinate [Toprol XL] 25 mg tablet extended release 24 hr 25 mg PO DAILY Qty: 90 3RF atorvastatin 80 mg tablet 80 mg PO DAILY clopidogrel 75 mg tablet 75 mg PO DAILY levothyroxine 25 mcg tablet 25 mcg PO DAILY tamsulosin 0.4 mg capsule 0.8 mg PO QPM amlodipine 10 mg tablet 10 mg PO DAILY finasteride 5 mg tablet 5 mg PO DAILY Inlyta 1 mg tablet 3 mg PO BID Rx Instructions: Dose reduction d/t adverse side effects gabapentin 300 mg Capsule 300 mg PO TID Qty: 90 0RF Keytruda 25 mg/mL Solution 200 mg IV Q21D Discharge Orders: Transfer Out of Facility (Order); Ordered 10/07/24 Ordered By: Sebastian Nevarez Referrals: Lenny Degroot MD [Primary Care Provider] - Patient Instructions: Opioid Safety Transfer Attestations Time Spent in Transfer Care: greater than 30 min Specific Discharge Activities: educating patient, educating and/or supporting family/caregiver, discussing with pcp/other providers, discussing with case mgr/social workers/dc planners, documenting/other paperwork and evaluating patient/reviewing data Status at Transfer: Cognitive status at transfer: cognitively intact ; B ehavioral status at transfer: cooperative ; Functional status at transfer: other assisted ambulation ; Overall status at transfer: patient is progressing back to baseline Quality Metrics Clinical Quality Measures [ No reported AMI, CVA or VTE this stay] Coding Level of Care Code Acute Code for Chg Fwd Diagnoses Generalized weakness R53.1 UTI (urinary tract infection) N39.0 Acute kidney injury superimposed on CKD N17.9; N18.9 Renal cell cancer C64.9
[2024-10-07 16:38] LABS: Glucose Point of Care 159 mg/dL (70-110)
[2024-10-07] MEDS: tamsulosin 0.4 mg Capsule 0.8 MG PO (18:38)
[2024-10-07 20:40] LABS: Glucose Point of Care 119 mg/dL (70-110)
[2024-10-08 00:31] VITALS: BP 161/71; PULSE 82; RESP 14; O2SAT 96
[2024-10-08 00:42] LABS: C.Diff PCR (Lab) NEGATIVE (Negative)
--- NOTE | 2024-10-08 00:47 | PC.NURSE ---
Patient left via EMS at this time to be trasnferred to [facility]. was at bedside and is aware. Report given to nurse named Eliud at [facility]. Chemo pills sent with EMS and all other belongings with .
== END 2024-10-08 00:48 | disposition short-term general hospital (02) | DRG 683 ==
LOC: ER 09:07 → MEDSURG 12:53
PROVIDERS: Admitting Provider Student in an Organized Health Care Education/Training Program; Emergency Provider Family Medicine; PCP Family Medicine; Visit Provider Student in an Organized Health Care Education/Training Program
DX: N17.9 Acute kidney failure, unspecified (principal); C64.2 Malignant neoplasm of left kidney, except renal pelvis; M62.82 Rhabdomyolysis; C78.00 Secondary malignant neoplasm of unspecified lung; C78.7 Secondary malignant neoplasm of liver and intrahepatic bile duct; N13.6 Pyonephrosis; R53.1 Weakness; E86.0 Dehydration; E88.A Wasting disease (syndrome) due to underlying condition; Z68.29 Body mass index [BMI] 29.0-29.9, adult; N30.20 Other chronic cystitis without hematuria; I12.9 Hypertensive chronic kidney disease with stage 1 through stage 4 chronic kidney disease, or unspecified chronic kidney disease; N18.9 Chronic kidney disease, unspecified; E11.22 Type 2 diabetes mellitus with diabetic chronic kidney disease; N40.1 Benign prostatic hyperplasia with lower urinary tract symptoms; N39.498 Other specified urinary incontinence; I25.10 Atherosclerotic heart disease of native coronary artery without angina pectoris; E78.5 Hyperlipidemia, unspecified; K52.9 Noninfective gastroenteritis and colitis, unspecified; Z63.8 Other specified problems related to primary support group; Z79.69 Long term (current) use of other immunomodulators and immunosuppressants; Z79.82 Long term (current) use of aspirin; Z79.84 Long term (current) use of oral hypoglycemic drugs; Z79.02 Long term (current) use of antithrombotics/antiplatelets; Z79.890 Hormone replacement therapy; Z87.440 Personal history of urinary (tract) infections; Z87.891 Personal history of nicotine dependence
CPT/HCPCS: 36415; 36416; 51702; 51798; 70450; 72131; 74176; 80053; 81001; 82550; 82607; 82746; 82962; 83540; 83550; 83605; 83735; 84145; 84439; 84443; 84481; 84484; 85025; 87040; 87086; 87493; 93005; 93308; 96365; 96372; 97161; 97166; 97530; 99285; J1644; J1815; J2543; J7030; J7040

== ENCOUNTER 2024-11-25 12:38 | Oncology outpatient (recurring) (ONCR) | payer MEDICARE, SELFPAY ==
[2024-11-25 13:09] LABS: Basophils # 0.1 10^3/uL (0.0-0.1); Basophils % 0.9 %; Eosinophils # 0.8 10^3/uL (0.0-0.8); Eosinophils % 9.8 %; Hematocrit 33.9 % (37-53); Lymphocytes # 1.7 10^3/uL (0.8-4.8); Lymphocytes % 21.7 %; Mean Corpuscular HGB Conc 29.8 g/dL (30-55); Mean Corpuscular Hemoglobin 27.5 pg (27-33); Mean Corpuscular Volume 92.4 fl (82-101); Mean Platelet Volume 9.2 fL (7.4-10.4); Monocytes # 0.7 10^3/uL (0.2-0.9); Monocytes % 8.6 %; Neutrophils # 4.51 10^3/uL (1.8-7.7); Neutrophils % 58.2 %; Nucleated Red Blood Cells % 0 %; Platelet Count 310 10^3/cmm (157-399); Red Blood Count 3.67 10^6/uL (3.85-5.65); Red Cell Distribution Width 15.9 % (12.1-15.1); White Blood Count 7.75 10^3/uL (3.29-11.43)
[2024-11-25 13:35] LABS: Albumin Level 2.9 g/dL (3.5-5.2); Alkaline Phosphatase 111 U/L (40-130); Blood Urea Nitrogen 50 mg/dL (8-23); Calcium 8.9 mg/dL (8.5-10.5); Carbon Dioxide 18 mmol/L (22-29); Chloride 99 mmol/L (98-107); Creatinine Clr Calc Pharmacy 24.7012; Globulin 3.7 g/dL (1.3-4.6); Glucose 262 mg/dL (65-115); Osmolality Calculated 300 mOsm/kg (285-295); Sodium 134 mmol/L (136-145); Thyroid Stimulating Hormone 5.79 uIU/mL (0.27-4.20); Total Bilirubin 0.3 mg/dL (0.15-1.2); Total Protein 6.6 g/dL (6.6-8.7)
[2024-11-25 13:36] LABS: Anion Gap 22.5 (5-19)
[2024-11-25 13:37] LABS: Alanine Aminotransferase 61 U/L (0-41); Aspartate Amino Transferase 48 U/L (0-40); Potassium 5.5 mmol/L (3.5-5.1)
== END 2024-12-13 23:59 | disposition home or self-care (01) ==
PROVIDERS: PCP Family Medicine; Visit Provider Internal Medicine Medical Oncology
DX: C64.2 Malignant neoplasm of left kidney, except renal pelvis (principal); R06.00 Dyspnea, unspecified; N18.9 Chronic kidney disease, unspecified; E03.9 Hypothyroidism, unspecified; Z96.0 Presence of urogenital implants; N13.9 Obstructive and reflux uropathy, unspecified; Z87.891 Personal history of nicotine dependence; Z79.899 Other long term (current) drug therapy
CPT/HCPCS: 80053; 84443; 85025; 99214

== ENCOUNTER 2024-12-14 13:22 | Inpatient (IN) | payer MEDICARE, SELFPAY ==
[2024-12-14 13:25] VITALS: BP 105/58; PULSE 94; RESP 16; TEMP 36.3; O2SAT 100
--- NOTE | 2024-12-14 13:34 | W.ED.WEAKNES ---
HPI - Weakness General: Chief complaint: Weakness Stated complaint: hyperglycemia Time Seen by Provider: 12/14/24 13:24 History of Present Illness: 79-year-old male presents emergency room with complaints of hyperglycemia from the correction. He is complaining of being weak. Not had any fever sweats chills night chest pain or abdominal pain no shortness of breath no fever sweats or chills correction reports she requested to come to the ER. He had no appetite this morning and did not eat. Associated symptoms: Denies chest pain, chills, dysuria or fever(s) Review of Systems Const: Denies: fever(s) or chills Card: Denies: chest pain Resp: Denies: dyspnea GI: Denies: abdominal pain : Denies: dysuria, urinary frequency or urinary urgency Musc: Denies: neck pain or back pain Skin/Breast: Denies: rash PFSH ED PFSH: Medical History Renal cell cancer 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 stricture Polyuria 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[place] coronary artery without angina pectoris SOB (shortness of breath) CAD (coronary artery disease) Hypertension Hyperlipidemia DDD (degenerative disc disease) Surgical History H/O rotator cuff surgery H/O vasectomy H/O laminectomy S/P cataract surgery Family History Mother Cancer Father Diabetes Brother Diabetes CAD (coronary artery disease) Family/Other Suicide Denies family history of Clotting disorder Dementia Chronic kidney disease (CKD) Anesthesia complication Bleeding disorder Lung disease Stroke Social History Smoking and tobacco/nicotine status: former use of tobacco/nicotine (smoked for 10 years quit in the 70s) Quit status (tobacco/nicotine): has quit using Former quit date comment: 1ppd x 3 years as teenager Second hand smoke exposure: Yes Alcohol intake: current Alcohol intake frequency: few times a week Alcohol type: beer Substance/Drug Use: never Current occupational status: retired Physical Exam Const: GENERAL APPEARANCE: cooperative ORIENTATION/CONSCIOUSNESS: Yes awake HENMT: COMMON NORMALS: normocephalic, atraumatic and hearing grossly normal bilaterally HEAD & SCALP: normocephalic and atraumatic Resp: COMMON NORMALS: normal respiratory effort, No retractions, No use of accessory muscles and clear to auscultation bilaterally AUSCULTATION: clear to auscultation bilaterally Cardio: COMMON NORMALS: regular rate, regular rhythm and No murmurs present (Cardio) RATE: regular rate RHYTHM: regular rhythm GI: COMMON NORMALS: Soft to palpation and No hepatosplenomegaly present AUSCULTATION: Yes normoactive bowel sounds PALPATION: Yes Soft to palpation, No Tenderness to palpation present (GI), No Guarding due to palpation present (GI) and Yes No hepatosplenomegaly present Extremity: COMMON NORMALS: normal to inspection, capillary refill normal, no clubbing, cyanosis or edema, no calf tenderness and no pedal edema Skin: COMMON NORMALS: no rashes or lesions noted GENERAL SKIN EXAM: no rashes or lesions noted Course Vital Signs: Vital signs: Vital Signs Temperature 97.5 F L 12/18/24 11:37 Pulse Rate 92 12/18/24 11:37 Respiratory Rate 16 12/18/24 11:37 Blood Pressure 124/65 12/18/24 11:37 Pulse Oximetry 98 12/18/24 11:37 Oxygen Delivery Me thod Room Air 12/18/24 11:37 MDM - Weakness Medical Decision Making Blood pressures have been stable. Patient was given fluids and a modified dose. He is septic. Source is from cystitis. Additionally patient has rhabdomyolysis he has diabetes and renal cancer. Antibiotics initiated cultures done. CT does not show any signs of obstruction but does show some hydronephrosis which has been chronic. Discussed with hospitalist will admit orders written Lab Data 12/18/24 04:45 12/18/24 04:45 Radiology Impressions Abdomen/Pelvis CT 12/14/24 17:06 IMPRESSION: 1. Ongoing moderate to severe bilateral hydroureteronephrosis to the level of the urinary bladder as well as perinephric and periureteral fat stranding. Underlying infection/inflammation is suspected. 2. Decompressed urinary bladder. Ongoing bladder wall thickening. Mild pericystic fat stranding is slightly improved from prior, though ongoing cystitis is possible. Correlate with physical exam findings and urinalysis. 3. Remainder stable. Laboratory Results WBC 8.51 10^3/uL (3.29-11.43) 12/14/24 13:33 RBC 3.82 10^6/uL (3.85-5.65) L 12/14/24 13:33 Hgb 10.50 g/dL (11.27-16.99) L 12/14/24 13:33 Hct 36.4 % (37-53) L 12/14/24 13:33 MCV 95.3 fl (82-101) 12/14/24 13:33 MCH 27.5 pg (27-33) 12/14/24 13:33 MCHC 28.8 g/dL (30-55) L 12/14/24 13:33 RDW 16.7 % (12.1-15.1) H 12/14/24 13:33 Plt Count 240 10^3/cmm (157-399) 12/14/24 13:33 MPV 9.3 fL (7.4-10.4) 12/14/24 13:33 Neut % (Auto) 56.7 % 12/14/24 13:33 Lymph % (Auto) 22.3 % 12/14/24 13:33 [place] % (Auto) 10.8 % 12/14/24 13:33 Eos % (Auto) 8.1 % 12/14/24 13:33 Baso % (Auto) 1.2 % 12/14/24 13:33 Neut # (Auto) 4.82 10^3/uL (1.8-7.7) 12/14/24 13:33 Lymph # (Auto) 1.9 10^3/uL (0.8-4.8) 12/14/24 13:33 [place] # (Auto) 0.9 10^3/uL (0.2-0.9) 12/14/24 13:33 Eos # (Auto) 0.7 10^3/uL (0.0-0.8) 12/14/24 13:33 Baso # (Auto) 0.1 10^3/uL (0.0-0.1) 12/14/24 13:33 Nucleated RBC % (auto) 0 % 12/14/24 13:33 Nucleated RBCs # 0.0 /100WBC 12/14/24 13:33 Specimen Type Arterial 12/14/24 13:28 Sample Site Radial, left 12/14/24 13:28 ABG pH 7.38 (7.35-7.45) 12/14/24 13:28 ABG pCO2 27.7 mmHg (35-45) L 12/14/24 13:28 ABG pO2 95.0 mmHg (80.0-100.0) 12/14/24 13:28 ABG PO2/FiO2 Ratio 452 12/14/24 13:28 ABG HCO3 16.3 mmol/L (22-26) L 12/14/24 13:28 ABG O2 Saturation 98.4 12/14/24 13:28 ABG Base Excess -7.7 mmol/L (-2.0-2.0) L 12/14/24 13:28 Dipesh Test Pos 12/14/24 13:28 A-a O2 Gradient 2.5 mmHg (5-10) L 12/14/24 13:28 Hematocrit 31.0 % (42-52) L 12/14/24 13:28 Hgb O2 Saturation 96.8 % (95-100) 12/14/24 13:28 Carboxyhemoglobin 0.9 %THgb (0.4-20.1) 12/14/24 13:28 Methemoglobin 0.8 % (0.4-1.5) 12/14/24 13:28 Total Hemoglobin 10.1 g/dL (14-18) L 12/14/24 13:28 Sodium 130.0 mmol/L (131-143) L 12/14/24 13:28 Potassium 4.4 mmol/L (3.5-5.0) 12/14/24 13:28 Glucose 311.0 mg/dL (70-115) H 12/14/24 13:28 Ionized Calcium 1.2 mmol/L (1.1-1.4) 12/14/24 13:28 O2 Delivery Device Room air 12/14/24 13:28 FiO2 21.0 % 12/14/24 13:28 Sign Painter Helper ID [place] 12/14/24 13:28 Sodium 127 mmol/L (136-145) L 12/14/24 13:33 Potassium 4.6 mmol/L (3.5-5.1) 12/14/24 13:33 Chloride 100 mmol/L (98-107) 12/14/24 13:33 Carbon Dioxide 14 mmol/L (22-29) L 12/14/24 13:33 Anion Gap 17.6 (5-19) 12/14/24 13:33 BUN 57 mg/dL (8-23) H 12/14/24 13:33 Creatinine 2.8 mg/dL (0.7-1.2) H 12/14/24 13:33 GFR Calculation Not Reportable 12/14/24 13:33 Glucose 306 mg/dL (65-115) H 12/14/24 13:33 POC Glucose 133 mg/dL (70-110) H 12/14/24 15:25 Estimat Average Glucose 174 12/14/24 13:33 Hemoglobin A1c 7.7 % (4.0-6.0) H 12/14/24 13:33 Calculated Osmolality 291 mOsm/kg (285-295) 12/14/24 13:33 Lactic Acid 2.4 mmol/L (0.5-2.2) H 12/14/24 13:33 Calcium 8.7 mg/dL (8.5-10.5) 12/14/24 13:33 Total Bilirubin 0.3 mg/dL (0.15-1.2) 12/14/24 13:33 AST 20 U/L (0-40) 12/14/24 13:33 ALT 25 U/L (0-41) 12/14/24 13:33 Alkaline Phosphatase 103 U/L (40-130) 12/14/24 13:33 C-Reactive Protein 31.5 mg/L (0.0-4.9) H 12/14/24 13:33 NT-Pro-B Natriuret Pep 387 pg/mL (0-450) 12/14/24 13:33 Total Protein 6.5 g/dL (6.6-8.7) L 12/14/24 13:33 Albumin 2.7 g/dL (3.5-5.2) L 12/14/24 13:33 Globulin 3.8 g/dL (1.3-4.6) 12/14/24 13:33 Procalcitonin 0.15 ng/mL (0-0.5) 12/14/24 13:33 TSH 4.65 uIU/mL (0.27-4.20) H 12/14/24 13:33 Urine Color Yellow (Yellow) 12/14/24 15:50 Urine Appearance Turbid (CLEAR) A 12/14/24 15:50 Urine pH 5.5 (5-7) 12/14/24 15:50 Ur Specific [place] 1.011 (1.005-1.030) 12/14/24 15:50 Urine Protein 3+ (Negative) A 12/14/24 15:50 Urine Glucose (UA) Negative (Normal) 12/14/24 15:50 Urine Ketones Negative (Negative) 12/14/24 15:50 Urine Blood 3+ (Negative) A 12/14/24 15:50 Urine Nitrate Negative (Negative) 12/14/24 15:50 Urine Bilirubin Negative (Negative) 12/14/24 15:50 Urine Urobilinogen 0.2 mg/dL (Negative) 12/14/24 15:50 Ur Leukocyte Esterase 3+ (Negative) A 12/14/24 15:50 Urine RBC 25-40 /hpf (0-2) H 12/14/24 15:50 Urine WBC >100 /hpf (0-5) H 12/14/24 15:50 Ur Squamous Epith Cells 0-4 /hpf (0-5) H 12/14/24 15:50 Amorphous Sediment Not Reportable 12/14/24 15:50 Urine Bacteria 2+ /hpf (NONE) H 12/14/24 15:50 All radiology interpretation(s) finalized by discharge Discharge Plan Discharge Patient Disposition: Admitted As Inpatient Admit Provider: Geoff Reynoso Clinical Impression: Sepsis, Generalized weakness, Hydronephrosis, Acute kidney injury superimposed on CKD, Rhabdomyolysis, UTI (urinary tract infection) Diabetes mellitus Qualifiers: Diabetes mellitus type: type 2 Diabetes mellitus penitentiary insulin use: without exterminator helper termite use Diabetes mellitus complication status: without complication Qualified Code(s): E11.9 - Type 2 diabetes mellitus without complications Condition: Stable Discharge Diet: Cardiac Discharge Activity: Resume usual activity Coding Level of Care Code ED Mid Teacher for Chg Fwd Related Data Home Medications ?Medication ?Instructions ?Recorded ?Confirmed loperamide 2 mg capsule (Imodium 2 mg PO .COMPLEX PRN loose stool 12/21/23 12/14/24 A-D) clopidogrel 75 mg tablet 75 mg PO DAILY 09/01/24 12/14/24 finasteride 5 mg tablet 5 mg PO DAILY 09/01/24 12/14/24 levothyroxine 25 mcg tablet 25 mcg PO DAILY 09/01/24 12/14/24 tamsulosin 0.4 mg capsule 0.8 mg PO QPM 09/01/24 12/14/24 acetaminophen 325 mg tablet 650 mg PO Q4H PRN Pain 12/14/24 12/14/24 isosorbide mononitrate 60 mg 60 mg PO BID 12/14/24 12/14/24 tablet,extended release 24 hr Held on 12/18/24. Instructions: Resume on 12/30/24. hold until you see primary care nut.tx.gluc.intol,lac-free,soy 1 ea PO DAILY 12/14/24 12/14/24 (Glucerna oral liquid) ondansetron 4 mg disintegrating 4 mg PO Q6H 12/14/24 12/14/24 tablet Previous Rx's ?Medication ?Instructions ?Recorded nitroglycerin 0.4 mg sublingual 0.4 mg sublingual Q5M PRN chest 07/02/21 tablet (Nitrostat) pain #50 tabs metoprolol succinate 25 mg 25 mg PO DAILY #90 tabs 11/30/23 tablet,extended release 24 hr (Toprol XL) Held on 12/18/24. Instructions: Resume on 12/30/24. axitinib 1 mg tablet (Inlyta) 3 mg (3 x 1 mg) PO BID #168 tabs 10/22/24 gabapentin 100 mg capsule 100 mg PO Q12H 30 days #60 caps 12/18/24 insulin lispro 100 unit/mL See Rx Instructions .Route 12/18/24 subcutaneous solution (Humalog .COMPLEX #10 mL U-100 Insulin) levofloxacin 750 mg tablet 750 mg PO DAILY 5 days #5 tabs 12/18/24 mirtazapine 15 mg tablet 15 mg PO BEDTIME 30 days #30 tabs 12/18/24 sodium bicarbonate 650 mg tablet 650 mg PO TID 7 days #21 tabs 12/18/24 Allergies Allergy/AdvReac Type Severity Reaction Status Date / Time No Known Allergies Allergy Verified 11/25/24 13:22
[2024-12-14 13:39] LABS: ABG PCO2 27.7 mmHg (35-45); ABG PH Result 7.38 (7.35-7.45); Alveolar-Arterial Oxygen Gradi 2.5 mmHg (5-10); Base Excess ABG -7.7 mmol/L (-2.0-2.0); Blood Gas Allen Test Pos; Blood Gas Operator Identificat WALCI; Blood Gas Sample Site Radial, left; Blood Gas Sample Type Arterial; Carboxyhemoglobin 0.9 %THgb (0.4-20.1); HCO3 ABG 16.3 mmol/L (22-26); HGB O2 Sat 96.8 % (95-100); Ionized Calcium Level - ABG 1.2 mmol/L (1.1-1.4); Methemoglobin 0.8 % (0.4-1.5); Oxygen Device ROOM AIR; Oxygen Saturation ABG 98.4; PO2 FiO2 Ratio Arterial Blood 452; Potassium Level - ABG 4.4 mmol/L (3.5-5.0); Total Hemoglobin 10.1 g/dL (14-18)
--- NOTE | 2024-12-14 13:39 | PC.PHAR ---
patient is from [facility]
--- NOTE | 2024-12-14 13:48 | ECG_ITS ---
[facility] 2024-12[facility]14 Pat Name: Elliot Lawton Department: Room: Gender: Male Animal Scientist: : 1945 Requested By: Brenden Munoz Order Number: [id number] Bennie MD: Amparo Theodore M.D. Measurements Intervals [place] Rate: 90 P: 45 ME: 151 QRS: 38 QRSD: 85 T: -10 QT: 355 QTc: 435 Interpretive Statements SINUS RHYTHM MINIMAL ST DEPRESSION [0.025+ mV ST DEPRESSION] Compared to ECG 10/06/2024 05:33:09 ST (T wave) deviation now present T-wave abnormality no longer present Electronically Signed On 12-15-2024 12:34:54 SECURITY CHECKER by Amparo Theodore M.D. [email or web address]
[2024-12-14 13:49] LABS: Basophils # 0.1 10^3/uL (0.0-0.1); Basophils % 1.2 %; Eosinophils # 0.7 10^3/uL (0.0-0.8); Eosinophils % 8.1 %; Hematocrit 36.4 % (37-53); Lymphocytes # 1.9 10^3/uL (0.8-4.8); Lymphocytes % 22.3 %; Mean Corpuscular HGB Conc 28.8 g/dL (30-55); Mean Corpuscular Hemoglobin 27.5 pg (27-33); Mean Corpuscular Volume 95.3 fl (82-101); Mean Platelet Volume 9.3 fL (7.4-10.4); Monocytes # 0.9 10^3/uL (0.2-0.9); Monocytes % 10.8 %; Neutrophils # 4.82 10^3/uL (1.8-7.7); Neutrophils % 56.7 %; Nucleated Red Blood Cells % 0 %; Platelet Count 240 10^3/cmm (157-399); Red Blood Count 3.82 10^6/uL (3.85-5.65); Red Cell Distribution Width 16.7 % (12.1-15.1); White Blood Count 8.51 10^3/uL (3.29-11.43)
[2024-12-14 13:50] LABS: Glucose Point of Care 292 mg/dL (70-110)
[2024-12-14 14:05] LABS: Alanine Aminotransferase 25 U/L (0-41); Albumin Level 2.7 g/dL (3.5-5.2); Alkaline Phosphatase 103 U/L (40-130); Aspartate Amino Transferase 20 U/L (0-40); Blood Urea Nitrogen 57 mg/dL (8-23); Calcium 8.7 mg/dL (8.5-10.5); Carbon Dioxide 14 mmol/L (22-29); Chloride 100 mmol/L (98-107); Creatinine Clr Calc Pharmacy 24.3642; Globulin 3.8 g/dL (1.3-4.6); Glucose 306 mg/dL (65-115); Osmolality Calculated 291 mOsm/kg (285-295); Sodium 127 mmol/L (136-145); Total Bilirubin 0.3 mg/dL (0.15-1.2); Total Protein 6.5 g/dL (6.6-8.7)
[2024-12-14 14:11] LABS: Anion Gap 17.6 (5-19); Potassium 4.6 mmol/L (3.5-5.1)
[2024-12-14] MEDS: insulin regular-human 100 units/1 mL 10 UNIT IVP (14:15)
[2024-12-14 14:30] VITALS: BP 80/50
--- NOTE | 2024-12-14 14:33 | PC.NURSE ---
PT blood pressure 80/50 manual, physician notified
[2024-12-14] MEDS: sodium chloride 0.9% 1,000 ML 999 ML IV (14:38)
[2024-12-14 15:28] LABS: Glucose Point of Care 133 mg/dL (70-110)
[2024-12-14 15:55] LABS: Bilirubin Urine Negative (Negative); Blood Urine 3+ (Negative); Glucose Urine UA Negative (Normal); Ketones Urine Negative (Negative); Leukocyte Esterase Urine 3+ (Negative); Nitrate Urine Negative (Negative); Protein Urine 3+ (Negative); Specific Gravity, Urine 1.011 (1.005-1.030); Urine Appearance Turbid (CLEAR); Urine Color Yellow (Yellow); Urobilinogen Urine 0.2 mg/dL (Negative); pH Urine 5.5 (5-7)
[2024-12-14 15:58] VITALS: BP 117/52; PULSE 79; O2SAT 100
[2024-12-14 16:03] LABS: Add Urine Culture? Yes; Add Urine Microscopic? YES; Bacteria Urine 2+ /hpf; RBC Urine 25-40 /hpf (0-2); Squamous Epithelial Cell Urine 0-4 /hpf (0-5); WBC Urine >100 /hpf (0-5)
[2024-12-14 16:33] LABS: Lactic Sepsis W/Reflex 2.4 mmol/L (0.5-2.2)
[2024-12-14 16:34] LABS: Reflex Lactate Order REFLEX LACTIC ORDERD
[2024-12-14 17:01] LABS: Lactic Acid level (Lactate) 1.8 mmol/L (0.5-2.2)
[2024-12-14] MEDS: cefTRIAXone 1,000 mg SDV 1000 MG IVP (17:04)
--- NOTE | 2024-12-14 17:06 | CTR_ITS ---
PROCEDURE INFORMATION: Exam: CT Abdomen And Pelvis Without Contrast Exam date and time: 12/14/2024 5:18 PM Age: 79 years old Clinical indication: Other: Fatigue TECHNIQUE: Imaging protocol: Computed tomography of the abdomen and pelvis without contrast. Radiation optimization: All CT scans at this facility use at least one of these dose optimization techniques: automated exposure control; mA and/or kV adjustment per patient size (includes targeted exams where dose is matched to clinical indication); or iterative reconstruction. COMPARISON: CT kidney stone [id number] 10/06/2024 10:00 PM RADIATION DOSE METRICS: Total DLP (mGy-cm): 841.95 FINDINGS: Tubes, catheters and devices: The urinary bladder is decompressed with a catheter in place. Lungs: Mild bibasilar atelectasis. Coronary arteries: Coronary artery calcifications. Liver: Normal. No mass. Gallbladder and biliary ducts: Cholelithiasis without CT evidence of acute cholecystitis. Pancreas: Normal. No ductal dilation. Spleen: Normal. No splenomegaly. Adrenal glands: Normal. No mass. Kidneys and ureters: Stable 2.6 cm right renal cortical cyst. Redemonstrated moderate to severe bilateral hydroureteronephrosis along with periureteral and perinephric fat stranding. Findings are overall similar to prior. Stomach and bowel: Moderate colorectal stool. No bowel obstruction. Appendix: No evidence of appendicitis. Intraperitoneal space: Unremarkable. No free air. No significant fluid collection. Vasculature: Moderate diffuse atherosclerotic aortoiliac calcifications. No abdominal aortic aneurysm. Lymph nodes: Unremarkable. No enlarged lymph nodes. Urinary bladder: Diffuse bladder wall thickening and mild pericystic fat stranding, the latter of which is slightly improved from prior. Reproductive: Unremarkable as visualized. Bones/joints: Advanced multilevel lumbar spondylosis. Multilevel anterior osteophytes. Diffuse osseous demineralization. Soft tissues: Unremarkable. CT/CT abdomen pelvis wo con [id number] IMPRESSION: 1. Ongoing moderate to severe bilateral hydroureteronephrosis to the level of the urinary bladder as well as perinephric and periureteral fat stranding. Underlying infection/inflammation is suspected. 2. Decompressed urinary bladder. Ongoing bladder wall thickening. Mild pericystic fat stranding is slightly improved from prior, though ongoing cystitis is possible. Correlate with physical exam findings and urinalysis. 3. Remainder stable.
[2024-12-14 17:07] VITALS: BP 120/57; PULSE 82; O2SAT 100
--- NOTE | 2024-12-14 17:14 | PM.HP ---
Providers/Chief Complaint Admitting Physician: Geoff Reynoso MD Primary Care Provider: Lenny Degroot MD Chief Complaint: hyperglycemia History of Present Illness Elliot Lawton is a 79 year old male with a past medical history of renal cell carcinoma with lung metastasis, on axitinib, follows up with urology history of frequent UTIs recent transfer to [facility] for a UTI, history of bilateral hydroureteronephrosis, patient's tells me that when he was up at [facility] ED did not do any surgery they said that the prostate was the issue, so they put in a Cueva catheter, he was managed on antibiotics, but discharged on oral antibiotics, he comes back to [facility] due to weakness, fatigue. Currently patient is alert oriented x 3, following all commands, denies any fevers, no chills, there is been concerns of hyperglycemia, no nausea, no vomiting, no flank pain he does remember the last time his Cueva catheter was changed. does tell me that since getting to [place] from [facility], he is lost about 14 pounds. tells me that that urologist at [facility] advised him that he has to get stronger before prostate surgery Review of Systems Const: Reports: fatigue and malaise; Denies: fever(s) Card: Denies: chest pain Resp: Denies: dyspnea GI: Denies: abdominal pain Medications/Allergies Home Medications ?Medication ?Instructions ?Recorded ?Confirmed ?Last Taken ?Type nitroglycerin 0.4 mg sublingual 0.4 mg sublingual Q5M PRN chest 07/02/21 12/14/24 Unknown Rx tablet (Nitrostat) pain #50 tabs metoprolol succinate 25 mg 25 mg PO DAILY #90 tabs 11/30/23 12/14/24 12/14/24 Rx tablet,extended release 24 hr (Toprol XL) loperamide 2 mg capsule (Imodium 2 mg PO .COMPLEX PRN loose stool 12/21/23 12/14/24 Unknown History A-D) clopidogrel 75 mg tablet 75 mg PO DAILY 09/01/24 12/14/24 12/14/24 History finasteride 5 mg tablet 5 mg PO DAILY 09/01/24 12/14/24 12/14/24 History levothyroxine 25 mcg tablet 25 mcg PO DAILY 09/01/24 12/14/24 12/14/24 History tamsulosin 0.4 mg capsule 0.8 mg PO QPM 09/01/24 12/14/24 10/04/24 History axitinib 1 mg tablet (Inlyta) 3 mg (3 x 1 mg) PO BID #168 tabs 10/22/24 12/14/24 Unknown Rx acetaminophen 325 mg tablet 650 mg PO Q4H PRN Pain 12/14/24 12/14/24 Unknown History isosorbide mononitrate 60 mg 60 mg PO BID 12/14/24 12/14/24 12/14/24 History tablet,extended release 24 hr nut.tx.gluc.intol,lac-free,soy 1 ea PO DAILY 12/14/24 12/14/24 Unknown History (Glucerna oral liquid) ondansetron 4 mg disintegrating 4 mg PO Q6H 12/14/24 12/14/24 Unknown History tablet Allergies Allergy/AdvReac Type Severity Reaction Status Date / Time No Known Allergies Allergy Verified 11/25/24 13:22 PFSH Acute PFSH: Medical History Renal cell cancer 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 stricture Polyuria 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[place] coronary artery without angina pectoris SOB (shortness of breath) CAD (coronary artery disease) Hypertension Hyperlipidemia DDD (degenerative disc disease) Surgical History H/O rotator cuff surgery H/O vasectomy H/O laminectomy S/P cataract surgery Family History Mother Cancer Father Diabetes Brother Diabetes CAD (coronary artery disease) Family/Other Suicide Denies family history of Clotting disorder Dementia Chronic kidney disease (CKD) Anesthesia complication Bleeding disorder Lung disease Stroke Social History Smoking and tobacco/nicotine status: former use of tobacco/nicotine (smoked for 10 years quit in the 70s) Quit status (tobacco/nicotine): has quit using Former quit date comment: 1ppd x 3 years as teenager Second hand smoke exposure: Yes Alcohol intake: current Alcohol intake frequency: few times a week Alcohol type: beer Substance/Drug Use: never Current occupational status: retired Vitals/I&O/Wt Last Vital Signs Temp 97.4 F L 12/14/24 13:25 Pulse 82 12/14/24 17:07 Resp 16 12/14/24 13:25 BP 120/57 12/14/24 17:07 Pulse Ox 100 12/14/24 17:07 O2 Del Method Room Air 12/14/24 17:07 12/14/24 12/14/24 12/14/24 06:59 14:59 22:59 Intake Total 1000 / 1000 Balance 1000 / 1000 Weight last 48 hrs Weight 95.254 kg Physical Exam Const: COMMON NORMALS: no acute distress and patient oriented x3 HENMT: COMMON NORMALS: normocephalic HEAD & SCALP: normocephalic Eye: COMMON NORMALS: Equal, round and reactive pupils present Neck/C-Spine: COMMON NORMALS: no JVD Resp: COMMON NORMALS: normal respiratory effort, No retractions, No use of accessory muscles and clear to auscultation bilaterally AUSCULTATION: clear to auscultation bilaterally Cardio: COMMON NORMALS: regular rate, regular rhythm, S1 normal heart sound present and S2 normal heart sound present RATE: regular rate RHYTHM: regular rhythm HEART SOUNDS: S1 normal heart sound present and S2 normal heart sound present GI: COMMON NORMALS: Normal to inspection, nondistended, normoactive bowel sounds present, Soft to palpation, non-tender, No hepatosplenomegaly present, no masses and no bruits PALPATION: Yes Soft to palpation and Yes No hepatosplenomegaly present Extremity: COMMON NORMALS: no calf tenderness and no pedal edema Neuro: COMMON NORMALS: patient oriented x3, CN's II-XII intact bilaterally and moves all extremities Psych: COMMON NORMALS: mental status grossly normal Data 12/14/24 13:33 12/14/24 13:33 Micro: Microbiology 12/14/24 16:34 Blood Culture - Preliminary Blood SPECIMEN COLLECTED 12/14/24 16:32 Blood Culture - Preliminary Blood SPECIMEN COLLECTED A&P Assessment and plan (1) Complicated UTI (urinary tract infection): (2) Acute kidney injury: (3) Sepsis: (4) Hyperglycemia: (5) BPH (benign prostatic hyperplasia): (6) Diabetes mellitus: Qualifiers: Diabetes mellitus complication status: without complication Diabetes mellitus longterm insulin use: without terminal clerk use Diabetes mellitus type: type 2 Qualified Code(s): E11.9 - Type 2 diabetes mellitus without complications (7) Secondary malignant neoplasm of unspecified lung: (8) Cancer of left kidney: Plan Complicated urinary tract infection -Given Cueva catheter placement -History of BPH -History of metastatic renal carcinoma, Inlyta and Keytruda currently on hold, immunocompromise state Plan -Will have nursing staff reach out to [facility] to find out when Cueva catheter was replaced, might need to be replaced -Blood cultures -Urine culture -Meropenem -Monitor closely Sepsis secondary to complicated UTI BPH, continue Flomax, finasteride Hypertension hold blood pressure medications Hyperglycemia, type 2 diabetes, low-dose sliding scale Pseudohyponatremia Acute kidney injury likely sec to complicated UTI, sepsis, IV fluids Metabolic acidosis, likely associate with sepsis, renal failure, hyperglycemia, monitor PDMP PDMP Reviewed: Not Reviewed Attestations Medical Necessity Statement*: Patient requires hospitalization, inpatient, greater than 2 midnights, for complicated urinary tract infection with sepsis Diagnoses Complicated UTI (urinary tract infection) N39.0 Acute kidney injury N17.9 Sepsis A41.9 Hyperglycemia R73.9 BPH (benign prostatic hyperplasia) N40.0 Type 2 diabetes mellitus without complication, without long-term current use of insulin E11.9 Diabetes mellitus complication status: without complication Diabetes mellitus terminal clerk insulin use: without longterm use Diabetes mellitus type: type 2 Secondary malignant neoplasm of unspecified lung C78.00 Cancer of left kidney C64.2
[2024-12-14 17:18] VITALS: BP 107/67; PULSE 83; O2SAT 100
[2024-12-14 17:36] LABS: NT Pro B Type Natriuretic Pept 387 pg/mL (0-450); Procalcitonin 0.15 ng/mL (0-0.5); Thyroid Stimulating Hormone 4.65 uIU/mL (0.27-4.20)
[2024-12-14 17:47] LABS: C Reactive Protein 31.5 mg/L (0.0-4.9)
[2024-12-14 17:51] VITALS: BMI 27.4
[2024-12-14 18:01] LABS: Estmated Average Glucose 174; Hemoglobin A1C 7.7 % (4.0-6.0)
[2024-12-14] MEDS: tamsulosin 0.4 mg Capsule 0.8 MG PO (18:25)
[2024-12-14] MEDS: pantoprazole 40 mg SDV IVP (18:26)
[2024-12-14] MEDS: enoxaparin 40 mg/0.4 mL Syringe SUBCUT (18:26)
[2024-12-14] MEDS: meropenem 500 mg SDV IVP (18:26)
[2024-12-14] MEDS: sodium chloride 0.9% 1,000 ML 75 ML IV ×2 (18:27→23:44)
[2024-12-14 18:29] LABS: Glucose Point of Care 195 mg/dL (70-110)
[2024-12-14] MEDS: insulin lispro 100 unit/1 mL SUBCUT (18:38)
[2024-12-14 19:55] VITALS: BP 118/63; PULSE 79; RESP 16; TEMP 36.9; O2SAT 99
[2024-12-14 20:23] LABS: Glucose Point of Care 209 mg/dL (70-110)
[2024-12-14] MEDS: atorvastatin 40 mg Tablet 80 MG PO (20:25)
--- NOTE | 2024-12-14 20:34 | PC.NURSE ---
Active bowel sounds present in all four quadrants. Some firmness noted upon palpation. During palpation, nurse asked patient if he was having any pain. Patient replied Only where you're punching on me. This nurse palpated once more, asking if he experienced pain in any particular area. Patient then declined having any pain at all, stating It doesn't hurt.
--- OUTSIDE RECORDS SUMMARY | 2024-12-14 22:55 | XMS_ITS ---
Author Organization [facility] are Address Unknown Medications Medication Dose Frequency Directions Start Date End Andrés e Metoprolol Succinate ER Oral Tablet Extended Release 24 Hour 25 MG 1 {tbl} 24 h Give 1 tablet by lakia th one time a day for ESSENTIAL (PRIMARY) HYPERTENSION (I10) 10/18/2024 Finasteride Oral Tablet 5 MG 1 {tbl} 24 h Give 1 tablet by lakia th one time a day for BENIGN PROSTATIC HYPERPLASIA WITH LOWER URINARY TRACT SYMPTO 10/18/2024 Atorvastatin Calcium Oral Tablet 80 MG 1 {tbl} Give 1 tablet by lakia th at bedtime for OTHER HYPERLIPIDEMIA (E78.49) 10/18/2024 Nitroglycerin Tablet Sublingual 0.4 MG 1 {tbl} Give 1 tablet sublingually every 5 minutes as needed for Chest Pain x 3 doses. If no relief, call MD. 10/17/2024 Isosorbide Mononitrate ER Oral Tablet Extended Release 24 Hour 60 MG 1 {tbl} 24 h Give 1 tablet by lakia th one time a day for ESSENTIAL (PRIMARY) HYPERTENSION (I10) 10/18/2024 Clopidogrel Bisulfate Oral Tablet 75 MG 1 {tbl} 24 h Give 1 tablet by lakia th one time a day for ATHEROSCLEROTIC HEART DISEASE OF [place] CORONARY ARTERY WITH 10/18/2024 Tamsulosin HCl Capsule 0.4 MG 2 {Capsule} 24 h Give 2 capsule by mouth one time a day for benign prostatic hyperplasia 10/21/2024 Levothyroxine Sodium Oral Tablet 25 MCG 25 mg 24 h RENETTA Give 25 mg b y mouth one time a day 10/25/2024 Aspirin Oral Capsule 81 MG 1 {Capsule} 24 h Give 1 capsule by mouth one time a day for ATHEROSCLEROTIC HEART DISEASE OF [place] CORONARY ARTERY WITH 10/31/2024 Acetaminophen Tablet 325 MG 2 {tbl} Give 2 tablet by lakia th every 4 hours as needed for general discomfort 11/02/2024 Inlyta Oral Tablet 1 MG 3 {tbl} 12 h Give 3 tablet by lakia th two times a day 11/19/2024 Loperamide HCl Oral Tablet 2 MG 1 {tbl} Give 1 tablet by lakia th every 6 hours as needed for Diarrhea 11/20/2024 Ondansetron Oral Tablet Disintegrating 4 MG 1 {tbl} Give 1 tablet by lakia th every 6 hours as needed for nausea 12/10/2024 Medications Administered Medication Dose Frequency Status Start Date End Date Metoprolol Succinate ER Oral Tablet Extended Release 24 Hour 25 MG 1 {tbl} 24 h Vitals Outside of Parameters for Administration 12/14/2024 Finasteride Oral Tablet 5 MG 1 {tbl} 24 h 12/14/2024 Atorvastatin Calcium Oral Tablet 80 MG 1 {tbl} Other / See Progress Notes?? 12/15/2024 Nitroglycerin Tablet Sublingual 0.4 MG 1 {tbl} 10/17/2024 Isosorbide Mononitrate ER Oral Tablet Extended Release 24 Hour 60 MG 1 {tbl} 24 h Vitals Outside of Parameters for Administration 12/14/2024 Clopidogrel Bisulfate Oral Tablet 75 MG 1 {tbl} 24 h 12/14/2024 Tamsulosin HCl Capsule 0.4 MG 2 {Capsule} 24 h Other / See Progress Notes?? 12/15/2024 Levothyroxine Sodium Oral Tablet 25 MCG 25 mg 24 h 12/14/2024 Aspirin Oral Capsule 81 MG 1 {Capsule} 24 h 12/14/2024 Acetaminophen Tablet 325 MG 2 {tbl} 12/13/2024 Inlyta Oral Tablet 1 MG 3 {tbl} 12 h 11/25/2024 Loperamide HCl Oral Tablet 2 MG 1 {tbl} 11/20/2024 Ondansetron Oral Tablet Disintegrating 4 MG 1 {tbl} 12/10/2024 Problems Problem Status Start Date End Date URINARY TRACT INFECTION, SIT E NOT SPECIFIED (Primary) (N39.0 - ICD-10-CM) ACTIVE 10/17/2024 ACUTE KIDNEY FAILURE, UNSPECIFIED (N17.9 - ICD-10-CM) ACTIVE 10/17/2024 MALIGNANT NEOPLASM OF UNSPEC IFIED KIDNEY, EXCEPT RENAL PELVIS (C64.9 - ICD-10-CM) ACTIVE 10/17/2024 CHRONIC OBSTRUCTIVE PULMONAR Y DISEASE, UNSPECIFIED (J44.9 - ICD-10-CM) ACTIVE 10/17/2024 TYPE 2 DIABETES MELLITUS WIT H DIABETIC NEUROPATHY, UNSPECIFIED (E11.40 - ICD-10-CM) ACTIVE 10/17/2024 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) ACTIVE 10/17/2024 BENIGN PROSTATIC HYPERPLASIA WITH LOWER URINARY TRACT SYMPTOMS (N40.1 - ICD-10-CM) ACTIVE 10/17/2024 OBSTRUCTIVE AND REFLUX UROPA THY, UNSPECIFIED (N13.9 - ICD-10-CM) ACTIVE 10/17/2024 RETENTION OF URINE, UNSPECIFIED (R33.9 - ICD-10-CM) AC TIVE 10/17/2024 OTHER HYPERLIPIDEMIA (E78.49 - ICD-10-CM) ACTIVE 10/17/2024 ESSENTIAL (PRIMARY) HYPERTENSION (I10 - ICD-10-CM) ACT ANA 10/17/2024 VITAMIN DEFICIENCY, UNSPECIFIED (E56.9 - ICD-10-CM) AC TIVE 10/17/2024 Encounters Encounter Performer Performer Role Encounter Diagnoses Location [facility] 10/17/2024 02:26 pm EST - 12/14/2024 02:18 pm EST Reason For Referral see note Social History Vital Signs Vital Sign Reading Time Taken bloodSugar 189 mg/dL 12/14/2024 07:12 am EST bloodSugar 359 mg/dL 12/13/2024 09:01 pm EST bloodSugar 222 mg/dL 12/13/2024 06:39 am EST bloodSugar 295 mg/dL 12/12/2024 08:21 pm EST bloodSugar 195 mg/dL 12/12/2024 06:05 am EST bloodSugar 254 mg/dL 12/11/2024 08:22 pm EST bloodSugar 238 mg/dL 12/11/2024 06:32 am EST bloodSugar 221 mg/dL 12/10/2024 10:06 pm EST painLevel 3 {score} 12/13/2024 02:22 pm EST painLevel 4 {score} 12/13/2024 02:09 pm EST heartrate 65 /min 12/13/2024 11:06 am EST heartrate 75 /min 12/12/2024 11:03 am EST heartrate 73 /min 12/11/2024 11:23 am EST heartrate 76 /min 12/10/2024 11:40 am EST systolicValue 90 mm[Hg] 12/13/2024 11:06 am EST diastolicValue 62 mm[Hg] 12/13/2024 11:06 am EST systolicValue 88 mm[Hg] 12/12/2024 11:03 am EST diastolicValue 52 mm[Hg] 12/12/2024 11:03 am EST systolicValue 112 mm[Hg] 12/11/2024 11:23 am EST diastolicValue 58 mm[Hg] 12/11/2024 11:23 am EST systolicValue 122 mm[Hg] 12/10/2024 11:40 am EST diastolicValue 60 mm[Hg] 12/10/2024 11:40 am EST oxygenSaturation 18 % 12/04/2024 01:0 7 pm EST temperature 96.6 [degF] 12/04/2024 01:07 pm EST respirations 18 /min 12/04/2024 01:07 pm EST
--- OUTSIDE RECORDS SUMMARY | 2024-12-14 22:55 | XMS_ITS | Data Portability ---
Author Organization JONATHAN Radhames Quijano [facility], [place], [facility] Address [address] [place] [address] Care Team Providers Care Port Engineer Name Role Phone LUIZ DEGROOT Primary Care Provider Unavailabl e Assessment No assessment recorded. Plan of Treatment Reminders Order Date Submit Date Provider Last Modified By Organization Details Last Modified Time Details Appointments None recorded. Lab urinalysis , dipstick 2023 [email or web address] [facility] ([facility]), [address] [place], [address], 4 07:09:37 culture, urine 2023 024 [facility], [address] [place] [address], [facility] [address] [place], [address], 4 03:58:28 Referral None recorded. Procedures None recorded. Surgeries None recorded. Imaging None recorded. Medication Orders cefdinir 300 mg capsule 2023 024 [email or web address] #[id number], [address] [facility], [facility] [address], [address], 4 14:36:12 Patient TargetsNo targets recorded. Patient Instructions Encounter Date Encounter Id Patient Instructions Last Modified By Organization Details Last Modified Time 09/14/2024 [id number] Increase fluids. Keep follow up with Dr Zane [email or web address] Not available 09/14/2024 10:16:01 10/21/2024 [id number] Limited records; will request D/c metformin, mvi with decreased appetite Schedule labs. Not available 10/21/2024 16:00:52 10/30/2024 [id number] staff reports decreased appetite. concerned, discussed how medications could be killing appetite, agree to stop metformin, farxiga, gabapentin to see if appetite improves. Blood pressure too low, will stop amlodipine. Will have staff check sugars bid. [email or web address] Not available 10/30/2024 15:57:13 11/20/2024 [id number] Re-started on Chemo pills earlier in the week. significant diarrhea since staring, will give imodium q6 hours prn. Cueva removed to change, night staff unable to re-insert. Day staff to try. Sugars controlled. [email or web address] Not available 11/20/2024 15:07:24 Reason for Referral None Reported. Results Created Date Observation Date Name Description Value Unit Range Abnormal Flag Note LastModifiedBy Organization Detail LastModifiedTime 09/17/20 24 09/17/2024 CULTU RE, URINE , ROUTI NE culture, urine, routine SEE NOTE abnormal CULTU RE, URINE , ROUTI NE Micro Numbe r: [id number] Test Statu s: Final Speci men Sourc e: Not given Speci men Quali ty: Adequ ate Resul t: 10,00 0-49, 000 CFU/m L of [place] da glabr wei Susce ptibi lity testi ng not routi jose carlos perfo rmed on this isola te. NO COLLE CTION DATE RECEI ERICA. WE HAVE USED THE DATE THE SPECI MEN WAS RECEI ERICA BY THIS LABOR ATORY THE COLLE CTION DATE. IF THIS IS INCOR RECT, PLEAS E CONTA CT CLIEN T SERVI XIN. PHONE NUMBE R: [phone] Not Available [facility] [id number], [place], [address], 09/17/2024 03:58:28 09/14/20 24 09/14/2024 urina lysis , dipst ick Leukocytes Large Not Available [facility] [address] [place], [address], 09/14/2024 09:44:08 09/14/20 24 09/14/2024 urina lysis , dipst ick Nitrite negati ve Not Available [facility] ([facility]) [address] [place], [address], 09/14/2024 09:44:08 09/14/20 24 09/14/2024 urina lysis , dipst ick Urobilinogen .2 Not Available [facility] ([facility]) [address] [place], [address], 09/14/2024 09:44:08 09/14/2009/14/2024 urina lysis , dipst ick Protein 100 Not Available [facility] ([facility]) [address] [place], [address], 09/14/2024 09:44:08 09/14/20 24 09/14/2024 urina lysis , dipst ick pH 6.0 Not Available [facility] ([facility]) [address] [place], [address], 09/14/2024 09:44:08 09/14/20 24 09/14/2024 urina lysis , dipst ick Blood Modera te Not Available [facility] ([facility]) [address] [place], [address], 09/14/2024 09:44:08 09/14/20 24 09/14/2024 urina lysis , dipst ick Specific [place] 1.025 Not Available [facility] ( [facility]) [address] [place], [address], 09/14/2024 09:44:08 09/14/20 24 09/14/2024 urina lysis , dipst ick Ketone Negati ve Not Available [facility] ([facility]) [address] [place], [address], 09/14/2024 09:44:08 09/14/20 24 09/14/2024 urina lysis , dipst ick Bilirubin Negati ve Not Available [facility] ([facility]) [address] [place], [address], 09/14/2024 09:44:08 09/14/20 24 09/14/2024 urina lysis , dipst ick Glucose 500 Not Available [facility] ([facility]) [address] [place], [address], 09/14/2024 09:44:08 09/14/20 24 09/14/2024 urina lysis , dipst ick Appearance Cloudy Not Available [facility] ([facility]) [address] [place], [address], 09/14/2024 09:44:08 09/14/20 24 09/14/2024 urina lysis , dipst ick Color Pale Yellow Not Available [facility] ([facility]) [address] [place], [address], 09/14/2024 09:44:08 Result Notes None recorded. 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 3 13:13:14 Hyperten sive disorder 69449381 Active 2022 BENIGN ESSENTIA L HYPERTEN HARPREET; Recorded 10/30/19 9:13AM by Luiz Degroot MD, Office Visit; Promoted ; acuity set as *; LOU NOLVIA lipscomb [facility] 3 13:13:14 Benign hyperten harpreet 22763976 Completed 202011/05/2020 HTN - Status is Inactive ; 11/05/19 11:33AM by Steffi Woodruff CMT, Annotati on/Adden dum; Promoted ; acuity set as *; Not Available [facility] 3 03:08:43 Coronary atherosc lerosis 460056633 Active 2022 ARTERIOS CLEROSIS OF CORONARY ARTERY; Recorded 10/30/19 9:14AM by Luiz Degroot MD, Office Visit; Promoted ; acuity set as *; LOUSA NOLVIA lipscomb [facility] 3 13:13:14 Large prostate 334234831 Active 2022 BPH (BENIGN PROSTATI C HYPERPLA BARBI); Recorded 10/30/19 9:13AM by Luiz Degroot MD, Office Visit; Promoted ; acuity set as *; LOU lipscomb [facility] 3 13:13:14 Disorder due to type 2 diabetes mellitus 485895523 Active 2022 DIABETES MELLITUS WITH COMPLICA TION; Recorded 10/30/19 9:13AM by Luiz Degroot MD, Office Visit; Promoted ; acuity set as *; LOU lipscomb [facility] 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 3 16:00:12 Type 2 diabetes mellitus 13925787 Active 2022 Luiz Degroot MD [address] [place] [address], [address] , [facility] 3 14:52:28 Acute urinary tract infectio n 705435510 Active 2022 LOU lipscomb [facility] 3 13:13:14 Renal mass 464753546 Active 2022 LOU lipscomb [facility] 3 13:13:14 Tobacco user 842354081 Active 2023 Luiz Degroot MD [address] [place] [address], [address] , [facility] 4 09:04:20 COVID-19 869075204 Active 2023 Luiz Degroot MD [address] [place] [address], [address] , [facility] 4 10:15:19 Increase d frequenc y of urinatio n 652603484 Active 2023 Luiz Degroot MD [address] [place] [address], [address] , [facility] 4 12:45:08 Unsteady when walking 10074182 Active 2023 Luiz Degroot MD [address] [place] [address], [address] , [facility] 4 11:38:14 [facility] [place] [facility] within past 30 days 24445950553 06 Active 2024 YOLANDA lipscomb, [facility] 5 15:46:30 Hyperlip idemia 65541891 Active 2022 LOU lipscomb, [facility] 3 13:13:14 Benign prostati c hyperpla barbi 931270375 Active 2022 LOU lipscomb, [facility] 3 13:13:14 Anemia 453858496 Active 2022 LOU NOLVIA lipscomb [facility] 3 13:13:14 Spinal stenosis in cervical region 78750800 Active 2022 LOU NOLVIA lipscomb [facility] 3 13:13:14 Spinal stenosis of lumbar region 69522372 Active 2022 LOU CUNHAMarlen lipscomb [facility] 3 13:13:13 Arthropa thy 547760727 Active 2022 LOU CUNHAG deisi [facility] 3 13:13:14 Osteoart hritis 456163833 Active 2022 LOU NOLVIA lipscomb [facility] 3 13:13:14 Chronic obstruct esther pulmonar y disease 64585987 Active 2022 LOU lipscomb [facility] 3 13:13:13 Chronic kidney disease 564116721 Active 2022 LOU NOLVIA lipscomb [facility] 3 13:13:14 Problem Notes None recorded. Procedures Surgical History Date Name Laterality Status Provider Name and Address Organization Details Recorded Time Shoulder joint surgery completed [place] [facility] 11:36:24 Imaging Results None recorded. Procedure Notes None recorded. Medical Equipment None Reported. Allergies No known drug allergies Medications Name Sig Start Date Stop Date Status Note LastModified by Organization Details LastModified Time standard zhou r active Not Available Not Available Not Available atorvasta tin 80 mg tablet TAKE 1 TABLET BY MOUTH EVERY DAY active Not Available Not Available No t Available prednison e 10 mg tablet TAKE 2 TABS TWICE A DAY UNTIL DIARRHEA RESOLVED , 1 TAB TWICE A DAY FOR 3 DAYS, THEN 1 TAB DAILY 06/24 completed Not Available Not Available Not Available gabapenti n 600 mg tablet TAKE 1 TABLET BY MOUTH THREE TIMES A DAY 07/15 completed Not Available Not Available Not Available senna 8.6 mg tablet TAKE ONE TABLET BY MOUTH DAILY NEEDED FOR CONSTIPA TION active Not Available Not Available No t Available lisinopri l 20 mg tablet TAKE 1 TABLET DAILY 09/14 completed Not Available Not Available Not Available dexametha sone 6 mg tablet TAKE 1 TABLET BY MOUTH EVERY DAY FOR 3 DAYS 06/27 completed Not Available Not Available Not Available prednison e 5 mg tablet TAKE 1 TABLET BY MOUTH EVERY DAY 09/14 completed Not Available Not Available Not Available Accu-Chek Softclix Lancets USE TO TEST DAILY active Not Available Not Available No t Available clopidogr el 75 mg tablet TAKE 1 TABLET BY MOUTH EVERY DAY active Not Available Not Available No t Available prochlorp erazine maleate 10 mg tablet TAKE ONE TABLET BY MOUTH EVERY 4 HOURS NEEDED FOR mild nausea active Not Available Not Available No t Available ciproflox acin 500 mg tablet TAKE 1 TABLET EVERY 12 HOURS BY MOUTH FOR 5 DAYS, FOR URINARY TRACT INFECTIO N. 09/23 completed Not Available Not Available Not Available sulfameth oxazole 800 mg-trimet hoprim 160 mg tablet Take 1 tablet every 12 hours by oral route for 7 days. 09/23 completed Not Available Not Available Not Available levothyro xine 25 mcg tablet TAKE 1 TABLET BY MOUTH EVERY DAY active Not Available Not Available No t Available Crangel capsule daily 07/28 completed 0; Recorded 10/28/19 23 12:57PM by Lou Yeh, Office Visit; Not Available Not Available Not Available isosorbid e mononitra te ER 60 mg tablet,ex tended release 24 hr TAKE 1 TABLET BY MOUTH TWICE A DAY FOR HEART active Not Available Not Available No t Available tamsulosi n 0.4 mg capsule TAKE 2 CAPSULES BY MOUTH EVERY DAY active Not Available Not Available No t Available OneTouch Ultra Test strips USE 1 STRIP 4 TIMES DAILY BEFORE MEALS active Not Available Not Available No t Available amlodipin e 10 mg tablet TAKE 1 TABLET BY MOUTH EVERY DAY active Not Available Not Available No t Available cephalexi n 500 mg capsule TAKE ONE CAPSULE BY MOUTH THREE TIMES A DAY FOR 7 DAYS 09/23 completed Not Available Not Available Not Available Banophen 25 mg tablet TAKE ONE TABLET BY MOUTH THREE TIMES DAILY NEEDED FOR ALLERGY SYMPTOMS active Not Available Not Available No t Available metformin 1,000 mg tablet TAKE 1 TABLET BY MOUTH TWICE A DAY WITH FOOD active Not Available Not Available No t Available nitroglyc leonora 0.4 mg sublingua l tablet PLACE 1 TABLET UNDER THE TONGUE EVERY 5 MINUTES, UP TO 3 DOSES NEEDED FOR CHEST PAIN active Not Available Not Available No t Available docusate sodium 100 mg capsule TAKE 1 CAPSULE BY MOUTH 3 X A DAY ALTERNAT E WITH DULCOLAX TO KEEP STOOL SOFT WITH BM EVERY 1-2 DAYS active Not Available Not Available No t Available gabapenti n 300 mg capsule TAKE 1 CAPSULE BY MOUTH THREE TIMES A DAY FOR 90 DAYS active Not Available Not Available No t Available metoprolo l succinate ER 25 mg tablet,ex tended release 24 hr TAKE 1 TABLET BY MOUTH EVERY DAY active Not Available Not Available No t Available lorazepam 1 mg tablet TAKE 1/2-1 TABLET BY MOUTH EVERY 6 HOURS NEEDED FOR SEVERE nausea 02/12 completed Not Available Not Available Not Available cefuroxim e axetil 500 mg tablet 07/28 completed Not Available Not Available Not Available albuterol sulfate HFA 90 mcg/actua tion aerosol inhaler INHALE 2 PUFFS EVERY 6 HOURS NEEDED FOR SHORTNES S OF BREATH OR WHEEZING 07/28 completed Not Available Not Available Not Available lisinopri l 40 mg tablet TAKE 1 TABLET BY MOUTH EVERYDAY AT BEDTIME 09/14 completed Not Available Not Available Not Available cefdinir 300 mg capsule Take 1 capsule every 12 hours by oral route with meal(s) for 7 days. 09/23 completed Not Available Not Available Not Available finasteri de 5 mg tablet TAKE 1 TABLET BY MOUTH EVERY DAY active Not Available Not Available No t Available amoxicill in 875 mg-potass ium clavulana te 125 mg tablet TAKE 1 TABLET BY MOUTH TWICE A DAY 06/27 completed Not Available Not Available Not Available Vitamin B6 100 mg tablet daily active 0; Recorded 10/28/19 12:56PM by Lou Yeh, Office Visit; Not Available Not Available Not Available nitrofura ntoin monohydra te/macroc rystals 100 mg capsule Take 1 capsule every 12 hours by oral route for 7 days. 07/28 completed Not Available Not Available Not Available loperamid e 1 mg/7.5 mL oral liquid TAKE 15ml BY MOUTH EVERY 6 HOURS NEEDED FOR loose stool active Not Available Not Available No t Available aspirin QD active Recorded 12/12/19 08 4:34PM by Shamika Johnston RN, Office Visit; Refill Quantity : 0; Not Available Not Available Not Available garlic daily active 0; Recorded 10/28/19 12:56PM by Lou Yeh, Office Visit; Not Available Not Available Not Available Lipitor QD 08/02 completed Recorded 10/30/19 9:14AM by Luiz Degroot MD, Office Visit; Refill Quantity : 0; Not Available Not Available Not Available nitroglyc leonora as needed 06/29 completed 0; Recorded 10/28/19 12:55PM by Lou Yeh, Office Visit; Not Available Not Available Not Available Calcium 600 active Not Available Not Available Not Available lisinopri l daily 06/29 completed VO CS/jennie; Recorded 10/30/19 9:13AM by Luiz Degroot MD, Office Visit; Refill Quantity : 30; Tablet; Not Available Not Available Not Available metoprolo l succinate daily 06/29 completed Recorded 10/30/19 23 9:13AM by Luiz Degroot MD, Office Visit; Not Available Not Available Not Available Multivita mins daily active 0; Recorded 10/28/19 12:56PM by Lou Yeh, Office Visit; Not Available Not Available Not Available metformin BID 07/28 completed cs/smf take with food.; Recorded 10/30/19 23 9:13AM by Luiz Degroot MD, Office Visit; Refill Quantity : 200; Tablet; Not Available Not Available Not Available gabapenti n three times daily 07/28 completed cs/smf; 93532; Recorded 10/26/19 23 12:32PM by Lou Yeh (Authori zed through Luiz Degroot MD), Refill Request; Refill Quantity : 0; Not Available Not Available Not Available One Touch Ultra Test Strips use 1 strip daily 06/29 completed cs/smf; 88987; Recorded 06/22/20 3:55PM by Chrissy Vieira, RN (Authori zed through Hong Rangel DO), Refill Request; Refill Quantity : 0; Not Available Not Available Not Available Vitamin B12 active Not Available Not Available Not Available cholecalc iferol (vitamin D3) 1,250 mcg (50,000 unit) capsule TAKE 1 CAPSULE BY MOUTH ONCE WEEKLY active Not Available Not Available No t Available budesonid e-formote rol two times daily 08/02 completed 0; Recorded 04/27/20 22 1:28PM by Chrissy Vieira, RN, Office Visit; Not Available Not Available Not Available amlodipin e besylate (bulk) daily 06/29 completed Recorded 10/30/19 23 9:14AM by Luiz Degroot MD, Office Visit; Not Available Not Available Not Available Inlyta 5 mg tablet active Not Available Not Available No t Available Inlyta 1 mg tablet active Not Available Not Available No t Available Farxiga 10 mg tablet TAKE 1 TABLET BY MOUTH EVERY DAY active Not Available Not Available No t Available potassium chloride ER 20 mEq tablet,ex tended release TAKE ONE TABLET BY MOUTH TWICE DAILY 05/15 completed pts states that he doesn't take this Not Available Not Available Not Available Anoro Ellipta 62.5 mcg-25 mcg/actua tion powder for inhalatio n INHALE 1 PUFF BY MOUTH ONCE DAILY 07/28 completed Not Available Not Available Not Available Jardiance 10 mg tablet TAKE 1 TABLET BY MOUTH EVERY DAY 05/27 completed Not Available Not Available Not Available Jardiance daily 06/29 completed CS/smf; Recorded 10/30/19 23 9:13AM by Luiz Degroot MD, Office Visit; Refill Quantity : 100; Tablet; Not Available Not Available Not Available Bevespi Aerospher e 9 mcg-4.8 mcg HFA aerosol inhaler INHALE 2 PUFFS BY MOUTH TWICE A DAY 01/27 completed Not Available Not Available Not Available Wixela Inhub 250 mcg-50 mcg/dose powder for inhalatio n INHALE 1 PUFF TWICE A DAY 07/28 completed Not Available Not Available Not Available Accu-Chek Guide Me Glucose Meter other glucomet er broke 2022 active Not Available Not Available Not Avai lable OneTouch Delica Plus Lancet 33 gauge USE DIRECTED . active Not Available Not Available No t Available Breztri Aerospher e 160 mcg-9mcg- 4.8mcg/ac tuation HFA aerosol inhaler Inhale 2 puffs twice a day by inhalati on route for 90 days. 2023 active Not Available Not Available Not Avai lable Paxlovid 150 mg-100 mg tablets in a dose pack (Renal Dose) take 1 tablet of nirmatre lvir & 1 tablet of ritonovi r together twice daily for 5 days as directed 07/26 completed Not Available Not Available Not Available Vitals Date Recorded Body height Body mass index (BMI) Body weight Body temperature Oxygen saturation Oxygen saturation in Arterial blood by Pulse oximetry Heart rate Provider Name and Address Organization Details Last Updated DateTime 4 175.26 cm 30.1 kg/m2 67601.8 4 g 98.1 [degF] 99 % 99 % 84 /min [place] [facility] 4 09:48:11 Date Recorded Body height Body mass index (BMI) Body weight Oxygen saturation Oxygen saturation in Arterial blood by Pulse oximetry Heart rate Respiratory rate Body temperature Systolic blood pressure Diastolic blood pressure Provider Name and Address Organization Details Last Updated DateTime 4 175.26 cm 29.7 kg/m2 65709.4 7 g 97 % 97 % 95 /min 20 /min 96.4 [degF] 110 mm[Hg] 70 mm[Hg] Annie Davidson [facility] 4 14:42:23 Date Recorded Body height Body mass index (BMI) Body weight Heart rate Respiratory rate Body temperature Oxygen saturation Oxygen saturation in Arterial blood by Pulse oximetry Systolic blood pressure Diastolic blood pressure Provider Name and Address Organization Details Last Updated DateTime 5 175.26 cm 27.9 kg/m2 82762.9 6 g 75 /min 16 /min 97.3 [degF] 97 % 97 % 115 mm[Hg] 65 mm[Hg] YOLANDA [facility] 5 15:43:37 Date Recorded Body height Body mass index (BMI) Body weight Heart rate Respiratory rate Body temperature Oxygen saturation Oxygen saturation in Arterial blood by Pulse oximetry Systolic blood pressure Diastolic blood pressure Provider Name and Address Organization Details Last Updated DateTime 5 175.26 cm 27.6 kg/m2 09404.7 7 g 79 /min 18 /min 98.4 [degF] 99 % 99 % 100 mm[Hg] 61 mm[Hg] YOLANDA [facility] 5 15:54:45 Date Recorded Body height Body mass index (BMI) Body weight Heart rate Respiratory rate Body temperature Oxygen saturation Oxygen saturation in Arterial blood by Pulse oximetry Systolic blood pressure Diastolic blood pressure Provider Name and Address Organization Details Last Updated DateTime 5 175.26 cm 27.8 kg/m2 07222.3 7 g 65 /min 22 /min 97.9 [degF] 97 % 97 % 165 mm[Hg] 81 mm[Hg] YOLANDA [facility] 5 15:04:33 Social History None recorded. Functional Status None recorded. Mental Status None recorded. Family History Nothing Reported. Medical History No medical history recorded. Immunizations Vaccine Type Date Status Note Provider Nam e and Address Organization Details Recorded Time Influenza, split virus, trivalent, preservative 3 completed Not Available [facility] 11/14/2023 16:11:54 Influenza, split virus, trivalent, preservative 5 completed Not Available [facility] 11/14/2023 16:11:54 pneumococcal polysaccharide PPV23 5 completed Not Available [facility] 11/14/2023 16:11:54 Td (adult), 2 Lf tetanus toxoid, preservative free, adsorbed 7 completed Not Available [facility] 11/14/2023 16:11:54 Influenza, adjuvanted, quadrivalent, PF 3 completed LOU lipscomb [facility] 11/03/2023 17:31:17 COVID-19, mRNA, LNP-S, PF, 50 mcg/0.5 mL 3 completed LOU lipscomb [facility] 11/03/2023 17:31:17 Influenza, high-dose, quadrivalent, PF 2 completed LOU lipscomb [facility] 04/27/2023 14:09:22 COVID-19, mRNA, LNP-S, PF, 30 mcg/0.3 mL dose 1 [facility]27[facility] 14:09:22 COVID-19, mRNA, LNP-S, PF, 30 mcg/0.3 mL dose 1 completed LOU lipscomb, [facility] 04/27/2023 14:09:22 COVID-19, mRNA, LNP-S, PF, 30 mcg/0.3 mL dose, adryan-sucrose 2 completed LOU lipscomb [facility] 04/27/2023 14:09:22 COVID-19, mRNA, LNP-S, bivalent, PF, 30 mcg/0.3 mL dose 2 completed [facility] [place] [facility]/27/[facility]23 14:09:22 Past Encounters Encounter ID Performer Location Encounter Start Date Encounter Closed Date Diagnosis/Indication Diagnosis SNOMED-CT Code Diagnosis ICD10 Code Diagnosis Note [id number] Luiz Degroot MD [facility] ([facility]) [address] [place] [id number] 01/27/2023 13:48:42 02/02/2023 11:14:34 Type 2 diabetes mellitus 16312456 E11.8 Blood sugars are well controlled on current meds. No changes needed. Chronic ob structive pulmonary disease 35076376 J44.9 continue current inhalers. He states his breathing is doing fair. Chronic ki dney disease 317835757 N18.30 We will evaluated further with [facility] [id number] Myron Mosqueda DO [facility] ([facility]) [address] [place] [phone] 04/20/2023 10:29:31 05/22/2023 10:31:57 Dysuria 60650447 R30.0 Blood in urine 21793884 R31.[address] Degroot (PCP) in 1-2 weeksIncre ase PO fluidMonit or for signs of infection - fever, chills, body achesRenal US orderedOTC Tylenol for any pain/disco mfort Return to clinic if any changes, any worsening, any concerns.P atient verbalized understand ing of plan. Acute urin carrillo tract infection 572674939 N39.0 Urine culture positive for Klebsiella oxytoca, patient notified of results via phone.Anti biotic sent to pharmacy listed on chart. All questions answered. Educated to follow up with PCP. [id number] Lilian Orr [facility] ([facility]) [address] [place] [address] 04/27/2023 10:07:51 04/27/2023 14:08:30 [id number] Luiz Degroot MD [facility] ([facility]) [address] [place] [phone] 05/01/2023 13:47:26 05/01/2023 14:43:40 Acute urinary tract infection [id number] N39.0 Concerned that the antibiotic may not have treated his UTI appropriat daxa given the resistance to Keflex. We will treat with Macrobid. Patient was encouraged to drink plenty of fluids. Renal mass [id number] N28 .89 Discussed renal ultrasound results with the patient. Renal ultrasound did demonstrat e a left superior pole mass within the kidney. This needs to be further evaluated with CT abdomen pelvis with and without contrast. Patient was previously seeing Dr. Cruz and needs new urologist and we will go ahead and send in this referral given these findings. Diabetes mellitus 440975 09 E11.9 Patient's blood sugar is controlled per the patient. Last A1c was 5.9%. We will recheck it today. Essential hypertension 18040565 I10 Patient will monitor blood pressure and report if unable to control or if they develop new symptoms. [id number] ANSELMO ENNIS [facility] ([facility]) [address] [place] [phone] 5 05/22/2023 10:27:19 05/22/2023 14:47:34 Dysuria 93059309 R30.0 Acute urin carrillo tract infection 542384226 N30.01 [id number] Luiz Degroot MD [facility] ([facility]) [address] [place] [phone] 5 08/02/2023 14:11:44 08/02/2023 15:38:09 Type 2 diabetes mellitus 46214145 E11.8 Blood sugars are well controlled on current meds. No changes needed. A1c pending. Chronic ki dney disease 621662832 N18.30 Hypertensive disorder 38 384711 I10 Continue good blood pressure control. Patient will monitor blood pressure and report if unable to control or if they develop new symptoms. [id number] JULIETH RAQUEL [facility] ([facility]) [address] [place] [phone] 08/02/2023 13:57:14 08/02/2023 14:32:43 Disorder due to type 2 diabetes mellitus [id number] E11.8 [id number] Luiz Degroot MD [facility] ([facility]) [address] [place] [phone] 5 11/14/2023 16:00:12 11/15/2023 09:46:29 Disorder due to type 2 diabetes mellitus 885490946 E11.8 A1c today. No med changes Chronic ob structive pulmonary disease 64625531 J44.9 continue current inhalers. He states his breathing is doing fair. Hypertensive disorder 38 176889 I10 Continue good blood pressure control. Patient will monitor blood pressure and report if unable to control or if they develop new symptoms. Renal cell carcinoma 702 385283 C64.2 Being followed by oncology. [id number] Luiz Degroot MD [facility] ([facility]) [address] [place] [phone] 5 02/13/2024 15:48:35 02/13/2024 16:16:32 Disorder due to type 2 diabetes mellitus 142706197 E11.8 A1c today. No med changes Chronic ob structive pulmonary disease 24177264 J44.9 continue current inhalers. He states his breathing is doing fair. Chronic ki dney disease 733433703 N18.30 Hypertensive disorder 38 339993 I10 Continue good blood pressure control. Patient will monitor blood pressure and report if unable to control or if they develop new symptoms. [id number] Luiz Degroot MD [facility] ([facility]) [address] [place] [phone] 5 05/15/2024 14:16:17 05/15/2024 14:38:41 Type 2 diabetes mellitus 49127413 E11.8 Blood sugars are well controlled on current meds. No changes needed. Check A1c and urine microalbum in Coronary atherosclerosis 905062773 I25.10 Continue current medication s Disorder d ue to type 2 diabetes mellitus 431219537 E11.8 Hypertensive disorder 38 927581 I10 Continue good blood pressure control. Patient will monitor blood pressure and report if unable to control or if they develop new symptoms. Neuropathy due to type 2 diabetes mellitus [id number] 83683 E11.40 Continue gabapentin Renal cell carcinoma 702 660116 C64.2 Being followed by oncology. [id number] Luiz Degroot MD [facility] ([facility]) [address] [place] [phone] 5 06/24/2024 10:13:36 06/24/2024 10:51:37 Chronic kidney disease 432956277 N18.30 Will recheck kidney function and determine if it is safe to restart her metformin at this time. Type 2 holly opal mellitus 40256622 E11.8 COVID-19 751290505 U07.1 Patient patient was hospitaliz ed for COVID. Metformin was stopped due to increased lactic acid. [id number] TANYA CASTRO [facility] ([facility]) [address] [place] [phone] 5 07/19/2024 11:02:51 07/19/2024 12:28:48 Dysuria 56979745 R30.0 Acute urin carrillo tract infection 379782987 N39.0 [id number] NAZARIO RAMIREZ [facility] ([facility]) [address] [place] [phone] 5 07/26/2024 09:57:30 07/26/2024 10:32:33 Increased frequency of urination 727859057 R35.0 Dysuria 26726289 R30.0 Urine sample collected. Will call with culture result. Started on bactrim. No signs of pyelo or sepsis today. Pt will f/u with PCP next week. [id number] Luiz Degroot MD [facility] ([facility]) [address] [place] [phone] 5 07/29/2024 12:24:39 07/29/2024 13:56:38 Increased frequency of urination 452031218 R35.0 Concerned about continued issues with urination and this may be related to his prostate. Culture from July 17 did not demonstrat e any bacterial growth. Culture from July 26 is still pending. Commend continuing antibiotic s at this time and encouraged the patient to follow-up with his urologist. There is concerns about insurance with his current urologist at [facility]. The patient and his are also worried about transporta tion. The patient does have significan t needs and cannot travel by himself so the was also needing transporta tion with him. Will send a message to [facility] coordinato [facility] to help facilitate an appointmen t and transporta tion. [id number] Luiz eDgroot MD [facility] ([facility]) [address] [place] [phone] 08/23/2024 11:24:49 08/23/2024 12:07:16 Type 2 diabetes mellitus 96549768 E11.8 Patient is due for A1c. Continue current medication s. Benign pro static hyperplasia 489976617 N40.1 Is having significan t lower urinary tract symptoms. Patient does have a history of renal cell carcinoma that he was getting treatment here locally. Certain that the patient has significan t prostate issues that is not responding to medication . The patient is not sleeping due to significan t nocturia and this is affecting his health. The patient needs to be seen by his urologist. Care coordinato r did not help the patient set up an appointmen t, so we will send this to our family support specialist . Chronic ob structive pulmonary disease 17452913 J44.9 Will likely benefit from Breztri given his COPD. Samples provided today. Unsteady when walking 22 701259 R26.89 Patient does have significan t weakness and unsteadine ss when walking. The patient would benefit from a manual wheelchair . Will send order to [facility]. Renal cell carcinoma 702 663058 C64.2 Being followed by oncology. [id number] LUCERO HORNER APRN [facility] ([facility]) [address] [place] [phone] 5 09/14/2024 09:37:28 09/14/2024 15:35:13 Dysuria 20637428 R30.0 Acute urin carrillo tract infection 962982743 N39.0 [id number] Luiz Degroot MD [facility] ([facility]) [address] [place] [phone] 5 09/23/2024 14:09:15 09/24/2024 10:33:37 Dysuria 89824658 R30.0 Acute urin carrillo tract infection 365558741 N39.0 Continue with current treatment. Continue follow-up with urology as scheduled. No other concerns today. [id number] Hong Rangel DO [facility] ([facility]) [address] [place] [phone] 5 10/21/2024 12:31:03 10/21/2024 22:21:49 Hospital inpatient stay within past 30 days [id number] 106 Z76.89 Renal cell carcinoma 702 784034 C64.2 Disorder d ue to type 2 diabetes mellitus 897503728 E11.40 [id number] Hong Rangel [facility] ([facility]) [address] [place] [address] 10/30/2024 14:59:46 11/02/2024 10:15:20 Hypertensive disorder 43469095 I10 Neuropathy due to type 2 diabetes mellitus 9088627300 92751 E11.40 [id number] Hong Rangel [facility] ([facility]) [address] [place] [address] 11/20/2024 12:16:43 12/03/2024 07:54:40 Large prostate 101878200 N40.0 Renal cell carcinoma 702 655899 C64.2 Disorder d ue to type 2 diabetes mellitus 728871520 E11.40 Health Concerns Section Related Observation LastModified by Organization Detai ls LastModified Time None Recorded Concern Status LastModified by Organization Details LastModified Time None Recorded Advance Directives Directive None Recorded Payers Encounter Date Sequence Insurance Name Policy Number Policy Lee Covered Member ID Lee Member ID Guarantor Name 09/14/2024 1 [place] DVANT[place] - PPO) [id number] Elliot Lawton [id number] Elliot Lawton 09/23/2024 1 [place] - [place]) [id number] Elliot Lawton [id number] Elliot Lawton 10/21/2024 1 [place] - [place]) [id number] Elliot Lawton [id number] Elliot Lawton 10/30/2024 1 [place] - [place]) [id number] Elliot Lawton [id number] Elliot Lawton 11/20/2024 1 [place] - [place]) [id number] Elliot Lawton [id number] Elliot Lawton Notes Date Note Type Note Provider Name and Address Organization Details Recorded Time 4 text/html walk in ptPt has increased frequency and incontinence for a while now. Pts stated he has kidney cancer. He is on farxiga. He has been on cephalexin. Here with LUCERO HORNER, [employer] [address] [place], [phone] 15:27:40 4 text/html pt presents for [place] f/u, he was seen on 09/14/24 for UTIHe was tx with cefdinir 300mg. The patient has appointment with urology next week. Visit notes on 09/14/24: walk in ptPt has increased frequency and incontinence for a while now. Pts stated he has kidney cancer. He is on farxiga. He has been on cephalexin. Here with wifeplan at visit:1. BytbzjfS57.0: DysuriaURINALYSIS, DIPSTICKCULTURE, URINE, ROUTINE2. Acute urinary tract koeqkvepoA66.0: Urinary tract infection, site not specifiedcefdinir 300 mg capsule - Take 1 capsule(s) every 12 hours by oral route with meal(s) for 7 days. Qty: (14) capsule Refills: 0 Pharmacy: [id number], DIPSTICKResults:- Leukocytes: Large- Nitrite: negative- Urobilinogen: .2- Protein: 100- pH: 6.0- Blood: Moderate- Specific [place]: 1.025- Ketone: Negative- Bilirubin: Negative- Glucose: 500- Appearance: Cloudy- Color: Pale YellowPatient InstructionsIncrease fluids. Keep follow up with Dr Degroot He reports that he feels the same as when he was seen in [place] for the urinary problems.He states that he has frequency and urgency in which he is up most of the night urinating every 30 mins to hour. He is very tired and falling asleep during the day in his chair from being up all nightHis states that his urine is still cloudy and that he is often having incontinencehe stands up to go to the bathroom and is unable to make it to the bathroomHe has an appt on 10/01/24 for urology at [facility] in [place] withAlecia Colbert reports that he had an abd scan to recheck on his cancer and was informed that its stable, not worsening he brought in a log of his vitalsbp ranging from 91/51-126/60 and his HR is 67-85blood glucose readings are 111-138 Luiz Degroot MD [address] [place] [address], [phone], [facility] 09/25/2024 11:33:51 5 text/html DiabetesReported bypatient.Review finger sticks:fasting: Duration:chronic Control:usually well controlled Compliance:compliant with medications Hong Rangel DO [address] [place] [address], [phone], [facility] 10/21/2024 16:05:09 5 text/html DiabetesReported bypatient.Review finger sticks:fasting: Duration:chronic Control:usually well controlled Compliance:compliant with medications Hong Rangel DO [address] [place] [address], [phone], [facility] 10/31/2024 12:41:02 5 text/html DiabetesReported bypatient.Review finger sticks:fasting: Duration:chronic Control:usually well controlled Compliance:compliant with medications Hong Rangel DO [address] [place] [address], [phone], [facility] 11/29/2024 15:19:43
--- OUTSIDE RECORDS SUMMARY | 2024-12-14 22:55 | XMS_ITS | Encounter Summary ---
Author Organization [facility] Address [address] [place] [address] Care Team Providers Care Unit Controller Name Role Phone Unavailable Primary Care Provider Unavailabl e Reason for Visit * Reason Onset Date Comments Needs Appointment 12/06/2024 Encounter Details Date Type Department Care Team (Late st Contact Info) Description 12/06/2024 Telephone [facility] [place] [address]tr[address], [address] [place] [address] Alecia Colbert NP [address] [place] [address] Needs Appointment Social History Tobacco Use Types Packs/Day Years Used Date Smoking Tobacco: Every Day Cigarettes Feeling Safe Answer Date Recorded Are you in a relationship wi th someone who hurts you emotionally and/or physically? No 10/08/2024 Food Insecurity Answer Date Recorded Social/Environmental Concerns No concerns Transportation Needs Answer Date Record ed Social/Environmental Concerns No concerns Housing Stability Answer Date Recorded Social/Environmental Concerns No concerns Utility Needs Answer Date Recorded Social/Environmental Concerns No concerns Sex and Gender Information Value Date Recorded Sex Assigned at Not on file Legal Sex Male 11:43 AM [employer] Gender Identity Not on file Sexual Orientation Not on file documented as of this encounter Miscellaneous Notes * Telephone Encounter - Francheska Navarrete RN - 12/06/2024 10:24 AM [employer] Pts calling in to confirm phone appt for 12/10 with Alecia Colbert. The 12/10 appt was cancelleddue to NB in last note stating to follow up with Dr. Mazariegos in 1 month. After speakding to KENA Means, She stated that for them to proceed with the TURP surgery, he needs to be able to come to the clinic for evaluation determine suitability for surgery. Pts verbalized understanding. Stated megan t she would [facility] the [facility] to see about them setting up transportation for him to come up here for appt. [employer] WORK[employer] documented in this encounter Plan of Treatment Upcoming Encounters Date Type Department Care Team (Late st Contact Info) Description 01/09/2025 11:30 AM CDT Office Visit [facility]- [address]tr[address], [address] [place] [address] [facility]os [facility] [address] [place] [phone] documented as of this encounter Visit Diagnoses Not on filedocumented in this encounter
--- OUTSIDE RECORDS SUMMARY | 2024-12-14 22:55 | XMS_ITS | Clinical Summary ---
Author Organization [facility] Address [address] 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 Active aspirin (ECOTRIN EC) 325 mg Tablet, Delayed Release (E.C.) Take 325 mg by mouth daily. Active atorvastatin (LIPITOR) 80 mg tablet Take 80 mg by mouth daily. Active clopidogreL (PLAVIX) 75 mg Tablet Take 75 mg by mouth. Active MULTIVITAMIN ORAL Take by mouth. Active finasteride (PROSCAR) 5 mg tablet Take 5 mg by mouth daily. Active isosorbide mononitrate (IMDUR) 60 mg Extended Release 24 hour tablet Take 60 mg by mouth daily in the morning. Active empagliflozin (Jardiance) 10 mg tablet Take by mouth daily in the morning. Active metFORMIN (GLUCOPHAGE) 1,000 mg tablet Take 1,000 mg by mouth 2 times daily with meals. Active metoprolol succinate (TOPROL XL) 25 mg Extended Release 24 hour tablet Take 25 mg by mouth daily. Active nitroglycerin (NITROQUICK SUBLINGUAL) Place under tongue. Active pyridoxine (VITAMIN B6) 100 mg Tablet Take 50 mg by mouth daily. Active tamsulosin (FLOMAX) 0.4 mg capsule Take 2 Capsules (0.8 mg) by mouth daily. 60 Capsule 11 Active Active Problems Problem Noted Date Diagnosed Date Acute kidney injury superimposed on CKD 10/08/20 Obstructive uropathy 10/08/2024 Urinary retention 10/08/2024 Renal mass, left 06/09/2023 Renal cell carcinoma 05/15/2023 Acute urinary tract infection 05/01/2023 Chronic obstructive pulmonary disease 01/27/2023 Benign prostatic hyperplasia 01/18/2023 Hyperlipidemia 01/18/2023 Coronary atherosclerosis 10/29/2022 Overview (10/08/2024): ARTERIOSCLEROSIS OF CORONARY ARTERY; Recorded 10/30/2022 9:14AM by Lenny Degroot MD, Office Visit; Promoted; acuity set as *; Neuropathy due to type 2 diabetes mellitus 12/21 Overview (10/08/2024): NEUROPATHY IN DIABETES; Recorded 12/22/2021 9:33AM by Kaylin Ray, Office Visit; Promoted; acuity set as *; Benign hypertension 11/04/2020 Overview (10/08/2024): HTN - Status is Inactive; 11/05/2020 11:33AM by Steffi Woodruff CMT, Annotation/Addendum; Promoted; acuity set as *; Encounters Date Type Department Care Team Description 12/06/[address] Entrance B, [address] [place] [phone] Alecia Colbert NP Needs Appointment 11/12/2024 External Device Data [facility] Provider, Abstract 11/07/2024 External Device Data [facility] Provider, Abstract 11/06/2024 External Device Data [facility] Provider, Abstract 11/05/2024 External Device Data [facility] Provider, Abstract 10/29/2024 1:30 PM [employer] Telephone Check Up [address] Entrance B, [address] [place] [phone] Alecia Colbert NP 10/29/2024 External Device Data [facility] Provider, Abstract 10/29/[address] Entrance B, [address] [place] [phone] Alecia Colbert NP telephone appointment 10/28/2024 Orders Only [facility] [address] [place] [address] Provider, Abstract 10/22/[address] Entrance B, [address] [place] [phone] Charla Tam appointment check in (Called pt to check in and ask for donavan due to chart note, did not answer. 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 10/17/2024 9:20 AM [employer] - 10/17/2024 11:59 PM [employer]P Hospital Encounter [facility] [place] [address] [place] [address] Elda Martin MD Ambulance, [facility] Discharge Disposition: Intermediate Care Facility 10/15/2024 External Device Data [facility] Provider, Abstract 10/14/2024 7:25 AM [employer]P - 10/14/2024 11:59 PM [employer]P Hospital Encounter [facility] [address] [place] [phone] Elda Martin MD Discharge Disposition: Home or Self Care 10/08/2024 3:01 AM [employer]P - 10/18/2024 12:11 AM [employer]P Hospital Encounter [facility] [address] [place] [phone] Marc Garcias MD Patel, Taksh, MD Fariza, Elda Curran MD Obstructive uropathy Discharge Disposition: Long Term Fac(SNF) with Medicare Certification in Anticipation of Skilled Care 10/08/2024 Travel 10/01/2024 2:30 PM [employer] Office Visit [facility] Urology- [address] Entrance B, 3rd [place] [address] Alecia Colbert, GOVIND Benign prostatic hyperplasia with lower urinary tract symptoms, symptom details unspecified (Primary Dx) from Last 3 Months Immunizations Immunization Administration Dates Next Due (SPIKEVAX)(12 YRS AND UP)COV ID-19 VACCINE, MRNA, LNP-S(PF) 50 MCG/0.5 ML IM SUSPENCY USE AUTHORIZATION, RECOMBINANT-ADJ(PF) 5 MCG/0.5 ML IM SUSP 07/26/2023 Social History Tobacco Use Types Packs/Day Years Used Date Smoking Tobacco: Every Day Cigarettes Tobacco Cessation:Ready to Q uit: Not Asked; Counseling Given: Not Answered Feeling Safe Answer Date Recorded Are you [...] on file Legal Sex Male 11:43 AM [employer] Gender Identity Not on file Sexual Orientation Not on file Last Filed Vital Signs Vital Sign Reading Time Taken Comments Blood Pressure 135/66 10/17/2024 8:48 PM [employer]P Pulse 72 10/17/2024 8:48 PM [employer]P Temperature 36.2 ??C (97.1 ??F) 10/17/2024 8:48 PM CS T Respiratory Rate 18 10/17/2024 8:48 PM [employer]P Oxygen Saturation 94% 10/17/2024 8:48 PM [employer]P Inhaled Oxygen Concentration - - Weight 92.3 kg (203 lb 7.8 oz) 10/17/2024 4:26 A M [employer] Height 175.3 cm (5' 9 ) 10/08/2024 3:12 AM [employer]P Body Mass Index 30.05 10/08/2024 3:12 AM [employer]P Plan of Treatment Upcoming Encounters Date Type Department Care Team (Late st Contact Info) Description 01/09/2025 11:30 AM CDT Office Visit [facility] Urology- [address] Entrance B, 3[address] [place] [address] Favian Mazariegos MD [address] [facility] [address] [place] [address] Health Maintenance Due Date Last Done Comments DIABETES ANNUAL FOOT EXAM 1963 DIABETES ANNUAL RETINAL EXAM 1963 DIABETES MICROALBUMIN ANNUAL SCREEN 1963 LDL CHOLESTEROL ANNUAL 1963 DTAP/TDAP/TD VACCINES (1 - Tdap) 1964 ZOSTER VACCINE (1 of 2) 1995 PNEUMOCOCCAL VACCINE 50+ YEA RS (2 of 2 - PCV) 07/09/2016 07/09/2015 RSV VACCINE (60+ or ) (1 - 1-dose 75+ series) 2020 INFLUENZA VACCINE (#1) 2024 , 07/26/2022, 07/09/2015, Additional history exists COVID-19 Vaccine (6 - 2023-2 5 season) 2024 07/26/2023, 07/26/2022, 05/10/2022, Additional history exists DIABETES HBA1C Q 6 MONTHS 11/15/20242023, 02/13/2024, 11/14/2023, Additional history exists Procedures Procedure Name Priority Date/Time Associated Diagnosis Comments TELEMETRY REPORT 10/18/2024 12:1 2 PM [employer] POC GLUCOSE Routine 10/17/2024 5:11 PM [employer] POC GLUCOSE Routine 10/17/2024 11:35 AM [employer]P COMPREHENSIVE METABOLIC PANEL Routine 10/17/2024 9:56 AM [employer] CBC WITH DIFFERENTIAL Routine 10/17/2024 9:56 AM [employer] POC GLUCOSE Routine 10/16/2024 9:25 PM [employer] REP POC GLUCOSE Routine 10/16/2024 5:00 PM [employer] REP POC GLUCOSE Routine 10/16/2024 11:38 AM [employer]P CUSTOMER RELATIONSHIP SPECIALIST EVALUATE AND TREAT Routine 9:28 AM [employer] POC GLUCOSE Routine 10/16/2024 5:49 AM [employer]P COMPREHENSIVE METABOLIC PANEL Routine 10/16/2024 4:28 AM [employer] REP CBC WITH DIFFERENTIAL Routine 10/16/2024 4:28 AM [employer] REP POC GLUCOSE Routine 10/15/2024 9:26 PM [employer] REP POC GLUCOSE Routine 10/15/2024 5:51 PM [employer] REP POC GLUCOSE Routine 10/15/2024 12:45 PM [employer] REP POC GLUCOSE Routine 10/15/2024 8:26 AM [employer]P COMPREHENSIVE METABOLIC PANEL Routine 10/15/2024 4:16 AM [employer] CBC WITH DIFFERENTIAL Routine 10/15/2024 4:16 AM [employer]P POC GLUCOSE Routine 10/14/2024 10:09 PM [employer] REP POC GLUCOSE Routine 10/14/2024 5:15 PM [employer] REP POC GLUCOSE Routine 10/14/2024 11:21 AM [employer]P ECHOCARDIOGRAM W/ CONTRAST AGENT Routine 10/14/2024 10:06 AM [employer] POC GLUCOSE Routine 10/14/2024 7:40 AM [employer]P POC GLUCOSE Routine 10/14/2024 3:48 AM [employer]P COMPREHENSIVE METABOLIC PANEL Routine 10/14/2024 1:33 AM [employer] REP CBC WITH DIFFERENTIAL Routine 10/14/2024 1:32 AM [employer] REP POC GLUCOSE Routine 10/14/2024 12:37 AM [employer] REP POC GLUCOSE Routine 10/13/2024 10:38 PM [employer] SERV[employer] REP POC GLUCOSE Routine 10/13/2024 5:37 PM [employer] SERV[employer] REP POC GLUCOSE Routine 10/13/2024 11:58 AM [employer]P COMPREHENSIVE METABOLIC PANEL Routine 10/13/2024 10:12 AM [employer] REP CBC WITH DIFFERENTIAL Stat 10/13/2024 10:12 AM [employer]P CUSTOMER RELATIONSHIP SPECIALIST EVALUATE AND TREAT Routine 9:00 AM [employer] REP POC GLUCOSE Routine 10/13/2024 7:39 AM [employer] REP POC GLUCOSE Routine 10/13/2024 4:32 AM [employer] REP POC GLUCOSE Routine 10/13/2024 1:18 AM [employer] REP POC GLUCOSE Routine 10/12/2024 7:54 PM [employer] REP POC GLUCOSE Routine 10/12/2024 5:33 PM [employer] SERV[employer] REP POC GLUCOSE Routine 10/12/2024 12:37 PM [employer] REP EKG 12-LEAD Stat 10/12/2024 10:52 AM [employer]P POC GLUCOSE Routine 10/12/2024 7:37 AM [employer] REP MAGNESIUM LEVEL Routine 10/12/2024 6:05 AM [employer]P COMPREHENSIVE METABOLIC PANEL Routine 10/12/2024 6:05 AM [employer] REP CBC WITH DIFFERENTIAL Routine 10/12/2024 6:05 AM [employer] REP POC GLUCOSE Routine 10/11/2024 7:39 PM [employer] REP POC GLUCOSE Routine 10/11/2024 5:45 PM [employer] REP POC GLUCOSE Routine 10/11/2024 12:20 PM [employer] REP POC GLUCOSE Routine 10/11/2024 7:48 AM [employer] REP COMPREHENSIVE METABOLIC PANEL Routine 10/11/2024 3:18 AM [employer] REP CBC WITH DIFFERENTIAL Routine 10/11/2024 3:14 AM [employer] REP POC GLUCOSE Routine 10/10/2024 8:41 PM [employer] REP POC GLUCOSE Routine 10/10/2024 6:36 PM [employer] REP POC GLUCOSE Routine 10/10/2024 12:38 PM [employer] REP XR KNEE 1 OR 2 VW BILAT Routine 10/10/2024 10:40 AM [employer]P POC GLUCOSE Routine 10/10/2024 6:03 AM [employer] T4 FREE Routine 10/10/2024 5:16 AM [employer]P COMPREHENSIVE METABOLIC PANEL Routine 10/10/2024 5:16 AM [employer]P CBC WITH DIFFERENTIAL Routine 10/10/2024 5:16 AM [employer]P TSH REFLEXIVE Routine 10/10/2024 5:16 AM [employer] REP VITAMIN B12 AND FOLATE Routine 5:16 AM [employer]P POC GLUCOSE Routine 10/10/2024 1:02 AM [employer] REP POC GLUCOSE Routine 10/09/2024 9:23 PM [employer] REP POC GLUCOSE Routine 10/09/2024 5:31 PM [employer] REP MRI BRAIN WO CONTRAST Routine 10/09/2024 2:58 PM [employer] REP POC GLUCOSE Routine 10/09/2024 1:28 PM [employer] REP POC GLUCOSE Routine 10/09/2024 8:30 AM [employer] CK Routine 10/09/2024 3:56 AM [employer]P FERRITIN Routine 10/09/2024 3:56 AM [employer]P IRON, TIBC, AND PERCENT SATURATION Routine 10/09/2024 3:56 AM [employer]P COMPREHENSIVE METABOLIC PANEL Routine 10/09/2024 3:56 AM [employer]P CBC WITH DIFFERENTIAL Routine 10/09/2024 3:56 AM O[employer] SERV[employer] RE[employer] CT HEAD WO CONTRAST Routine 10/08/2024 9 :21 PM [employer] SERVICE REP POC GLUCOSE Routine 10/08/2024 8:09 PM [employer] REP POC GLUCOSE Routine 10/08/2024 6:05 PM [employer] REP POC GLUCOSE Routine 10/08/2024 12:10 PM [employer] REP POC GLUCOSE Routine 10/08/2024 8:51 AM [employer]P URINALYSIS W/REFLEX MICROSCOPIC Routine 10/08/2024 5:44 AM [employer]P URINE CULTURE Routine 10/08/2024 5:44 AM [employer] REP POC GLUCOSE Routine 10/08/2024 5:05 AM [employer]P COMPREHENSIVE METABOLIC PANEL Routine 10/08/2024 4:33 AM [employer] REP CBC WITH DIFFERENTIAL Routine 10/08/2024 4:33 AM [employer]P BLOOD CULTURE Routine 10/08/2024 4:33 AM [employer] REP BLOOD CULTURE Routine 10/08/2024 4:33 AM [employer]P BLOOD CULTURE Routine 10/08/2024 4:25 AM [employer]P BLOOD CULTURE Routine 10/08/2024 4:25 AM [employer]P COMPREHENSIVE METABOLIC PANEL Routine 10/07/2024 11:55 AM [employer]P COMPREHENSIVE METABOLIC PANEL Routine 10/06/2024 11:56 AM [employer]P COMPREHENSIVE METABOLIC PANEL Routine 10/05/2024 11:57 AM [employer] MISCELLANEOUS LAB TEST Routine 8:23 AM [employer]P Benign prostatic hyperplasia with lower urinary tract symptoms, symptom details unspecified POC URINALYSIS MICROSCOPY ONLY Routine 10/01/2024 3:37 PM [employer] REP Benign prostatic hyperplasia with lower urinary tract symptoms, symptom details unspecified POC URINALYSIS DIPSTICK AUTOMATED Routine 10/01/2024 3:37 PM [employer]P Benign prostatic hyperplasia with lower urinary tract symptoms, symptom details unspecified from Last 3 Months Results * TELEMETRY REPORT (10/18/2024 12:12 PM [employer] REP) us Provider Scanning ECG ORDERABLES Final Result * (ABNORMAL) POC GLUCOSE (10/17/2024 5:11 PM [employer]) Only the most recent of44 resultswithin the time period is included. GLUCOSE POC 135(H) 74 - 99 mg/dL 10/17/2024 5:11 PM O[employer] SAL[employer] SERVICE REP [facility] SPECIMEN SOURCE, GLUCOSE POC Capillary 10/17/2024 5:11 PM [employer] SERVICE REP [facility] Blood, whole 10/17/2024 5:11 PM [employer] REP 10/17/2024 5:35 PM [employer] REP Elda Martin MD POINT OF CARE TESTING Final Result [facility] CLIA # [id number] [facility] [address] [place] [address] * (ABNORMAL) CBC WITH DIFFERENTIAL (10/17/2024 9:56 AM [employer]) Only the most recent of10 resultswithin the time period is included. WBC 6.7 4.8 - 10.8 K/uL 10/17/2024 10:32 AM [facility] RBC 3.62(L) 4.60 - 6.20 M/uL 10/17/2024 10:32 AM [facility] HEMOGLOBIN 10.3(L) 14.0 - 18.0 g/dL 10/17/2024 10:32 AM [facility] HEMATOCRIT 34.2(L) 41.0 - 53.0 % 10/17/2024 10:32 AM [facility] MCV 94.5 84.0 - 103.0 fL 10/17/2024 10:32 AM [facility] MCH 28.5 27.0 - 34.0 pg 10/17/2024 10:32 AM [facility] MCHC 30.1 30.0 - 35.0 g/dL 10/17/2024 10:32 AM [facility] RDW 15.6(H) 11.0 - 14.5 % 10/17/2024 10:32 AM [facility] RDW-STDEV 54.4(H) 37.0 - 54.0 fL 10/17/2024 10:32 AM [facility] PLATELETS 333 140 - 440 K/uL 10/17/2024 10:32 AM [facility] MPV 9.7 8.9 - 12.8 fL 10/17/2024 10:32 AM [facility] NEUTROPHILS 62 42 - 75 % 10/17/2024 10:32 AM [facility] LYMPHOCYTES 21(L) 24 - 44 % 10/17/2024 10:32 AM [facility] MONOCYTES 10 2 - 10 % 10/17/2024 10:32 AM [facility] EOSINOPHILS 6 0 - 7 % 10/17/2024 10:32 AM [facility] BASOPHILS 1 0 - 1 % 10/17/2024 10:32 AM [facility] IMMATURE GRANULOCYTES 1 0 - 2 % 10/17/2024 10:32 AM [facility] NEUTROPHIL ABSOLUTE 4.12 2.00 - 8.00 K/uL 10/17/2024 10:32 AM [facility] LYMPHOCYTE ABSOLUTE 1.37 1.20 - 4.00 K/uL 10/17/2024 10:32 AM [facility] MONOCYTE ABSOLUTE 0.64(H) 0.10 - 0.60 K/uL 10/17/2024 10:32 AM [facility] EOSINOPHIL ABSOLUTE 0.41 0.00 - 0.70 K/uL 10/17/2024 10:32 AM [facility] BASOPHILS ABSOLUTE 0.05 0.00 - 0.20 K/uL 10/17/2024 10:32 AM [facility] IMMATURE GRANULOCYTES ABSOLUTE 0.06 0.00 - 0.10 K/uL 10/17/2024 10:32 AM [facility] Blood Venipuncture / Unknown 10/17/2024 9:56 AM [employer] 10/17/2024 10:24 AM [facility] Elda Martin MD HEMATOLOGY ORDERABLES Final Result [facility] CLIA # [id number] [address] [address] [place] [address] * (ABNORMAL) COMPREHENSIVE METABOLIC PANEL (10/17/2024 9:56 AM [facility]) Only the most recent of13 resultswithin the time period is included. SODIUM 140 136 - 145 mmol/L 10/17/2024 11:01 AM [facility] POTASSIUM 3.7 3.5 - 5.1 mmol/L 10/17/2024 11:01 AM [facility] CHLORIDE 107 98 - 107 mmol/L 10/17/2024 11:01 AM [facility] CO2 19(L) 22 - 29 mmol/L 10/17/2024 11:01 AM [facility] CALCIUM 8.8 8.8 - 10.2 mg/dL 10/17/2024 11:01 AM [facility] BUN 30(H) 8 - 23 mg/dL 10/17/2024 11:01 AM [facility] CREATININE 2.06(H) 0.67 - 1.17 mg/dL 10/17/2024 11:01 AM [facility] Comment:The GFR result is no t clinically significant on patients <18 or >70 years of age. GLUCOSE 139(H) 74 - 99 mg/dL 10/17/2024 11:01 AM [facility] TOTAL PROTEIN 6.3(L) 6.4 - 8.3 g/dL 10/17/2024 11:01 AM [facility] ALBUMIN 3.0(L) 3.5 - 5.2 g/dL 10/17/2024 11:01 AM [facility] BILIRUBIN TOTAL 0.4 0.2 - 1.0 mg/dL 10/17/2024 11:01 AM [facility] ALKALINE PHOSPHATASE 85 40 - 129 U/L 10/17/2024 11:01 AM [facility] AST 36 10 - 50 U/L 10/17/2024 11:01 AM [facility] ALT 26 <=50 U/L 10/17/2024 11:01 AM [facility] GFR 32 mL/min/1. 73 sq meter 10/17/2024 11:01 AM [facility] Comment:eGFR calculated with 2020 CKD-EPI equation. Vegetarian diet, extremely high or low muscle mass, and may affect results. Cystatin C with Glomerular Filtration Rate is a suitable alternative for these patients. ANION GAP 14 9 - 20 mmol/L 10/17/2024 11:01 AM [facility] Blood Venipuncture / Unknown 10/17/2024 9:56 AM [employer] 10/17/2024 10:24 AM [facility] Elda Martin MD CHEMISTRY ORDERABLES Final Result [facility] CLIA # [id number] [address] [address] * ECHOCARDIOGRAM W/ CONTRAST AGENT (10/14/2024 10:06 AM [employer]) EJECTION FRACTION 65 INTERFACE SYSTEM 10/14/2024 9:04 AM [facility] Narrative INTERFACE SYSTEM - 10/14/2024 6:12 PM [facility] Cardiovascular Services Echocardiography Laboratory [address] [place] [id number] Transthoracic Echocardiography Patient: ?? [place] ?? Study ID: ECHO COMPLETE - ? J Gender: ?M ?: ? 1945 ??Age: ?79 Room: ?[facility] ?Study ?10/14/2024 ??Pt ?Inpatient ?Date: ?Status: Study ?09:04:24 AM ?CSN #: ? [id number] Time: Ordering:Elda Martin Jig Boring Machine Set Up Operator: Deirdre Paula [facility] Indications and History: ??Arrhythmia's. ??Risk factors: ??The patient is a current tobacco user. Hypertension. Diabetes mellitus. Summary and Conclusion: - Left ventricle: The cavity size is normal. Wall thickness is increased in a ??pattern of mild LVH. Global systolic function is normal. The estimated ??ejection fraction is 60-65%. For Epic reporting: the left ventricular ??ejection fraction is 65% by biplane method of disks. Although no diagnostic ??regional wall motion abnormality is identified, this possibility cannot be ??completely excluded on the basis of this study. Regional wall motion ??difficult to determine but improved with echo contrast. Left ventricular ??diastolic function parameters are normal. - Right ventricle: Not well visualized. The cavity size is probably dilated. ??Systolic function is normal. - Right atrium: Not well visualized. The atrium is probably mildly dilated in ??size. - No prior study available for comparison. Procedure information: ??No prior study is available for comparison. ??Study status: ??Routine. ??Procedure: ??A transthoracic echocardiogram was performed. Image quality was adequate. Scanning was performed from the parasternal, apical, subcostal, and suprasternal notch acoustic windows. Intravenous contrast (Definity) was administered. There were no complications. There were no contrast reactions. ?Study components: M-mode, 2D, complete spectral Doppler, and color Doppler. ?Height: 175.3cm. Height: 69in. Weight: 83.3kg. Weight: 183.6lb. ?BMI: 27.1kg/m^2. ?BSA: 2.03m^2. ??Blood pressure: ? 110/59 ?Study date: 10/14/2024. Study time: 09:04 AM. Location: ??Bedside. Cardiac Anatomy: LEFT VENTRICLE: ??The cavity size is normal. Wall thickness is increased in a pattern of mild LVH. Global systolic function is normal. The estimated ejection fraction is 60-65%. For Epic reporting: the left ventricular ejection fraction is 65% by biplane method of disks. Although no diagnostic regional wall motion abnormality is identified, this possibility cannot be completely excluded on the basis of this study. Regional wall motion difficult to determine but improved with echo contrast. Left ventricular diastolic function parameters are normal. RIGHT VENTRICLE: ??Not well visualized. The cavity size is probably dilated. Systolic function is normal. LEFT ATRIUM: ??The atrium is probably normal in size. RIGHT ATRIUM: ??Not well visualized. The atrium is probably mildly dilated in size. ATRIAL SEPTUM: ??Not well visualized. No obvious PFO or ASD identified by 2D imaging and color Doppler. AORTIC VALVE: ??The valve is trileaflet. The leaflets are mildly thickened. Mobility is not restricted. ??There is no stenosis. ?? There is trace regurgitation. MITRAL VALVE: ?? Structurally normal valve. ?There is no evidence for stenosis. ?? There is trace regurgitation. TRICUSPID VALVE: ?? Structurally normal valve. ?There is no evidence for stenosis. ?? There is trace regurgitation. PULMONIC VALVE: ??Not well visualized. ??There is no evidence for stenosis. There is trace regurgitation. PERICARDIUM: ??A minimal pericardial effusion and/or fat pad was identified. AORTA: Aortic root: The root is not dilated. INTRACARDIAC MASS THROMBUS: ??No apparent intracavitary masses or thrombi detected. Measurements Left ventricle ? Value ? Left ventricle continued ??Value PATRICIA, LAX ? 4.3 ?? cm ?EF, MM on 2D Teich. ? 60 ?% ESD, LAX ? 2.9 ?? cm ?E', lat emperatriz, TDI ?8.9 ?? cm/sec PATRICIA/bsa, LAX ? 2.1 ?? cm/m^2 ??E/e', lat emperatriz, TDI ?9 ESD/bsa, LAX ? 1.4 ?? cm/m^2 ??E', med emperatriz, TDI ?6.1 ?? cm/sec FS, LAX ?32 ?% ? E/e', med emperatriz, TDI ?9 FS, LAX chord ?32 ?% ? E', avg, TDI ?7.5 ?? cm/sec ESD major ax, A4C ?6.6 ?? cm ?E/e', avg, TDI ?7 ESD/bsa major ax, A4C ??3.3 ?? cm/m^2 PATRICIA minor ax, A4C ?6.6 ?? cm ?LVOT ?Value PATRICIA/bsa minor ax, A4C ??3.3 ?? cm/m^2 ??Diam, S ? 2.1 ?? cm TEJ, A4C ? 24.6 ??cm^2 ?Area ?3.5 ?? cm^2 JUANPABLO, A4C ? 13.5 ??cm^2 ?Peak dlyon, S ? 85.9 ??cm/sec FAC, A4C ? 45 ?% ? Peak grad, S ?3 ? mm Hg PARTICIA major ax, A2C ?7.7 ?? cm PATRICIA/bsa major ax, A2C ??3.8 ?? cm/m^2 ??Right ventricle ? Value ETJ, A2C ? 21.4 ??cm^2 ?PATRICIA, LAX ?3.2 ?? cm JUANPABLO, A2C ? 11.0 ??cm^2 ?PATRICIA ? 3.2 ?? cm FAC, A2C ? 49 ?% ? TAPSE, 2D ? 2.4 ?? cm IVS, ED ?1.1 ?? cm ?TAPSE, MM ? 2.4 ?? cm ESD ?2.9 ?? cm ?S' lateral ?18.7 ??cm/sec ESD/bsa ?1.4 ?? cm/m^2 PW, ED ? 1.2 ?? cm ?Left atrium ? Value IVS/PW, ED ? 0.9 ? AP dim, ES ?2.9 ?? cm EDV ?83 ?ml ?AP dim index, ES ?1.4 ?? cm/m^2 ESV ?33 ?ml ?Area ES, A4C ?13 ?cm^2 EF ? 60 ?% ? Vol, ES, 1-p A4C ?25 ?ml EDV/bsa ?41 ?ml/m^2 ??Vol/bsa, ES, 1-p A4C ?12 ?ml/m^2 ESV/bsa ?16 ?ml/m^2 EDV, 1-p A2C ? 52 ?ml ?Right atrium ?Value ESV, 1-p A2C ? 34 ?ml ?Area, ES, A4C ? 16 ?cm^2 EF, 1-p A2C ?65 ?% SV, 1-p A2C ?50 ?ml ?Aortic valve ?Value EDV/bsa, 1-p A2C ? 25 ?ml/m^2 ??Peak v, S ? 110 ?? cm/sec ESV/bsa, 1-p A2C ? 17 ?ml/m^2 ??Peak grad, S ?5 ? mm Hg SV/bsa, 1-p A2C ?24.4 ??ml/m^2 ??LVOT/AV, Vpeak ratio ?0.78 EDV, 1-p A4C ? 64 ?ml ?JUAN, Vmax ? 2.7 ?? cm^2 ESV, 1-p A4C ? 23 ?ml ?JUAN/bsa, Vmax ? 1.33 ??cm^2/m^2 EF, 1-p A4C ?64 ?% SV, 1-p A4C ?54 ?ml ?Mitral valve ?Value EDV/bsa, 1-p A4C ? 31 ?ml/m^2 ??Peak E ?54.5 ??cm/sec ESV/bsa, 1-p A4C ? 11 ?ml/m^2 ??Peak A ?84.9 ??cm/sec SV/bsa, 1-p A4C ?27 ?ml/m^2 ??Decel time ?162 ?? ms EDV, 2-p ? 58 ?ml ?Peak E/A ratio ?0.6 ESV, 2-p ? 20 ?ml ?Vena contracta width ?3.2 ?? cm EF, 2-p ?65 ?% SV, 2-p ?38 ?ml ?Tricuspid valve ? Value EDV/bsa, 2-p ? 29 ?ml/m^2 ??TR vena contracta width ?? 2.1 ?? cm ESV/bsa, 2-p ? 10 ?ml/m^2 SV/bsa, 2-p ?20.4 ??ml/m^2 ??Aortic root ? Value EDV, MM Teich. ? 83 ?ml ?Root diam ? 3.4 ?? cm EF, MM Teich. ?60 ?% ? Root diam/bsa ? 1.7 ?? cm/m^2 EDV/bsa, MM Teich. ? 41 ?ml/m^2 Legend: (L) ??and ??(H) ??salvador values outside specified reference range. [facility] are accredited with the Intersocietal Accreditation Commission - Echocardiography. Prepared and Electronically Authenticated Prince Carina Confirmed ? 10/14/2024 18:11 Procedure Note Prince Lim MD - 10/14/2024 [facility] Echocardiography Laboratory [address] [place] [id number] Transthoracic Echocardiography Patient: Home Lawton Study ID: ECHO COMPLETE- J Gender: Maddie : 1945 Age: 79 Room: [facility] Study 10/14/2024 Inpatient Date: Status: Study 09:04:24 AM CSN #: [id number] Time: Ordering:Elda Martin Jig Boring Machine Set Up Operator: Deirdre Paula [facility] Indications and History: Arrhythmia's. Risk factors: The patient is a current tobacco user. Hypertension. Diabetes mellitus. Summary and Conclusion: - Left ventricle: The cavity size is normal. Wall thickness is increasedin a pattern of mild LVH. Global systolic function is normal. The estimated ejection fraction is 60-65%. For [facility] reporting: the left ventricular ejection fraction is 65% by biplane method of disks. Although nodiagnostic regional wall motion abnormality is identified, this possibility cannotbe completely excluded on the basis of this study. Regional wall motion difficult to determine but improved with echo contrast. Leftventricular diastolic function parameters are normal. - Right ventricle: Not well visualized. The cavity size is probablydilated. Systolic function is normal. - Right atrium: Not well visualized. The atrium is probably mildly dilatedin size. - No prior study available for comparison. Procedure information: No prior study is available for comparison.Study status: Routine. Procedure: A transthoracic echocardiogram wasperformed. Image quality was adequate. Scanning was performed from the parasternal, apical, subcostal, and suprasternal notch acoustic windows. Intravenous contrast (Definity) was administered. There were no complications. Therewere no contrast reactions. Study components: M-mode, 2D, complete spectral Doppler, and color Doppler. Height: 175.3cm. Height: 69in. Weight: 83.3kg. Weight: 183.6lb. BMI: 27.1kg/m^2. BSA: 2.03m^2.Blood pressure: 110/59 Study date: 10/14/2024. Study time: 09:04 AM. Location: Bedside. Cardiac Anatomy: LEFT VENTRICLE: The cavity size is normal. Wall thickness is increased alessia pattern of mild LVH. Global systolic function is normal. The estimated ejection fraction is 60-65%. For [employer] reporting: the left ventricularejection fraction is 65% by biplane method of disks. Although no diagnosticregional wall motion abnormality is identified, this possibility cannot becompletely excluded on the basis of this study. Regional wall motion difficult to determine but improved with echo contrast. Left ventricular diastolicfunction parameters are normal. RIGHT VENTRICLE: Not well visualized. The cavity size is probablydilated. Systolic function is normal. LEFT ATRIUM: The atrium is probably normal in size. RIGHT ATRIUM: Not well visualized. The atrium is probably mildly dilatedin size. ATRIAL SEPTUM: Not well visualized. No obvious PFO or ASD identified by2D imaging and color Doppler. AORTIC VALVE: The valve is trileaflet. The leaflets are mildlythickened. Mobility is not restricted. There is no stenosis. There is trace regurgitation. MITRAL VALVE: Structurally normal valve. There is no evidence for stenosis. There is trace regurgitation. TRICUSPID VALVE: Structurally normal valve. There is no evidencefor stenosis. There is trace regurgitation. PULMONIC VALVE: Not well visualized. There is no evidence forstenosis. There is trace regurgitation. PERICARDIUM: A minimal pericardial effusion and/or fat pad wasidentified. AORTA: Aortic root: The root is not dilated. INTRACARDIAC MASS THROMBUS: No apparent intracavitary masses or thrombi detected. Measurements Left ventricle Value Left ventricle continued Value PATRICIA, LAX 4.3 cm EF, MM on 2D Teich. 60 % ESD, LAX 2.9 cm E', lat emperatriz, TDI 8.9cm/sec PATRICIA/bsa, LAX 2.1 cm/m^2 E/e', lat emperatriz, TDI 9 ESD/bsa, LAX 1.4 cm/m^2 E', med emperatriz, TDI 6.1cm/sec FS, LAX 32 % E/e', med emperatriz, TDI 9 FS, LAX chord 32 % E', avg, TDI 7.5cm/sec ESD major ax, A4C 6.6 cm E/e', avg, TDI 7 ESD/bsa major ax, A4C 3.3 cm/m^2 PATRICIA minor ax, A4C 6.6 cm LVOT Value PATRICIA/bsa minor ax, A4C 3.3 cm/m^2 Diam, S 2.1 cm TEJ, A4C 24.6 cm^2 Area 3.5cm^2 JUANPABLO, A4C 13.5 cm^2 Peak dylon, S 85.9cm/sec FAC, A4C 45 % Peak grad, S 3 mmHg PATRICIA major ax, A2C 7.7 cm PATRICIA/bsa major ax, A2C 3.8 cm/m^2 Right ventricle Value TEJ, A2C 21.4 cm^2 PATRICIA, LAX 3.2 cm JUANPABLO, A2C 11.0 cm^2 PATRICIA 3.2 cm FAC, A2C 49 % TAPSE, 2D 2.4 cm IVS, ED 1.1 cm TAPSE, MM 2.4 cm ESD 2.9 cm S' lateral 18.7cm/sec ESD/bsa 1.4 cm/m^2 PW, ED 1.2 cm Left atrium Value IVS/PW, ED 0.9 AP dim, ES 2.9 cm EDV 83 ml AP dim index, ES 1.4cm/m^2 ESV 33 ml Area ES, A4C 13cm^2 EF 60 % Vol, ES, 1-p A4C 25 ml EDV/bsa 41 ml/m^2 Vol/bsa, ES, 1-p A4C 12ml/m^2 ESV/bsa 16 ml/m^2 EDV, 1-p A2C 52 ml Right atrium Value ESV, 1-p A2C 34 ml Area, ES, A4C 16cm^2 EF, 1-p A2C 65 % SV, 1-p A2C 50 ml Aortic valve Value EDV/bsa, 1-p A2C 25 ml/m^2 Peak v, S 110cm/sec ESV/bsa, 1-p A2C 17 ml/m^2 Peak grad, S 5 mmHg SV/bsa, 1-p A2C 24.4 ml/m^2 LVOT/AV, Vpeak ratio 0.78 EDV, 1-p A4C 64 ml JUAN, Vmax 2.7cm^2 ESV, 1-p A4C 23 ml JUAN/bsa, Vmax 1.33cm^2/m^2 EF, 1-p A4C 64 % SV, 1-p A4C 54 ml Mitral valve Value EDV/bsa, 1-p A4C 31 ml/m^2 Peak E 54.5cm/sec ESV/bsa, 1-p A4C 11 ml/m^2 Peak A 84.9cm/sec SV/bsa, 1-p A4C 27 ml/m^2 Decel time 162 ms EDV, 2-p 58 ml Peak E/A ratio 0.6 ESV, 2-p 20 ml Vena contracta width 3.2 cm EF, 2-p 65 % SV, 2-p 38 ml Tricuspid valve Value EDV/bsa, 2-p 29 ml/m^2 TR vena contracta width 2.1 cm ESV/bsa, 2-p 10 ml/m^2 SV/bsa, 2-p 20.4 ml/m^2 Aortic root Value EDV, MM Teich. 83 ml Root diam 3.4 cm EF, MM Teich. 60 % Root diam/bsa 1.7cm/m^2 EDV/bsa, MM Teich. 41 ml/m^2 Legend: (L) and (H) salvador values outside specified reference range. [facility] are accredited with theIntersocietal Accreditation Commission - Echocardiography. Prepared and Electronically Authenticated Prince Azeem Lim 10/14/2024 18:11 us Elda Martin MD ORDERABLES Final Result INTERFACE SYSTEM Refer to clinic/hospital department * EKG 12-LEAD (10/12/2024 10:52 AM [employer]) 10/12/2024 10:5 2 AM [employer] Narrative INTERFACE SYSTEM - 10/13/2024 12:39 PM [employer] ?[facility] ? [address] [place] [address] ? Test Date: ?2024-10-12 Pat Name: ? HOME LAWTON ? Department: ?? 12 ?Room: ? 6168 02 Gender: ? Male ? 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 [id number] : ?1945 ? Requested By: ?? Order Number: [id number] ? Reading MD: ?? Melissa Banerjee ? Measurements Intervals ?Sharon ? Rate: ? 78 ? P: ?-13 PA: ? 136 ?QRS: ?18 QRSD: ? 90 ? T: ?22 QT: ? 400 ? QTc: ?456 ? Interpretive Statements Normal sinus rhythm Nonspecific ST and T wave abnormality Abnormal ECG Electronically Signed On 10-13-2024 12:39:55 [employer] by Melissa Banerjee Procedure Note Provider, Historical - 10/13/[address] [address] Test Date: 2024-10-12 Pat Name: HOME LAWTON Department: 12 Room: [address] [place] [address] Gender: Male Wire Temperer: [id number] : 1945 Requested By: Order Number: [id number] Reading MD: Melissa Banerjee Measurements Intervals Sharon Rate: 78 P: -13 PA: 136 QRS: 18 QRSD: 90 T: 22 QT: 400 QTc: 456 Interpretive Statements Normal sinus rhythm Nonspecific ST and T wave abnormality Abnormal ECG Electronically Signed On 10-13-2024 12:39:55 [employer] by Melissa Banerjee us Elda Martin MD ECG ORDERABLES Final Result INTERFACE SYSTEM Refer to clinic/hospital department * MAGNESIUM LEVEL (10/12/2024 6:05 AM [employer]) MAGNESIUM 1.7 1.6 - 2.4 mg/dL 10/12/2024 11:20 AM [employer] [facility] Blood Venipuncture / Unknown 10/12/2024 6:05 AM [employer] 10/12/2024 6:17 AM [employer] Elda Martin MD CHEMISTRY ORDERABLES Final Result [facility] CLIA # [id number] [address] [facility] [place] [place] [address] * XR KNEE 1 OR 2 VW BILAT (10/10/2024 10:40 AM [employer]) Anatomical Region Laterality Modality Lower Extremity Computed Radiogr aphy 10/10/2024 10:4 0 AM [employer] Impressions 10/10/2024 10:50 AM [employer] IMPRESSION: 1. ??No definite acute fracture. 2. ??Remote/chronic appearing irregularity of the patella, as above. 3. ??Bones appear osteopenic. Narrative 10/10/2024 10:50 AM [employer] EXAM: XR KNEE 1 OR 2 VW BILAT DATE/TIME OF EXAM: 10/10/2024 10:40 AM REASON FOR EXAM: Pain, Fall DIAGNOSIS: See Reason for Exam COMPARISON: None FINDINGS: ?? 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 No evidence of a superimposed acute fracture. ??The medial and lateral compartment joint spaces are preserved. ??Extensive vascular calcifications. Left knee: Hypertrophic changes in the superior patella likely on a degenerative basis with enthesophyte formation. No definite acute fracture. The medial and lateral joint spaces appear preserved. Extensive vascular calcifications. Bones appear osteopenic. 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 No evidence of a superimposed acute fracture. The medial and lateral compartment joint spaces are preserved. Extensive vascular calcifications. Left knee: Hypertrophic changes in the superior patella likely on a degenerative basis with enthesophyte formation. No definite acute fracture. The medial and lateral joint spaces appear preserved. Extensive vascular calcifications. Bones appear osteopenic. IMPRESSION: 1. No definite acute fracture. 2. Remote/chronic appearing irregularity of the patella, as above. 3. Bones appear osteopenic. Elda Martin MD DIAGNOSTIC IMAGING OR DERABLES Final Result * (ABNORMAL) TSH REFLEXIVE (10/10/2024 5:16 AM [employer]) Pathologist [facility] TSH 9.15(H) 0.27 - 4.20 uIU/mL 10/10/2024 6:46 AM [employer] [facility] Blood Venipuncture / Unknown 10/10/2024 5:16 AM [employer] 10/10/2024 5:34 AM [employer] Elaine Andersen MD CHEMISTRY ORDERABLES Final Re sult Performing Organization Address City/State/[facility] Co de Phone Number [facility] CLIA # [id number] [facility] [address] [place] [address] * (ABNORMAL) VITAMIN B12 AND FOLATE (10/10/2024 5:16 AM [employer]) Pathologist [facility] VITAMIN B12 >2,000(H) 211 - 946 pg/mL 10/10/2024 7:13 AM [employer] [facility] FOLATE, SERUM 17.1 3.1 - 17.5 ng/mL 10/10/2024 7:13 AM [employer] Blood Venipuncture / Unknown 10/10/2024 5:16 AM [employer] 10/10/2024 5:37 AM [employer] Elaine Andersen MD CHEMISTRY ORDERABLES Final Re sult Performing Organization Address City/[facility]/ZIP Co de Phone Number [facility] CLIA # [id number] [id number] [place] [address] * T4 FREE (10/10/2024 5:16 AM [employer]) T4 FREE 1.00 0.81 - 1.70 ng/dL 10/10/2024 9:07 AM [employer] [facility] Blood Venipuncture / Unknown 10/10/2024 5:16 AM [employer] 10/10/2024 5:34 AM [employer] us Elaine Andersen MD CHEMISTRY ORDERABLES Final Re [facility] Performing Organization Address [facility] Co de Phone Number [facility] CLIA # [id number] [id number] [place] [address] * MRI BRAIN WO CONTRAST (10/09/2024 2:58 PM [employer]) Anatomical Region Laterality Modality Head Magnetic Resonan ce 10/09/2024 2:58 PM [employer] Impressions 10/09/2024 3:43 PM [employer] IMPRESSION: No evidence of an acute intracranial process. ?? Narrative 10/09/2024 3:43 PM [employer] EXAM: MRI BRAIN WO CONTRAST DATE/TIME OF EXAM: 10/09/2024 2:58 PM REASON FOR STUDY: Neuro deficit, acute, stroke suspected DIAGNOSIS: See Reason for Exam COMPARISON: October 08, 2024 TECHNIQUE: Multiplanar, multisequence MR imaging was performed of the brain without contrast. FINDINGS: ?? BRAIN PARENCHYMA: No acute infarct. No recent parenchymal hemorrhage. No midline shift. White matter signal intensities are within normal limits for age. No significant parenchymal volume loss. No cerebellar tonsillar herniation. ?? VENTRICLES/EXTRA-AXIAL SPACES: No hydrocephalus. No abnormal extra-axial fluid collection. MAJOR ARTERIAL T2 FLOW VOIDS: Intact. EXTRACRANIAL STRUCTURES: No mastoid effusion. No paranasal sinus fluid level. Cataract surgery. Procedure Note Marian You MD - 10/09/2024 EXAM: MRI BRAIN WO CONTRAST DATE/TIME OF EXAM: 10/09/2024 2:58 PM REASON FOR STUDY: Neuro deficit, acute, stroke suspected DIAGNOSIS: See Reason for Exam COMPARISON: October 08, 2024 TECHNIQUE: Multiplanar, multisequence MR imaging was performed of the brain without contrast. FINDINGS: BRAIN PARENCHYMA: No acute infarct. No recent parenchymal hemorrhage. No midline shift. White matter signal intensities are within normal limits for age. No significant parenchymal volume loss. No cerebellar tonsillar herniation. VENTRICLES/EXTRA-AXIAL SPACES: No hydrocephalus. No abnormal extra-axial fluid collection. MAJOR ARTERIAL T2 FLOW VOIDS: Intact. EXTRACRANIAL STRUCTURES: No mastoid effusion. No paranasal sinus fluid level. Cataract surgery. IMPRESSION: No evidence of an acute intracranial process. Elda Martin MD MR ORDERABLES Final Result * (ABNORMAL) IRON, TIBC, AND PERCENT SATURATION (10/09/2024 3:56 AM [employer]) IRON 19(L) 59 - 158 ug/dL 10/09/2024 10:39 AM [employer] [facility] TIBC 102(L) 250 - 450 ug/dL 10/09/2024 10:39 AM [employer] [facility] IRON % SATURATION 19 15 - 60 % 10/09/2024 10:39 AM [employer] [facility] Blood Venipuncture / Unknown 10/09/2024 3:56 AM [employer] 10/09/2024 4:20 AM [employer] us Elaine Andersen MD CHEMISTRY ORDERABLES Final Re sult [facility] CLIA # [id number] [address] [address] [place], [place] [address] * (ABNORMAL) FERRITIN (10/09/2024 3:56 AM [employer]) FERRITIN 737.0(H) 30.0 - 400.0 ng/mL 10/09/2024 10:37 AM [employer] [facility] Blood Venipuncture / Unknown 10/09/2024 3:56 AM [employer] 10/09/2024 4:20 AM [employer] us Elaine Andersen MD CHEMISTRY ORDERABLES Final Re sult Performing Organization Address [facility]/ZIP Co de Phone Number [facility] CLIA # [id number] [address] [place] [address] * CK (10/09/2024 3:56 AM [employer]) CK 117 39 - 308 U/L 10/09/2024 10:37 AM [employer] [facility] Blood Venipuncture / Unknown 10/09/2024 3:56 AM [employer] 10/09/2024 4:20 AM [employer] us Elaine Andersen MD CHEMISTRY ORDERABLES Final Re sult Performing Organization Address [facility] Co de Phone Number [facility] CLIA # [id number] [address] [place] [address] * CT HEAD WO CONTRAST (10/08/2024 9:21 PM [employer]) Anatomical Region Laterality Modality Head Computed Tomogra phy 10/08/2024 9:22 PM [employer] Impressions 10/08/2024 9:25 PM [employer] IMPRESSION: No acute intracranial CT findings. ?? Narrative 10/08/2024 9:25 PM [employer] CT HEAD WO CONTRAST Reason For Exam: Neuro deficit, acute, stroke suspected. Diagnosis: See Reason for Exam. COMPARISON: None. FINDINGS: No intracranial hemorrhage, midline shift, mass effect, extra-axial fluid collection, or loss of zuniga-white differentiation is seen. No ventriculomegaly or effacement of basilar cisterns is noted. ?? Visualized orbits are grossly unremarkable. No depressed skull fracture is seen. No suspicious osseous lesion is identified upon review of bone windows. ?? The visualized paranasal sinuses and mastoid air cells are clear. Procedure Note Eloy Fletcher MD - 10/08/2024 CT HEAD WO CONTRAST Reason For Exam: Neuro deficit, acute, stroke suspected. Diagnosis: See Reason for Exam. COMPARISON: None. FINDINGS: No intracranial hemorrhage, midline shift, mass effect, extra-axial fluid collection, or loss of zuniga-white differentiation is seen. No ventriculomegaly or effacement of basilar cisterns is noted. Visualized orbits are grossly unremarkable. No depressed skull fracture is seen. No suspicious osseous lesion is identified upon review of bone windows. The visualized paranasal sinuses and mastoid air cells are clear. IMPRESSION: No acute intracranial CT findings. Elda Martin MD CT ORDERABLES Final Result * (ABNORMAL) URINALYSIS WITH REFLEX MICROSCOPIC (10/08/2024 5:44 AM [employer]) COLOR UA Pale Yellow Pale to Dark Yellow 10/08/2024 6:04 AM [facility] CLARITY UA Turbid(A) Clear 10/08/2024 6:04 AM [facility] SPECIFIC GRAVITY UA 1.012 1.003 - 1.035 10/08/2024 6:04 AM [facility] PH UA 6.0 5.0 - 8.0 10/08/2024 6:04 AM [facility] LEUKOCYTE ESTERASE UA 3+(A) Negative 10/08/2024 6:04 AM [facility] NITRITE UA Negative Negative 10/08/2024 6:04 AM [facility] PROTEIN UA 2+(A) Negative 10/08/2024 6:04 AM [facility] GLUCOSE UA 1+(A) Negative 10/08/2024 6:04 AM [facility] KETONES UA Negative Negative 10/08/2024 6:04 AM [facility] UROBILINOGEN UA <2.0 <2.0 mg/dL 6:04 AM [facility] BILIRUBIN UA Negative Negative 10/08/2024 6:04 AM [facility] BLOOD UA 3+(A) Negative 10/08/2024 6:04 AM [facility] WBC UA >100(A) 0 - 2 /hpf 10/08/2024 6:04 AM [facility] RBC UA >100(A) 0 - 2 /hpf 10/08/2024 6:04 AM [facility] BACTERIA UA 1+(A) Negative /hpf 10/08/2024 6:04 AM [facility] WBC CLUMPS Present(A) Absent 10/08/2024 6:04 AM [facility] Urine (Urine, indwelling (Cueva) catheter) Collection / Unknown 10/08/2024 5:44 AM [employer] 10/08/2024 5:48 AM [employer] Efren Kathleen MD URINE ORDERABLES Final Result [facility] CLIA # [id number] [address] [address] * (ABNORMAL) URINE CULTURE (10/08/2024 5:44 AM [employer]) CULTURE NAKASEOMYCES GLABRATUS(A) BAYRON MCG/ML 10/15/2024 2:41 PM [employer] [facility] Comment:See separate or scan karoline report. Urine (Urine, indwelling (Cueva) catheter) Collection / Unknown 10/08/2024 5:44 AM [employer] 10/08/2024 5:48 AM [employer] us Efren Kathleen MD MICROBIOLOGY - GENERAL ORDERABLE S Final Result [facility] CLIA # [id number] [address] [address] * BLOOD CULTURE (10/08/2024 4:33 AM [employer]) Only the most recent of2 resultswithin the time period is included. Pathologist [facility] BLOOD CULTURE No growth 10/13/2024 6:13 AM [employer] [facility] Blood (Peripheral) Venipuncture / Unknown 10/08/2024 4:33 AM [employer] 10/08/2024 4:42 AM [employer] us Efren Kathleen MD MICROBIOLOGY - GENERAL ORDERABLE S Final Result Performing Organization Address [facility] Co de Phone Number [facility] CLIA # [id number] [facility] [address] * MISCELLANEOUS LAB TEST (10/02/2024 8:23 AM [employer]) Other, specify 10/02/2024 8: 23 AM [employer] us Alecia Colbert NP CHEMISTRY ORDERABLES Final R esult Performing Organization Address [facility] Co de Phone Number [facility] [phone] * (ABNORMAL) POC URINALYSIS DIPSTICK AUTOMATED (10/01/2024 3:37 PM [employer]) COLOR UA POC Yellow Pale to Dark Yellow [facility] CL[facility] UA POC Turbid(A) Clear, Other [facility] UROLOGY [place] GLUCOSE UA POC 3+(A) Negative, Normal [facility] UROLOGY [place] BILIRUBIN UA POC Negative Negative [facility] UROLOGY [place] KETONES UA POC Negative Negative [facility] UROLOGY [place] SPECIFIC GRAVITY UA POC 1.015 1.000 - 1.030 [facility] BLOOD UA POC 2+(A) Negative [facility] C LINIC UROLOGY [place] PH UA POC 6.0 5.0 - 8.0 [facility] IC UROLOGY [place] PROTEIN UA POC 2+(A) Negative [facility] UROLOG[facility] [place] UROBILINOGEN UA POC 0.2 <2.0 mg/dL [facility] Negative Negative [facility] LEUKOCYTE ESTERASE UA POC 3+(A) Negative [facility] UROLOGY [place] KIT [address] NUM[address] POC [phone] [facility] [facility] [place] KIT EXP DATE POC 12.13.24 [facility] [place] Urine 10/01/2024 3:37 PM OIL SALES AND SERVICE REP us Alecia Wilcoxr SENIOR MERCHANDISER POINT OF CARE TESTING Final Result [facility] CLIA# [id number] [address] [place] [id number], [place] * (ABNORMAL) POC URINALYSIS MICROSCOPY ONLY (10/01/2024 3:37 PM OIL SALES AND SERVICE REP) WBC UA POC >100(A) 0 - 2 /hpf [facility] [place] RBC UA POC 6-10(A) 0 - 2 /hpf [facility] [place] BACTERIA UA POC 3+(A) Negative /hpf [facility]AST [facility] TRICHOMONAS POC [facility] [place] SPERMATOZOA POC [facility] [place] HYALINE CAST POC [facility] [place] RBC CAST POC [facility] [place] GRANULAR CAST POC [facility] [place] AMORPHOUS CRYSTAL POC [facility] [place] TRIPLE PHOS POC [facility] [place] URIC ACID CRYSTAL POC [facility] CALCIUM OXALATE, URINE POC [facility] [place] COMMENT, URINE POC [facility] EPITHELIAL CELLS UA POC [facility] Urine 10/01/2024 3:37 PM OIL SALES AND SERVICE REP us Alecia Wilcoxr SENIOR MERCHANDISER POINT OF CARE TESTING Final Result [facility] UROLOGY BIJU RAMÍREZ# [id number] [address] [place] [address], [address] [id number], from Last 3 Months Insurance [address] MEDICARE HMO Advance Directives For more information, please contact: [phone] * Full Code (Latest Code Status on File) Date Activated Date Inactivated Comments 10/08/2024 3:40 AM 10/18/2024 2:28 AM
--- OUTSIDE RECORDS SUMMARY | 2024-12-14 22:55 | XMS_ITS ---
Author Organization [facility] Address [address] [place] [address] Care Team Providers Care Security Solutions Engineer Name Role Phone Unavailable Primary Care Provider Unavailabl e Active Problems Problem Noted Date Diagnosed Date [...] CMT, Annotation/Addendum; Promoted; acuity set as *; Current Treatment and Therapy Plans No current plan information found. Past Treatment and Therapy Plans No past plan information found. Lifetime Dose Tracking * Chemical Lifetime Dose Automatic Entry Manual Entr y Effective Dose 66.96 mSv 66.96 mSv 0 mSv Total DLP 1,216.41 DLP 1,216.41 DLP 0 DLP CTDIvol Max 55.49 mGy 55.49 mGy 0 mGy CTDIvol Min 34.76 mGy 34.76 mGy 0 mGy
--- NOTE | 2024-12-14 23:45 | PC.NURSE ---
New bag of NS 0.9% had just been hung at 75mls/hr at shift change by previous nurse. Weight-based NS bolus was ordered. Used remainder of NS already hanging as bolus, then hung 2nd bag to complete bolus. New bag hung to run at continuous rate of 75mls/hr at 2344.
[2024-12-15] VITALS: BP 134/63; PULSE 73; RESP 16; TEMP 36.8; O2SAT 99
[2024-12-15 04:00] VITALS: BP 110/56; PULSE 70; RESP 18; TEMP 36.4; O2SAT 98
[2024-12-15 04:04] LABS: Basophils # 0.1 10^3/uL (0.0-0.1); Basophils % 1.3 %; Eosinophils # 0.8 10^3/uL (0.0-0.8); Eosinophils % 12.5 %; Hematocrit 31.2 % (37-53); Lymphocytes # 1.4 10^3/uL (0.8-4.8); Lymphocytes % 21.6 %; Mean Corpuscular HGB Conc 28.8 g/dL (30-55); Mean Corpuscular Hemoglobin 27.3 pg (27-33); Mean Corpuscular Volume 94.5 fl (82-101); Mean Platelet Volume 9.2 fL (7.4-10.4); Monocytes % 15.3 %; Neutrophils # 3.06 10^3/uL (1.8-7.7); Neutrophils % 48.4 %; Nucleated Red Blood Cells % 0 %; Platelet Count 191 10^3/cmm (157-399); Red Cell Distribution Width 16.7 % (12.1-15.1); White Blood Count 6.33 10^3/uL (3.29-11.43)
[2024-12-15 04:29] LABS: Alanine Aminotransferase 24 U/L (0-41); Albumin Level 2.6 g/dL (3.5-5.2); Alkaline Phosphatase 84 U/L (40-130); Anion Gap 14.6 (5-19); Aspartate Amino Transferase 18 U/L (0-40); Blood Urea Nitrogen 52 mg/dL (8-23); Calcium 7.9 mg/dL (8.5-10.5); Carbon Dioxide 15 mmol/L (22-29); Chloride 112 mmol/L (98-107); Creatinine Clr Calc Pharmacy 26.8877; Globulin 2.7 g/dL (1.3-4.6); Glucose 120 mg/dL (65-115); Magnesium 1.6 mg/dL (1.7-2.3); Osmolality Calculated 299 mOsm/kg (285-295); Phosphorus 3.1 mg/dL (2.5-4.5); Potassium 4.6 mmol/L (3.5-5.1); Sodium 137 mmol/L (136-145); Total Bilirubin 0.2 mg/dL (0.15-1.2); Total Protein 5.3 g/dL (6.6-8.7)
[2024-12-15 06:22] LABS: Glucose Point of Care 135 mg/dL (70-110)
[2024-12-15] MEDS: meropenem 500 mg SDV IVP ×2 (07:20→17:45)
[2024-12-15 08:00] VITALS: BP 107/61; PULSE 67; RESP 18; TEMP 36.8; O2SAT 100
[2024-12-15] MEDS: clopidogrel 75 mg Tablet PO (08:52)
[2024-12-15] MEDS: levothyroxine 25 mcg Tablet PO (08:52)
[2024-12-15] MEDS: aspirin 81 mg EC Tablet PO (08:52)
[2024-12-15] MEDS: finasteride 5 mg Tablet PO (08:52)
[2024-12-15] MEDS: sodium bicarbonate 650 mg Tablet PO ×3 (08:55→20:11)
[2024-12-15] MEDS: gabapentin 100 mg Capsule PO ×2 (11:05→21:38)
[2024-12-15 11:20] LABS: Glucose Point of Care 174 mg/dL (70-110)
[2024-12-15 12:00] VITALS: BP 128/62; PULSE 64; RESP 16; TEMP 36.5; O2SAT 99
[2024-12-15] MEDS: insulin lispro 100 unit/1 mL SUBCUT ×2 (12:49→17:44)
[2024-12-15] MEDS: sodium chloride 0.9% 1,000 ML 50 ML IV (13:49)
--- NOTE | 2024-12-15 13:53 | PM.PN ---
Subjective Subjective: Patient was seen this morning, he is alert awake, following all commands denies any fevers, chills, cough does complain of bilateral lower extremity diabetic neuropathy, discussed trying gabapentin at a lower dose given his GFR at 29, also he reports a poor appetite, weight loss over 15 pounds, discussed trying Remeron, she discussed CT scan findings in detail, will get records from [facility] [place] Vitals/I&O/Wt Last Vital Signs Temp 97.7 F 12/15/24 12:00 Pulse 64 12/15/24 12:00 Resp 16 12/15/24 12:00 BP 128/62 12/15/24 12:00 Pulse Ox 99 12/15/24 12:00 O2 Del Method Room Air 12/15/24 12:00 12/14/24 12/15/24 12/15/24 22:59 06:59 14:59 Intake Total 1000 / 1000 2517.25 / 3517.25 1480 / 1480 Output Total 1125 / 1125 Balance 1000 / 1000 1392.25 / 2392.25 1480 / 1480 Weight last 48 hrs Weight 89.312 kg Weight 84.368 kg Weight 95.254 kg Physical Exam Const: COMMON NORMALS: no acute distress and patient oriented x3 Resp: COMMON NORMALS: normal respiratory effort, No retractions, No use of accessory muscles and clear to auscultation bilaterally AUSCULTATION: clear to auscultation bilaterally Cardio: COMMON NORMALS: regular rate, regular rhythm, S1 normal heart sound present and S2 normal heart sound present RATE: regular rate RHYTHM: regular rhythm HEART SOUNDS: S1 normal heart sound present and S2 normal heart sound present GI: COMMON NORMALS: Normal to inspection, nondistended, normoactive bowel sounds present and non-tender Extremity: COMMON NORMALS: no pedal edema Neuro: COMMON NORMALS: patient oriented x3 Psych: COMMON NORMALS: mental status grossly normal Data 12/15/24 03:38 12/15/24 03:38 Micro: Microbiology 12/14/24 15:50 Urine Culture - Preliminary Urine,Clean Catch 12/14/24 16:34 Blood Culture - Preliminary Blood SPECIMEN COLLECTED 12/14/24 16:32 Blood Culture - Preliminary Blood SPECIMEN COLLECTED A&P Assessment and plan (1) Complicated UTI (urinary tract infection): (2) Acute kidney injury: (3) Sepsis: (4) Hyperglycemia: (5) BPH (benign prostatic hyperplasia): (6) Diabetes mellitus: Qualifiers: Diabetes mellitus complication status: without complication Diabetes mellitus staff respiratory therapist insulin use: without skilled nursing use Diabetes mellitus type: type 2 Qualified Code(s): E11.9 - Type 2 diabetes mellitus without complications (7) Secondary malignant neoplasm of unspecified lung: (8) Cancer of left kidney: Plan Complicated urinary tract infection -Given Cueva catheter placement -History of BPH -History of metastatic renal carcinoma, Inlyta and Keytruda currently on hold, immunocompromise state CT/CT abdomen pelvis wo con [id number] IMPRESSION: 1. Ongoing moderate to severe bilateral hydroureteronephrosis to the level of the urinary bladder as well as perinephric and periureteral fat stranding. Underlying infection/inflammation is suspected. 2. Decompressed urinary bladder. Ongoing bladder wall thickening. Mild pericystic fat stranding is slightly improved from prior, though ongoing cystitis is possible. Correlate with physical exam findings and urinalysis. 3. Remainder stable. Plan -Will change a Cueva catheter as it was changed in early November at the skilled nursing -Blood cultures -Urine culture -Meropenem -Monitor closely Sepsis secondary to complicated UTI BPH, continue Flomax, finasteride Hypertension hold blood pressure medications Hyperglycemia, type 2 diabetes, low-dose sliding scale Pseudohyponatremia Acute kidney injury likely sec to complicated UTI, sepsis, IV fluids Metabolic acidosis, likely associate with sepsis, renal failure, hyperglycemia, start sodium bicarb PDMP PDMP Reviewed: Not Reviewed Attestations Medical Necessity Statement*: Patient requires hospitalization for complicated UTI, requiring IV antibiotics Diagnoses Complicated UTI (urinary tract infection) N39.0 Acute kidney injury N17.9 Sepsis A41.9 Hyperglycemia R73.9 BPH (benign prostatic hyperplasia) N40.0 Type 2 diabetes mellitus without complication, without long-term current use of insulin E11.9 Diabetes mellitus complication status: without complication Diabetes mellitus staff respiratory therapist insulin use: without skilled nursing use Diabetes mellitus type: type 2 Secondary malignant neoplasm of unspecified lung C78.00 Cancer of left kidney C64.2
[2024-12-15 16:00] VITALS: BP 146/73; PULSE 70; RESP 16; TEMP 36.9; O2SAT 100
[2024-12-15 17:43] LABS: Glucose Point of Care 231 mg/dL (70-110)
[2024-12-15] MEDS: tamsulosin 0.4 mg Capsule 0.8 MG PO (17:45)
[2024-12-15] MEDS: enoxaparin 30 mg/0.3 mL Syringe SUBCUT (17:45)
[2024-12-15] MEDS: pantoprazole 40 mg SDV IVP (17:45)
[2024-12-15 20:00] VITALS: BP 136/71; PULSE 75; TEMP 36.6; O2SAT 99
[2024-12-15] MEDS: atorvastatin 40 mg Tablet 80 MG PO (20:11)
[2024-12-15] MEDS: mirtazapine 15 mg Tablet PO (20:11)
[2024-12-15 21:07] LABS: Glucose Point of Care 149 mg/dL (70-110)
[2024-12-16] VITALS (7 sets, daily range): BP systolic 112–146; BP diastolic 67–80; PULSE 68–88; RESP 16–18; TEMP 36.4–37.1; O2SAT 93–99
[2024-12-16] MEDS: meropenem 500 mg SDV IVP ×2 (05:07→17:03)
[2024-12-16 06:39] LABS: Glucose Point of Care 155 mg/dL (70-110)
[2024-12-16 06:47] LABS: Basophils # 0.1 10^3/uL (0.0-0.1); Basophils % 1.1 %; Eosinophils # 0.7 10^3/uL (0.0-0.8); Eosinophils % 11.9 %; Hematocrit 31.3 % (37-53); Lymphocytes # 1.2 10^3/uL (0.8-4.8); Lymphocytes % 22.2 %; Mean Corpuscular HGB Conc 29.4 g/dL (30-55); Mean Corpuscular Volume 91.8 fl (82-101); Monocytes # 0.8 10^3/uL (0.2-0.9); Monocytes % 13.9 %; Neutrophils % 49.6 %; Nucleated Red Blood Cells % 0 %; Platelet Count 233 10^3/cmm (157-399); Red Blood Count 3.41 10^6/uL (3.85-5.65); Red Cell Distribution Width 16.9 % (12.1-15.1); White Blood Count 5.45 10^3/uL (3.29-11.43)
[2024-12-16 07:03] LABS: Alanine Aminotransferase 19 U/L (0-41); Albumin Level 2.6 g/dL (3.5-5.2); Alkaline Phosphatase 85 U/L (40-130); Anion Gap 12.9 (5-19); Aspartate Amino Transferase 16 U/L (0-40); Blood Urea Nitrogen 47 mg/dL (8-23); Calcium 8.6 mg/dL (8.5-10.5); Carbon Dioxide 18 mmol/L (22-29); Chloride 112 mmol/L (98-107); Creatinine Clr Calc Pharmacy 27.6242; Globulin 3.1 g/dL (1.3-4.6); Glucose 149 mg/dL (65-115); Magnesium 1.6 mg/dL (1.7-2.3); Osmolality Calculated 301 mOsm/kg (285-295); Potassium 4.9 mmol/L (3.5-5.1); Sodium 138 mmol/L (136-145); Total Bilirubin 0.3 mg/dL (0.15-1.2); Total Protein 5.7 g/dL (6.6-8.7)
[2024-12-16] MEDS: clopidogrel 75 mg Tablet PO (08:06)
[2024-12-16] MEDS: sodium bicarbonate 650 mg Tablet PO ×3 (08:06→21:09)
[2024-12-16] MEDS: aspirin 81 mg EC Tablet PO (08:06)
[2024-12-16] MEDS: insulin lispro 100 unit/1 mL SUBCUT ×3 (08:06→17:02)
[2024-12-16] MEDS: finasteride 5 mg Tablet PO (08:06)
[2024-12-16] MEDS: levothyroxine 25 mcg Tablet PO (08:06)
--- NOTE | 2024-12-16 09:08 | PC.CHAP ---
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 petroleum plant operator visit [] Patient/Family/Request visit [] Outpatient visit [] Follow-up visit [] Physician referral [] Code/Alert [x] Routine visit [] Staff referral [] Actively dying [] Patient sleeping [x] Family support [] [] Out of room [] Palliative care [] [] Receiving care in room [] Pre-surgical visit [] Trauma [] Long length of stay [] ICU visit [] Other: Relational/Emotional Strength [] Patient feels connected with others/family/visitors/staff [] Distress [] Loneliness/isolation [] Abandonment Spirituality of Patient [x] Person of Leona [] Attends Buddhist of their [place] [x] Believes in Prayer [] Reads Bible or Cheondoism materials [] There are Spiritual issues to be addressed Motorcoach Driver Interventions [x] Prayer [x] Active listening [] Non-anxious presence [] Spiritual/emotional support [] Crisis/trauma care [] Spiritual counseling [] Bereavement support [] Provided bereavement packet [x] Provided Bible/devotional materials [] Provided toy/stuffed animal, coloring book to patient or family member [] Provided Communion [] Anointing/[place] [] Salvation [x] Completed spiritual assessment [] Other: Impact on Illness or Injury [] Angry [] Fearful [] Anxious [] Often cries [] Exhaustion [] Unable to work [] Unable to attend quaker [] Unable to walk/stand [] Unable to read [] Unable to drive [] Unable to eat/drink [] Unable to sleep [] Unable to be with family [] Patient intubated [] Other: Summary Time spent with patient 10 min
[2024-12-16] MEDS: gabapentin 100 mg Capsule PO ×2 (10:57→22:14)
[2024-12-16] MEDS: sodium chloride 0.9% 1,000 ML 50 ML IV (10:58)
[2024-12-16 11:15] LABS: Glucose Point of Care 200 mg/dL (70-110)
--- NOTE | 2024-12-16 15:13 | PM.PN ---
Subjective Subjective: Patient was seen this morning, is at bedside, he is alert to person, to place, not to time he can follow commands, continues to complain of neuropathic pain in bilateral extremities, no fevers, chills, no cough we did detailed discussion about his CT scan findings we will continue to monitor his renal function, awaiting records from [facility] [place], Vitals/I&O/Wt Last Vital Signs Temp 97.6 F 12/16/24 11:00 Pulse 88 12/16/24 11:00 Resp 17 12/16/24 11:00 BP 115/72 12/16/24 11:00 Pulse Ox 96 12/16/24 11:00 O2 Del Method Room Air 12/16/24 11:00 12/16/24 12/16/24 12/16/24 06:59 14:59 22:59 Intake Total 1240 / 1240 Output Total 1850 / 2150 Balance -1850 / -190 1240 / 1240 Weight last 48 hrs Weight 89.584 kg Weight 89.312 kg Weight 84.368 kg Physical Exam Const: COMMON NORMALS: no acute distress and patient oriented x3 Resp: COMMON NORMALS: normal respiratory effort, No retractions, No use of accessory muscles and clear to auscultation bilaterally AUSCULTATION: clear to auscultation bilaterally Cardio: COMMON NORMALS: regular rate, regular rhythm, S1 normal heart sound present and S2 normal heart sound present RATE: regular rate RHYTHM: regular rhythm HEART SOUNDS: S1 normal heart sound present and S2 normal heart sound present GI: COMMON NORMALS: Normal to inspection, nondistended, normoactive bowel sounds present and non-tender Extremity: COMMON NORMALS: no pedal edema Neuro: COMMON NORMALS: patient oriented x3 Psych: COMMON NORMALS: mental status grossly normal Urinary Catheter Management: Cueva: Cath Placed During This Visit: yes Reason for Continuing Indwelling Catheter: Chronic Indwelling Urinary Catheter on Admission Urinary Catheter Date of Insertion: 12/15/24 Urinary Catheter Time of Insertion: 14:40 Data 12/16/24 06:23 12/16/24 06:23 Micro: Microbiology 12/14/24 15:50 Urine Culture - Final Urine,Clean Catch 12/14/24 16:32 Blood Culture - Preliminary Blood NEGATIVE TO DATE 12/14/24 16:34 Blood Culture - Preliminary Blood NEGATIVE TO DATE A&P Assessment and plan (1) Complicated UTI (urinary tract infection): (2) Acute kidney injury: (3) Sepsis: (4) Hyperglycemia: (5) BPH (benign prostatic hyperplasia): (6) Diabetes mellitus: Qualifiers: Diabetes mellitus complication status: without complication 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 Ongoing moderate to severe bilateral hydroureteronephrosis to the level of the urinary bladder as well as perinephric and periureteral fat stranding. Underlying infection/inflammation is suspected. 2. Decompressed urinary bladder. Ongoing bladder wall thickening. Mild pericystic fat stranding is slightly improved from prior, though ongoing cystitis is possible. Correlate with physical exam findings and urinalysis. 3. Remainder stable. Plan -Cueva catheter was changed out 12/15/2024 -Blood cultures -Urine culture -Meropenem -Monitor closely Sepsis secondary to complicated UTI, improving BPH, continue Flomax, finasteride Hypertension hold blood pressure medications Hyperglycemia, type 2 diabetes, low-dose sliding scale Pseudohyponatremia Acute kidney injury likely sec to complicated UTI, sepsis, IV fluids Metabolic acidosis, likely associate with sepsis, renal failure, hyperglycemia, start sodium bicarb PDMP PDMP Reviewed: Not Reviewed Attestations Medical Necessity Statement*: Patient requires hospitalization for complicated UTI Diagnoses Complicated UTI (urinary tract infection) N39.0 Acute kidney injury N17.9 Sepsis A41.9 Hyperglycemia R73.9 BPH (benign prostatic hyperplasia) N40.0 Type 2 diabetes mellitus without complication, without long-term current use of insulin E11.9 Diabetes mellitus complication status: without complication Diabetes mellitus superintendent marine oil terminal insulin use: without intermediate use Diabetes mellitus type: type 2 Secondary malignant neoplasm of unspecified lung C78.00 Cancer of left kidney C64.2
--- NOTE | 2024-12-16 15:21 | PC.SOCIAL ---
IMM Updated IMM dates and initialed, copy placed in chart and copy given to patient
[2024-12-16 16:00] LABS: Glucose Point of Care 210 mg/dL (70-110)
[2024-12-16] MEDS: pantoprazole 40 mg SDV IVP (17:02)
[2024-12-16] MEDS: enoxaparin 30 mg/0.3 mL Syringe SUBCUT (17:03)
[2024-12-16] MEDS: tamsulosin 0.4 mg Capsule 0.8 MG PO (17:04)
[2024-12-16] MEDS: atorvastatin 40 mg Tablet 80 MG PO (21:09)
[2024-12-16] MEDS: mirtazapine 15 mg Tablet PO (21:10)
[2024-12-17 03:33] VITALS: BP 114/68; PULSE 93; RESP 16; TEMP 36.4; O2SAT 97
[2024-12-17] MEDS: meropenem 500 mg SDV IVP ×2 (05:25→17:09)
[2024-12-17] MEDS: sodium chloride 0.9% 1,000 ML 50 ML IV (05:26)
[2024-12-17 05:41] LABS: Basophils # 0.1 10^3/uL (0.0-0.1); Basophils % 1.1 %; Eosinophils # 0.6 10^3/uL (0.0-0.8); Eosinophils % 12.1 %; Hematocrit 28.5 % (37-53); Lymphocytes # 1.4 10^3/uL (0.8-4.8); Lymphocytes % 27.2 %; Mean Corpuscular HGB Conc 31.2 g/dL (30-55); Mean Corpuscular Hemoglobin 27.7 pg (27-33); Mean Corpuscular Volume 88.8 fl (82-101); Mean Platelet Volume 8.9 fL (7.4-10.4); Monocytes # 0.9 10^3/uL (0.2-0.9); Monocytes % 16.2 %; Neutrophils # 2.26 10^3/uL (1.8-7.7); Neutrophils % 42.6 %; Nucleated Red Blood Cells % 0 %; Platelet Count 223 10^3/cmm (157-399); Red Blood Count 3.21 10^6/uL (3.85-5.65); Red Cell Distribution Width 17.1 % (12.1-15.1)
[2024-12-17 06:00] VITALS: BMI 29.0
[2024-12-17 06:02] LABS: Glucose Point of Care 111 mg/dL (70-110)
[2024-12-17 06:07] LABS: Alanine Aminotransferase 15 U/L (0-41); Albumin Level 2.5 g/dL (3.5-5.2); Alkaline Phosphatase 76 U/L (40-130); Anion Gap 14.2 (5-19); Aspartate Amino Transferase 12 U/L (0-40); Blood Urea Nitrogen 43 mg/dL (8-23); Calcium 8.4 mg/dL (8.5-10.5); Carbon Dioxide 17 mmol/L (22-29); Chloride 111 mmol/L (98-107); Creatinine Clr Calc Pharmacy 28.8253; Globulin 2.9 g/dL (1.3-4.6); Glucose 104 mg/dL (65-115); Magnesium 1.5 mg/dL (1.7-2.3); Osmolality Calculated 297 mOsm/kg (285-295); Phosphorus 3.1 mg/dL (2.5-4.5); Potassium 4.2 mmol/L (3.5-5.1); Sodium 138 mmol/L (136-145); Total Bilirubin 0.3 mg/dL (0.15-1.2); Total Protein 5.4 g/dL (6.6-8.7)
[2024-12-17 08:00] VITALS: BP 128/61; PULSE 80; RESP 16; TEMP 36.4; O2SAT 99
[2024-12-17] MEDS: aspirin 81 mg EC Tablet PO (09:26)
[2024-12-17] MEDS: gabapentin 100 mg Capsule PO ×2 (09:26→21:55)
[2024-12-17] MEDS: sodium bicarbonate 650 mg Tablet PO ×3 (09:27→21:55)
[2024-12-17] MEDS: levothyroxine 25 mcg Tablet PO (09:27)
[2024-12-17] MEDS: finasteride 5 mg Tablet PO (09:27)
[2024-12-17] MEDS: clopidogrel 75 mg Tablet PO (09:27)
--- NOTE | 2024-12-17 10:04 | PC.CHAP ---
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 c.o.d. clerk visit [] Patient/Family/Request visit [] Outpatient visit [] Follow-up visit [] Physician referral [] Code/Alert [x] Routine visit [] Staff referral [] Actively dying [] Patient sleeping [] Family support [] [] Out of room [] Palliative care [] [] Receiving care in room [] Pre-surgical visit [] Trauma [] Long length of stay [] ICU visit [] Other: Relational/Emotional Strength [x] Patient feels connected with others/family/visitors/staff [] Distress [] Loneliness/isolation [] Abandonment Spirituality of Patient [x] Person of Leona [] Attends Spiritism of their [place] [x] Believes in Prayer [] Reads Bible or Yazdanism materials [] There are Spiritual issues to be addressed State Attorney Interventions [x] Prayer [] Active listening [x] Non-anxious presence [x] Spiritual/emotional support [] Crisis/trauma care [] Spiritual counseling [] Bereavement support [] Provided bereavement packet [] Provided Bible/devotional materials [] Provided toy/stuffed animal, coloring book to patient or family member [] Provided Communion [] Anointing/[place] [] Salvation [x] Completed spiritual assessment [] Other: Impact on Illness or Injury [] Angry [] Fearful [] Anxious [] Often cries [] Exhaustion [] Unable to work [] Unable to attend anabaptist [] Unable to walk/stand [] Unable to read [] Unable to drive [] Unable to eat/drink [] Unable to sleep [] Unable to be with family [] Patient intubated [] Other: Summary Time spent with patient 5 min
[2024-12-17 11:49] LABS: Glucose Point of Care 149 mg/dL (70-110)
[2024-12-17 12:00] VITALS: BP 95/60; PULSE 85; RESP 19; TEMP 36.4; O2SAT 97
[2024-12-17] MEDS: insulin lispro 100 unit/1 mL SUBCUT ×2 (12:17→17:10)
[2024-12-17 16:00] VITALS: BP 147/73; PULSE 81; RESP 17; TEMP 36.4; O2SAT 100
--- NOTE | 2024-12-17 16:10 | P.PN_ITS ---
Vitals/I&O/Wt Last Vital Signs Temp 97.6 F 12/17/24 12:00 Pulse 85 12/17/24 12:00 Resp 19 H 12/17/24 12:00 BP 95/60 12/17/24 12:00 Pulse Ox 97 12/17/24 12:00 O2 Del Method Room Air 12/17/24 12:00 12/17/24 12/17/24 12/17/24 06:59 14:59 22:59 Intake Total 923.333 / 2163.333 720 / 720 Output Total 2650 / 3050 300 / 300 Balance -1726.667 / -886.667 420 / 420 Weight last 48 hrs Weight 89.358 kg Weight 89.584 kg Physical Exam 2 Urinary Catheter Management: Cueva: Cath Placed During This Visit: yes Reason for Continuing Indwelling Catheter: Chronic Indwelling Urinary Catheter on Admission Urinary Catheter Date of Insertion: 12/15/24 Urinary Catheter Time of Insertion: 14:40 Data 12/17/24 05:15 12/17/24 05:15 A&P Assessment and plan (1) Complicated UTI (urinary tract infection): (2) Acute kidney injury: (3) Sepsis: (4) Hyperglycemia: (5) BPH (benign prostatic hyperplasia): (6) Diabetes mellitus: Qualifiers: Diabetes mellitus complication status: without complication Diabetes mellitus snf insulin use: without snf use Diabetes mellitus type: t ype 2 Qualified Code(s): E11.9 - Type 2 diabetes mellitus without complications (7) Secondary malignant neoplasm of unspecified lung: (8) Cancer of left kidney: (9) Pyelonephritis: Plan Complicated urinary tract infection, concerns for pyelonephritis -Given Cueva catheter placement -History of BPH -History of metastatic renal carcinoma, Inlyta and Keytruda currently on hold, immunocompromise state CT/CT abdomen pelvis wo con [id number] IMPRESSION: 1. Ongoing moderate to severe bilateral hydroureteronephrosis to the level of the urinary bladder as well as perinephric and periureteral fat stranding. Underlying infection/inflammation is suspected. 2. Decompressed urinary bladder. Ongoing bladder wall thickening. Mild pericystic fat stranding is slightly improved from prior, though ongoing cystitis is possible. Correlate with physical exam findings and urinalysis. 3. Remainder stable. Plan -Cueva catheter was changed out 12/15/2024 -Blood cultures -Urine culture -Meropenem -Monitor closely History of moderate to severe bilateral hydroureteronephrosis Sepsis secondary to complicated UTI, improving BPH, continue Flomax, finasteride Hypertension hold blood pressure medications Hyperglycemia, type 2 diabetes, low-dose sliding scale Pseudohyponatremia Acute kidney injury likely sec to complicated UTI, sepsis, IV fluids -History of bilateral hydronephrosis -Awaiting records from [facility] History of renal cell carcinoma, metastatic -Inlyta and Keytruda is on hold Metabolic acidosis, likely associate with sepsis, renal failure, hyperglycemia,s odium bicarb PDMP PDMP Reviewed: Not Reviewed Attestations 2 Medical Necessity Statement*: Patient requires hospitalization for complicated UTI, concerns for pyelonephritis, chronic Cueva Diagnoses Complicated UTI (urinary tract infection) N39.0 Acute kidney injury N17.9 Sepsis A41.9 Hyperglycemia R73.9 BPH (benign prostatic hyperplasia) N40.0 Type 2 diabetes mellitus without complication, without long-term current use of insulin E11.9 Diabetes mellitus complication status: without complication Diabetes mellitus termite treater helper insulin use: without snf use Diabetes mellitus type: type 2 Secondary malignant neoplasm of unspecified lung C78.00 Cancer of left kidney C64.2 Pyelonephritis N12
[2024-12-17 16:17] LABS: Glucose Point of Care 163 mg/dL (70-110)
[2024-12-17] MEDS: pantoprazole 40 mg SDV IVP (17:09)
[2024-12-17] MEDS: tamsulosin 0.4 mg Capsule 0.8 MG PO (17:10)
[2024-12-17] MEDS: enoxaparin 30 mg/0.3 mL Syringe SUBCUT (17:10)
[2024-12-17 20:00] VITALS: BP 147/81; PULSE 97; RESP 19; TEMP 36.4; O2SAT 97
[2024-12-17 21:40] LABS: Glucose Point of Care 249 mg/dL (70-110)
[2024-12-17 21:40] LABS: Glucose Point of Care 216 mg/dL (70-110)
[2024-12-17] MEDS: atorvastatin 40 mg Tablet 80 MG PO (21:55)
[2024-12-17] MEDS: mirtazapine 15 mg Tablet PO (21:55)
[2024-12-17 23:55] VITALS: BP 155/89; PULSE 100; RESP 16; TEMP 36.4; O2SAT 92
[2024-12-18] MEDS: sodium chloride 0.9% 1,000 ML 50 ML IV (01:32)
[2024-12-18 04:00] VITALS: BP 137/82; PULSE 82; RESP 16; TEMP 36.4; O2SAT 97
[2024-12-18 05:34] LABS: Basophils # 0.1 10^3/uL (0.0-0.1); Basophils % 1.1 %; Eosinophils # 0.8 10^3/uL (0.0-0.8); Eosinophils % 13.6 %; Hematocrit 28.1 % (37-53); Lymphocytes # 1.2 10^3/uL (0.8-4.8); Lymphocytes % 21.3 %; Mean Corpuscular Hemoglobin 28.1 pg (27-33); Mean Corpuscular Volume 90.6 fl (82-101); Mean Platelet Volume 9.1 fL (7.4-10.4); Monocytes # 0.9 10^3/uL (0.2-0.9); Monocytes % 16.8 %; Neutrophils % 46.5 %; Nucleated Red Blood Cells % 0 %; Platelet Count 237 10^3/cmm (157-399); Red Cell Distribution Width 17.1 % (12.1-15.1); White Blood Count 5.59 10^3/uL (3.29-11.43)
[2024-12-18 05:44] VITALS: BMI 29.0
[2024-12-18 06:06] LABS: Anion Gap 14.4 (5-19); Blood Urea Nitrogen 41 mg/dL (8-23); Calcium 8.6 mg/dL (8.5-10.5); Carbon Dioxide 18 mmol/L (22-29); Chloride 113 mmol/L (98-107); Creatinine Clr Calc Pharmacy 27.5923; Glucose 166 mg/dL (65-115); Osmolality Calculated 306 mOsm/kg (285-295); Potassium 4.4 mmol/L (3.5-5.1); Sodium 141 mmol/L (136-145)
[2024-12-18] MEDS: meropenem 500 mg SDV IVP (06:12)
[2024-12-18 07:45] VITALS: BP 120/58; PULSE 85; RESP 18; TEMP 36.6; O2SAT 97
[2024-12-18 09:10] LABS: Glucose Point of Care 154 mg/dL (70-110)
[2024-12-18 09:10] LABS: Glucose Point of Care 178 mg/dL (70-110)
[2024-12-18] MEDS: insulin lispro 100 unit/1 mL SUBCUT ×2 (09:35→11:48)
[2024-12-18] MEDS: aspirin 81 mg EC Tablet PO (09:36)
[2024-12-18] MEDS: levothyroxine 25 mcg Tablet PO (09:36)
[2024-12-18] MEDS: sodium bicarbonate 650 mg Tablet PO (09:36)
[2024-12-18] MEDS: clopidogrel 75 mg Tablet PO (09:37)
[2024-12-18] MEDS: gabapentin 100 mg Capsule PO (09:40)
[2024-12-18] MEDS: finasteride 5 mg Tablet PO (09:40)
[2024-12-18 10:36] LABS: Glucose Point of Care 244 mg/dL (70-110)
[2024-12-18 11:25] LABS: C.Diff PCR (Lab) NEGATIVE (Negative)
--- NOTE | 2024-12-18 11:33 | P.DS_ITS ---
Discharge Providers Date of Admission: 12/14/24 16:28 Date of Discharge: December 18, 2024 Attending Provider at Admission: Geoff Reynoso MD Attending Provider at Discharge: Geoff Reynoso MD Primary Care Provider: Lenny Degroot MD Diagnoses at Discharge Discharge Diagnosis (1) Complicated UTI (urinary tract infection): Status: Acute (2) Acute kidney injury: Status: Acute (3) Sepsis: Status: Acute (4) Hyperglycemia: Status: Acute (5) BPH (benign prostatic hyperplasia): Status: Acute (6) Diabetes mellitus: Status: Acute Qualifiers: Diabetes mellitus complication status: without complication Diabetes mellitus snf insulin use: without snf use Diabetes mellitus type: type 2 Qualified Code(s): E11.9 - Type 2 diabetes mellitus without complications (7) Secondary malignant neoplasm of unspecified lung: Status: Acute (8) Cancer of left kidney: Status: Acute (9) Pyelonephritis: Status: Acute Reason for Visit Reason for Visit: hyperglycemia Hospital Course Hospital Course Elliot Lawton is a 79 year old male with a past medical history of renal cell carcinoma with lung metastasis, on axitinib, follows up with urology history of frequent UTIs recent transfer to [facility] for a UTI, history of bilateral hydroureteronephrosis, patient's tells me that when he was up at [facility] ED did not do any surgery they said that the prostate was the issue, so they put in a Cueva catheter, he was managed on antibiotics, but discharged on oral antibiotics, he comes back to [facility] due to weakness, fatigue. Currently patient is alert oriented x 3, following all commands, denies any fevers, no chills, there is been concerns of hyperglycemia, no nausea, no vomiting, no flank pain he does remember the last time his Cueva catheter was changed. does tell me that since getting to [place] from [facility], he is lost about 14 pounds. tells me that that urologist at [facility] advised him that he has to get stronger before prostate surgery Patient was admitted [facility] for complicated UTI with concerns for pyelonephritis, with Cueva catheter in place with history of bilateral h ydroureteronephrosis, received IV antibiotics, overall clinically improved his Cueva catheter was changed 12/15/2024. On discharge we will discharge him on 5 days of p.o. Levaquin, creatinine on discharge is 2.4, patient has a follow-up with urology on January 09, [address] [facility] in [place] which he should keep. Patient has history of metastatic renal cell carcinoma, follow-up with Dr. Ramos as outpatient Patient CT scan shows ongoing moderate to severe bilateral hydroureteronephrosis to the level of the urinary bladder, patient was transferred to [facility] for BPH, Cuvea catheter was placed, and he has had a Cueva catheter since then. Due to persistent hydroureteronephrosis, patient will need to follow-up with urology in January 09. I have requested medical records from [facility] but have not received them as of yet, patient's creatinine has improved to 2.4 on discharge. I have discussed with patient's and his in detail about CT scan findings, I am worried that this is reason why his creatinine remains at 2.4, but back in August 2024 his creatinine was in the 1.4-1.6 range. My worry is that with his history of metastatic renal cell carcinoma could imaging findings be related to metastatic malignancy, nonetheless he must follow-up with urology, possible consideration of cystoscopy. Patient and voiced understanding, all questions answered, agreed to proceed. Or history of BPH, patient's tells me that urology at [facility] is considering surgical intervention, but back in September when she was initially hospitalized he was weak and surgery was deferred Physical Exam Const: COMMON NORMALS: no acute distress and patient oriented x3 Resp: COMMON NORMALS: normal respiratory effort, No retractions, No use of accessory muscles and clear to auscultation bilaterally AUSCULTATION: clear to auscultation bilaterally Cardio: COMMON NORMALS: regular rate, regular rhythm, S1 normal heart sound present and S2 normal heart sound present RATE: regular rate RHYTHM: regular rhythm HEART SOUNDS: S1 normal heart sound present and S2 normal heart sound present GI: COMMON NORMALS: Normal to inspection, nondistended, normoactive bowel sounds present and non-tender Extremity: COMMON NORMALS: no pedal edema Neuro: COMMON NORMALS: patient oriented x3 Psych: COMMON NORMALS: mental status grossly normal Urinary Catheter Management: Cueva: Cath Placed During This Visit: yes Reason for Continuing Indwelling Catheter: Chronic Indwelling Urinary Catheter on Admission Urinary Catheter Date of Insertion: 12/15/24 Urinary Catheter Time of Insertion: 14:40 Discharge Data Studies Completed and Pending Completed Studies During Hospitalization Category Date Time Status CT abdomen pelvis wo con [id number] Routine Cat Scan 12/14/24 17:06 Completed Pending at discharge Category Date Time Status Basic Metabolic Panel AM LABS Lab 12/19/24 04:00 Ordered Basic Metabolic Panel AM LABS Lab 12/20/24 04:00 Ordered Blood Culture Stat Lab 12/14/24 16:34 Results Complete Blood Count w/Auto AM LABS Lab 12/19/24 04:00 Ordered Complete Blood Count w/Auto AM LABS Lab 12/20/24 04:00 Ordered Radiology Impressions Abdomen/Pelvis CT 12/14/24 17:06 IMPRESSION: 1. Ongoing moderate to severe bilateral hydroureteronephrosis to the level of the urinary bladder as well as perinephric and periureteral fat stranding. Underlying infection/inflammation is suspected. 2. Decompressed urinary bladder. Ongoing bladder wall thickening. Mild pericystic fat stranding is slightly improved from prior, though ongoing cystitis is possible. Correlate with physical exam findings and urinalysis. 3. Remainder stable. Laboratory Results WBC 5.59 10^3/uL (3.29-11.43) 12/18/24 04:45 RBC 3.10 10^6/uL (3.85-5.65) L 12/18/24 04:45 Hgb 8.70 g/dL (11.27-16.99) L 12/18/24 04:45 Hct 28.1 % (37-53) L 12/18/24 04:45 MCV 90.6 fl (82-101) 12/18/24 04:45 MCH 28.1 pg (27-33) 12/18/24 04:45 MCHC 31.0 g/dL (30-55) 12/18/24 04:45 RDW 17.1 % (12.1-15.1) H 12/18/24 04:45 Plt Count 237 10^3/cmm (157-399) 12/18/24 04:45 MPV 9.1 fL (7.4-10.4) 12/18/24 04:45 Neut % (Auto) 46.5 % 12/18/24 04:45 Lymph % (Auto) 21.3 % 12/18/24 04:45 Mckenzie % (Auto) 16.8 % 12/18/24 04:45 Eos % (Auto) 13.6 % 12/18/24 04:45 Baso % (Auto) 1.1 % 12/18/24 04:45 Neut # (Auto) 2.60 10^3/uL (1.8-7.7) 12/18/24 04:45 Lymph # (Auto) 1.2 10^3/uL (0.8-4.8) 12/18/24 04:45 Mckenzie # (Auto) 0.9 10^3/uL (0.2-0.9) 12/18/24 04:45 Eos # (Auto) 0.8 10^3/uL (0.0-0.8) 12/18/24 04:45 Baso # (Auto) 0.1 10^3/uL (0.0-0.1) 12/18/24 04:45 Nucleated RBC % (auto) 0 % 12/18/24 04:45 Nucleated RBCs # 0.0 /100WBC 12/18/24 04:45 Specimen Type Arterial 12/14/24 13:28 Sample Site Radial, left 12/14/24 13:28 ABG pH 7.38 (7.35-7.45) 12/14/24 13:28 ABG pCO2 27.7 mmHg (35-45) L 12/14/24 13:28 ABG pO2 95.0 mmHg (80.0-100.0) 12/14/24 13:28 ABG PO2/FiO2 Ratio 452 12/14/24 13:28 ABG HCO3 16.3 mmol/L (22-26) L 12/14/24 13:28 ABG O2 Saturation 98.4 12/14/24 13:28 ABG Base Excess -7.7 mmol/L (-2.0-2.0) L 12/14/24 13:28 Dipesh Test Pos 12/14/24 13:28 A-a O2 Gradient 2.5 mmHg (5-10) L 12/14/24 13:28 Hematocrit 31.0 % (42-52) L 12/14/24 13:28 Hgb O2 Saturation 96.8 % (95-100) 12/14/24 13:28 Carboxyhemoglobin 0.9 %THgb (0.4-20.1) 12/14/24 13:28 Methemoglobin 0.8 % (0.4-1.5) 12/14/24 13:28 Total Hemoglobin 10.1 g/dL (14-18) L 12/14/24 13:28 Sodium 130.0 mmol/L (131-143) L 12/14/24 13:28 Potassium 4.4 mmol/L (3.5-5.0) 12/14/24 13:28 Glucose 311.0 mg/dL (70-115) H 12/14/24 13:28 Ionized Calcium 1.2 mmol/L (1.1-1.4) 12/14/24 13:28 O2 Delivery Device Room air 12/14/24 13:28 FiO2 21.0 % 12/14/24 13:28 Public Relations Senior Associate ID [place] 12/14/24 13:28 Sodium 141 mmol/L (136-145) 12/18/24 04:45 Potassium 4.4 mmol/L (3.5-5.1) 12/18/24 04:45 Chloride 113 mmol/L (98-107) H 12/18/24 04:45 Carbon Dioxide 18 mmol/L (22-29) L 12/18/24 04:45 Anion Gap 14.4 (5-19) 12/18/24 04:45 BUN 41 mg/dL (8-23) H 12/18/24 04:45 Creatinine 2.4 mg/dL (0.7-1.2) H 12/18/24 04:45 GFR Calculation Not Reportable 12/18/24 04:45 Glucose 166 mg/dL (65-115) H 12/18/24 04:45 POC Glucose 244 mg/dL (70-110) H 12/18/24 10:34 Estimat Average Glucose 174 12/14/24 13:33 Hemoglobin A1c 7.7 % (4.0-6.0) H 12/14/24 13:33 Calculated Osmolality 306 mOsm/kg (285-295) H 12/18/24 04:45 Lactic Acid 2.4 mmol/L (0.5-2.2) H 12/14/24 13:33 Lactic Acid (Sepsis) 1.8 mmol/L (0.5-2.2) 12/14/24 16:34 Calcium 8.6 mg/dL (8.5-10.5) 12/18/24 04:45 Phosphorus 3.1 mg/dL (2.5-4.5) 12/17/24 05:15 Magnesium 1.5 mg/dL (1.7-2.3) L 12/17/24 05:15 Total Bilirubin 0.3 mg/dL (0.15-1.2) 12/17/24 05:15 AST 12 U/L (0-40) 12/17/24 05:15 ALT 15 U/L (0-41) 12/17/24 05:15 Alkaline Phosphatase 76 U/L (40-130) 12/17/24 05:15 C-Reactive Protein 31.5 mg/L (0.0-4.9) H 12/14/24 13:33 NT-Pro-B Natriuret Pep 387 pg/mL (0-450) 12/14/24 13:33 Total Protein 5.4 g/dL (6.6-8.7) L 12/17/24 05:15 Albumin 2.5 g/dL (3.5-5.2) L 12/17/24 05:15 Globulin 2.9 g/dL (1.3-4.6) 12/17/24 05:15 Procalcitonin 0.15 ng/mL (0-0.5) 12/14/24 13:33 TSH 4.65 uIU/mL (0.27-4.20) H 12/14/24 13:33 Urine Color Yellow (Yellow) 12/14/24 15:50 Urine Appearance Turbid (CLEAR) A 12/14/24 15:50 Urine pH 5.5 (5-7) 12/14/24 15:50 Ur Specific [place] 1.011 (1.005-1.030) 12/14/24 15:50 Urine Protein 3+ (Negative) A 12/14/24 15:50 Urine Glucose (UA) Negative (Normal) 12/14/24 15:50 Urine Ketones Negative (Negative) 12/14/24 15:50 Urine Blood 3+ (Negative) A 12/14/24 15:50 Urine Nitrate Negative (Negative) 12/14/24 15:50 Urine Bilirubin Negative (Negative) 12/14/24 15:50 Urine Urobilinogen 0.2 mg/dL (Negative) 12/14/24 15:50 Ur Leukocyte Esterase 3+ (Negative) A 12/14/24 15:50 Urine RBC 25-40 /hpf (0-2) H 12/14/24 15:50 Urine WBC >100 /hpf (0-5) H 12/14/24 15:50 Ur Squamous Epith Cells 0-4 /hpf (0-5) H 12/14/24 15:50 Amorphous Sediment Not Reportable 12/14/24 15:50 Urine Bacteria 2+ /hpf (NONE) H 12/14/24 15:50 C. difficile (PCR) Negative (Negative) 12/18/24 09:12 Vitals Last Vital Signs Temp 97.9 F 12/18/24 07:45 Pulse 85 12/18/24 07:45 Resp 18 12/18/24 07:45 BP 120/58 12/18/24 07:45 Pulse Ox 97 12/18/24 07:45 O2 Del Method Room Air 12/18/24 07:45 Discharge Plan Discharge Patient Disposition: Home Condition: Stable Prescriptions: New insulin lispro [Humalog U-100 Insulin] 100 unit/mL Solution See Rx Instructions .ROUTE .COMPLEX Qty: 10 0RF Rx Instructions: Inject, subcut, 3 times daily, after meals, based on sliding scale provided levofloxacin 750 mg tablet 750 mg PO DAILY 5 Days Qty: 5 0RF sodium bicarbonate 650 mg Tablet 650 mg PO TID 7 Days Qty: 21 0RF gabapentin 100 mg Capsule 100 mg PO Q12H 30 Days Qty: 60 0RF mirtazapine 15 mg Tablet 15 mg PO BEDTIME 30 Days Qty: 30 0RF Continued loperamide [Imodium A-D] 2 mg capsule 2 mg PO .COMPLEX PRN (Reason: loose stool) Patient Comments: per instructions and patient confirmation-2 caplets after first stool; 21 caplet after each subsequent loose stool; but no more than4 caplets in 24 hours Rx Instructions: 2 mg orally PRN; nitroglycerin [Nitrostat] 0.4 mg tablet, sublingual 0.4 mg SUBLINGUAL Q5M PRN (Reason: chest pain) Qty: 50 5RF Rx Instructions: for 3 doses Inlyta 1 mg tablet 3 mg PO BID Qty: 168 0RF clopidogrel 75 mg tablet 75 mg PO DAILY levothyroxine 25 mcg tablet 25 mcg PO DAILY tamsulosin 0.4 mg capsule 0.8 mg PO QPM finasteride 5 mg tablet 5 mg PO DAILY acetaminophen 325 mg Tablet 650 mg PO Q4H PRN (Reason: Pain) ondansetron 4 mg tablet,disintegrating 4 mg PO Q6H Glucerna Liquid 1 ea PO DAILY Held metoprolol succinate [Toprol XL] 25 mg tablet extended release 24 hr 25 mg PO DAILY Qty: 90 3RF Hold Instructions: Resume on 12/30/24. isosorbide mononitrate 60 mg tablet extended release 24 hr 60 mg PO BID Hold Instructions: Resume on 12/30/24. hold until you see primary care Discharge Orders: Discharge Order (Routine); Ordered 12/18/24 Ordered By: Geoff Reynoso Referrals: Lenny Degroot MD [Primary Care Provider] - Discharge Diet: Cardiac Discharge Activity: Resume usual activity Patient Instructions: Opioid Safety Activity Restrictions/Additional Instructions: -Please monitor your blood sugars closely -Monitor your blood sugars 3 times daily as after meals -Please record your blood sugars, and a blood sugar log -For your NovoLog -Please inject blood sugar after meals based on sliding scale provided -Do not inject insulin if you do not eat as hypoglycemia kills -This is a NovoLog sliding scale -Insulin sliding ?fingerstick? Insulin ?141-180?0 units/sq 181-220?2 units/sq ?221-260?4 units/sq ?261-300 6 units/sq ?301-350?8 units/sq ?351-400 10 units/sq ?401-450?12 units/sq >450? 14units/sq -If your blood sugar is greater than 500 go to the emergency room -If your blood sugar is less than 60 or at anytime you feel lightheaded or dizzy or diaphoretic or have chest palpitations check your blood sugar, and eat a hard candy or drink orange juice and go immediately to the emergency room -Remember hypoglycemia kills, so if his blood sugar is less than 60 we have to increase it by taking in a sugary meal such as a hard candy or orange juice and go to the emergency room -If you have any questions please call us where here to help -Recheck BMP in 72 hours Discharge Attestations Time Spent in Discharge Care*: greater than 30 min Status at Discharge: Cognitive status at discharge: cognitively intact , Behavioral status at discharge: cooperative , Quality Metrics Clinical Quality Measures [ No reported AMI, CVA or VTE this stay] Coding Level of Care Code 57630 Total time (in minutes) for Discharge: 45 Diagnoses Complicated UTI (urinary tract infection) N39.0 Acute kidney injury N17.9 Sepsis A41.9 Hyperglycemia R73.9 BPH (benign prostatic hyperplasia) N40.0 Type 2 diabetes mellitus without complication, without long-term current use of insulin E11.9 Diabetes mellitus complication status: without complication Diabetes mellitus snf insulin use: without snf use Diabetes mellitus type: type 2 Secondary malignant neoplasm of unspecified lung C78.00 Cancer of left kidney C64.2 Pyelonephritis N12
[2024-12-18 11:37] VITALS: BP 124/65; PULSE 92; RESP 16; TEMP 36.4; O2SAT 98
--- NOTE | 2024-12-18 12:48 | PC.NURSE ---
this nurse made [address] [facility] to give report on this pt. no one answered, pts ride will be here at 1300
--- NOTE | 2024-12-18 13:06 | PC.NURSE ---
at approx. 1305, sanam called from [facility] for report, report given at this time.
--- NOTE | 2024-12-18 14:40 | PC.SOCIAL ---
IMM UPDATED IMM dated and initialed, copy placed in chart and copy given to patient
== END 2024-12-18 14:30 | disposition home or self-care (01) | DRG 872 ==
LOC: ER 16:45 → MEDSURG 19:23
PROVIDERS: Admitting Provider Family Medicine; Emergency Provider Family Medicine; PCP Family Medicine; Visit Provider Family Medicine
DX: A41.9 Sepsis, unspecified organism (principal); N12 Tubulo-interstitial nephritis, not specified as acute or chronic; N17.9 Acute kidney failure, unspecified; C64.9 Malignant neoplasm of unspecified kidney, except renal pelvis; C78.00 Secondary malignant neoplasm of unspecified lung; E87.20 Acidosis, unspecified; R65.20 Severe sepsis without septic shock; E11.649 Type 2 diabetes mellitus with hypoglycemia without coma; E11.40 Type 2 diabetes mellitus with diabetic neuropathy, unspecified; N40.0 Benign prostatic hyperplasia without lower urinary tract symptoms; Z66 Do not resuscitate; I10 Essential (primary) hypertension; E78.5 Hyperlipidemia, unspecified; I25.10 Atherosclerotic heart disease of native coronary artery without angina pectoris; Z87.891 Personal history of nicotine dependence; Z79.02 Long term (current) use of antithrombotics/antiplatelets
CPT/HCPCS: 36415; 36416; 36600; 51702; 74176; 80048; 80051; 80053; 81001; 82330; 82805; 82962; 83036; 83605; 83735; 83880; 84100; 84145; 84443; 85025; 86140; 87040; 87086; 87493; 93005; 94664; 96372; 96374; 96375; 97161; 97167; 97530; 97535; 99285; J0696; J1650; J1815; J2185; J2470; J7030

== ENCOUNTER 2025-02-07 05:40 | Emergency (ER) | payer MEDICARE, SELFPAY ==
[2025-02-07 05:45] VITALS: BP 135/63; PULSE 65; RESP 18; TEMP 36.6; O2SAT 99; BMI 34.0
--- NOTE | 2025-02-07 06:05 | CTR_ITS ---
PROCEDURE INFORMATION: Exam: CT Cervical Spine Without Contrast Exam date and time: 02/07/2025 6:13 AM Age: 79 years old Clinical indication: Injury or trauma; Blunt trauma; Injury date: This morning; Injury details: Fall from bed TECHNIQUE: Imaging protocol: Computed tomography of the cervical spine without contrast. Radiation optimization: All CT scans at this facility use at least one of these dose optimization techniques: automated exposure control; mA and/or kV adjustment per patient size (includes targeted exams where dose is matched to clinical indication); or iterative reconstruction. COMPARISON: No relevant prior studies available. RADIATION DOSE METRICS: Total DLP (mGy-cm): 273.3 FINDINGS: Bones: On axial CT images, no definite acute fracture is visible. Sagittal and coronal reconstructions show no acute fracture or subluxation. Moderate to severe degenerative disc changes and facet joint arthritis at multiple levels. Apparent prior laminectomies at C2 and C3. Very prominent posterior bony spurring/calcification in the posterior longitudinal ligament throughout the C2-C3 region. Less prominent similar findings at C4-C5. These findings cause moderate central spinal canal stenosis in these regions. Prominent anterior bridging osteophytes at multiple levels. No definite/significant disc herniation by CT, MRI could be more sensitive if clinically indicated. Lungs: No significant acute finding in the upper lungs. Vasculature: Moderate carotid artery calcifications seen in the neck bilaterally. CT/CT cervical spin wo con* [id number] IMPRESSION: 1. No definite acute fracture or subluxation by CT. 2. Prominent degenerative/arthritic changes as above. 3. Other findings discussed above.
--- NOTE | 2025-02-07 06:06 | CTR_ITS ---
PROCEDURE INFORMATION: Exam: CT Head Without Contrast Exam date and time: 02/07/2025 6:13 AM Age: 79 years old Clinical indication: Injury or trauma; Blunt trauma (contusions or hematomas); Without loss of consciousness; Injury date: This morning; Injury details: Fall from bed TECHNIQUE: Imaging protocol: Computed tomography of the head without contrast. Radiation optimization: All CT scans at this facility use at least one of these dose optimization techniques: automated exposure control; mA and/or kV adjustment per patient size (includes targeted exams where dose is matched to clinical indication); or iterative reconstruction. COMPARISON: CT head wo con* [id number] 10/08/2024 9:13 PM RADIATION DOSE METRICS: Total DLP (mGy-cm): 1082.1 FINDINGS: Brain: No acute intracranial hemorrhage or mass effect. There is decreased attenuation in the periventricular white matter, likely from microvascular disease. No definite acute infarct by CT. Cerebral ventricles: Ventricle size is normal for age. Paranasal sinuses: Included paranasal sinuses are essentially clear. Mastoid air cells: No significant acute finding. Bones: No definite acute skull fracture. Soft tissues: No significant acute finding. Vasculature: Vascular calcifications in the internal carotid and vertebral basilar systems. CT/CT head wo con* [id number] IMPRESSION: 1. No acute intracranial hemorrhage or mass effect. 2. Changes of microvascular disease. 3. Other findings discussed above.
--- NOTE | 2025-02-07 06:35 | W.ED.FALL ---
HPI - Fall General: Chief Complaint: Fall Stated Complaint: Fall, Hit head Time Seen by Provider: 02/07/25 05:53 History of Present Illness: 79-year-old male presents to the emergency room from intermediate via EMS reports he fell out of bed and hit his head. He has a slight reddened area on the left side of his head anterior parietal area. He denies loss consciousness denies any other injury. He states he does not hurt anywhere he denies even having a headache. He has not had any nausea or vomiting. Associated symptoms-after fall: Denies abdominal pain, chest pain or neck pain Related Data Home Medications ?Medication ?Instructions ?Recorded ?Confirmed loperamide 2 mg capsule (Imodium 2 mg PO .COMPLEX PRN loose stool 12/21/23 12/14/24 A-D) clopidogrel 75 mg tablet 75 mg PO DAILY 09/01/24 12/14/24 finasteride 5 mg tablet 5 mg PO DAILY 09/01/24 12/14/24 levothyroxine 25 mcg tablet 25 mcg PO DAILY 09/01/24 12/14/24 tamsulosin 0.4 mg capsule 0.8 mg PO QPM 09/01/24 12/14/24 acetaminophen 325 mg tablet 650 mg PO Q4H PRN Pain 12/14/24 12/14/24 isosorbide mononitrate 60 mg 60 mg PO BID 12/14/24 12/14/24 tablet,extended release 24 hr Held on 12/18/24. Instructions: Resume on 12/30/24. hold until you see primary care nut.tx.gluc.intol,lac-free,soy 1 ea PO DAILY 12/14/24 12/14/24 (Glucerna oral liquid) ondansetron 4 mg disintegrating 4 mg PO Q6H 12/14/24 12/14/24 tablet Previous Rx's ?Medication ?Instructions ?Recorded nitroglycerin 0.4 mg sublingual 0.4 mg sublingual Q5M PRN chest 07/02/21 tablet (Nitrostat) pain #50 tabs metoprolol succinate 25 mg 25 mg PO DAILY #90 tabs 11/30/23 tablet,extended release 24 hr (Toprol XL) Held on 12/18/24. Instructions: Resume on 12/30/24. axitinib 1 mg tablet (Inlyta) 3 mg (3 x 1 mg) PO BID #168 tabs 10/22/24 insulin lispro 100 unit/mL See Rx Instructions .Route 12/18/24 subcutaneous solution (Humalog .COMPLEX #10 mL U-100 Insulin) Allergies Allergy/AdvReac Type Severity Reaction Status Date / Time No Known Allergies Allergy Verified 11/25/24 13:22 Review of Systems Const: Denies: fever(s) or chills Card: Denies: chest pain Resp: Denies: dyspnea GI: Denies: abdominal pain : Denies: dysuria, urinary frequency or urinary urgency Musc: Denies: neck pain or back pain Skin/Breast: Denies: rash PFSH ED PFSH: Medical History Renal cell cancer 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 stricture Polyuria 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 SOB (shortness of breath) CAD (coronary artery disease) Hypertension Hyperlipidemia DDD (degenerative disc disease) Surgical History H/O rotator cuff surgery H/O vasectomy H/O laminectomy S/P cataract surgery Family History Mother Cancer Father Diabetes Brother Diabetes CAD (coronary artery disease) Family/Other Suicide Denies family history of Clotting disorder Dementia Chronic kidney disease (CKD) Anesthesia complication Bleeding disorder Lung disease Stroke Social History Smoking and tobacco/nicotine status: former use of tobacco/nicotine (smoked for 10 years quit in the 70s) Quit status (tobacco/nicotine): has quit using Former quit date comment: 1ppd x 3 years as teenager Second hand smoke exposure: Yes Alcohol intake: current Alcohol intake frequency: few times a week Alcohol type: beer Substance/Drug Use: never Current occupational status: retired Physical Exam Const: COMMON NORMALS: no acute distress GENERAL APPEARANCE: cooperative and comfortable ORIENTATION/CONSCIOUSNESS: Yes awake HENMT: COMMON NORMALS: normocephalic, atraumatic and hearing grossly normal bilaterally HEAD & SCALP: normocephalic and atraumatic Resp: COMMON NORMALS: normal respiratory effort, No retractions, No use of accessory muscles and clear to auscultation bilaterally AUSCULTATION: clear to auscultation bilaterally Cardio: COMMON NORMALS: regular rate, regular rhythm and No murmurs present (Cardio) RATE: regular rate RHYTHM: regular rhythm GI: COMMON NORMALS: Soft to palpation and No hepatosplenomegaly present AUSCULTATION: Yes normoactive bowel sounds PALPATION: Yes Soft to palpation, No Tenderness to palpation present (GI), No Guarding due to palpation present (GI) and Yes No hepatosplenomegaly present Extremity: COMMON NORMALS: normal to inspection, capillary refill normal, no clubbing, cyanosis or edema, no calf tenderness and no pedal edema Skin: COMMON NORMALS: no rashes or lesions noted GENERAL SKIN EXAM: no rashes or lesions noted Course Vital Signs: Vital signs: Vital Signs Temperature 98 F 02/07/25 05:45 Pulse Rate 89 02/07/25 06:49 Respiratory Rate 16 02/07/25 06:49 Blood Pressure 128/37 02/07/25 06:49 Pulse Oximetry 99 02/07/25 06:49 Oxygen Delivery Me thod Room Air 02/07/25 06:49 MDM - Fall Medical Decision Making CT head does not show any acute findings. CT of the neck shows significant arthritic changes but no acute fractures. Patient is otherwise asymptomatic. Will discharge patient back to the intermediate no change in medications Medical Records I reviewed the patient's medical records. Lab Data I reviewed the patient's lab results. 02/07/25 06:50 02/07/25 06:50 Radiology Impressions Cervical Spine CT 02/07/25 06:05 IMPRESSION: 1. No definite acute fracture or subluxation by CT. 2. Prominent degenerative/arthritic changes as above. 3. Other findings discussed above. Head CT 02/07/25 06:06 IMPRESSION: 1. No acute intracranial hemorrhage or mass effect. 2. Changes of microvascular disease. 3. Other findings discussed above. Laboratory Results WBC 7.46 10^3/uL (3.29-11.43) 02/07/25 06:50 RBC 3.53 10^6/uL (3.85-5.65) L 02/07/25 06:50 Hgb 9.70 g/dL (11.27-16.99) L 02/07/25 06:50 Hct 31.9 % (37-53) L 02/07/25 06:50 MCV 90.4 fl (82-101) 02/07/25 06:50 MCH 27.5 pg (27-33) 02/07/25 06:50 MCHC 30.4 g/dL (30-55) 02/07/25 06:50 RDW 15.6 % (12.1-15.1) H 02/07/25 06:50 Plt Count 330 10^3/cmm (157-399) 02/07/25 06:50 MPV 9.0 fL (7.4-10.4) 02/07/25 06:50 Neut % (Auto) 48.6 % 02/07/25 06:50 Lymph % (Auto) 21.6 % 02/07/25 06:50 Nash % (Auto) 14.3 % 02/07/25 06:50 Eos % (Auto) 13.3 % 02/07/25 06:50 Baso % (Auto) 1.3 % 02/07/25 06:50 Neut # (Auto) 3.62 10^3/uL (1.8-7.7) 02/07/25 06:50 Lymph # (Auto) 1.6 10^3/uL (0.8-4.8) 02/07/25 06:50 Nash # (Auto) 1.1 10^3/uL (0.2-0.9) H 02/07/25 06:50 Eos # (Auto) 1.0 10^3/uL (0.0-0.8) H 02/07/25 06:50 Baso # (Auto) 0.1 10^3/uL (0.0-0.1) 02/07/25 06:50 Nucleated RBC % (auto) 0 % 02/07/25 06:50 Nucleated RBCs # 0.0 /100WBC 02/07/25 06:50 All radiology interpretation(s) finalized by discharge Discharge Plan Discharge Patient Disposition: Home Clinical Impression: Accidental fall from bed Condition: Stable Prescriptions: No Action loperamide [Imodium A-D] 2 mg capsule 2 mg PO .COMPLEX PRN (Reason: loose stool) Patient Comments: per instructions and patient confirmation-2 caplets after first stool; 21 caplet after each subsequent loose stool; but no more than4 caplets in 24 hours Rx Instructions: 2 mg orally PRN; nitroglycerin [Nitrostat] 0.4 mg tablet, sublingual 0.4 mg SUBLINGUAL Q5M PRN (Reason: chest pain) Qty: 50 5RF Rx Instructions: for 3 doses metoprolol succinate [Toprol XL] 25 mg tablet extended release 24 hr 25 mg PO DAILY Qty: 90 3RF Inlyta 1 mg tablet 3 mg PO BID Qty: 168 0RF clopidogrel 75 mg tablet 75 mg PO DAILY levothyroxine 25 mcg tablet 25 mcg PO DAILY tamsulosin 0.4 mg capsule 0.8 mg PO QPM finasteride 5 mg tablet 5 mg PO DAILY acetaminophen 325 mg Tablet 650 mg PO Q4H PRN (Reason: Pain) isosorbide mononitrate 60 mg tablet extended release 24 hr 60 mg PO BID ondansetron 4 mg tablet,disintegrating 4 mg PO Q6H Glucerna Liquid 1 ea PO DAILY insulin lispro [Humalog U-100 Insulin] 100 unit/mL Solution See Rx Instructions .ROUTE .COMPLEX Qty: 10 0RF Rx Instructions: Inject, subcut, 3 times daily, after meals, based on sliding scale provided Discharge Orders: Discharge ED (Routine); Ordered 02/07/25 Ordered By: Brenden Juarez Referrals: Lenny Degroot MD [Primary Care Provider] - Discharge Diet: Usual diet Discharge Activity: Resume usual activity Patient Instructions: Opioid Safety, Pain Management Activity Restrictions/Additional Instructions: Thank you for choosing [facility] for your healthcare needs today. It is very important that you follow up as instructed or that you return to the Emergency Department should you have concerns or if your condition changes or worsens in any way. Print Language: Moh[place] Coding Level of Care Code ED Crm Business Analyst for Ignacio Gomez
[2025-02-07 06:49] VITALS: BP 128/37; PULSE 89; RESP 16; O2SAT 99
[2025-02-07 06:59] LABS: Basophils # 0.1 10^3/uL (0.0-0.1); Basophils % 1.3 %; Eosinophils % 13.3 %; Hematocrit 31.9 % (37-53); Lymphocytes # 1.6 10^3/uL (0.8-4.8); Lymphocytes % 21.6 %; Mean Corpuscular HGB Conc 30.4 g/dL (30-55); Mean Corpuscular Hemoglobin 27.5 pg (27-33); Mean Corpuscular Volume 90.4 fl (82-101); Monocytes # 1.1 10^3/uL (0.2-0.9); Monocytes % 14.3 %; Neutrophils # 3.62 10^3/uL (1.8-7.7); Neutrophils % 48.6 %; Nucleated Red Blood Cells % 0 %; Platelet Count 330 10^3/cmm (157-399); Red Blood Count 3.53 10^6/uL (3.85-5.65); Red Cell Distribution Width 15.6 % (12.1-15.1); White Blood Count 7.46 10^3/uL (3.29-11.43)
[2025-02-07 07:17] LABS: Alanine Aminotransferase 15 U/L (0-41); Alkaline Phosphatase 104 U/L (40-130); Anion Gap 15.2 (5-19); Aspartate Amino Transferase 18 U/L (0-40); Blood Urea Nitrogen 54 mg/dL (8-23); Calcium 8.8 mg/dL (8.5-10.5); Carbon Dioxide 27 mmol/L (22-29); Chloride 99 mmol/L (98-107); Creatinine Clr Calc Pharmacy 25.4622; Globulin 3.8 g/dL (1.3-4.6); Glucose 147 mg/dL (65-115); Osmolality Calculated 299 mOsm/kg (285-295); Potassium 5.2 mmol/L (3.5-5.1); Sodium 136 mmol/L (136-145); Total Bilirubin 0.2 mg/dL (0.15-1.2); Total Protein 6.8 g/dL (6.6-8.7)
[2025-02-07 07:43] VITALS: BP 127/64; PULSE 71; O2SAT 99
--- NOTE | 2025-02-07 07:50 | DCPLANNER ---
connie diallo (sylvie) states that transportation is not available today. called for transport
== END 2025-02-07 09:00 | disposition home or self-care (01) ==
PROVIDERS: Emergency Provider Family Medicine; PCP Family Medicine
DX: S09.90XA Unspecified injury of head, initial encounter (principal); W06.XXXA Fall from bed, initial encounter; E78.5 Hyperlipidemia, unspecified; I25.10 Atherosclerotic heart disease of native coronary artery without angina pectoris; I10 Essential (primary) hypertension; Z87.891 Personal history of nicotine dependence; Z79.02 Long term (current) use of antithrombotics/antiplatelets; Z79.4 Long term (current) use of insulin
CPT/HCPCS: 36415; 70450; 72125; 80053; 85025; 99284